=== PATIENT | female | born 1935 | race Caucasian/White ===

== ENCOUNTER 2017-02-02 06:32 | Inpatient (IN) | payer MEDICARE, OTHER ==
[~2017-02-02] VITALS: Ht 165.1 cm; Wt 88.2 kg
[2017-02-02] VITALS (8 sets, daily range): BP systolic 114–133; BP diastolic 68–102; PULSE 85–98; RESP 17–20; TEMP 98.2; Ht 165.1 cm; Wt 88.2 kg
[2017-02-02] MEDS ORDERED: PROPOFOL 100 ML IV STA (06:36)
[2017-02-02] MEDS ORDERED: LEVETIRACETAM 1000 MG (PMX) 100 ML IVPB STA (06:36)
[2017-02-02] MEDS ORDERED: SOD CHLORIDE 0.9% 1,000 ML IV STA (06:36)
[2017-02-02] MEDS ORDERED: CEFEPIME 2GM/50 ML (PMX) 50 ML IVPB STA (06:44)
[2017-02-02] MEDS ORDERED: HYDROmorphONE 1 MG/ML SYG IV STA (06:44)
[2017-02-02] MEDS ORDERED: SODIUM CHLORIDE 0.9% 1L BAG IV* STA (06:44)
--- NOTE | 2017-02-02 06:58 | RADRPT ---
PROCEDURE: XR Chest. CLINICAL INDICATION: Seizure. Respiratory failure. TECHNIQUE: Portable single view of the chest COMPARISON: None. FINDINGS: Endotracheal tube is seen and appears in good position. Mild cardiomegaly. Calcification of the ao rta and mitral annulus. There is pulmonary vascular congestion with increased interstitial markings which may be due to interstitial edema. There may be early perihilar alveolar edema. No large eff usion is seen. Degenerative change of the spine. Right upper quadrant clips. IMPRESSION: Endotracheal tube in good position. Aortic atherosclerosis. Probable moderate congestive heart failu re. RPTAT: HLBE Physician Theo Date Time Electronically viewed and signed by Danielle Young Physician on 02/02/2017 06:58 LE/
[2017-02-02] MEDS ORDERED: ETOMIDATE 20 MG INJ ONE (07:00)
[2017-02-02] MEDS ORDERED: ACETAMINOPHEN 650 MG SUPP PR ONE (07:00)
[2017-02-02] MEDS ORDERED: SUCCINYLCHOLINE CHLORIDE 100 MG/5 ML SYG IV ONE (07:00)
[2017-02-02] MEDS ORDERED: VANCOMYCIN 1 GM (PMX) 250 ML IVPB ONE (07:00)
[2017-02-02] MEDS ORDERED: TRAM-40 PO (07:04)
[2017-02-02] MEDS ORDERED: ASCO500C7 PO (07:05)
[2017-02-02] MEDS ORDERED: MULTI PO (07:05)
[2017-02-02] MEDS ORDERED: MAGN400O4 PO (07:06)
[2017-02-02] MEDS ORDERED: ESOM40CA PO (07:07)
[2017-02-02] MEDS ORDERED: CLON0.5T4 PO (07:07)
[2017-02-02] MEDS ORDERED: FER325 PO (07:07)
[2017-02-02] MEDS ORDERED: FURO40TA4 PO (07:09)
[2017-02-02] MEDS ORDERED: ISOS5TAB2 PO (07:10)
[2017-02-02] MEDS ORDERED: LINA145C PO (07:12)
[2017-02-02] MEDS ORDERED: MECL-77 PO (07:12)
[2017-02-02 07:13] LABS: ABNORMAL IP MESSAGE 1; BASOPHIL # 0.1 10^3/ul (0.0-0.1); BASOPHILS % 0.6 % (0.0-2.0); EOSINOPHILS # 0.1 10^3/ul (0.0-0.5); EOSINOPHILS % 0.6 % (0.0-7.0); HEMATOCRIT 36.1 % (37.0-47.0); HEMOGLOBIN 11.4 g/dl (12.0-16.0); LYMPHOCYTES # 5.5 10^3/ul (0.8-2.9); LYMPHOCYTES % 25.9 % (15.0-51.0); MEAN CORPUSCULAR HEMOGLOBIN 31.9 pg (29.0-33.0); MEAN CORPUSCULAR HGB CONC 31.6 g/dl (32.0-37.0); MEAN CORPUSCULAR VOLUME 101.1 fl (82.0-101.0); MEAN PLATELET VOLUME 10.7 fl (7.4-10.4); MONOCYTES % 4.6 % (0.0-11.0); NEUTROPHILS % 65.5 % (39.0-77.0); NUCLEATED RED BLOOD CELLS% 0.1 /100WBC (0.0-0.0); PLATELET COUNT 502 10^3/UL (140-415); RED BLOOD COUNT 3.57 10^6/ul (4.20-5.40); RED CELL DISTRIBUTION WIDTH 14.2 % (11.5-14.5); WHITE BLOOD COUNT 21.4 10^3/ul (4.8-10.8)
[2017-02-02] MEDS ORDERED: MISO100T PO (07:13)
[2017-02-02] MEDS ORDERED: RANO500T2 PO (07:14)
[2017-02-02 07:16] LABS: POSITIVE DIFF @See below
[2017-02-02] MEDS ORDERED: DILT120C77 PO (07:16)
[2017-02-02] MEDS ORDERED: HEPA500021 IJ (07:17)
[2017-02-02] MEDS ORDERED: POLY17PO6 PO (07:19)
[2017-02-02] MEDS ORDERED: METO-448 PO (07:19)
[2017-02-02] MEDS ORDERED: BENA20TA48 PO (07:20)
[2017-02-02] MEDS ORDERED: ACET-2047 PO (07:21)
[2017-02-02] MEDS ORDERED: ACET1TAB40 PO (07:21)
[2017-02-02] MEDS ORDERED: ASPI-664 PO (07:22)
[2017-02-02 07:31] LABS: INR 1.15; PROTIME 14.7 Sec (12.2-14.2); PT RATIO 1.1
[2017-02-02 07:32] LABS: PARTIAL THROMBOPLASTIN TIME 26.4 Sec (25.0-35.0)
[2017-02-02 07:36] LABS: CALCIUM 8.4 mg/dl (8.4-10.2); CREATININE 0.94 mg/dl (0.44-1.00); POTASSIUM 4.4 mmol/L (3.5-5.1)
[2017-02-02 07:55] LABS: TROPONIN-I 0.462 ng/ml (0.00-0.12)
[2017-02-02] MEDS ORDERED: LEVO25TA50 PO (08:00)
[2017-02-02] MEDS ORDERED: ASPIRIN 300 MG SUPP PR ONE (08:00)
[2017-02-02 08:16] LABS: ADD UMIC YES; UR ASCORBIC ACID NEGATIVE (NEGATIVE); UR BACTERIA FEW /HPF (NONE SEEN); UR BILIRUBIN (Dip) NEGATIVE (NEGATIVE); UR BLOOD (Dip) 1+ mg/dL (NEGATIVE); UR BUDDING YEAST MODERATE /HPF (NONE SEEN); UR CLARITY SLIGHTLY CLOUDY (CLEAR); UR COLOR YELLOW (YELLOW); UR GLUCOSE (Dip) 3+ mg/dL (NEGATIVE); UR HYPHAE YEAST FEW /HPF (NONE SEEN); UR KETONES (Dip) NEGATIVE (NEGATIVE); UR LEUKOCYTE ESTERASE (Dip) 2+ Leu/ul (NEGATIVE); UR MUCUS FEW /HPF (NONE SEEN); UR NITRITE (Dip) NEGATIVE (NEGATIVE); UR NONSQUAMOUS EPITHELIAL CELL 1 /HPF (NONE SEEN); UR RBC 49 /HPF (0-5); UR SPECIFIC GRAVITY (Dip) 1.014 (1.003-1.030); UR SQUAMOUS EPITHELIAL CELL FEW /HPF (FEW); UR TOTAL PROTEIN (Dip) 2+ mg/dl (NEGATIVE); UR UROBILINOGEN (Dip) NEGATIVE (NEGATIVE)
--- NOTE | 2017-02-02 08:32 | RADRPT ---
PROCEDURE: CT Brain without contrast. CLINICAL INDICATION: Seizure TECHNIQUE: CT scan of the brain was performed on a multidetector high-resolution CT scan. Axial im aging was obtained of the brain without contrast administration. Coronal and sagittal reformatted i mages were obtained from the axial source images. Standard CT scan of the head without contrast prot ocols were performed. The total exam CTDI equals 44.19 mGy and the total exam DLP equals 720.23 mGy-cm. One or more of the following dose reduction techniques were used: - Automated exposure control. - Adjustment of the mA and/or kV according to patient size. Use of iterative reconstruction technique. COMPARISON: None. FINDINGS: Ventricular system and peripheral CSF spaces are prominent consistent with moderate symm etrical bifrontal cerebral volume loss. Mild periventricular deep white matter changes that is nons pecific and consistent with chronic microvascular ischemic disease. Negative for intracranial jeremie s hemorrhages or midline shift. The dale-white matter junction is unremarkable. There is hard athe rosclerotic plaque involving the cavernous carotid arteries. There is chronic mild sphenoid sinus d isease. Remainder the paranasal sinuses are unremarkable. Chronic right mastoiditis. The bones an d calvarium are intact. IMPRESSION: 1. No evidence of intracranial masses hemorrhages midline shift. 2. Moderate symmetrical bifrontal cerebral volume loss. 3. No evidence of midline shift. 4. Mild nonspecific chronic microvascular ischemic disease. RPTAT:AAJJ Physician Abraham Date Time Electronically viewed and signed by Physician Abraham on 02/02/2017 08:31 /
[2017-02-02 08:35] LABS: AADO2 Arterial 395.4 mmHg (7.0-24.0); Arterial Base Excess -0.2 mmol/L (-3.0-3); Arterial COHb 0.2 % (0.0-3.0); Arterial Fraction of Oxyhgb 98.7 % (93.0-99.0); Arterial HCO3 24.5 mmol/L (22.0-26.0); Arterial MetHb 0.4 % (0.0-1.5); MODE VENT - AC
--- NOTE | 2017-02-02 08:42 | ERA ---
ER Documentation Chief Complaint Date/Time DATE: 02/02/17 TIME: 08:37 Chief Complaint ALOC, Seizure postical HPI Is an 81-year-old female who presents with seizure. Please note the history and physical exam is limited secondary to patient's mental status. The patient was brought in by ambulance. She had a seizure at a nursing facility for 15 minutes which did not stop on its own. The paramedics need to get 5 mg of Versed to stop the seizure. She is not responding to commands at this time. Upon review of old medical records this is the patient's first visit to the emergency department. ROS All systems reviewed and are negative except as per history of present illness. Medications Home Meds Reported Medications Levothyroxine Sodium* (Levoxyl*) 25 Mcg Tablet, 12.5 MCG PO BEFORE BREAKFAST, # 30 TAB 02/02/17 Aspirin (Low Dose Aspirin) 81 Mg Tablet.dr, 81 MG PO DAILY, #30 TAB 02/02/17 Acetaminophen with Codeine (Acetaminophen-Cod #3 Tablet) 1 Each Tablet, 1 TAB PO Q6H Y for PAIN LEVEL 6-10, #7 TAB 02/02/17 Acetaminophen* (Acetaminophen*) 650 Mg Tablet, 650 MG PO Q4 Y for PAIN LEVEL 1-5 , #30 TAB 02/02/17 Benazepril Hcl* (Benazepril Hcl*) 20 Mg Tablet, 20 MG PO DAILY, #30 TAB HOLD IF SBP BELOW 110 02/02/17 Polyethylene Glycol* (Miralax*) 17 Gm Powd.pack, 17 GM PO DAILY, #30 PACKET 02/02/17 Metoprolol Tartrate* (Lopressor*) 25 Mg Tab, 12.5 MG PO BID, #60 TAB HOLD IF SBP BELOW 110 HOLD IF AP BELOW 60 02/02/17 Heparin Sodium,Porcine/Pf (HEPARIN SOD 5,000 UNIT/ 0.5 ML) 5,000 Unit/0.5 Ml Vial, 5000 UNIT IJ Q12, VIAL FOR 10 DAYS STARTED 02-01-17 STOP 02-11-17 02/02/17 Diltiazem Hcl* (Cardizem CD*) 120 Mg Cap.sr.24h, 120 MG PO DAILY, #30 CAP HOLD IF SBP BELOW 110 HOLD IF AP BELOW 60 02/02/17 Ranolazine* (Ranexa*) 500 Mg Tab.sr.12h, 500 MG PO Q12, TAB 02/02/17 Misoprostol* (Cytotec*) 100 Mcg Tablet, 200 MCG PO BID, TAB 02/02/17 Meclizine Hcl* (Meclizine Hcl*) 25 Mg Tablet, 25 MG PO BID Y for DIZZINESS, TAB 02/02/17 Linaclotide (LINZESS) 145 Mcg Capsule, 145 MCG PO DAILY, #30 CAP 02/02/17 Isosorbide Dinitrate* (Isosorbide Dinitrate*) 5 Mg Tablet, 5 MG PO BID, TAB 02/02/17 Furosemide* (Furosemide*) 40 Mg Tablet, 40 MG PO DAILY, TAB hold for SBP below 110 02/02/17 Ferrous Sulfate* (Ferrous Sulfate*) 325 Mg Tabec, 325 MG PO BID, TAB 02/02/17 Esomeprazole Mag Trihydrate (Nexium) 40 Mg Capsule.dr, 40 MG PO BID, #60 CAP 02/02/17 Clonazepam* (Clonazepam*) 0.5 Mg Tablet, 0.5 MG PO TID Y for ANXIETY, TAB 02/02/17 Magnesium Hydroxide* (Milk Of Magnesia*) 400 Mg/5 Ml Oral.susp, 30 ML PO DAILY Y for CONSTIPATION, ML 02/02/17 Ascorbic Acid* (Vitamin C*) 500 Mg Capsule.sa, 500 MG PO DAILY, CAP 02/02/17 Multivitamins* (Theragran*) 1 Tab Tab, 1 TAB PO DAILY, TAB 02/02/17 Tramadol Hcl* (Ultram*) 50 Mg Tablet, 50 MG PO BID Y for PAIN, TAB 02/02/17 Allergies Allergies: Coded Allergies: No Known Allergy (Unverified , 02/02/17) PMhx/Soc History of Surgery: Yes (Abdominal SX) Anesthesia Reaction: No Hx Neurological Disorder: Yes (Seizures) Hx Respiratory Disorders: No Hx Cardiac Disorders: Yes (CAD, CHF) Hx Psychiatric Problems: Yes (Anxiety) Hx Miscellaneous Medical Probl: Yes (HTN, GERD, hypothyroidsm, Vertigo.) Hx Alcohol Use: No Hx Substance Use: No Hx Tobacco Use: No Smoking Status: Never smoker FmHx Unable to obtain Physical Exam Vitals Vital Signs Date Time Temp Pulse Resp B/P Pulse Ox O2 Delivery O2 Flow Rate FiO2 02/02/17 08:23 100.4 73 18 103/65 100 Mechanical Ventilator 8/9/17 06:45 86 16 100 100 02/02/17 06:40 113 14 144/69 99 Physical Exam Const: Moderate distress Head: Atraumatic Eyes: Normal Conjunctiva ENT: Normal External Ears, Nose and Mouth. Neck: Full range of motion..~ No meningismus. Resp: Shallow breaths without good ventilation Cardio: Tachycardic rate Abd: Soft, non tender, non distended. Normal bowel sounds Skin: Pale skin Back: No midline or flank tenderness Ext: No cyanosis, or edema Neur: Not awake or following commands at this time Result Diagram: 02/02/17 0650 02/02/17 0650 Results 24 hrs Laboratory Tests Test 02/02/17 06:50 02/02/17 07:07 02/02/17 07:30 White Blood Count 21.410^3/ul Red Blood Count 3.5710^6/ul Hemoglobin 11.4g/dl Hematocrit 36.1% Mean Corpuscular Volume 101.1fl Mean Corpuscular Hemoglobin 31.9pg Mean Corpuscular Hemoglobin Concent 31.6g/dl Red Cell Distribution Width 14.2% Platelet Count 85893^3/UL Mean Platelet Volume 10.7fl Neutrophils % 65.5% Lymphocytes % 25.9% Monocytes % 4.6% Eosinophils % 0.6% Basophils % 0.6% Nucleated Red Blood Cells % 0.1/100WBC Neutrophils # 14.010^3/ul Lymphocytes # 5.510^3/ul Monocytes # 1.010^3/ul Eosinophils # 0.110^3/ul Basophils # 0.110^3/ul Nucleated Red Blood Cells # 0.010^3/ul Prothrombin Time 14.7Sec Prothrombin Time Ratio 1.1 INR International Normalized Ratio 1.15 Activated Partial Thromboplast Time 26.4Sec Sodium Level 141mmol/L Potassium Level 4.4mmol/L Chloride Level 101mmol/L Carbon Dioxide Level 21mmol/L Anion Gap 23 Blood Urea Nitrogen 10mg/dl Creatinine 0.94mg/dl Glucose Level 353mg/dl Lactic Acid Level 8.8mmol/L Calcium Level 8.4mg/dl Troponin I 0.462ng/ml Blood Gas Specimen Source Blood arterial Arterial Blood Date Drawn 02/02/2017 8:26:48 AM Arterial Blood pH (Temp corrected) 7.402 Arterial Blood pCO2 (Temp correct) 40.3mmhg Arterial Blood pO2 (Temp corrected) 277.3mmHG Arterial Blood HCO3 24.5mmol/L Arterial Blood Base Excess -0.2mmol/L Arterial Blood Oxygen Saturation 99.3mmHG Jordan Test N/A Arterial Blood Gas Puncture Site Right Brachial Arterial Blood Carboxyhemoglobin 0.2% Arterial Blood Methemoglobin 0.4% Blood Gas A-a O2 Differential 395.4mmHg Oxyhemoglobin Percent 98.7% Total Hemoglobin 11.0g/dl Blood Gas Temperature 37.0C Blood Gas Respiration Rate 16.0 Blood Gas Actual Respiration Rate 16 Blood Gas Modality VENT - AC FiO2 100.0% Blood Gas Tidal Volume 500.0mL Blood Gas Low PEEP Setting 5.0cmH2O Blood Gas Notified Whom MDA Blood Gas Notified Time 02/02/2017 8:35:16 AM Urine Color YELLOW Urine Clarity SLIGHTLY CLOUDY Urine pH 5.0 Urine Specific [place] 1.014 Urine Ketones NEGATIVEmg/dL Urine Nitrite NEGATIVEmg/dL Urine Bilirubin NEGATIVEmg/dL Urine Urobilinogen NEGATIVEmg/dL Urine Leukocyte Esterase 2+Rubén/ul Urine Microscopic RBC 49/HPF Urine Microscopic WBC 116/HPF Urine Squamous Epithelial Cells FEW/HPF Urine Bacteria FEW/HPF Urine Granular Casts FEW/HPF Urine Mucus FEW/HPF Urine Yeast with Hyphae FEW/HPF Urine Yeast (Budding) MODERATE/HPF Urine Hemoglobin 1+mg/dL Urine Glucose 3+mg/dL Urine Total Protein 2+mg/dl Current Medications Medications (Trade) Dose Ordered Sig/Ирина Route PRN Reason Start Time Stop Time Status Last Admin Dose Admin Sodium Chloride 1,000 ml @ 1,000 mls/hr Q1H STAT IV 02/02/17 06:36 02/02/17 07:35 DC 02/02/17 07:44 Propofol 100 ml @ 0 mls/hr ONCE STAT IV 02/02/17 06:36 02/02/17 06:38 DC 02/02/17 07:44 Levetiracetam (Keppra 1,000mg/ 100ml (Pmx)) 100 ml @ 400 mls/hr ONCE STAT IVPB 02/02/17 06:36 02/02/17 06:50 DC 02/02/17 07:44 Sodium Chloride 2330 ml 2,330 ml BOLUS OVER 2 HOURS STAT IV* 02/02/17 06:44 8/9/17 06:47 DC 02/02/17 07:48 Cefepime HCl 50 ml @ 100 mls/hr ONCE STAT IVPB 02/02/17 06:44 02/02/17 07:13 DC 02/02/17 07:45 Vancomycin HCl (Vancocin) 250 ml @ 125 mls/hr ONCE ONCE IVPB 02/02/17 07:00 02/02/17 08:59 Acetaminophen (Tylenol Supp) 650 mg ONCE ONCE DC 02/02/17 07:00 02/02/17 07:01 DC Hydromorphone HCl (Dilaudid) 1 mg ONCE STAT IV 02/02/17 06:44 02/02/17 06:48 DC Aspirin (Aspirin) 300 mg ONCE ONCE DC 02/02/17 08:00 02/02/17 08:01 DC Procedures/MDM EKG read by me: Rate/Rhythm: Sinus tachycardia at a rate of 125 Intervals: Normal Impression: Sinus tachycardia without ischemia PROCEDURE: CT Brain without contrast. CLINICAL INDICATION: Seizure TECHNIQUE: CT scan of the brain was performed on a multidetector high- resolution CT scan. Axial imaging was obtained of the brain without contrast administration. Coronal and sagittal reformatted images were obtained from the axial source images. Standard CT scan of the head without contrast protocols were performed. The total exam CTDI equals 44.19 mGy and the total exam DLP equals 720.23 mGy- cm. One or more of the following dose reduction techniques were used: - Automated exposure control. - Adjustment of the mA and/or kV according to patient size. Use of iterative reconstruction technique. COMPARISON: None. FINDINGS: Ventricular system and peripheral CSF spaces are prominent consistent with moderate symmetrical bifrontal cerebral volume loss. Mild periventricular deep white matter changes that is nonspecific and consistent with chronic microvascular ischemic disease. Negative for intracranial masses hemorrhages or midline shift. The dale-white matter junction is unremarkable. There is hard atherosclerotic plaque involving the cavernous carotid arteries. There is chronic mild sphenoid sinus disease. Remainder the paranasal sinuses are unremarkable. Chronic right mastoiditis. The bones and calvarium are intact. IMPRESSION: 1. No evidence of intracranial masses hemorrhages midline shift. 2. Moderate symmetrical bifrontal cerebral volume loss. 3. No evidence of midline shift. 4. Mild nonspecific chronic microvascular ischemic disease. RPTAT:AAJJ Physician Abraham Date Time Electronically viewed and signed by Physician Abraham on 02/02/2017 08:31 Chest X-ray 1V Interpreted by me: Soft Tissue: No acute abnormalities Bones: No acute abnormalities Mediastinum/Cardiac Silhouette/Lungs: ET tube in good position without signs of pneumonia Admit MDM: Patient's infectious symptoms have not stabilized and the patient is at risk of rapid decompensation. The patient will be admitted for careful hydration, antibiotic therapy, and infectious source control. Severe Sepsis criteria: Infectious source: Unclear at this time End organ damage indicated by: Lactate greater than 2 Sepsis Management: Time of recognition of sepsis: Upon arrival Within 3 hours of recognition: Blood cultures x 2 before broad-spectrum antibiotics: Yes 30 ml/kg NS bolus Completed Initial lactate 8.8 Repeat lactate pending Time of recognition of septic shock: 0650 Septic Shock Assessment: Any lactic acid > 4.0 yes Persistent hypotension (SBP < 90 or 40 mmHg drop, MAP < 65) despite 30 mL/kg IV fluid bolus No Volume Re-assessment for Septic Shock (post 30 ml/kg bolus): Temp 100.4, BP 103/65, HR 73, RR 18, Pox 100% Heart Regular rate & rhythm Lungs No crackles Skin Warm & dry Cap Refill Less than 2 seconds Peripheral pulses Radially present Persistent Hypotension Treatment: Comfort care No Central line Not Required Vasopressor started Not required I considered further perfusion assessment with CVP measurement, SCVO2, bedside ultrasound volume assessment, passive leg raise, trial of further fluid bolus. And proceeded with 30 ml/kg fluid bolus of NSS, broad spectrum antibiotics, and admission. The patient was also found to have a positive troponin which was likely related to cardiac strain and not true occlusion. The patient was given aspirin per rectum once the CT scan was negative for bleed. The patient had status epilepticus and required Versed to stop the seizure after 15 minutes of seizure. The patient was given Keppra 1 g IV to prevent further seizure as well as propofol for sedation. Prognosis is poor. Accepting Care Team Current data and ongoing care discussed. Admitting Physician: Dr. [employer] Teacher(s): None Outstanding Data: Culture results and repeat lactic acid Critical Care: Critical care time 35 minutes excluding all billable procedures Emergent fluid management while maintaining close respiratory support. Provision of immediate and broad-spectrum antibiotic therapy. Simultaneous assessment for possible sources in order to direct targeted therapy. Consideration for invasive and chemical support to prevent cardiopulmonary collapse. Departure Diagnosis: Primary Impression: NSTEMI (non-ST elevated myocardial infarction) Additional Impressions: Septic shock Respiratory failure Qualified Code: J96.00 - Acute respiratory failure, unspecified whether with hypoxia or hypercapnia Status epilepticus Condition: Critical TREVIN LACY MD Feb 02, 2017 08:42
--- NOTE | 2017-02-02 11:09 | CONS ---
Date/Time of Note Date/Time of Note DATE: 02/02/17 TIME: 11:03 Assessment/Plan Assessment/Plan Chief Complaint/Hosp Course 81 yo female with recent open cholecystectomy admitted to SNF with witnessed generalized seizures, intubated sedated on propofol started on Keppra. Labs with elevated wbc and lactate. CTH unrevealing for acute process recommend continue Keppra 1 g BID on propofol, add versed if needed for additional sedation if further seizures Routine EEG MRI Brain w contrast when more stable would recommend LP to evaluate for meningitis, encephalitis will request Dr. Waite to follow from tomorrow Problems: Consultation Date/Type/Reason Admit Date/Time 02/02/17 Date of Consultation: Feb 02, 2017 Type of Consultation: Neurology Reason for Consultation seizure Referring Provider: MARICHUY DUBON MD Hx of Present Illness 81 yo female brought from [facility] recently with open cholecystectomy with fevers, admitted with witnessed tonic clonic seizures. She was giiven 5 mg Versed en route to the ED, was intubated 6:40 am this morning placed on propofol drip and given IV Keppra dose. CTH showed no acute process, chronic microvascular changes WBC: 21.4 Plt: 502 Neutrophils: 14 Lactic Acid 8.8 Troponin 0.462 Past Medical History s/p cholecystectomy no known hx of seizures Social History Smoking Status: Never smoker Exam/Review of Systems Vital Signs Vitals Vital Signs Date Time Temp Pulse Resp B/P Pulse Ox O2 Delivery O2 Flow Rate FiO2 02/02/17 09:59 100.4 75 20 130/92 100 Room Air Mechanical Ventilator 02/02/17 06:45 100 Exam intubated on propofol limited exam non-responsive to verbal stimuli CN: STEPH 2 mm dolls intact corneals intact weak gag Motor: decreased tone absent w/d to extremities Results Result Diagram: 02/02/17 0650 02/02/17 0650 Results 24 hrs Laboratory Tests Test 02/02/17 06:50 02/02/17 07:07 02/02/17 07:30 02/02/17 09:20 White Blood Count 21.4 H Red Blood Count 3.57 L Hemoglobin 11.4 L Hematocrit 36.1 L Mean Corpuscular Volume 101.1 H Mean Corpuscular Hemoglobin 31.9 Mean Corpuscular Hemoglobin Concent 31.6 L Red Cell Distribution Width 14.2 Platelet Count 502 H Mean Platelet Volume 10.7 H Neutrophils % 65.5 Lymphocytes % 25.9 Monocytes % 4.6 Eosinophils % 0.6 Basophils % 0.6 Nucleated Red Blood Cells % 0.1 H Neutrophils # 14.0 H Lymphocytes # 5.5 H Monocytes # 1.0 H Eosinophils # 0.1 Basophils # 0.1 Nucleated Red Blood Cells # 0.0 Prothrombin Time 14.7 H Prothrombin Time Ratio 1.1 INR International Normalized Ratio 1.15 Activated Partial Thromboplast Time 26.4 Sodium Level 141 Potassium Level 4.4 Chloride Level 101 Carbon Dioxide Level 21 Anion Gap 23 H Blood Urea Nitrogen 10 Creatinine 0.94 Glucose Level 353 H Lactic Acid Level 8.8 *H 2.0 Calcium Level 8.4 Troponin I 0.462 *H Blood Gas Specimen Source Blood arterial Arterial Blood Date Drawn 02/02/2017 8:26:48 AM Arterial Blood pH (Temp corrected) 7.402 Arterial Blood pCO2 (Temp correct) 40.3 Arterial Blood pO2 (Temp corrected) 277.3 H Arterial Blood HCO3 24.5 Arterial Blood Base Excess -0.2 Arterial Blood Oxygen Saturation 99.3 Jordan Test N/A Arterial Blood Gas Puncture Site Right Brachial Arterial Blood Carboxyhemoglobin 0.2 Arterial Blood Methemoglobin 0.4 Blood Gas A-a O2 Differential 395.4 H Oxyhemoglobin Percent 98.7 Total Hemoglobin 11.0 L Blood Gas Temperature 37.0 Blood Gas Respiration Rate 16.0 Blood Gas Actual Respiration Rate 16 Blood Gas Modality VENT - AC FiO2 100.0 Blood Gas Tidal Volume 500.0 Blood Gas Low PEEP Setting 5.0 Blood Gas Notified Whom MDA Blood Gas Notified Time 02/02/2017 8:35:16 AM Urine Color YELLOW Urine Clarity SLIGHTLY CLOUDY A Urine pH 5.0 Urine Specific [place] 1.014 Urine Ketones NEGATIVE Urine Nitrite NEGATIVE Urine Bilirubin NEGATIVE Urine Urobilinogen NEGATIVE Urine Leukocyte Esterase 2+ H Urine Microscopic RBC 49 H Urine Microscopic WBC 116 H Urine Squamous Epithelial Cells FEW Urine Bacteria FEW A Urine Granular Casts FEW A Urine Mucus FEW A Urine Yeast with Hyphae FEW A Urine Yeast (Budding) MODERATE A Urine Hemoglobin 1+ H Urine Glucose 3+ H Urine Total Protein 2+ H Test 02/02/17 09:50 Lactic Acid Level 3.0 *H CLINT PINON MD Feb 02, 2017 11:08
[2017-02-02 11:33] LABS: ALBUMIN 2.8 g/dl (3.3-4.9); TOTAL PROTEIN 5.5 g/dl (6.1-8.1)
[2017-02-02] MEDS ORDERED: PIPER-TAZO 2.25 GM (PMX) 50 ML IVPB SCH (14:00)
[2017-02-02 14:30] LABS: BASOPHILS % 0.2 % (0.0-2.0); HEMATOCRIT 32.1 % (37.0-47.0); HEMOGLOBIN 10.5 g/dl (12.0-16.0); LYMPHOCYTES # 1.3 10^3/ul (0.8-2.9); LYMPHOCYTES % 6.6 % (15.0-51.0); MEAN CORPUSCULAR HGB CONC 32.7 g/dl (32.0-37.0); MEAN CORPUSCULAR VOLUME 97.9 fl (82.0-101.0); MEAN PLATELET VOLUME 10.9 fl (7.4-10.4); MONOCYTE # 1.2 10^3/ul (0.3-0.9); NEUTROPHIL # 16.9 10^3/ul (1.6-7.5); NEUTROPHILS % 86.3 % (39.0-77.0); RED BLOOD COUNT 3.28 10^6/ul (4.20-5.40); RED CELL DISTRIBUTION WIDTH 14.5 % (11.5-14.5); WHITE BLOOD COUNT 19.6 10^3/ul (4.8-10.8)
[2017-02-02 14:31] LABS: PLATELET COUNT 278 10^3/UL (140-415); POSITIVE DIFF @See below
[2017-02-02 14:45] LABS: ALBUMIN 2.8 g/dl (3.3-4.9); ALBUMIN/GLOBULIN RATIO 1.12; BILIRUBIN,INDIRECT 0.1 mg/dl (0-1.1); BILIRUBIN,TOTAL 0.1 mg/dl (0.2-1.3); CREATININE 0.88 mg/dl (0.44-1.00); POTASSIUM 3.6 mmol/L (3.5-5.1); TOTAL PROTEIN 5.3 g/dl (6.1-8.1)
[2017-02-02] MEDS ORDERED: PROPOFOL 100 ML ONE (15:43)
--- NOTE | 2017-02-02 15:46 | RADRPT ---
Echocardiogram Report Patient Name: LATASHA TRINH Gender: Female Date: 1935 Study Date: 02-Feb-2017 [employer]argo Tank Mechanic: Sravani Miranda RDCS Location: [facility] Ref. Physician: MARICHUY DUBON Quality: Good Procedures: Transthoracic echocardiogram with complete 2D, M-Mode, and doppler examination. Indications: reported h/o Congestive Heart Failure. 2D/M Mode Doppler Measurement Value Normal Ranges Measurement Value Normal Ranges LVIDd 2D 4.7 3.5 - 5.6 cm AV Peak Zan 1.7 m/sec LVIDs 2D 3.5 2.1 - 4.1 cm AV Peak PG 11.3 mmHg LVPWd 2D 1.2 0.6 - 1.1 cm AI Peak PG 43.0 mmHg IVSd 2D 1.2 0.6 - 1.1 cm AI Peak Zan 3.3 m/sec AoR Diam 2D 2.8 2.0 - 3.7 cm AI PHT 507.0 msec EDV 2D 103.5 cm3 LVOT Peak Zan 0.8 m/sec ESV 2D 44.2 cm3 LVOT Peak PG 2.5 mmHg LA Dimen 2D 3.9 2.3 - 4.0 cm MV E Peak Zan 1.3 m/sec MV A Peak Zan 0.5 m/sec MV E/A 2.7 MV Decel Time 213 msec MV Decel [place] 6 MV E/A 2.7 TR Peak Zan 3.3 m/sec TR Peak PG 42.6 mmHg RVSP 58.0 mmHg Findings Left Ventricle: Normal left ventricular cavity size. Mild concentric left ventricular hypertrophy. Ejection fraction is visually estimated at 3035 %. Tissue Doppler/Mitral Doppler indices are consistent with restrictive physiology with markedly elevated left atrial pressure (Stage IIIIV diastolic dysfunction). These segments of the LV are hypokinetic apical septum, apical anterior segment, mid anterior segment, inferior apex segment and apical lateral segment. Right Ventricle: Normal right ventricular size. Normal right ventricular systolic function. Left Atrium: There is mild enlargement of left atrium. Right Atrium: The right atrium is normal in size. Mitral Valve: Mitral valve leaflets appear mildly thickened. Moderate mitral annular calcification. Trace mitral regurgitation. Aortic Valve: No hemodynamically significant aortic stenosis by doppler. Aortic cusps appear mildly calcified. Mild aortic valve regurgitation. Tricuspid Valve: Normal appearance of the tricuspid valve. Estimated peak PA systolic pressure 58 mmHg. There is mild tricuspid regurgitation. Pulmonic Valve: Normal pulmonic valve appearance. There is trace pulmonic regurgitation. Pericardium: Normal pericardium with no significant pericardial effusion. Pleural effusion seen. Aorta: Normal aortic root. IVC: Dilated IVC without respiratory collapse, however, patient on ventilator. Conclusions 1.Normal left ventricular cavity size. Mild concentric left ventricular hypertrophy. Ejection fraction is visually estimated at 30-35 %. Tissue Doppler/Mitral Doppler indices are consistent with restrictive physiology with markedly elevated left atrial pressure (Stage III-IV diastolic dysfunction). These segments of the LV are hypokinetic apical septum., apical anterior segment. , mid anterior segment, inferior apex segment and apical lateral segment. 2.There is mild enlargement of left atrium. 3.Mitral valve leaflets appear mildly thickened. Moderate mitral annular calcification. Trace mitral regurgitation. 4.No hemodynamically significant aortic stenosis by doppler. Aortic cusps appear mildly calcified. Mild aortic valve regurgitation. 5.Normal appearance of the tricuspid valve. Estimated peak PA systolic pressure 58 mmHg. There is mild tricuspid regurgitation. 6.Normal pulmonic valve appearance. There is trace pulmonic regurgitation. Electronically Signed By: Alexis Montemayor 02-Feb-2017 15:45:42 -0700 Patient Name: LATASHA TRINH Study Date: 02-Feb-2017 [id number]
[2017-02-02] MEDS ORDERED: VANCOMYCIN IV PER PHARMACY XX SCH (16:00)
--- NOTE | 2017-02-02 19:47 | HP ---
Date/Time of Note Date/Time of Note DATE: 02/02/17 TIME: 19:26 Assessment/Plan VTE Prophylaxis VTE Prophylaxis Intervention: LMWH Lines/Catheters Urinary Cath still in place: Yes Reason Cath still needed: urinary retention Assessment/Plan Chief Complaint/Hosp Course 81 yo female with h/o CHF, recent open abdomen surgery for necrotic GB presenting after prolonged seizure. S/p benzos leading to obtundation and therefor intubated Acute hypoxic respiratory failure: - Wean sedation as tolerated and extubate in AM Seizure w status epilepticus: - Continue keppra per neurology - MRI brain when stable - Will LP tomorrow Fever: - Unclear source - Vanco and zosyn for now - LP tomorrow Lactic acidosis: - IVF, good UOP To ICU Problems: HPI/ROS Admit Date/Time Admit Date/Time 02/02/17 Hx of Present Illness 81 yo female w history of CHF and recent surgery for necrotic GB who presents after seizure Details are not clear but per collateral report patient felt previous well, then had a seizure lasting 15 minutes. She was given ativan in the field by EMS. When she arrived at [facility] she was obtunded and therefore intubated. Subsequently developed fever I am unable to obtain further history given patients current state PMH/Family/Social Social History Smoking Status: Never smoker Exam/Review of Systems Vital Signs Vitals Vital Signs Date Time Temp Pulse Resp B/P Pulse Ox O2 Delivery O2 Flow Rate FiO2 02/02/17 19:14 95 16 100 35 02/02/17 18:39 98.9 117/70 Mechanical Ventilator Exam Exam Intubated, sedation no response to noxious stimuli RRR Lungs clear anteriorly Surgical scars to abdomen appear c/d/i Ext without edema Labs Result Diagram: 02/02/17 1415 02/02/17 1415 Medications Medications Current Medications Levetiracetam 1000 mg/Sodium Chloride 110 ml @ 450 mls/hr Q12 IVPB ; Start 02/02 at 21:00 Vancomycin HCl/ Sodium Chloride (Vancocin/NS) 250 ml @ 83.333 mls/ hr Q24H IVPB ; Start 02/03/17 at 09:00 MARICHUY DUBON MD Feb 02, 2017 19:47
[2017-02-02] MEDS ORDERED: LEVETIRACETAM IV 1,000 MG in SOD CHLORIDE 0.9% 100 ML IVPB SCH (21:00)
[2017-02-02] MEDS: PROPOFOL 100 ML IV SCH (22:43)
[2017-02-02] MEDS: SOD CHLORIDE 0.9% 1,000 ML IV SCH (22:43)
[2017-02-02] MEDS ORDERED: ONDANSETRON 4 MG INJ IV PRN (23:00)
[2017-02-02] MEDS: PIPER-TAZO 3.375 GM IV (PMX) 100 ML IVPB SCH (23:49)
[2017-02-03] VITALS (94 sets, daily range): BP systolic 73–147; BP diastolic 46–115; PULSE 59–158; RESP 16–26
--- NOTE | 2017-02-03 01:33 | CONS ---
DATE OF ADMISSION: 02/02/2017 DATE OF CONSULTATION: 02/02/2017 Pulmonary Consultation REASON FOR CONSULTATION: Ventilator management. Thank you, , for this consultation. HISTORY OF PRESENT ILLNESS: This is an 81-year-old lady transferred from care home facility following prolonged seizure approximately 15 minutes. Upon arrival of the paramedics Versed was required 5 mg to stop seizure activity. She was brought to the emergency room at [facility]. CT of the head was performed, demonstrated no acute intracranial process. Here she had concern for decompensation requiring emergent intubation, mechanical ventilation. In addition, she had high initial lactic acidosis, possibly secondary to seizure and hypoperfusion. PAST MEDICAL HISTORY: Cholecystectomy. Apparently no history of seizure disorder. MEDICATION: Medications per chart. ALLERGIES: ALLERGIES APPARENTLY NONE. SOCIAL HISTORY: Nonsmoker. No alcohol. No history of drug use. FAMILY HISTORY: Unknown. REVIEW OF SYSTEMS: Twelve point review of systems unable to perform. PHYSICAL EXAMINATION: Elderly appearing lady, intubated on mechanical ventilation. Appears comfortable at rest. VITAL SIGNS: Temperature 99.5, pulse is 74, blood pressure 89/68, O2 sat 96 percent on mechanical ventilation. NECK: Supple. No JVD. No lymphadenopathy. CARDIAC: S1, S2, no added sounds or murmurs. CHEST: Diminished air entry in both lung bases. ABDOMEN: Mildly distended but soft. Nontender. No guarding or rebound. EXTREMITIES: No cyanosis, clubbing, or edema. NEUROLOGICAL: Generalized weakness. LABORATORY: White count 19.6, hemoglobin 10.5, platelets of 278. BUN 11, creatinine 0.88. Lactic acid 2.5. Initial ABG: pH 7.4, pCO2 of 40, pO2 of 277. INR 1.15. Urinalysis 2+ leuk esterase. Negative nitrites with a few bacteria. IMPRESSION AND PLAN: 1. Incomplete data. 2. Seizures, questionable new onset. 3. Possible aspiration pneumonia during seizure activity. 4. Recent cholecystectomy. PLAN: 1. Continue broad-spectrum antibiotic coverage. 2. Continue mechanical ventilation. 3. Continue Keppra per Neurology recommendations. 4. Lumbar puncture per Neurology recommendations. 5. DVT and GI prophylaxis. 6. Obtain past medical history and data. Dictated By: Shaji Jack MD /jesenia/ /Document#: [id number]
[2017-02-03] MEDS ORDERED: DILTIAZEM 25 MG INJ IV ONE ×2 (03:30→06:30)
[2017-02-03] MEDS: PROPOFOL 100 ML IV SCH ×4 (04:13→20:46)
[2017-02-03 04:16] LABS: BASOPHILS % 0.2 % (0.0-2.0); EOSINOPHILS % 0.1 % (0.0-7.0); HEMATOCRIT 32.6 % (37.0-47.0); HEMOGLOBIN 10.1 g/dl (12.0-16.0); LYMPHOCYTES # 1.1 10^3/ul (0.8-2.9); LYMPHOCYTES % 9.3 % (15.0-51.0); MEAN CORPUSCULAR HEMOGLOBIN 30.9 pg (29.0-33.0); MEAN CORPUSCULAR VOLUME 99.7 fl (82.0-101.0); MEAN PLATELET VOLUME 11.1 fl (7.4-10.4); MONOCYTE # 1.1 10^3/ul (0.3-0.9); MONOCYTES % 9.1 % (0.0-11.0); NEUTROPHIL # 9.7 10^3/ul (1.6-7.5); NEUTROPHILS % 80.5 % (39.0-77.0); RED BLOOD COUNT 3.27 10^6/ul (4.20-5.40); RED CELL DISTRIBUTION WIDTH 14.8 % (11.5-14.5)
[2017-02-03 04:18] LABS: POSITIVE DIFF @See below
[2017-02-03 04:28] LABS: MAGNESIUM 1.8 mg/dl (1.7-2.5); PHOSPHORUS 3.3 mg/dl (2.5-4.9)
[2017-02-03 04:29] LABS: PLATELET COUNT 204 10^3/UL (140-415)
[2017-02-03] MEDS ORDERED: LORAZEPAM 2 MG INJ IV ONE (04:30)
[2017-02-03] MEDS ORDERED: SOD CHLORIDE 0.9% 500 ML IV ONE (04:30)
[2017-02-03 04:31] LABS: ALBUMIN 2.7 g/dl (3.3-4.9); ALBUMIN/GLOBULIN RATIO 1.08; BILIRUBIN,INDIRECT 0.2 mg/dl (0-1.1); BILIRUBIN,TOTAL 0.2 mg/dl (0.2-1.3); CALCIUM 8.2 mg/dl (8.4-10.2); CREATININE 0.83 mg/dl (0.44-1.00); POTASSIUM 3.4 mmol/L (3.5-5.1); TOTAL PROTEIN 5.2 g/dl (6.1-8.1)
[2017-02-03] MEDS: POTASSIUM CHLORIDE 250 ML IVPB SCH ×2 (05:10→09:14)
[2017-02-03] MEDS: PIPER-TAZO 3.375 GM IV (PMX) 100 ML IVPB SCH ×3 (05:43→22:39)
[2017-02-03] MEDS ORDERED: PANTOPRAZOLE 40 MG INJ IV SCH (06:00)
[2017-02-03] MEDS ORDERED: NORepinephrine 8MG/250 ML (PMX 250 ML ONE (06:14)
[2017-02-03] MEDS ORDERED: NORepinephrine 8MG/250 ML (PMX 250 ML IV SCH ×2 (06:15→19:30)
[2017-02-03] MEDS ORDERED: niCARdipine 25 MG in SOD CHLORIDE 0.9% 250 ML IV SCH (07:00)
[2017-02-03] MEDS ORDERED: DILTIAZEM-D5W 125MG/125ML DRIP 125 ML ONE (07:01)
[2017-02-03] MEDS: DILTIAZEM-D5W 125MG/125ML DRIP 125 ML IV SCH ×2 (07:03→13:47)
--- NOTE | 2017-02-03 07:27 | RADRPT ---
PROCEDURE: Chest radiograph CLINICAL INDICATION: resp failure . TECHNIQUE: Single portable frontal view. COMPARISON: None relevant listed. FINDINGS: The endotracheal tube terminates 2.2 cm above the miguel. The enteric tube courses below the diaphragm below the field of view. Mild pulmonary vascular congestion. And opacity of the right mid lung may represent pneumonia or. Aortic arch calcifications. No suspicious bone lesion. IMPRESSION: 1. Right mid lung opacity which may represent pneumonia. 2. Mild pulmonary vascular congestion. 3. All support lines and tubes in appropriate position. RPTAT: PP Physician Sahra Date Time Electronically viewed and signed by Physician Sahra on 02/03/2017 07:27 LG/
[2017-02-03] MEDS: SOD CHLORIDE 0.9% 1,000 ML IV SCH (08:00)
[2017-02-03 08:21] LABS: AADO2 Arterial 128.3 mmHg (7.0-24.0); Allen Test ACCEPTAB; Arterial Base Excess 0.5 mmol/L (-3.0-3); Arterial COHb 0.3 % (0.0-3.0); Arterial Fraction of Oxyhgb 95.7 % (93.0-99.0); Arterial HCO3 23.9 mmol/L (22.0-26.0); Arterial MetHb 0.1 % (0.0-1.5); Arterial Total Hemglobin 10.4 g/dl (12.0-18.0); MODE VENT - AC
[2017-02-03] MEDS ORDERED: FAMOTIDINE 20 MG INJ IV SCH (09:00)
[2017-02-03] MEDS: VANCOMYCIN 1.25 GM in SOD CHLORIDE 0.9% 250 ML IVPB SCH (09:14)
[2017-02-03] MEDS ORDERED: LIDOCAINE 1% (MPF) 5 ML VIAL SC ONE (10:30)
--- NOTE | 2017-02-03 10:33 | CONS ---
Date/Time of Note Date/Time of Note DATE: 02/03/17 TIME: 10:26 Consult Date/Type/Reason Admit Date/Time Feb 02, 2017 at 07:43 Initial Consult Date 02/02/17 Type of Consultation: Pulmonary Ordering Provider: MARICHUY DUBON MD Subjective Patient continues vasopressor support, mechanical ventilation and now Cardizem drip. Objective Vital Signs Date Time Temp Pulse Resp B/P Pulse Ox O2 Delivery O2 Flow Rate FiO2 02/03/17 10:15 132 18 123/76 98 02/03/17 09:00 02/03/17 07:00 Mechanical Ventilator 02/03/17 05:25 35 Intake and Output 02/02/17 02/02/17 02/03/17 15:00 23:00 07:00 Intake Total 3450 ml 1585 ml 1586.65 ml Output Total 375 ml 210 ml Balance 3450 ml 1210 ml 1376.65 ml Exam GENERAL: Elderly lady intubated on mechanical ventilation, opens eyes and appears somewhat agitated. Orally intubated. VITAL SIGNS: see below. HEENT: Pupils equal, round, and reactive to light. CARDIAC: S1, S2, 1/6 systolic ejection murmur CHEST: Diminished air entry bilaterally. ABDOMEN: Mildly distended. Bowel sounds present no guarding or rebound EXTREMITIES: No cyanosis, clubbing edema +1 NEUROLOGIC: Generalized weakness Results/Medications Result Diagram: 02/03/17 0349 02/03/17 0349 Results 24 hrs Laboratory Tests Test 02/02/17 14:00 02/02/17 14:15 02/02/17 22:28 02/03/17 03:49 Lactic Acid Level 2.5 *H White Blood Count 19.6 H 12.0 #H Red Blood Count 3.28 L 3.27 L Hemoglobin 10.5 L 10.1 L Hematocrit 32.1 L 32.6 L Mean Corpuscular Volume 97.9 99.7 Mean Corpuscular Hemoglobin 32.0 30.9 Mean Corpuscular Hemoglobin Concent 32.7 31.0 L Red Cell Distribution Width 14.5 14.8 H Platelet Count 278 # 204 # Mean Platelet Volume 10.9 H 11.1 H Neutrophils % 86.3 H 80.5 H Lymphocytes % 6.6 L 9.3 L Monocytes % 6.0 9.1 Eosinophils % 0.0 0.1 Basophils % 0.2 0.2 Nucleated Red Blood Cells % 0.0 0.0 Neutrophils # 16.9 H 9.7 H Lymphocytes # 1.3 1.1 Monocytes # 1.2 H 1.1 H Eosinophils # 0.0 0.0 Basophils # 0.0 0.0 Nucleated Red Blood Cells # 0.0 0.0 Sodium Level 142 144 Potassium Level 3.6 3.4 L Chloride Level 106 108 Carbon Dioxide Level 24 24 Anion Gap 16 # 15 Blood Urea Nitrogen 11 12 Creatinine 0.88 0.83 Glucose Level 111 # 107 Calcium Level 8.0 L 8.2 L Total Bilirubin 0.1 L 0.2 Direct Bilirubin 0.00 0.00 Indirect Bilirubin 0.1 0.2 Aspartate Amino Transf (AST/SGOT) 40 43 Alanine Aminotransferase (ALT/SGPT) 28 29 Alkaline Phosphatase 56 55 Total Protein 5.3 L 5.2 L Albumin 2.8 L 2.7 L Globulin 2.50 2.50 Albumin/Globulin Ratio 1.12 1.08 Bedside Glucose 99 Phosphorus Level 3.3 Magnesium Level 1.8 Thyroid Stimulating Hormone (TSH) 1.310 Test 02/03/17 07:00 Blood Gas Specimen Source Blood arterial Arterial Blood Date Drawn 02/03/2017 7:40:59 AM Arterial Blood pH (Temp corrected) 7.466 H Arterial Blood pCO2 (Temp correct) 33.9 L Arterial Blood pO2 (Temp corrected) 81.8 Arterial Blood HCO3 23.9 Arterial Blood Base Excess 0.5 Arterial Blood Oxygen Saturation 96.1 Jordan Test ACCEPTAB Arterial Blood Gas Puncture Site Right Radial Arterial Blood Carboxyhemoglobin 0.3 Arterial Blood Methemoglobin 0.1 Blood Gas A-a O2 Differential 128.3 H Oxyhemoglobin Percent 95.7 Total Hemoglobin 10.4 L Blood Gas Temperature 37.0 Blood Gas Respiration Rate 16.0 Blood Gas Actual Respiration Rate 24 Blood Gas Modality VENT - AC FiO2 35.0 Blood Gas Tidal Volume 500.0 Blood Gas Low PEEP Setting 5.0 Blood Gas Notified Whom JLD Blood Gas Notified Time 02/03/2017 8:20:56 AM Medications Current Medications Levetiracetam 1000 mg/Sodium Chloride 110 ml @ 450 mls/hr Q12 IVPB Last administered on 02/02/17t 20:31; Admin Dose 450 MLS/HR; Start 02/02/17 at 21:00 Vancomycin HCl 1.25 gm/Sodium Chloride 250 ml @ 83.333 mls/ hr Q24H IVPB Last administered on 02/03/17 09:14; Admin Dose 83.333 MLS/HR; Start 02/03/17 at 09: 00 Propofol (Diprivan) 100 ml @ 2.25 mls/hr Q12H IV Last administered on 04:13; Admin Dose 11.25 MLS/HR; Start 02/02/17 at 22:30 Ondansetron HCl (Zofran Inj) 4 mg Q6H PRN IV NAUSEA AND/OR VOMITING; Start 02/02 at 23:00 Acetaminophen 650 mg 650 mg Q4H PRN [place] PAIN LEVEL 1-3 OR FEVER; Start 02/02/17 at 23:00 Piperacillin Sod/ Tazobactam Sod 100 ml @ 200 mls/hr Q8 IVPB Last administered on 02/03/17 05:43; Admin Dose 200 MLS/HR; Start 02/02/17 at 23:00 Potassium Chloride 250 ml @ 62.5 mls/hr Q4H IVPB Last administered on 09:14; Admin Dose 62.5 MLS/HR; Start 02/03/17 at 05:00; Stop 02/03/17 at 12 :59 Magnesium Sulfate/ Dextrose 100 ml @ 100 mls/hr ONCE ONCE IVPB ; Start at 13:30; Stop 02/03/17 at 14:29 Norepinephrine 16 mg/Dextrose 500 ml @ 1.87 mls/hr TITRATE IV ; Start 02/03/17 at 07:00 Diltiazem HCl (Cardizem-D5W 125 Mg/125 ml Drip) 125 ml @ 5 mls/hr TITRATE IV Last administered on 02/03/17 07:03; Admin Dose 5 MLS/HR; Start 02/03/17 at 07: 00 Famotidine (Pepcid Iv) 20 mg DAILY IV ; Start 02/04/17 at 09:00 Lidocaine (Xylocaine 1% (Mpf)) 5 ml ONCE ONCE SC ; Start 02/03/17 at 10:30; Stop 02/03/17 at 10:31 Assessment/Plan Chief Complaint/Hosp Course IMPRESSION AND PLAN: 1. Atrial fibrillation with rapid ventricular rate 2. Seizures, questionable new onset. 3. Possible aspiration pneumonia during seizure activity. X-ray shows right middle lobe infiltrate. 4. Recent cholecystectomy. 5. Septic shock. PLAN: 1. Continue broad-spectrum antibiotic coverage. 2. Continue mechanical ventilation. Hold weaning until more stable. 3. Continue Keppra per Neurology recommendations. 4. Possible Lumbar puncture per Neurology recommendations. 5. DVT and GI prophylaxis. Care time 40 minutes. Discussed with primary team. Problems: MEEK ENGEL MD, [facility] Feb 03, 2017 10:33
--- NOTE | 2017-02-03 13:27 | CONS ---
Date/Time of Note Date/Time of Note DATE: 02/03/17 TIME: 13:11 Assessment/Plan Assessment/Plan Chief Complaint/Hosp Course Assessment: Paroxysmal atrial fibrillation - currently with rapid ventricular response NSTEMI - suspect type 2 Acute on likely chronic systolic heart failure Cardiomyopathy, LVEF 30-35% - suspect chronic ischemic cardiomyopathy with segmental wall motion abnormalities Septic shock Possible aspiration pneumonia Tonic-colonic seizure - per neurology, planned for lumbar puncture, MRI when more stable Recent cholecystectomy Incomplete data Recommendations: -amiodarone bolus and drip per protocol -wean diltiazem drip -no anticoagulation given upcoming lumbar puncture -continue Levophed to keep MAP>65, wean as tolerated -EKG, serial troponins -replace potassium -ventilator management per pulmonology Problems: Consultation Date/Type/Reason Admit Date/Time Feb 02, 2017 at 07:43 Type of Consultation: Cardiology Reason for Consultation atrial fibrillation with rapid ventricular response Referring Provider: MARICHUY DUBON MD Hx of Present Illness The patient is an 81 year-old female who presented from her [facility] facility following prolonged tonic-clonic seizure for approximately 15 minutes. She has been intubated and admitted to the ICU. Noncontrast head CT did not show any acute abnormalities. She is noted to be febrile to 101.1 F, tachycardic, hypotensive, and have an elevated WBC of 21.4, suggestive of infection and septic shock. She has been started on a Levophed drip. She was reported to be in sinus rhythm on presentation, but has subsequently gone into atrial fibrillation with a rapid ventricular response. Her initial troponin was mildly elevated at 0.462. Transthoracic echocardiogram reported a left ventricular ejection fraction of 30-35% with segmental wall motion abnormalities. She reportedly had an open cholecystectomy recently. Otherwise, her past medical history is unknown. Unable to obtain review of systems, patient is intubated. Past Medical History Unable to obtain Past Surgical History Unable to obtain Past Surgical Hx: cholecystectomy (recent) Family History Significant Family History: no pertinent family hx (noncontributory given advanced age) Social History Unable to obtain Smoking Status: Unknown if ever smoked Exam/Review of Systems Vital Signs Vitals Vital Signs Date Time Temp Pulse Resp B/P Pulse Ox O2 Delivery O2 Flow Rate FiO2 02/03/17 12:00 147 20 91/65 95 02/03/17 09:42 35 02/03/17 09:00 02/03/17 07:00 Mechanical Ventilator Intake and Output 02/02/17 02/02/17 02/03/17 15:00 23:00 07:00 Intake Total 3450 ml 1585 ml 1586.65 ml Output Total 375 ml 210 ml Balance 3450 ml 1210 ml 1376.65 ml Exam Constitutional: No alert, No distress Psych: No nl mood/affect, No no complaints Head: atraumatic, normocephalic Eyes: nl conjunctiva, nl lids ENMT: intubated Neck: No jvd (difficult to appreciate JVP) Respiratory: clear to auscultation, No wheezing Cardiovascular: irregular rhythm, No murmurs/extra sounds Gastrointestinal: soft, No distended Musculoskeletal: nl extremities to inspection Extremities: No clubbing, No cyanosis, No edema Neurological: No nl mental status, No nl speech Skin: nl turgor Results Result Diagram: 02/03/17 0349 02/03/17 0349 Results 24 hrs Laboratory Tests Test 02/02/17 14:00 02/02/17 14:15 02/02/17 22:28 02/03/17 03:49 Lactic Acid Level 2.5 *H White Blood Count 19.6 H 12.0 #H Red Blood Count 3.28 L 3.27 L Hemoglobin 10.5 L 10.1 L Hematocrit 32.1 L 32.6 L Mean Corpuscular Volume 97.9 99.7 Mean Corpuscular Hemoglobin 32.0 30.9 Mean Corpuscular Hemoglobin Concent 32.7 31.0 L Red Cell Distribution Width 14.5 14.8 H Platelet Count 278 # 204 # Mean Platelet Volume 10.9 H 11.1 H Neutrophils % 86.3 H 80.5 H Lymphocytes % 6.6 L 9.3 L Monocytes % 6.0 9.1 Eosinophils % 0.0 0.1 Basophils % 0.2 0.2 Nucleated Red Blood Cells % 0.0 0.0 Neutrophils # 16.9 H 9.7 H Lymphocytes # 1.3 1.1 Monocytes # 1.2 H 1.1 H Eosinophils # 0.0 0.0 Basophils # 0.0 0.0 Nucleated Red Blood Cells # 0.0 0.0 Sodium Level 142 144 Potassium Level 3.6 3.4 L Chloride Level 106 108 Carbon Dioxide Level 24 24 Anion Gap 16 # 15 Blood Urea Nitrogen 11 12 Creatinine 0.88 0.83 Glucose Level 111 # 107 Calcium Level 8.0 L 8.2 L Total Bilirubin 0.1 L 0.2 Direct Bilirubin 0.00 0.00 Indirect Bilirubin 0.1 0.2 Aspartate Amino Transf (AST/SGOT) 40 43 Alanine Aminotransferase (ALT/SGPT) 28 29 Alkaline Phosphatase 56 55 Total Protein 5.3 L 5.2 L Albumin 2.8 L 2.7 L Globulin 2.50 2.50 Albumin/Globulin Ratio 1.12 1.08 Bedside Glucose 99 Phosphorus Level 3.3 Magnesium Level 1.8 Thyroid Stimulating Hormone (TSH) 1.310 Test 02/03/17 07:00 Blood Gas Specimen Source Blood arterial Arterial Blood Date Drawn 02/03/2017 7:40:59 AM Arterial Blood pH (Temp corrected) 7.466 H Arterial Blood pCO2 (Temp correct) 33.9 L Arterial Blood pO2 (Temp corrected) 81.8 Arterial Blood HCO3 23.9 Arterial Blood Base Excess 0.5 Arterial Blood Oxygen Saturation 96.1 Jordan Test ACCEPTAB Arterial Blood Gas Puncture Site Right Radial Arterial Blood Carboxyhemoglobin 0.3 Arterial Blood Methemoglobin 0.1 Blood Gas A-a O2 Differential 128.3 H Oxyhemoglobin Percent 95.7 Total Hemoglobin 10.4 L Blood Gas Temperature 37.0 Blood Gas Respiration Rate 16.0 Blood Gas Actual Respiration Rate 24 Blood Gas Modality VENT - AC FiO2 35.0 Blood Gas Tidal Volume 500.0 Blood Gas Low PEEP Setting 5.0 Blood Gas Notified Whom JLD Blood Gas Notified Time 02/03/2017 8:20:56 AM Medications Medications Current Medications Vancomycin HCl 1.25 gm/Sodium Chloride 250 ml @ 83.333 mls/ hr Q24H IVPB Last administered on 02/03/17 09:14; Admin Dose 83.333 MLS/HR; Start 02/03/17 at 09: 00 Propofol (Diprivan) 100 ml @ 2.25 mls/hr Q12H IV Last administered on 10:35; Admin Dose 20.25 MLS/HR; Start 02/02/17 at 22:30 Ondansetron HCl (Zofran Inj) 4 mg Q6H PRN IV NAUSEA AND/OR VOMITING; Start 02/02 at 23:00 Acetaminophen 650 mg 650 mg Q4H PRN [place] PAIN LEVEL 1-3 OR FEVER; Start 02/02/17 at 23:00 Piperacillin Sod/ Tazobactam Sod 100 ml @ 200 mls/hr Q8 IVPB Last administered on 02/03/17 05:43; Admin Dose 200 MLS/HR; Start 02/02/17 at 23:00 Magnesium Sulfate/ Dextrose 100 ml @ 100 mls/hr ONCE ONCE IVPB ; Start at 13:30; Stop 02/03/17 at 14:29 Norepinephrine 16 mg/Dextrose 500 ml @ 1.87 mls/hr TITRATE IV ; Start 02/03/17 at 07:00 Diltiazem HCl (Cardizem-D5W 125 Mg/125 ml Drip) 125 ml @ 5 mls/hr TITRATE IV Last administered on 02/03/17 07:03; Admin Dose 5 MLS/HR; Start 02/03/17 at 07: 00 Famotidine 20 mg 20 mg DAILY IV ; Start 02/04/17 at 09:00 Levetiracetam (Keppra 1,000mg/ 100ml (Pmx)) 100 ml @ 400 mls/hr Q12 IVPB ; Start 02/03/17 at 21:00 Morphine Sulfate (morphine) 2 mg Q2H PRN IV PAIN; Start 02/03/17 at 13:00 Lorazepam (Ativan) 2 mg Q2 PRN IV AGITATION; Start 02/03/17 at 13:00 PEARL TAYLOR MD Feb 03, 2017 13:23
[2017-02-03] MEDS ORDERED: AMIODARONE 900 MG in DEXTROSE 5% 482 ML IV SCH (13:30)
[2017-02-03] MEDS ORDERED: AMIODARONE 150MG/D5W BOLUS 100 ML IV ONE (13:30)
[2017-02-03] MEDS ORDERED: MAGNESIUM SULFATE 1 GM/D5W 100 ML IVPB ONE (13:30)
--- NOTE | 2017-02-03 14:25 | RADRPT ---
PROCEDURE: US guidance for PICC line CLINICAL INDICATION: PICC line placement TECHNIQUE: Multiple real-time images were acquired of the patient's arm utilizing a high resolutio n transducer. This was performed by the PICC line nurse for venous access. COMPARISON: None FINDINGS: Ultrasound guidance for PICC line placement. IMPRESSION: Ultrasound guidance for PICC line placement. RPTAT: AA .Eder Carlson MD, MD Date Time Electronically viewed and signed by .Eder Carlson MD, on 02/03/2017 14:25 .S/
[2017-02-03] MEDS ORDERED: SOD CHLORIDE 0.9% 100 ML ONE (15:16)
--- NOTE | 2017-02-03 16:03 | RADRPT ---
PROCEDURE: XR Chest. CLINICAL INDICATION: Check PICC line position. TECHNIQUE: Single frontal view. COMPARISON: 02/03/2017. 0644 hours. FINDINGS: There is a left arm PICC line with the tip in the cavoatrial junction region.. The endotracheal tub e and nasogastric tube remain in satisfactory position. Mild pulmonary edema is unchanged. The dillon gs are otherwise clear. The heart size is normal. There is calcification in the aorta consistent with atherosclerosis. There is no pleural effusion. There is no pneumothorax. IMPRESSION: 1. Left arm PICC line tip in satisfactory position. 2. No other change from the prior study done earlier the same day. RPTAT: QQ .Tre Hurst MD, MD Date Time Electronically viewed and signed by .Tre Hurst MD, MD on 02/03/2017 16:03 .R/
--- NOTE | 2017-02-03 16:10 | PN ---
Date/Time of Note Date/Time of Note DATE: 02/03/17 TIME: 16:02 Assessment/Plan VTE Prophylaxis VTE Prophylaxis Intervention: LMWH Lines/Catheters IV Catheter Type (from Nrsg): PICC Line Central line still needed: Yes Urinary Cath still in place: Yes Reason Cath still needed: urinary retention Assessment/Plan Chief Complaint/Hosp Course 81 yo female with h/o CHF, recent open abdomen surgery for necrotic GB presenting after prolonged seizure. S/p benzos leading to obtundation and therefore intubated. Subsequently wtih A Fib w RVR PULM: Acute hypoxic respiratory failure: - Wean sedation as tolerated and extubate when able NEURO Seizure w status epilepticus: - Continue keppra per neurology - MRI brain when stable ID: Fever: - Unclear source - Vanco and zosyn for now - LP tomorrow - Stefanie in urine but suspect colonizer so will hold antifungals unless fevers/ recurs CV: Systolic chronic CHF: - Will reinstated BB when stable, likely will need diuresis Atrial fibrillation paroxysmal with RVR: - Diltiazem, amiodarone per cardiology GI: s/p open cholecystectomy Discharge plan pending Problems: Subjective 24 Hr Interval Summary Free Text/Dictation Patient remains intubated Went into A Fib w RVR overnight, started on diltiazem drip Unable to be extubated given hypotension, now on levophed Exam/Review of Systems Vital Signs Vitals Vital Signs Date Time Temp Pulse Resp B/P Pulse Ox O2 Delivery O2 Flow Rate FiO2 02/03/17 15:33 107 17 100 35 02/03/17 12:00 91/65 02/03/17 09:00 02/03/17 07:00 Mechanical Ventilator Intake and Output 02/02/17 02/02/17 02/03/17 15:00 23:00 07:00 Intake Total 3450 ml 1585 ml 1586.65 ml Output Total 375 ml 210 ml Balance 3450 ml 1210 ml 1376.65 ml Exam Sedated, intubated ET Tachy, irreg irreg Clear lungs No edema Results Result Diagram: 02/03/17 0349 02/03/17 0349 Results 24 hrs Laboratory Tests Test 02/02/17 22:28 02/03/17 03:49 02/03/17 07:00 Bedside Glucose 99 White Blood Count 12.0 #H Red Blood Count 3.27 L Hemoglobin 10.1 L Hematocrit 32.6 L Mean Corpuscular Volume 99.7 Mean Corpuscular Hemoglobin 30.9 Mean Corpuscular Hemoglobin Concent 31.0 L Red Cell Distribution Width 14.8 H Platelet Count 204 # Mean Platelet Volume 11.1 H Neutrophils % 80.5 H Lymphocytes % 9.3 L Monocytes % 9.1 Eosinophils % 0.1 Basophils % 0.2 Nucleated Red Blood Cells % 0.0 Neutrophils # 9.7 H Lymphocytes # 1.1 Monocytes # 1.1 H Eosinophils # 0.0 Basophils # 0.0 Nucleated Red Blood Cells # 0.0 Sodium Level 144 Potassium Level 3.4 L Chloride Level 108 Carbon Dioxide Level 24 Anion Gap 15 Blood Urea Nitrogen 12 Creatinine 0.83 Glucose Level 107 Calcium Level 8.2 L Phosphorus Level 3.3 Magnesium Level 1.8 Total Bilirubin 0.2 Direct Bilirubin 0.00 Indirect Bilirubin 0.2 Aspartate Amino Transf (AST/SGOT) 43 Alanine Aminotransferase (ALT/SGPT) 29 Alkaline Phosphatase 55 Total Protein 5.2 L Albumin 2.7 L Globulin 2.50 Albumin/Globulin Ratio 1.08 Thyroid Stimulating Hormone (TSH) 1.310 Blood Gas Specimen Source Blood arterial Arterial Blood Date Drawn 02/03/2017 7:40:59 AM Arterial Blood pH (Temp corrected) 7.466 H Arterial Blood pCO2 (Temp correct) 33.9 L Arterial Blood pO2 (Temp corrected) 81.8 Arterial Blood HCO3 23.9 Arterial Blood Base Excess 0.5 Arterial Blood Oxygen Saturation 96.1 Jordan Test ACCEPTAB Arterial Blood Gas Puncture Site Right Radial Arterial Blood Carboxyhemoglobin 0.3 Arterial Blood Methemoglobin 0.1 Blood Gas A-a O2 Differential 128.3 H Oxyhemoglobin Percent 95.7 Total Hemoglobin 10.4 L Blood Gas Temperature 37.0 Blood Gas Respiration Rate 16.0 Blood Gas Actual Respiration Rate 24 Blood Gas Modality VENT - AC FiO2 35.0 Blood Gas Tidal Volume 500.0 Blood Gas Low PEEP Setting 5.0 Blood Gas Notified Whom JLD Blood Gas Notified Time 02/03/2017 8:20:56 AM Medications Medications Current Medications Vancomycin HCl 1.25 gm/Sodium Chloride 250 ml @ 83.333 mls/ hr Q24H IVPB Last administered on 02/03/17t 09:14; Admin Dose 83.333 MLS/HR; Start 02/03/17 at 09: 00 Propofol (Diprivan) 100 ml @ 2.25 mls/hr Q12H IV Last administered on 13:47; Admin Dose 22.5 MLS/HR; Start 02/02/17 at 22:30 Ondansetron HCl (Zofran Inj) 4 mg Q6H PRN IV NAUSEA AND/OR VOMITING; Start 02/02 at 23:00 Acetaminophen 650 mg 650 mg Q4H PRN [place] PAIN LEVEL 1-3 OR FEVER; Start 02/02/17 at 23:00 Piperacillin Sod/ Tazobactam Sod 100 ml @ 200 mls/hr Q8 IVPB Last administered on 02/03/17 14:49; Admin Dose 200 MLS/HR; Start 02/02/17 at 23:00 Norepinephrine 16 mg/Dextrose 500 ml @ 1.87 mls/hr TITRATE IV ; Start 02/03/17 at 07:00 Diltiazem HCl (Cardizem-D5W 125 Mg/125 ml Drip) 125 ml @ 5 mls/hr TITRATE IV Last administered on 02/03/17 13:47; Admin Dose 15 MLS/HR; Start 02/03/17 at 07 :00 Famotidine 20 mg 20 mg DAILY IV ; Start 02/04/17 at 09:00 Levetiracetam (Keppra 1,000mg/ 100ml (Pmx)) 100 ml @ 400 mls/hr Q12 IVPB ; Start 02/03/17 at 21:00 Morphine Sulfate (morphine) 2 mg Q2H PRN IV PAIN; Start 02/03/17 at 13:00 Lorazepam (Ativan) 2 mg Q2 PRN IV AGITATION; Start 02/03/17 at 13:00 IV Flush 10 ml 10 ml PRN PRN IV IV PROTOCOL; Start 02/03/17 at 13:30 Amiodarone HCl/ Dextrose (Cordarone Iv/ D5W) 500 ml @ 0 mls/hr Q0M IV Last administered on 02/03/17 15:37; Admin Dose 1 MLS/HR; Start 02/03/17 at 13:30; Stop 02/04/17 at 13:29 MARICHUY DUBON MD Feb 03, 2017 16:10
[2017-02-03] MEDS: LEVETIRACETAM 1000 MG (PMX) 100 ML IVPB SCH (20:46)
[2017-02-04] VITALS (81 sets, daily range): BP systolic 76–120; BP diastolic 49–83; PULSE 54–84; RESP 15–26
[2017-02-04] MEDS: PROPOFOL 100 ML IV SCH (05:50)
[2017-02-04] MEDS: PIPER-TAZO 3.375 GM IV (PMX) 100 ML IVPB SCH ×3 (05:50→21:13)
[2017-02-04 06:08] LABS: ABNORMAL IP MESSAGE 1; BASOPHIL # 0.1 10^3/ul (0.0-0.1); BASOPHILS % 0.3 % (0.0-2.0); EOSINOPHILS # 0.1 10^3/ul (0.0-0.5); EOSINOPHILS % 0.7 % (0.0-7.0); HEMATOCRIT 27.9 % (37.0-47.0); HEMOGLOBIN 8.8 g/dl (12.0-16.0); LYMPHOCYTES # 2.2 10^3/ul (0.8-2.9); LYMPHOCYTES % 13.4 % (15.0-51.0); MEAN CORPUSCULAR HEMOGLOBIN 31.1 pg (29.0-33.0); MEAN CORPUSCULAR HGB CONC 31.5 g/dl (32.0-37.0); MEAN CORPUSCULAR VOLUME 98.6 fl (82.0-101.0); MEAN PLATELET VOLUME 10.8 fl (7.4-10.4); MONOCYTE # 1.6 10^3/ul (0.3-0.9); MONOCYTES % 9.7 % (0.0-11.0); NEUTROPHIL # 12.4 10^3/ul (1.6-7.5); NEUTROPHILS % 75.3 % (39.0-77.0); PLATELET COUNT 313 10^3/UL (140-415); RED BLOOD COUNT 2.83 10^6/ul (4.20-5.40); RED CELL DISTRIBUTION WIDTH 15.4 % (11.5-14.5); WHITE BLOOD COUNT 16.5 10^3/ul (4.8-10.8)
[2017-02-04 06:26] LABS: CALCIUM 8.2 mg/dl (8.4-10.2); CREATININE 0.74 mg/dl (0.44-1.00); POTASSIUM 3.4 mmol/L (3.5-5.1)
[2017-02-04 06:36] LABS: POSITIVE DIFF @See below
[2017-02-04] MEDS ORDERED: POTASSIUM CHLORIDE 250 ML IVPB ONE (09:00)
[2017-02-04] MEDS ORDERED: FAMOTIDINE 20 MG INJ IV SCH (09:00)
[2017-02-04] MEDS: VANCOMYCIN 1.25 GM in SOD CHLORIDE 0.9% 250 ML IVPB SCH (09:26)
[2017-02-04] MEDS: LEVETIRACETAM 1000 MG (PMX) 100 ML IVPB SCH ×2 (09:58→21:13)
--- NOTE | 2017-02-04 14:27 | CONS ---
Date/Time of Note Date/Time of Note DATE: 02/04/17 TIME: 14:26 Consult Date/Type/Reason Admit Date/Time Feb 02, 2017 at 07:43 Initial Consult Date 02/02/17 Type of Consultation: Pulmonary Ordering Provider: MARICHUY DUBON MD Subjective Rate controlled this morning. In the MRI. Remains orally intubated on mechanical ventilation. Patients. Continues low-dose Levophed. Objective Vital Signs Date Time Temp Pulse Resp B/P Pulse Ox O2 Delivery O2 Flow Rate FiO2 02/04/17 13:00 66 22 101/75 02/04/17 12:00 35 02/04/17 11:40 100 02/04/17 11:00 98.6 02/04/17 05:45 Mechanical Ventilator Intake and Output 02/03/17 02/03/17 02/04/17 14:59 22:59 06:59 Intake Total 1280.68 ml 721.97 ml 457.780 ml Output Total 240 ml 260 ml 940 ml Balance 1040.68 ml 461.97 ml -482.220 ml Exam GENERAL: Elderly lady intubated on mechanical ventilation, opens eyes and appears somewhat agitated. Orally intubated. VITAL SIGNS: see below. HEENT: Pupils equal, round, and reactive to light. CARDIAC: S1, S2, 1/6 systolic ejection murmur CHEST: Diminished air entry bilaterally. ABDOMEN: Mildly distended. Bowel sounds present no guarding or rebound EXTREMITIES: No cyanosis, clubbing edema +1 NEUROLOGIC: Generalized weakness Results/Medications Result Diagram: 02/04/17 0340 02/04/17 0340 Results 24 hrs Laboratory Tests Test 02/04/17 03:40 White Blood Count 16.5 #H Red Blood Count 2.83 L Hemoglobin 8.8 L Hematocrit 27.9 L Mean Corpuscular Volume 98.6 Mean Corpuscular Hemoglobin 31.1 Mean Corpuscular Hemoglobin Concent 31.5 L Red Cell Distribution Width 15.4 H Platelet Count 313 # Mean Platelet Volume 10.8 H Neutrophils % 75.3 Lymphocytes % 13.4 L Monocytes % 9.7 Eosinophils % 0.7 Basophils % 0.3 Nucleated Red Blood Cells % 0.0 Neutrophils # 12.4 H Lymphocytes # 2.2 Monocytes # 1.6 H Eosinophils # 0.1 Basophils # 0.1 Nucleated Red Blood Cells # 0.0 Sodium Level 142 Potassium Level 3.4 L Chloride Level 106 Carbon Dioxide Level 25 Anion Gap 14 Blood Urea Nitrogen 12 Creatinine 0.74 Glucose Level 92 Calcium Level 8.2 L Troponin I 1.260 *H Medications Current Medications Vancomycin HCl 1.25 gm/Sodium Chloride 250 ml @ 83.333 mls/ hr Q24H IVPB Last administered on 02/04/17 09:26; Admin Dose 83.333 MLS/HR; Start 02/03/17 at 09: 00 Propofol (Diprivan) 100 ml @ 2.25 mls/hr Q12H IV Last administered on 05:50; Admin Dose 9 MLS/HR; Start 02/02/17 at 22:30 Ondansetron HCl (Zofran Inj) 4 mg Q6H PRN IV NAUSEA AND/OR VOMITING; Start 02/02 at 23:00 Acetaminophen 650 mg 650 mg Q4H PRN [place] PAIN LEVEL 1-3 OR FEVER; Start 02/02/17 at 23:00 Piperacillin Sod/ Tazobactam Sod 100 ml @ 200 mls/hr Q8 IVPB Last administered on 02/04/17 13:57; Admin Dose 200 MLS/HR; Start 02/02/17 at 23:00 Norepinephrine 16 mg/Dextrose 500 ml @ 1.87 mls/hr TITRATE IV ; Start 02/03/17 at 07:00 Diltiazem HCl (Cardizem-D5W 125 Mg/125 ml Drip) 125 ml @ 5 mls/hr TITRATE IV Last administered on 02/03/17 13:47; Admin Dose 15 MLS/HR; Start 02/03/17 at 07 :00 Famotidine 20 mg 20 mg DAILY IV Last administered on 02/04/17 09:01; Admin Dose 20 MG; Start 02/04/17 at 09:00 Levetiracetam (Keppra 1,000mg/ 100ml (Pmx)) 100 ml @ 400 mls/hr Q12 IVPB Last administered on 02/04/17 09:58; Admin Dose 400 MLS/HR; Start 02/03/17 at 21:00 Morphine Sulfate (morphine) 2 mg Q2H PRN IV PAIN; Start 02/03/17 at 13:00 Lorazepam (Ativan) 2 mg Q2 PRN IV AGITATION; Start 02/03/17 at 13:00 IV Flush (NS 10 ml) 10 ml PRN PRN IV IV PROTOCOL; Start 02/03/17 at 13:30 Miscellaneous Information (*Rx Drug Level Order Reminder*) VANCOMYCIN TROUGH AT 0800 ONCE ONCE XX ; Start 02/05/17 at 08:00; Stop 02/05/17 at 08:01 Assessment/Plan Chief Complaint/Hosp Course IMPRESSION AND PLAN: 1. Atrial fibrillation with rapid ventricular rate currently rate controlled 2. Seizures, questionable new onset. 3. Possible aspiration pneumonia during seizure activity. X-ray shows right middle lobe infiltrate. 4. Recent cholecystectomy. 5. Septic shock. Decrease vasopressor requirement PLAN: 1. Continue broad-spectrum antibiotic coverage. 2. Continue mechanical ventilation. CPAP weaning trial today. 3. Continue Keppra per Neurology recommendations. Await MRI results. 4. Possible Lumbar puncture per Neurology recommendations. 5. DVT and GI prophylaxis. Care time 40 minutes. Discussed with primary team. Problems: MEEK ENGEL MD, [facility] Feb 04, 2017 14:27
--- NOTE | 2017-02-04 17:51 | PN ---
Date/Time of Note Date/Time of Note DATE: 02/04/17 TIME: 17:44 Assessment/Plan VTE Prophylaxis VTE Prophylaxis Intervention: LMWH Lines/Catheters IV Catheter Type (from Nrs): PICC Line Central line still needed: Yes Urinary Cath still in place: Yes Reason Cath still needed: urinary retention Assessment/Plan Chief Complaint/Hosp Course 81 yo female with h/o crhonic systolic CHF, recent open abdominal surgery for necrotic GB, who presented after prolonged seizure. Received benzos in the field leading to obtundation on arrival and was therefore intubated. Subsequently with A Fib w RVR PULM: Acute hypoxic respiratory failure: - Wean sedation as tolerated and extubate when able NEURO Seizure w status epilepticus: - Continue keppra per neurology - MRI brain when stable - Routine EEG ID: Fever: - Unclear source - XR with possible pneumonia - Vanco and zosyn for now - LP consideration - Stefanie in urine but suspect colonizer so will hold antifungals unless fevers/ sepsis CV: Systolic chronic CHF: - Will reinstate BB when stable, likely will need diuresis Atrial fibrillation paroxysmal with RVR now converted back to NSR - Stop diltiazem, consider AC GI: - s/p open cholecystectomy Discharge plan pending Problems: Subjective 24 Hr Interval Summary Free Text/Dictation Patient converted to NSR Off of pressors, normotensive SBT unsuccessful this afternoon, remains intubated Exam/Review of Systems Vital Signs Vitals Vital Signs Date Time Temp Pulse Resp B/P Pulse Ox O2 Delivery O2 Flow Rate FiO2 02/04/17 17:30 74 20 112/63 100 02/04/17 16:37 35 02/04/17 11:00 98.6 02/04/17 05:45 Mechanical Ventilator Intake and Output 02/03/17 02/03/17 02/04/17 15:00 23:00 07:00 Intake Total 888.43 ml 841.13 ml 324.620 ml Output Total 270 ml 260 ml 910 ml Balance 618.43 ml 581.13 ml -585.380 ml Exam Intubated PICC line Elderly female Somewhat response to noxious stimluli thrhough Heart sounds regular Lungs clear anteriorly Results Result Diagram: 02/04/17 0340 02/04/17 0340 Results 24 hrs Laboratory Tests Test 02/04/17 03:40 White Blood Count 16.5 #H Red Blood Count 2.83 L Hemoglobin 8.8 L Hematocrit 27.9 L Mean Corpuscular Volume 98.6 Mean Corpuscular Hemoglobin 31.1 Mean Corpuscular Hemoglobin Concent 31.5 L Red Cell Distribution Width 15.4 H Platelet Count 313 # Mean Platelet Volume 10.8 H Neutrophils % 75.3 Lymphocytes % 13.4 L Monocytes % 9.7 Eosinophils % 0.7 Basophils % 0.3 Nucleated Red Blood Cells % 0.0 Neutrophils # 12.4 H Lymphocytes # 2.2 Monocytes # 1.6 H Eosinophils # 0.1 Basophils # 0.1 Nucleated Red Blood Cells # 0.0 Sodium Level 142 Potassium Level 3.4 L Chloride Level 106 Carbon Dioxide Level 25 Anion Gap 14 Blood Urea Nitrogen 12 Creatinine 0.74 Glucose Level 92 Calcium Level 8.2 L Troponin I 1.260 *H Medications Medications Current Medications Vancomycin HCl 1.25 gm/Sodium Chloride 250 ml @ 83.333 mls/ hr Q24H IVPB Last administered on 02/04/17 09:26; Admin Dose 83.333 MLS/HR; Start 02/03/17 at 09: 00 Propofol (Diprivan) 100 ml @ 2.25 mls/hr Q12H IV Last administered on 05:50; Admin Dose 9 MLS/HR; Start 02/02/17 at 22:30 Ondansetron HCl (Zofran Inj) 4 mg Q6H PRN IV NAUSEA AND/OR VOMITING; Start 02/02 at 23:00 Acetaminophen 650 mg 650 mg Q4H PRN [place] PAIN LEVEL 1-3 OR FEVER; Start 02/02/17 at 23:00 Piperacillin Sod/ Tazobactam Sod 100 ml @ 200 mls/hr Q8 IVPB Last administered on 02/04/17 13:57; Admin Dose 200 MLS/HR; Start 02/02/17 at 23:00 Norepinephrine 16 mg/Dextrose 500 ml @ 1.87 mls/hr TITRATE IV ; Start 02/03/17 at 07:00 Diltiazem HCl 125 ml @ 5 mls/hr TITRATE IV Last administered on 02/03/17 13:47 ; Admin Dose 15 MLS/HR; Start 02/03/17 at 07:00 Levetiracetam (Keppra 1,000mg/ 100ml (Pmx)) 100 ml @ 400 mls/hr Q12 IVPB Last administered on 02/04/17t 09:58; Admin Dose 400 MLS/HR; Start 02/03/17 at 21:00 Morphine Sulfate (morphine) 2 mg Q2H PRN IV PAIN; Start 02/03/17 at 13:00 Lorazepam (Ativan) 2 mg Q2 PRN IV AGITATION; Start 02/03/17 at 13:00 IV Flush (NS 10 ml) 10 ml PRN PRN IV IV PROTOCOL; Start 02/03/17 at 13:30 Miscellaneous Information (*Rx Drug Level Order Reminder*) VANCOMYCIN TROUGH AT 0800 ONCE ONCE XX ; Start 02/05/17 at 08:00; Stop 02/05/17 at 08:01 Famotidine (Pepcid) 20 mg DAILY GTB ; Start 02/05/17 at 09:00 MARICHUY DUBON MD Feb 04, 2017 17:51
--- NOTE | 2017-02-04 22:15 | CONS ---
Date/Time of Note Date/Time of Note DATE: 02/04/17 TIME: 22:11 Assessment/Plan Assessment/Plan Chief Complaint/Hosp Course Assessment: Paroxysmal atrial fibrillation with rapid ventricular response - reverted to sinus rhythm on amiodarone drip NSTEMI - suspect type 2 Acute on likely chronic systolic heart failure Cardiomyopathy, LVEF 30-35% - suspect chronic ischemic cardiomyopathy with segmental wall motion abnormalities Septic shock Possible aspiration pneumonia Tonic-colonic seizure - per neurology, planned for lumbar puncture, MRI when more stable Recent cholecystectomy Incomplete data Recommendations: -status post amiodarone drip, start amiodarone 400mg PO BID -monitor blood pressures off pressors -ventilator management per pulmonology Problems: Consultation Date/Type/Reason Admit Date/Time Feb 02, 2017 at 07:43 Initial Consult Date 02/02/17 Type of Consultation: Cardiology 24 HR Interval Summary Free Text/Dictation Reverted to sinus rhythm on amiodarone drip. Off pressors. Remains on ventilator. Detailed Summary Additional Comments Unable to obtain review of systems, patient on ventilator. Exam/Review of Systems Vital Signs Vitals Vital Signs Date Time Temp Pulse Resp B/P Pulse Ox O2 Delivery O2 Flow Rate FiO2 02/04/17 21:36 67 23 100 35 02/04/17 21:00 105/69 02/04/17 20:00 98.9 Mechanical Ventilator Intake and Output 02/03/17 02/03/17 02/04/17 15:00 23:00 07:00 Intake Total 888.43 ml 841.13 ml 324.620 ml Output Total 270 ml 260 ml 910 ml Balance 618.43 ml 581.13 ml -585.380 ml Exam Constitutional: No alert, No distress Psych: No nl mood/affect, No no complaints Head: atraumatic, normocephalic Eyes: nl conjunctiva, nl lids ENMT: intubated Neck: No jvd (difficult to appreciate JVP) Respiratory: clear to auscultation, No wheezing Cardiovascular: regular rate and rhythm, No murmurs/extra sounds Gastrointestinal: soft, No distended Musculoskeletal: nl extremities to inspection Extremities: No clubbing, No cyanosis, No edema Neurological: No nl mental status, No nl speech Skin: nl turgor Results Result Diagram: 02/04/17 0340 02/04/17 0340 Results 24 hrs Laboratory Tests Test 02/04/17 03:40 White Blood Count 16.5 #H Red Blood Count 2.83 L Hemoglobin 8.8 L Hematocrit 27.9 L Mean Corpuscular Volume 98.6 Mean Corpuscular Hemoglobin 31.1 Mean Corpuscular Hemoglobin Concent 31.5 L Red Cell Distribution Width 15.4 H Platelet Count 313 # Mean Platelet Volume 10.8 H Neutrophils % 75.3 Lymphocytes % 13.4 L Monocytes % 9.7 Eosinophils % 0.7 Basophils % 0.3 Nucleated Red Blood Cells % 0.0 Neutrophils # 12.4 H Lymphocytes # 2.2 Monocytes # 1.6 H Eosinophils # 0.1 Basophils # 0.1 Nucleated Red Blood Cells # 0.0 Sodium Level 142 Potassium Level 3.4 L Chloride Level 106 Carbon Dioxide Level 25 Anion Gap 14 Blood Urea Nitrogen 12 Creatinine 0.74 Glucose Level 92 Calcium Level 8.2 L Troponin I 1.260 *H Medications Medications Current Medications Vancomycin HCl 1.25 gm/Sodium Chloride 250 ml @ 83.333 mls/ hr Q24H IVPB Last administered on 02/04/17 09:26; Admin Dose 83.333 MLS/HR; Start 02/03/17 at 09: 00 Propofol (Diprivan) 100 ml @ 2.25 mls/hr Q12H IV Last administered on 05:50; Admin Dose 9 MLS/HR; Start 02/02/17 at 22:30 Ondansetron HCl (Zofran Inj) 4 mg Q6H PRN IV NAUSEA AND/OR VOMITING; Start 02/02 at 23:00 Acetaminophen 650 mg 650 mg Q4H PRN [place] PAIN LEVEL 1-3 OR FEVER; Start 02/02/17 at 23:00 Piperacillin Sod/ Tazobactam Sod 100 ml @ 200 mls/hr Q8 IVPB Last administered on 02/04/17 21:13; Admin Dose 200 MLS/HR; Start 02/02/17 at 23:00 Norepinephrine 16 mg/Dextrose 500 ml @ 1.87 mls/hr TITRATE IV ; Start 02/03/17 at 07:00 Levetiracetam (Keppra 1,000mg/ 100ml (Pmx)) 100 ml @ 400 mls/hr Q12 IVPB Last administered on 8/11/17at 21:13; Admin Dose 400 MLS/HR; Start 02/03/17 at 21:00 Morphine Sulfate (morphine) 2 mg Q2H PRN IV PAIN; Start 02/03/17 at 13:00 Lorazepam (Ativan) 2 mg Q2 PRN IV AGITATION; Start 02/03/17 at 13:00 IV Flush (NS 10 ml) 10 ml PRN PRN IV IV PROTOCOL; Start 02/03/17 at 13:30 Miscellaneous Information (*Rx Drug Level Order Reminder*) VANCOMYCIN TROUGH AT 0800 ONCE ONCE XX ; Start 02/05/17 at 08:00; Stop 02/05/17 at 08:01 Famotidine (Pepcid) 20 mg DAILY GTB ; Start 02/05/17 at 09:00 PEARL TAYLOR MD Feb 04, 2017 22:15
[2017-02-04] MEDS: AMIODARONE 200 MG TAB GTB SCH (22:30)
[2017-02-05] VITALS (86 sets, daily range): BP systolic 71–140; BP diastolic 41–107; PULSE 52–94; RESP 15–30
[2017-02-05] MEDS: PROPOFOL 100 ML IV SCH ×3 (00:18→14:42)
[2017-02-05 05:02] LABS: BASOPHIL # 0.1 10^3/ul (0.0-0.1); BASOPHILS % 0.6 % (0.0-2.0); EOSINOPHILS # 0.2 10^3/ul (0.0-0.5); EOSINOPHILS % 2.2 % (0.0-7.0); HEMATOCRIT 24.6 % (37.0-47.0); LYMPHOCYTES # 1.3 10^3/ul (0.8-2.9); LYMPHOCYTES % 15.2 % (15.0-51.0); MEAN CORPUSCULAR HGB CONC 32.5 g/dl (32.0-37.0); MEAN CORPUSCULAR VOLUME 98.4 fl (82.0-101.0); MEAN PLATELET VOLUME 10.5 fl (7.4-10.4); MONOCYTE # 0.8 10^3/ul (0.3-0.9); MONOCYTES % 9.9 % (0.0-11.0); NEUTROPHIL # 5.9 10^3/ul (1.6-7.5); NEUTROPHILS % 71.6 % (39.0-77.0); PLATELET COUNT 199 10^3/UL (140-415); RED CELL DISTRIBUTION WIDTH 15.4 % (11.5-14.5); WHITE BLOOD COUNT 8.3 10^3/ul (4.8-10.8)
[2017-02-05 05:22] LABS: CALCIUM 8.2 mg/dl (8.4-10.2); CREATININE 0.78 mg/dl (0.44-1.00); MAGNESIUM 1.9 mg/dl (1.7-2.5); PHOSPHORUS 2.1 mg/dl (2.5-4.9); POTASSIUM 3.2 mmol/L (3.5-5.1)
[2017-02-05] MEDS: PIPER-TAZO 3.375 GM IV (PMX) 100 ML IVPB SCH ×3 (06:08→21:50)
[2017-02-05] MEDS ORDERED: POTASSIUM CHLORIDE 250 ML IVPB ONE (06:30)
[2017-02-05 08:16] LABS: AADO2 Arterial 107.3 mmHg (7.0-24.0); Allen Test ACCEPTAB; Arterial Base Excess 0.1 mmol/L (-3.0-3); Arterial COHb 0.3 % (0.0-3.0); Arterial Fraction of Oxyhgb 96.9 % (93.0-99.0); Arterial HCO3 22.8 mmol/L (22.0-26.0); Arterial MetHb 0.3 % (0.0-1.5); Arterial Total Hemglobin 8.3 g/dl (12.0-18.0); MODE VENT - AC
[2017-02-05] MEDS: AMIODARONE 200 MG TAB GTB SCH ×2 (08:45→21:00)
[2017-02-05] MEDS: FAMOTIDINE 20 MG TAB GTB SCH (08:46)
[2017-02-05] MEDS: LEVETIRACETAM 1000 MG (PMX) 100 ML IVPB SCH ×2 (08:46→20:33)
[2017-02-05] MEDS: VANCOMYCIN 1 GM in NS 250 ML IVPB SCH ×2 (10:44→22:39)
--- NOTE | 2017-02-05 11:18 | RADRPT ---
Vent Rate: 121 bpm RR Interval: 0 msec [place] Interval: 0 msec QRS Duration: 80 msec QT Interval: 350 msec QTC Interval: 497 msec P-R-T [place]: 0 - 57 - -43 degrees Atrial fibrillation with rapid ventricular response with premature ventricular or aberrantly conducted complexes Nonspecific T wave abnormality , probably digitalis effect Abnormal ECG Electronically Signed By: Tl Burgess [id number]
--- NOTE | 2017-02-05 12:19 | CONS ---
Date/Time of Note Date/Time of Note DATE: 02/05/17 TIME: :17 Consult Date/Type/Reason Admit Date/Time Feb 02, 2017 at 07:43 Initial Consult Date 02/02/17 Type of Consultation: Pulmonary Subjective More alert this morning eyes open follows occasional simple commands. Failed CPAP trial with increased work of breathing. Objective Vital Signs Date Time Temp Pulse Resp B/P Pulse Ox O2 Delivery O2 Flow Rate FiO2 02/05/17 11:15 68 20 101/81 100 02/05/17 08:00 35 02/05/17 04:00 98.9 02/04/17 20:00 Mechanical Ventilator Intake and Output 02/04/17 02/04/17 02/05/17 15:00 23:00 07:00 Intake Total 806.1 ml 245 ml 460 ml Output Total 120 ml 120 ml 195 ml Balance 686.1 ml 125 ml 265 ml Exam PHYSICAL EXAMINATION GENERAL: Elderly lady orally intubated on mechanical ventilation. VITAL SIGNS: see below. HEENT: Pupils equal, round, and reactive to light CARDIAC: S1, S2, 2/6 systolic ejection murmur CHEST: Diminished air entry bilaterally ABDOMEN: Mildly distended. Bowel sounds present no guarding or rebound EXTREMITIES: No cyanosis, clubbing edema +2 NEUROLOGIC: Generalized weakness Results/Medications Result Diagram: 02/05/17 0443 02/05/17 0443 Results 24 hrs Laboratory Tests Test 02/05/17 04:43 02/05/17 07:00 02/05/17 07:24 White Blood Count 8.3 # Red Blood Count 2.50 L Hemoglobin 8.0 L Hematocrit 24.6 L Mean Corpuscular Volume 98.4 Mean Corpuscular Hemoglobin 32.0 Mean Corpuscular Hemoglobin Concent 32.5 Red Cell Distribution Width 15.4 H Platelet Count 199 # Mean Platelet Volume 10.5 H Neutrophils % 71.6 Lymphocytes % 15.2 Monocytes % 9.9 Eosinophils % 2.2 Basophils % 0.6 Nucleated Red Blood Cells % 0.0 Neutrophils # 5.9 Lymphocytes # 1.3 Monocytes # 0.8 Eosinophils # 0.2 Basophils # 0.1 Nucleated Red Blood Cells # 0.0 Sodium Level 138 Potassium Level 3.2 L Chloride Level 109 Carbon Dioxide Level 26 Anion Gap 6 #L Blood Urea Nitrogen 14 Creatinine 0.78 Glucose Level 116 Calcium Level 8.2 L Phosphorus Level 2.1 L Magnesium Level 1.9 Troponin I 0.660 *H Blood Gas Specimen Source Blood arterial Arterial Blood Date Drawn 02/05/2017 7:40:09 AM Arterial Blood pH (Temp corrected) 7.509 H Arterial Blood pCO2 (Temp correct) 29.3 L Arterial Blood pO2 (Temp corrected) 108.2 H Arterial Blood HCO3 22.8 Arterial Blood Base Excess 0.1 Arterial Blood Oxygen Saturation 97.5 Jordan Test ACCEPTAB Arterial Blood Gas Puncture Site Right Radial Arterial Blood Carboxyhemoglobin 0.3 Arterial Blood Methemoglobin 0.3 Blood Gas A-a O2 Differential 107.3 H Oxyhemoglobin Percent 96.9 Total Hemoglobin 8.3 L Blood Gas Temperature 37.0 Blood Gas Respiration Rate 14.0 Blood Gas Actual Respiration Rate 22 Blood Gas Modality VENT - AC FiO2 35.0 Blood Gas Tidal Volume 500.0 Blood Gas Low PEEP Setting 5.0 Blood Gas Notified Whom DT Blood Gas Notified Time 02/05/2017 8:15:51 AM Vancomycin Level Trough 8.5 L Medications Current Medications Propofol (Diprivan) 100 ml @ 2.25 mls/hr Q12H IV Last administered on 00:18; Admin Dose 4.5 MLS/HR; Start 02/02/17 at 22:30 Ondansetron HCl (Zofran Inj) 4 mg Q6H PRN IV NAUSEA AND/OR VOMITING; Start 02/02 at 23:00 Acetaminophen 650 mg 650 mg Q4H PRN [place] PAIN LEVEL 1-3 OR FEVER; Start 02/02/17 at 23:00 Piperacillin Sod/ Tazobactam Sod 100 ml @ 200 mls/hr Q8 IVPB Last administered on 02/05/17 06:08; Admin Dose 200 MLS/HR; Start 02/02/17 at 23:00 Norepinephrine 16 mg/Dextrose 500 ml @ 1.87 mls/hr TITRATE IV ; Start 02/03/17 at 07:00 Levetiracetam (Keppra 1,000mg/ 100ml (Pmx)) 100 ml @ 400 mls/hr Q12 IVPB Last administered on 02/05/17 08:46; Admin Dose 400 MLS/HR; Start 02/03/17 at 21:00 Morphine Sulfate (morphine) 2 mg Q2H PRN IV PAIN; Start 02/03/17 at 13:00 Lorazepam (Ativan) 2 mg Q2 PRN IV AGITATION; Start 02/03/17 at 13:00 IV Flush (NS 10 ml) 10 ml PRN PRN IV IV PROTOCOL; Start 02/03/17 at 13:30 Famotidine (Pepcid) 20 mg DAILY GTB Last administered on 02/05/17 08:46; Admin Dose 20 MG; Start 02/05/17 at 09:00 Amiodarone HCl 400 mg 400 mg BID GTB Last administered on 02/05/17 08:45; Admin Dose 400 MG; Start 02/04/17 at 22:30 Vancomycin HCl (Vancocin) 250 ml @ 125 mls/hr Q12H IVPB Last administered on 10:44; Admin Dose 125 MLS/HR; Start 02/05/17 at 10:30 Assessment/Plan Chief Complaint/Hosp Course IMPRESSION AND PLAN: 1. Atrial fibrillation with rapid ventricular rate currently rate controlled 2. Seizures, questionable new onset. 3. Possible aspiration pneumonia during seizure activity. X-ray shows right middle lobe infiltrate. 4. Recent cholecystectomy. 5. Status post septic shock. 6. Hypokalemia 7. Encephalopathy likely toxic metabolic complicated by sedatives. PLAN: 1. Continue broad-spectrum antibiotic coverage. 2. Continue mechanical ventilation. CPAP weaning trial today. 3. Continue Keppra per Neurology recommendations. Await MRI results. 4. trial of fentanyl for pain control decrease propofol as tolerated 5. DVT and GI prophylaxis. Care time 40 minutes. Discussed with primary team. Problems: MEEK ENGEL MD, [facility] Feb 05, 2017 12:19
[2017-02-05] MEDS: FENTAnyl (DRIP) 1000 mcg/100mL 100 ML IV SCH (13:58)
--- NOTE | 2017-02-05 14:36 | RADRPT ---
PROCEDURE: Chest radiograph CLINICAL INDICATION: Respiratory failure TECHNIQUE: Single portable frontal view. COMPARISON: 02/03/2017 FINDINGS: The endotracheal tube terminates 4.5 cm above the miguel. The enteric tube courses below the diaphragm below the field of view. Right mid lung field air space opacities redemonstrated and may represent pneumonia. Superimposed mild pulmonary vascular congestive changes are present . Aortic atherosclerotic calcifications are present. The cardiac silhouette is enlarged. There are senescent changes of the osseous structures IMPRESSION: 1. No interval change in support tubes and line. 2. Right mid to lower lung field air space opacity stable, may represent pneumonia 3. Mild pulmonary vascular congestion 4. Cardiomegaly and aortic atherosclerosis RPTAT: [facility] .Libertad Nolan MD, Date Time Electronically viewed and signed by .Libertad Nolan MD, MD on 02/05/2017 14:36 .M/
--- NOTE | 2017-02-05 18:02 | PN ---
Date/Time of Note Date/Time of Note DATE: 02/05/17 TIME: 18:01 Assessment/Plan VTE Prophylaxis VTE Prophylaxis Intervention: LMWH Lines/Catheters IV Catheter Type (from Nrs): PICC Line Central line still needed: Yes Urinary Cath still in place: Yes Reason Cath still needed: urinary retention Assessment/Plan Chief Complaint/Hosp Course 81 yo female with h/o crhonic systolic CHF, recent open abdominal surgery for necrotic GB, who presented after prolonged seizure. Received benzos in the field leading to obtundation on arrival and was therefore intubated. Subsequently with A Fib w RVR PULM: Acute hypoxic respiratory failure: - Wean sedation as tolerated and extubate when able NEURO Seizure w status epilepticus: - Continue keppra per neurology - MRI brain when stable - Routine EEG ID: Fever: - Unclear source - XR with possible pneumonia - Vanco and zosyn for now - LP consideration - Stefanie in urine but suspect colonizer so will hold antifungals unless fevers/ sepsis CV: Systolic chronic CHF: - Will reinstate BB when stable, likely will need diuresis Atrial fibrillation paroxysmal with RVR now converted back to NSR - Stop diltiazem, consider AC GI: - s/p open cholecystectomy Discharge plan pending Problems: Subjective 24 Hr Interval Summary Free Text/Dictation Failed pressure support trial today Still intubated Exam/Review of Systems Vital Signs Vitals Vital Signs Date Time Temp Pulse Resp B/P Pulse Ox O2 Delivery O2 Flow Rate FiO2 02/05/17 16:00 68 19 85/56 02/05/17 16:00 30 02/05/17 15:45 100 02/05/17 15:00 98.2 02/04/17 20:00 Mechanical Ventilator Intake and Output 02/04/17 02/04/17 02/05/17 15:00 23:00 07:00 Intake Total 806.1 ml 245 ml 460 ml Output Total 120 ml 120 ml 195 ml Balance 686.1 ml 125 ml 265 ml Exam Alert and arousable RRR Clear lungs Soft belly Spotnaenous movements throughout No edema Results Result Diagram: 02/05/17 0443 02/05/17 0443 Results 24 hrs Laboratory Tests Test 02/05/17 04:43 02/05/17 07:00 02/05/17 07:24 White Blood Count 8.3 # Red Blood Count 2.50 L Hemoglobin 8.0 L Hematocrit 24.6 L Mean Corpuscular Volume 98.4 Mean Corpuscular Hemoglobin 32.0 Mean Corpuscular Hemoglobin Concent 32.5 Red Cell Distribution Width 15.4 H Platelet Count 199 # Mean Platelet Volume 10.5 H Neutrophils % 71.6 Lymphocytes % 15.2 Monocytes % 9.9 Eosinophils % 2.2 Basophils % 0.6 Nucleated Red Blood Cells % 0.0 Neutrophils # 5.9 Lymphocytes # 1.3 Monocytes # 0.8 Eosinophils # 0.2 Basophils # 0.1 Nucleated Red Blood Cells # 0.0 Sodium Level 138 Potassium Level 3.2 L Chloride Level 109 Carbon Dioxide Level 26 Anion Gap 6 #L Blood Urea Nitrogen 14 Creatinine 0.78 Glucose Level 116 Calcium Level 8.2 L Phosphorus Level 2.1 L Magnesium Level 1.9 Troponin I 0.660 *H Blood Gas Specimen Source Blood arterial Arterial Blood Date Drawn 02/05/2017 7:40:09 AM Arterial Blood pH (Temp corrected) 7.509 H Arterial Blood pCO2 (Temp correct) 29.3 L Arterial Blood pO2 (Temp corrected) 108.2 H Arterial Blood HCO3 22.8 Arterial Blood Base Excess 0.1 Arterial Blood Oxygen Saturation 97.5 Jordan Test ACCEPTAB Arterial Blood Gas Puncture Site Right Radial Arterial Blood Carboxyhemoglobin 0.3 Arterial Blood Methemoglobin 0.3 Blood Gas A-a O2 Differential 107.3 H Oxyhemoglobin Percent 96.9 Total Hemoglobin 8.3 L Blood Gas Temperature 37.0 Blood Gas Respiration Rate 14.0 Blood Gas Actual Respiration Rate 22 Blood Gas Modality VENT - AC FiO2 35.0 Blood Gas Tidal Volume 500.0 Blood Gas Low PEEP Setting 5.0 Blood Gas Notified Whom DT Blood Gas Notified Time 02/05/2017 8:15:51 AM Vancomycin Level Trough 8.5 L Medications Medications Current Medications Propofol (Diprivan) 100 ml @ 2.25 mls/hr Q12H IV Last administered on t 08:00; Admin Dose 4.5 MLS/HR; Start 02/02/17 at 22:30 Ondansetron HCl (Zofran Inj) 4 mg Q6H PRN IV NAUSEA AND/OR VOMITING; Start 02/02 at 23:00 Acetaminophen 650 mg 650 mg Q4H PRN [place] PAIN LEVEL 1-3 OR FEVER; Start 02/02/17 at 23:00 Piperacillin Sod/ Tazobactam Sod 100 ml @ 200 mls/hr Q8 IVPB Last administered on 02/05/17 13:57; Admin Dose 200 MLS/HR; Start 02/02/17 at 23:00 Norepinephrine 16 mg/Dextrose 500 ml @ 1.87 mls/hr TITRATE IV ; Start 02/03/17 at 07:00 Levetiracetam (Keppra 1,000mg/ 100ml (Pmx)) 100 ml @ 400 mls/hr Q12 IVPB Last administered on 02/05/17 08:46; Admin Dose 400 MLS/HR; Start 02/03/17 at 21:00 Morphine Sulfate (morphine) 2 mg Q2H PRN IV PAIN; Start 02/03/17 at 13:00 Lorazepam (Ativan) 2 mg Q2 PRN IV AGITATION; Start 02/03/17 at 13:00 IV Flush (NS 10 ml) 10 ml PRN PRN IV IV PROTOCOL; Start 02/03/17 at 13:30 Famotidine (Pepcid) 20 mg DAILY GTB Last administered on 02/05/17 08:46; Admin Dose 20 MG; Start 02/05/17 at 09:00 Amiodarone HCl 400 mg 400 mg BID GTB Last administered on 02/05/17 08:45; Admin Dose 400 MG; Start 02/04/17 at 22:30 Vancomycin HCl 250 ml @ 125 mls/hr Q12H IVPB Last administered on 02/05/17 10 :44; Admin Dose 125 MLS/HR; Start 02/05/17 at 10:30 Fentanyl (Sublimaze) 100 ml @ 2.5 mls/hr TITRATE IV Last administered on 13:58; Admin Dose 2.5 MLS/HR; Start 02/05/17 at 12:30 MARICHUY DUBON MD Feb 05, 2017 18:02
[2017-02-05] MEDS: LORAZEPAM 2 MG INJ IV PRN (22:42)
[2017-02-06] VITALS (98 sets, daily range): BP systolic 80–138; BP diastolic 44–104; PULSE 44–86; RESP 12–32
[2017-02-06] MEDS: PROPOFOL 100 ML IV SCH ×2 (02:05→19:06)
[2017-02-06 04:36] LABS: BASOPHIL # 0.1 10^3/ul (0.0-0.1); BASOPHILS % 0.9 % (0.0-2.0); EOSINOPHILS # 0.3 10^3/ul (0.0-0.5); HEMATOCRIT 26.3 % (37.0-47.0); HEMOGLOBIN 8.2 g/dl (12.0-16.0); LYMPHOCYTES # 1.6 10^3/ul (0.8-2.9); LYMPHOCYTES % 14.8 % (15.0-51.0); MEAN CORPUSCULAR HEMOGLOBIN 30.9 pg (29.0-33.0); MEAN CORPUSCULAR HGB CONC 31.2 g/dl (32.0-37.0); MEAN CORPUSCULAR VOLUME 99.2 fl (82.0-101.0); MEAN PLATELET VOLUME 10.9 fl (7.4-10.4); MONOCYTE # 1.2 10^3/ul (0.3-0.9); NEUTROPHIL # 7.3 10^3/ul (1.6-7.5); NEUTROPHILS % 69.9 % (39.0-77.0); PLATELET COUNT 239 10^3/UL (140-415); RED BLOOD COUNT 2.65 10^6/ul (4.20-5.40); RED CELL DISTRIBUTION WIDTH 15.8 % (11.5-14.5); WHITE BLOOD COUNT 10.5 10^3/ul (4.8-10.8)
[2017-02-06 05:06] LABS: CALCIUM 8.2 mg/dl (8.4-10.2); CREATININE 0.74 mg/dl (0.44-1.00); MAGNESIUM 1.9 mg/dl (1.7-2.5); PHOSPHORUS 2.9 mg/dl (2.5-4.9); POTASSIUM 3.5 mmol/L (3.5-5.1)
[2017-02-06] MEDS: PIPER-TAZO 3.375 GM IV (PMX) 100 ML IVPB SCH ×3 (06:03→22:27)
[2017-02-06 08:30] LABS: AADO2 Arterial 70.7 mmHg (7.0-24.0); Allen Test ACCEPTAB; Arterial Base Excess 1.2 mmol/L (-3.0-3); Arterial COHb 0 % (0.0-3.0); Arterial Fraction of Oxyhgb 97.6 % (93.0-99.0); Arterial HCO3 24.8 mmol/L (22.0-26.0); Arterial MetHb 0.1 % (0.0-1.5); Arterial Total Hemglobin 10.4 g/dl (12.0-18.0); MODE VENT - AC
[2017-02-06] MEDS: FAMOTIDINE 20 MG TAB GTB SCH (08:48)
[2017-02-06] MEDS: LEVETIRACETAM 1000 MG (PMX) 100 ML IVPB SCH ×2 (08:48→20:18)
[2017-02-06] MEDS: VANCOMYCIN 1 GM in NS 250 ML IVPB SCH (09:55)
--- NOTE | 2017-02-06 10:48 | RADRPT ---
PROCEDURE: XR Chest. CLINICAL INDICATION: Pneumonia and CHF. TECHNIQUE: Chest x-ray, single view. COMPARISON: 02/05/2017. FINDINGS: The cardiac silhouette is magnified and unchanged in size. The endotracheal tube terminates within the lower trachea. A left upper extremity PICC terminates at the SVC/right atrial junction. Aortic arch atherosclerotic calcification is present. Low lung volumes are observed. Mild basilar atelec tatic changes persist. Small pleural effusions may also be present. Patchy parenchymal opacificati on throughout the right lung is grossly unchanged. IMPRESSION: Low lung volumes with persistent basilar atelectatic changes and possible small pleural effusions. Patchy parenchymal opacification throughout the right lung, grossly unchanged.. RPTAT: PP .Cici Beltran MD, Date Time Electronically viewed and signed by .Cici Beltran MD, on 02/06/2017 10:48 .T/
--- NOTE | 2017-02-06 14:16 | CONS ---
Date/Time of Note Date/Time of Note DATE: 02/06/17 TIME: 14:14 Consult Date/Type/Reason Admit Date/Time Feb 02, 2017 at 07:43 Initial Consult Date 02/02/17 Type of Consultation: Pulmonary Subjective Opens eyes but not consistently following commands. Failed CPAP trial yesterday. Objective Vital Signs Date Time Temp Pulse Resp B/P Pulse Ox O2 Delivery O2 Flow Rate FiO2 02/06/17 12:15 58 16 98/54 100 02/06/17 11:15 30 02/06/17 06:00 Mechanical Ventilator 02/06/17 04:00 98.5 Intake and Output 02/05/17 02/05/17 02/06/17 15:00 23:00 07:00 Intake Total 883.5 ml 799.0 ml 796.85 ml Output Total 450 ml 180 ml 170 ml Balance 433.5 ml 619.0 ml 626.85 ml Exam PHYSICAL EXAMINATION GENERAL: Elderly lady orally intubated on mechanical ventilation. VITAL SIGNS: see below. HEENT: Pupils equal, round, and reactive to light CARDIAC: S1, S2, 2/6 systolic ejection murmur CHEST: Diminished air entry bilaterally ABDOMEN: Mildly distended. Bowel sounds present no guarding or rebound EXTREMITIES: No cyanosis, clubbing edema +2 NEUROLOGIC: Generalized weakness Results/Medications Result Diagram: 02/06/17 0400 02/06/17 0400 Results 24 hrs Laboratory Tests Test 02/06/17 04:00 02/06/17 07:00 White Blood Count 10.5 # Red Blood Count 2.65 L Hemoglobin 8.2 L Hematocrit 26.3 L Mean Corpuscular Volume 99.2 Mean Corpuscular Hemoglobin 30.9 Mean Corpuscular Hemoglobin Concent 31.2 L Red Cell Distribution Width 15.8 H Platelet Count 239 # Mean Platelet Volume 10.9 H Neutrophils % 69.9 Lymphocytes % 14.8 L Monocytes % 11.0 Eosinophils % 3.0 Basophils % 0.9 Nucleated Red Blood Cells % 0.0 Neutrophils # 7.3 Lymphocytes # 1.6 Monocytes # 1.2 H Eosinophils # 0.3 Basophils # 0.1 Nucleated Red Blood Cells # 0.0 Sodium Level 138 Potassium Level 3.5 Chloride Level 109 Carbon Dioxide Level 26 Anion Gap 7 L Blood Urea Nitrogen 12 Creatinine 0.74 Glucose Level 119 Calcium Level 8.2 L Phosphorus Level 2.9 Magnesium Level 1.9 Blood Gas Specimen Source Blood arterial Arterial Blood Date Drawn 02/06/2017 8:27:25 AM Arterial Blood pH (Temp corrected) 7.465 H Arterial Blood pCO2 (Temp correct) 35.2 Arterial Blood pO2 (Temp corrected) 101.8 H Arterial Blood HCO3 24.8 Arterial Blood Base Excess 1.2 Arterial Blood Oxygen Saturation 97.7 Jordan Test ACCEPTAB Arterial Blood Gas Puncture Site Right Radial Arterial Blood Carboxyhemoglobin 0 Arterial Blood Methemoglobin 0.1 Blood Gas A-a O2 Differential 70.7 H Oxyhemoglobin Percent 97.6 Total Hemoglobin 10.4 L Blood Gas Temperature 37.0 Blood Gas Respiration Rate 16.0 Blood Gas Actual Respiration Rate 16 Blood Gas Modality VENT - AC FiO2 30.0 Blood Gas Tidal Volume 500.0 Blood Gas Low PEEP Setting 5.0 Blood Gas Notified Whom DT Blood Gas Notified Time 02/06/2017 8:30:05 AM Medications Current Medications Propofol (Diprivan) 100 ml @ 2.25 mls/hr Q12H IV Last administered on 02:05; Admin Dose 6.75 MLS/HR; Start 02/02/17 at 22:30 Ondansetron HCl (Zofran Inj) 4 mg Q6H PRN IV NAUSEA AND/OR VOMITING; Start 02/02 at 23:00 Acetaminophen 650 mg 650 mg Q4H PRN [place] PAIN LEVEL 1-3 OR FEVER; Start 02/02/17 at 23:00 Piperacillin Sod/ Tazobactam Sod 100 ml @ 200 mls/hr Q8 IVPB Last administered on 02/06/17 13:17; Admin Dose 200 MLS/HR; Start 02/02/17 at 23:00 Norepinephrine 16 mg/Dextrose 500 ml @ 1.87 mls/hr TITRATE IV Last administered on 02/05/17 20:20; Admin Dose 3.75 MLS/HR; Start 02/03/17 at 07:00 Levetiracetam (Keppra 1,000mg/ 100ml (Pmx)) 100 ml @ 400 mls/hr Q12 IVPB Last administered on 02/06/17 08:48; Admin Dose 400 MLS/HR; Start 02/03/17 at 21:00 Morphine Sulfate (morphine) 2 mg Q2H PRN IV PAIN; Start 02/03/17 at 13:00 Lorazepam (Ativan) 2 mg Q2 PRN IV AGITATION Last administered on 02/05/17 22: 42; Admin Dose 2 MG; Start 02/03/17 at 13:00 IV Flush (NS 10 ml) 10 ml PRN PRN IV IV PROTOCOL; Start 02/03/17 at 13:30 Famotidine 20 mg 20 mg DAILY GTB Last administered on 02/06/17 08:48; Admin Dose 20 MG; Start 02/05/17 at 09:00 Vancomycin HCl 250 ml @ 125 mls/hr Q12H IVPB Last administered on 02/06/17 09 :55; Admin Dose 125 MLS/HR; Start 02/05/17 at 10:30 Fentanyl (Sublimaze) 100 ml @ 2.5 mls/hr TITRATE IV Last administered on 13:58; Admin Dose 2.5 MLS/HR; Start 02/05/17 at 12:30 Miscellaneous Information (*Rx Drug Level Order Reminder*) VANCOMYCIN TROUGH AT 2130 ONCE ONCE XX ; Start 02/06/17 at 21:30; Stop 02/06/17 at 21:31 Assessment/Plan Chief Complaint/Hosp Course IMPRESSION AND PLAN: 1. Atrial fibrillation with rapid ventricular rate currently rate controlled 2. Seizures, questionable new onset. 3. Possible aspiration pneumonia during seizure activity. X-ray shows right middle lobe infiltrate. No radiographic changes today. 4. Recent cholecystectomy. 5. Septic shock continues Levophed 6. Dysphagia on nasogastric tube feeding 7. Encephalopathy likely toxic metabolic complicated by sedatives. PLAN: 1. Continue broad-spectrum antibiotic coverage. 2. Continue mechanical ventilation. CPAP weaning trial once hemodynamically stable 3. Continue Keppra per Neurology recommendations. 4. trial of fentanyl for pain control decrease propofol as tolerated 5. DVT and GI prophylaxis. 6. Need family conference to discuss goals of care. Care time 40 minutes. Discussed with primary team. Problems: MEEK ENGEL MD, [facility] Feb 06, 2017 14:16
--- NOTE | 2017-02-06 17:40 | PN ---
Date/Time of Note Date/Time of Note DATE: 02/06/17 TIME: 17:37 Assessment/Plan VTE Prophylaxis VTE Prophylaxis Intervention: LMWH Lines/Catheters IV Catheter Type (from Nrs): PICC Line Central line still needed: Yes Urinary Cath still in place: Yes Reason Cath still needed: urinary retention Assessment/Plan Chief Complaint/Hosp Course 81 yo female with h/o crhonic systolic CHF, recent open abdominal surgery for necrotic GB, who presented after prolonged seizure. Received benzos in the field leading to obtundation on arrival and was therefore intubated. Subsequently with A Fib w RVR PULM: Acute hypoxic respiratory failure: - Wean sedation as tolerated and extubate when able - Will give a dose of lasix as pulmonary edema may be attributing to respriatoyr failure NEURO Seizure w status epilepticus: - Continue keppra per neurology - MRI brain when stable - Routine EEG ID: Fever: - Likely pneumonia: Vanco and zosyn - LP consideration given seizure at presentation - Stefanie in urine but suspect colonizer so will hold antifungals unless fevers/ sepsis CV: Systolic chronic CHF: - Holding [place]/BB for now given hypotension Atrial fibrillation paroxysmal with RVR now converted back to NSR - Continue amiodarone GI: - s/p open cholecystectomy Discharge plan pending Problems: Subjective 24 Hr Interval Summary Free Text/Dictation Patient unable to be weaned from vent Became agitated and tachypneic with PST Exam/Review of Systems Vital Signs Vitals Vital Signs Date Time Temp Pulse Resp B/P Pulse Ox O2 Delivery O2 Flow Rate FiO2 02/06/17 16:00 84 02/06/17 15:50 22 98 30 02/06/17 12:15 98/54 02/06/17 06:00 Mechanical Ventilator 02/06/17 04:00 98.5 Intake and Output 02/05/17 02/05/17 02/06/17 15:00 23:00 07:00 Intake Total 883.5 ml 799.0 ml 796.85 ml Output Total 450 ml 180 ml 170 ml Balance 433.5 ml 619.0 ml 626.85 ml Results Result Diagram: 02/06/17 0400 02/06/17 0400 Results 24 hrs Laboratory Tests Test 02/06/17 04:00 02/06/17 07:00 White Blood Count 10.5 # Red Blood Count 2.65 L Hemoglobin 8.2 L Hematocrit 26.3 L Mean Corpuscular Volume 99.2 Mean Corpuscular Hemoglobin 30.9 Mean Corpuscular Hemoglobin Concent 31.2 L Red Cell Distribution Width 15.8 H Platelet Count 239 # Mean Platelet Volume 10.9 H Neutrophils % 69.9 Lymphocytes % 14.8 L Monocytes % 11.0 Eosinophils % 3.0 Basophils % 0.9 Nucleated Red Blood Cells % 0.0 Neutrophils # 7.3 Lymphocytes # 1.6 Monocytes # 1.2 H Eosinophils # 0.3 Basophils # 0.1 Nucleated Red Blood Cells # 0.0 Sodium Level 138 Potassium Level 3.5 Chloride Level 109 Carbon Dioxide Level 26 Anion Gap 7 L Blood Urea Nitrogen 12 Creatinine 0.74 Glucose Level 119 Calcium Level 8.2 L Phosphorus Level 2.9 Magnesium Level 1.9 Blood Gas Specimen Source Blood arterial Arterial Blood Date Drawn 02/06/2017 8:27:25 AM Arterial Blood pH (Temp corrected) 7.465 H Arterial Blood pCO2 (Temp correct) 35.2 Arterial Blood pO2 (Temp corrected) 101.8 H Arterial Blood HCO3 24.8 Arterial Blood Base Excess 1.2 Arterial Blood Oxygen Saturation 97.7 Jordan Test ACCEPTAB Arterial Blood Gas Puncture Site Right Radial Arterial Blood Carboxyhemoglobin 0 Arterial Blood Methemoglobin 0.1 Blood Gas A-a O2 Differential 70.7 H Oxyhemoglobin Percent 97.6 Total Hemoglobin 10.4 L Blood Gas Temperature 37.0 Blood Gas Respiration Rate 16.0 Blood Gas Actual Respiration Rate 16 Blood Gas Modality VENT - AC FiO2 30.0 Blood Gas Tidal Volume 500.0 Blood Gas Low PEEP Setting 5.0 Blood Gas Notified Whom DT Blood Gas Notified Time 02/06/2017 8:30:05 AM Medications Medications Current Medications Propofol (Diprivan) 100 ml @ 2.25 mls/hr Q12H IV Last administered on t 02:05; Admin Dose 6.75 MLS/HR; Start 02/02/17 at 22:30 Ondansetron HCl (Zofran Inj) 4 mg Q6H PRN IV NAUSEA AND/OR VOMITING; Start 02/02 at 23:00 Acetaminophen 650 mg 650 mg Q4H PRN [place] PAIN LEVEL 1-3 OR FEVER; Start 02/02/17 at 23:00 Piperacillin Sod/ Tazobactam Sod 100 ml @ 200 mls/hr Q8 IVPB Last administered on 02/06/17 13:17; Admin Dose 200 MLS/HR; Start 02/02/17 at 23:00 Norepinephrine 16 mg/Dextrose 500 ml @ 1.87 mls/hr TITRATE IV Last administered on 02/05/17 20:20; Admin Dose 3.75 MLS/HR; Start 02/03/17 at 07:00 Levetiracetam (Keppra 1,000mg/ 100ml (Pmx)) 100 ml @ 400 mls/hr Q12 IVPB Last administered on 02/06/17 08:48; Admin Dose 400 MLS/HR; Start 02/03/17 at 21:00 Morphine Sulfate (morphine) 2 mg Q2H PRN IV PAIN; Start 02/03/17 at 13:00 Lorazepam (Ativan) 2 mg Q2 PRN IV AGITATION Last administered on 02/05/17 22: 42; Admin Dose 2 MG; Start 02/03/17 at 13:00 IV Flush (NS 10 ml) 10 ml PRN PRN IV IV PROTOCOL; Start 02/03/17 at 13:30 Famotidine 20 mg 20 mg DAILY GTB Last administered on 02/06/17 08:48; Admin Dose 20 MG; Start 02/05/17 at 09:00 Vancomycin HCl 250 ml @ 125 mls/hr Q12H IVPB Last administered on 02/06/17 09 :55; Admin Dose 125 MLS/HR; Start 02/05/17 at 10:30 Fentanyl (Sublimaze) 100 ml @ 2.5 mls/hr TITRATE IV Last administered on 13:58; Admin Dose 2.5 MLS/HR; Start 02/05/17 at 12:30 Miscellaneous Information (*Rx Drug Level Order Reminder*) VANCOMYCIN TROUGH AT 2130 ONCE ONCE XX ; Start 02/06/17 at 21:30; Stop 02/06/17 at 21:31 MARICHUY DUBON MD Feb 06, 2017 17:40
[2017-02-06] MEDS ORDERED: FUROSEMIDE 40 MG INJ IV ONE (18:00)
[2017-02-06] MEDS: FENTAnyl (DRIP) 1000 mcg/100mL 100 ML IV SCH (20:07)
[2017-02-07] VITALS (96 sets, daily range): BP systolic 62–133; BP diastolic 35–118; PULSE 47–77; RESP 12–27
[2017-02-07] MEDS: VANCOMYCIN 1 GM in NS 250 ML IVPB SCH ×2 (00:41→12:38)
[2017-02-07] MEDS: PROPOFOL 100 ML IV SCH ×2 (03:31→20:11)
[2017-02-07 05:17] LABS: CALCIUM 8.3 mg/dl (8.4-10.2); CREATININE 0.72 mg/dl (0.44-1.00); MAGNESIUM 1.7 mg/dl (1.7-2.5); PHOSPHORUS 3.6 mg/dl (2.5-4.9); POTASSIUM 3.3 mmol/L (3.5-5.1)
[2017-02-07 05:19] LABS: BASOPHIL # 0.1 10^3/ul (0.0-0.1); BASOPHILS % 1.1 % (0.0-2.0); EOSINOPHILS # 0.3 10^3/ul (0.0-0.5); EOSINOPHILS % 3.6 % (0.0-7.0); HEMATOCRIT 26.6 % (37.0-47.0); HEMOGLOBIN 8.3 g/dl (12.0-16.0); LYMPHOCYTES # 1.6 10^3/ul (0.8-2.9); LYMPHOCYTES % 17.4 % (15.0-51.0); MEAN CORPUSCULAR HGB CONC 31.2 g/dl (32.0-37.0); MEAN CORPUSCULAR VOLUME 99.3 fl (82.0-101.0); MEAN PLATELET VOLUME 11.2 fl (7.4-10.4); MONOCYTE # 1.1 10^3/ul (0.3-0.9); MONOCYTES % 11.8 % (0.0-11.0); NEUTROPHIL # 5.9 10^3/ul (1.6-7.5); NEUTROPHILS % 65.5 % (39.0-77.0); PLATELET COUNT 257 10^3/UL (140-415); RED BLOOD COUNT 2.68 10^6/ul (4.20-5.40); RED CELL DISTRIBUTION WIDTH 15.4 % (11.5-14.5); WHITE BLOOD COUNT 9.1 10^3/ul (4.8-10.8)
[2017-02-07] MEDS: PIPER-TAZO 3.375 GM IV (PMX) 100 ML IVPB SCH ×3 (06:28→21:15)
--- NOTE | 2017-02-07 08:11 | RADRPT ---
PROCEDURE: XR Chest. CLINICAL INDICATION: CHF TECHNIQUE: An AP view of the chest was obtained. COMPARISON: Chest x-ray dated 02/06/2017 FINDINGS: The endotracheal tube tip is at the miguel. The tip of the enteric tube extends below the left diap hragm. There is a right upper extremity PICC line with tip near the cavoatrial junction. There are right lung interstitial opacities with small bilateral pleural effusions. There is obscura tion of the left diaphragm. No pneumothorax is seen. There is a 5 mm granuloma within the right mid lung. The cardiomediastinal silhouette is mildly enlarged . Calcifications are seen within the aor tic arch. Mitral annular calcifications are noted. The osseous structures demonstrate senescent humphrey ges. IMPRESSION: 1. Right lung interstitial opacities may reflect asymmetric interstitial edema or pneumonia. No sign ificant interval change. 2. Small bilateral pleural effusions, not significantly changed from prior examination. 3. Left basilar atelectasis versus pneumonia, also unchanged. 4. Mild cardiomegaly and aortic atherosclerosis. 5. Tubes and lines, as described above. The endotracheal tube tip is low in position at the miguel. Retraction by 3 cm is recommended. Findings were discussed with the patient's nurse Felix on 02/07/2017 8:08:24 AM. RPTAT: HH .Nery Daley MD, Date Time Electronically viewed and signed by .Nery Daley MD, on 02/07/2017 08:11 .Rickey/
[2017-02-07] MEDS ORDERED: POTASSIUM CHLORIDE 250 ML IVPB ONE (09:30)
[2017-02-07] MEDS: FAMOTIDINE 20 MG TAB GTB SCH (09:31)
--- NOTE | 2017-02-07 10:22 | CONS ---
Date/Time of Note Date/Time of Note DATE: 02/07/17 TIME: 10:21 Consult Date/Type/Reason Admit Date/Time Feb 02, 2017 at 07:43 Initial Consult Date 02/02/17 Type of Consultation: Pulmonary Subjective More alert today. Remains hemodynamically stable. Objective Vital Signs Date Time Temp Pulse Resp B/P Pulse Ox O2 Delivery O2 Flow Rate FiO2 02/07/17 10:00 77 25 133/118 02/07/17 09:45 100 02/07/17 09:00 Mechanical Ventilator 02/07/17 08:53 30 02/07/17 08:00 98.6 Intake and Output 02/06/17 02/06/17 02/07/17 15:00 23:00 07:00 Intake Total 553.30 ml 860.00 ml 463.25 ml Output Total 365 ml 2840 ml 800 ml Balance 188.30 ml -1980.00 ml -336.75 ml Exam PHYSICAL EXAMINATION GENERAL: Elderly lady orally intubated on mechanical ventilation. VITAL SIGNS: see below. HEENT: Pupils equal, round, and reactive to light CARDIAC: S1, S2, 2/6 systolic ejection murmur CHEST: Diminished air entry bilaterally ABDOMEN: Mildly distended. Bowel sounds present no guarding or rebound EXTREMITIES: No cyanosis, clubbing edema +2 NEUROLOGIC: Generalized weakness Results/Medications Result Diagram: 02/07/17 0043 02/07/17 0430 Results 24 hrs Chest x-ray Right sided effusion. Laboratory Tests Test 02/06/17 21:58 02/07/17 00:43 02/07/17 04:30 Vancomycin Level Trough 15.5 White Blood Count 9.1 Red Blood Count 2.68 L Hemoglobin 8.3 L Hematocrit 26.6 L Mean Corpuscular Volume 99.3 Mean Corpuscular Hemoglobin 31.0 Mean Corpuscular Hemoglobin Concent 31.2 L Red Cell Distribution Width 15.4 H Platelet Count 257 Mean Platelet Volume 11.2 H Neutrophils % 65.5 Lymphocytes % 17.4 Monocytes % 11.8 H Eosinophils % 3.6 Basophils % 1.1 Nucleated Red Blood Cells % 0.0 Neutrophils # 5.9 Lymphocytes # 1.6 Monocytes # 1.1 H Eosinophils # 0.3 Basophils # 0.1 Nucleated Red Blood Cells # 0.0 Sodium Level 142 Potassium Level 3.3 L Chloride Level 102 Carbon Dioxide Level 29 Anion Gap 14 # Blood Urea Nitrogen 11 Creatinine 0.72 Glucose Level 105 Calcium Level 8.3 L Phosphorus Level 3.6 Magnesium Level 1.7 Medications Current Medications Propofol (Diprivan) 100 ml @ 2.25 mls/hr Q12H IV Last administered on 03:31; Admin Dose 9 MLS/HR; Start 02/02/17 at 22:30 Ondansetron HCl (Zofran Inj) 4 mg Q6H PRN IV NAUSEA AND/OR VOMITING; Start 02/02 at 23:00 Acetaminophen 650 mg 650 mg Q4H PRN NM PAIN LEVEL 1-3 OR FEVER; Start 02/02/17 at 23:00 Piperacillin Sod/ Tazobactam Sod 100 ml @ 200 mls/hr Q8 IVPB Last administered on 02/07/17 06:28; Admin Dose 200 MLS/HR; Start 02/02/17 at 23:00 Norepinephrine 16 mg/Dextrose 500 ml @ 1.87 mls/hr TITRATE IV Last administered on 02/05/17 20:20; Admin Dose 3.75 MLS/HR; Start 02/03/17 at 07:00 Levetiracetam (Keppra 1,000mg/ 100ml (Pmx)) 100 ml @ 400 mls/hr Q12 IVPB Last administered on 02/06/17 20:18; Admin Dose 400 MLS/HR; Start 02/03/17 at 21:00 Morphine Sulfate (morphine) 2 mg Q2H PRN IV PAIN; Start 02/03/17 at 13:00 Lorazepam (Ativan) 2 mg Q2 PRN IV AGITATION Last administered on 02/05/17 22: 42; Admin Dose 2 MG; Start 02/03/17 at 13:00 IV Flush (NS 10 ml) 10 ml PRN PRN IV IV PROTOCOL; Start 02/03/17 at 13:30 Famotidine 20 mg 20 mg DAILY GTB Last administered on 02/07/17 09:31; Admin Dose 20 MG; Start 02/05/17 at 09:00 Vancomycin HCl 250 ml @ 125 mls/hr Q12H IVPB Last administered on 02/07/17 00 :41; Admin Dose 125 MLS/HR; Start 02/05/17 at 10:30 Fentanyl 100 ml @ 2.5 mls/hr TITRATE IV Last administered on 02/06/17 20:07; Admin Dose 3 MLS/HR; Start 02/05/17 at 12:30 Potassium Chloride (KCl 40 MEQ/250 ML NS) 250 ml @ 62.5 mls/hr ONCE ONCE IVPB Last administered on 02/07/17 09:23; Admin Dose 62.5 MLS/HR; Start 02/07/17 at 09:30; Stop 02/07/17 at 13:29 Assessment/Plan Chief Complaint/Hosp Course IMPRESSION AND PLAN: 1. Atrial fibrillation with rapid ventricular rate currently rate controlled 2. Seizures, questionable new onset. 3. Possible aspiration pneumonia during seizure activity. Increasing right effusion. 4. Recent cholecystectomy. 5. Septic shock continues Levophed 6. Dysphagia on nasogastric tube feeding 7. Encephalopathy likely toxic metabolic complicated by sedatives. Slowly improving. PLAN: 1. Continue broad-spectrum antibiotic coverage. 2. Continue mechanical ventilation. CPAP trial today. 3. Continue Keppra per Neurology recommendations. 4. trial of fentanyl for pain control decrease propofol as tolerated 5. DVT and GI prophylaxis. 6. Thoracentesis right effusion Care time 40 minutes. Discussed with primary team. Problems: MEEK ENGEL MD, [facility] Feb 07, 2017 10:22
--- NOTE | 2017-02-07 14:38 | PN ---
Date/Time of Note Date/Time of Note DATE: 02/07/17 TIME: 14:30 Assessment/Plan VTE Prophylaxis VTE Prophylaxis Intervention: SCD's Assessment/Plan Chief Complaint/Hosp Course 81 yo female with h/o chronic systolic CHF, recent open abdominal surgery for necrotic GB, who presented after prolonged seizure. Received benzos in the field leading to obtundation on arrival and was therefore intubated. Subsequently with A Fib w RVR PULM: Acute hypoxic respiratory failure: - Wean sedation as tolerated and extubate when able -Status post dose of lasix as pulmonary edema may be attributing to respiratory failure NEURO Seizure w status epilepticus: - Continue keppra per neurology - MRI brain when stable - Routine EEG ID: Fever: - Likely pneumonia: Vanco and zosyn - LP consideration given seizure at presentation - Stefanie in urine but suspect colonizer so will hold antifungals unless fevers/ sepsis CV: Systolic chronic CHF: - Holding [place]/BB for now given hypotension Atrial fibrillation paroxysmal with RVR now converted back to NSR - Continue amiodarone GI: - s/p open cholecystectomy Prophylaxis: SCDs Discharge plan pending Problems: Subjective 24 Hr Interval Summary Subjective hx not possible: pt non-verbal Exam/Review of Systems Vital Signs Vitals Vital Signs Date Time Temp Pulse Resp B/P Pulse Ox O2 Delivery O2 Flow Rate FiO2 02/07/17 13:35 62 17 100 30 02/07/17 12:30 92/52 02/07/17 12:00 98.8 02/07/17 09:00 Mechanical Ventilator Intake and Output 02/06/17 02/06/17 02/07/17 15:00 23:00 07:00 Intake Total 553.30 ml 860.00 ml 529.00 ml Output Total 365 ml 2840 ml 920 ml Balance 188.30 ml -1980.00 ml -391.00 ml Exam Constitutional: non-verbal ENMT: intubated Respiratory: clear to auscultation Cardiovascular: regular rate and rhythm Gastrointestinal: soft, No distended Musculoskeletal: nl extremities to inspection Results Result Diagram: 02/07/17 0043 02/07/17 0430 Results 24 hrs Laboratory Tests Test 02/06/17 21:58 02/07/17 00:43 02/07/17 04:30 Vancomycin Level Trough 15.5 White Blood Count 9.1 Red Blood Count 2.68 L Hemoglobin 8.3 L Hematocrit 26.6 L Mean Corpuscular Volume 99.3 Mean Corpuscular Hemoglobin 31.0 Mean Corpuscular Hemoglobin Concent 31.2 L Red Cell Distribution Width 15.4 H Platelet Count 257 Mean Platelet Volume 11.2 H Neutrophils % 65.5 Lymphocytes % 17.4 Monocytes % 11.8 H Eosinophils % 3.6 Basophils % 1.1 Nucleated Red Blood Cells % 0.0 Neutrophils # 5.9 Lymphocytes # 1.6 Monocytes # 1.1 H Eosinophils # 0.3 Basophils # 0.1 Nucleated Red Blood Cells # 0.0 Sodium Level 142 Potassium Level 3.3 L Chloride Level 102 Carbon Dioxide Level 29 Anion Gap 14 # Blood Urea Nitrogen 11 Creatinine 0.72 Glucose Level 105 Calcium Level 8.3 L Phosphorus Level 3.6 Magnesium Level 1.7 Medications Medications Current Medications Propofol (Diprivan) 100 ml @ 2.25 mls/hr Q12H IV Last administered on 03:31; Admin Dose 9 MLS/HR; Start 02/02/17 at 22:30 Ondansetron HCl (Zofran Inj) 4 mg Q6H PRN IV NAUSEA AND/OR VOMITING; Start 02/02 at 23:00 Acetaminophen 650 mg 650 mg Q4H PRN [place] PAIN LEVEL 1-3 OR FEVER; Start 02/02/17 at 23:00 Piperacillin Sod/ Tazobactam Sod 100 ml @ 200 mls/hr Q8 IVPB Last administered on 02/07/17 06:28; Admin Dose 200 MLS/HR; Start 02/02/17 at 23:00 Norepinephrine 16 mg/Dextrose 500 ml @ 1.87 mls/hr TITRATE IV Last administered on 02/05/17 20:20; Admin Dose 3.75 MLS/HR; Start 02/03/17 at 07:00 Levetiracetam (Keppra 1,000mg/ 100ml (Pmx)) 100 ml @ 400 mls/hr Q12 IVPB Last administered on 02/06/17 20:18; Admin Dose 400 MLS/HR; Start 02/03/17 at 21:00 Morphine Sulfate (morphine) 2 mg Q2H PRN IV PAIN; Start 02/03/17 at 13:00 Lorazepam (Ativan) 2 mg Q2 PRN IV AGITATION Last administered on 02/05/17 22: 42; Admin Dose 2 MG; Start 02/03/17 at 13:00 IV Flush (NS 10 ml) 10 ml PRN PRN IV IV PROTOCOL; Start 02/03/17 at 13:30 Famotidine 20 mg 20 mg DAILY GTB Last administered on 02/07/17 09:31; Admin Dose 20 MG; Start 02/05/17 at 09:00 Fentanyl 100 ml @ 2.5 mls/hr TITRATE IV Last administered on 02/06/17 20:07; Admin Dose 3 MLS/HR; Start 02/05/17 at 12:30 Vancomycin HCl/ Sodium Chloride (Vancocin/NS) 150 ml @ 75 mls/hr Q12H IVPB ; Start 02/07/17 at 22:30 LETY DOMINGUEZ Feb 07, 2017 14:38
[2017-02-07] MEDS: LEVETIRACETAM 1000 MG (PMX) 100 ML IVPB SCH ×2 (15:26→20:19)
[2017-02-07 16:43] LABS: FLD MN% 38.3 %; FLD PMN% 61.7 %; FLD RBC 2 /uL; FLD WBC 342 /cmm
[2017-02-07 16:52] LABS: FLUID LD 310 U/L; FLUID TOTAL PROTEIN < 2.0 g/dl; FLUID TYPE PLEURAL FLUID
[2017-02-07 16:53] LABS: FLUID GLUCOSE 115 mg/dl; FLUID TYPE PLEURAL FLUID
[2017-02-07 16:55] LABS: FLD CLARITY CLOUDY; FLD COLOR ORANGE; FLD TYPE PLEURAL
[2017-02-07 16:56] LABS: PATH REVIEW? YES
[2017-02-07 16:58] LABS: FLD MN % (M) 23 %; FLD OTHER CELLS 18 %; FLD PMN % (M) 59 %
--- NOTE | 2017-02-07 17:02 | RADRPT ---
PROCEDURE: XR Chest 1 View. CLINICAL INDICATION: Status post right thoracentesis. TECHNIQUE: AP view of the chest was obtained. COMPARISON: February 07, 2017 at 06:16 a.m. FINDINGS: The heart size is within normal limits. Calcified atherosclerosis is noted in the aorta. Calcified heart valve is noted. Endotracheal tube has its tip approximately 7 mm above the miguel. Nasogastri c tube has its distal end in the expected location of the stomach. Left-sided PICC line appears anupama ssly unchanged. There has been interval decrease in right pleural effusion with improved aeration o f the right lower lung. Scattered atelectasis remains. Calcified granuloma is noted in the right m id lung. Atelectasis is noted at the left lung base. Small left pleural effusion is stable. No pneu mothorax is seen. Osseous structures are intact. IMPRESSION: Calcified atherosclerosis in the aorta. Interval decrease in right pleural effusion with improved aeration of the right lower lung. Scatter ed atelectasis remains. No visualized pneumothorax. Endotracheal tube with its tip approximately 7 mm above the miguel. Retraction by approximately 2.0 cm can be considered. Calcified granuloma in the right mid lung. Atelectasis at the left lung base, combined with small pleural effusion. RPTAT: AA .Jesus Rodney MD, Date Time Electronically viewed and signed by .Jesus Rodney MD, MD on 02/07/2017 17:02 .P/
--- NOTE | 2017-02-07 17:15 | RADRPT ---
PROCEDURE: Ultrasound guided thoracentesis CLINICAL INDICATION: Pleural fluid TECHNIQUE: Multiple sonographic images were obtained through the patient's chest. A site in the p francis's RIGHT lower chest was selected and marked. The area was prepped and draped in the usual oneyda rile fashion. 1% lidocaine was utilized. A 19-gauge eÇifteh needle was advanced into the pleural space and the introducer was connected to a vacuum drainage system. A total of 500 cc of clear yellow fl uid were drained at the end of the procedure. The patient tolerated the procedure well. The specimen was sent for laboratory evaluation. RPTAT: AA COMPARISON: None FINDINGS: Pleural effusion. RPTAT: AA IMPRESSION: Uncomplicated ultrasound-guided right thoracentesis. Physician Celio Date Time Electronically viewed and signed by Physician Celio on 02/07/2017 17:15 /
[2017-02-07] MEDS ORDERED: LIDOCAINE 1% (MPF) 5 ML VIAL ONE (17:55)
[2017-02-07] MEDS: FENTAnyl (DRIP) 1000 mcg/100mL 100 ML IV SCH (19:10)
[2017-02-07] MEDS: VANCOMYCIN 750 MG in SOD CHLORIDE 0.9% 150 ML IVPB SCH (22:13)
[2017-02-08] VITALS (86 sets, daily range): BP systolic 79–158; BP diastolic 37–94; PULSE 50–83; RESP 12–28
[2017-02-08] MEDS: PROPOFOL 100 ML IV SCH ×2 (03:29→17:50)
[2017-02-08] MEDS: PIPER-TAZO 3.375 GM IV (PMX) 100 ML IVPB SCH ×3 (05:14→22:04)
[2017-02-08 06:19] LABS: BASOPHIL # 0.1 10^3/ul (0.0-0.1); BASOPHILS % 0.7 % (0.0-2.0); EOSINOPHILS # 0.3 10^3/ul (0.0-0.5); EOSINOPHILS % 3.8 % (0.0-7.0); HEMATOCRIT 25.3 % (37.0-47.0); LYMPHOCYTES # 1.3 10^3/ul (0.8-2.9); LYMPHOCYTES % 17.5 % (15.0-51.0); MEAN CORPUSCULAR HEMOGLOBIN 31.7 pg (29.0-33.0); MEAN CORPUSCULAR HGB CONC 31.6 g/dl (32.0-37.0); MEAN CORPUSCULAR VOLUME 100.4 fl (82.0-101.0); MEAN PLATELET VOLUME 11.7 fl (7.4-10.4); MONOCYTE # 0.9 10^3/ul (0.3-0.9); MONOCYTES % 12.6 % (0.0-11.0); NEUTROPHILS % 65.1 % (39.0-77.0); PLATELET COUNT 218 10^3/UL (140-415); RED BLOOD COUNT 2.52 10^6/ul (4.20-5.40); RED CELL DISTRIBUTION WIDTH 15.2 % (11.5-14.5); WHITE BLOOD COUNT 7.3 10^3/ul (4.8-10.8)
[2017-02-08 06:51] LABS: CALCIUM 8.4 mg/dl (8.4-10.2); CREATININE 0.64 mg/dl (0.44-1.00); MAGNESIUM 1.7 mg/dl (1.7-2.5); PHOSPHORUS 3.5 mg/dl (2.5-4.9); POTASSIUM 3.6 mmol/L (3.5-5.1)
--- NOTE | 2017-02-08 07:58 | RADRPT ---
PROCEDURE: XR Chest. CLINICAL INDICATION: pna chf TECHNIQUE: Single frontal view of the chest was obtained. COMPARISON: Chest x-ray from 02/07/2017 FINDINGS: The endotracheal tube, enteric tube, and left-sided PICC line are unchanged in position. There is stable mild cardiomegaly. There is a stable small left pleural effusion and retrocardiac opacity due to atelectasis, infiltrat e, and / or effusion. Calcifications of the mitral annulus are again noted. The aortic arch is calcified. There is moderate pulmonary vascular congestion which has increased. There are lower lung volumes with increased prominence of the a hazy opacity at the right lung base due to subsegmental atelectasis and / or infiltrate. IMPRESSION: Lower lung volumes with moderate pulmonary vascular congestion which has increased. Increased prominence of a hazy opacity at the right lung base due to subsegmental atelectasis and / or infiltrate. Stable small left pleural effusion and retrocardiac opacity due to atelectasis, infiltrate, and / or effusion. Lines and support tubes are unchanged. RPTAT: EE Physician Celio Date Time Electronically viewed and signed by Physician Celio on 02/08/2017 07:58 /
[2017-02-08] MEDS: FAMOTIDINE 20 MG TAB GTB SCH (09:57)
[2017-02-08] MEDS: LEVETIRACETAM 1000 MG (PMX) 100 ML IVPB SCH ×2 (09:58→20:54)
--- NOTE | 2017-02-08 10:11 | CONS ---
Date/Time of Note Date/Time of Note DATE: 02/08/17 TIME: 10:10 Consult Date/Type/Reason Admit Date/Time Feb 02, 2017 at 07:43 Initial Consult Date 02/02/17 Type of Consultation: Pulmonary Subjective Patient underwent thoracentesis yesterday with volume removal. Opens eyes and follows simple commands. Objective Vital Signs Date Time Temp Pulse Resp B/P Pulse Ox O2 Delivery O2 Flow Rate FiO2 02/08/17 08:00 51 02/08/17 07:20 16 99 30 02/08/17 06:45 94/78 Mechanical Ventilator 02/08/17 04:00 98.5 Intake and Output 02/07/17 02/07/17 02/08/17 15:00 23:00 07:00 Intake Total 668.40 ml 735.11 ml 642.47 ml Output Total 360 ml 400 ml 405 ml Balance 308.40 ml 335.11 ml 237.47 ml Exam PHYSICAL EXAMINATION GENERAL: Elderly lady orally intubated on mechanical ventilation. VITAL SIGNS: see below. HEENT: Pupils equal, round, and reactive to light CARDIAC: S1, S2, 2/6 systolic ejection murmur CHEST: Diminished air entry bilaterally ABDOMEN: Mildly distended. Bowel sounds present no guarding or rebound EXTREMITIES: No cyanosis, clubbing edema +2 NEUROLOGIC: Generalized weakness Results/Medications Result Diagram: 02/08/17 0450 02/08/17 0450 Results 24 hrs Laboratory Tests Test 02/07/17 14:00 02/08/17 04:50 Pathologist Review (Hematology) YES Body Fluid Type PLEURAL FLUID Body Fluid Volume 500.0 Body Fluid Color ORANGE Body Fluid Appearance CLOUDY Body Fluid WBC 342 Body Fluid RBC (Auto) 2 Body Fluid Polynuclear WBCs 59 Body Fluid Polynuclear WBCs (%) 61.7 Body Fluid Mononuclear WBCs 23 Body Fluid Mononuclear Cells % Auto 38.3 Body Fluid Other Cells 18 Body Fluid Glucose 115 Body Fluid Total Protein < 2.0 Body Fluid Lactate Dehydrogenase 310 White Blood Count 7.3 Red Blood Count 2.52 L Hemoglobin 8.0 L Hematocrit 25.3 L Mean Corpuscular Volume 100.4 Mean Corpuscular Hemoglobin 31.7 Mean Corpuscular Hemoglobin Concent 31.6 L Red Cell Distribution Width 15.2 H Platelet Count 218 Mean Platelet Volume 11.7 H Neutrophils % 65.1 Lymphocytes % 17.5 Monocytes % 12.6 H Eosinophils % 3.8 Basophils % 0.7 Nucleated Red Blood Cells % 0.0 Neutrophils # (Manual) 4.8 Lymphocytes # 1.3 Monocytes # 0.9 Eosinophils # 0.3 Basophils # 0.1 Nucleated Red Blood Cells # 0.0 Sodium Level 141 Potassium Level 3.6 Chloride Level 103 Carbon Dioxide Level 28 Anion Gap 14 Blood Urea Nitrogen 11 Creatinine 0.64 Glucose Level 116 Calcium Level 8.4 Phosphorus Level 3.5 Magnesium Level 1.7 Medications Current Medications Propofol (Diprivan) 100 ml @ 2.25 mls/hr Q12H IV Last administered on 03:29; Admin Dose 15.75 MLS/HR; Start 02/02/17 at 22:30 Ondansetron HCl (Zofran Inj) 4 mg Q6H PRN IV NAUSEA AND/OR VOMITING; Start 02/02 at 23:00 Acetaminophen 650 mg 650 mg Q4H PRN [place] PAIN LEVEL 1-3 OR FEVER; Start 02/02/17 at 23:00 Piperacillin Sod/ Tazobactam Sod 100 ml @ 200 mls/hr Q8 IVPB Last administered on 02/08/17 05:14; Admin Dose 200 MLS/HR; Start 02/02/17 at 23:00 Norepinephrine 16 mg/Dextrose 500 ml @ 1.87 mls/hr TITRATE IV Last administered on 02/05/17 20:20; Admin Dose 3.75 MLS/HR; Start 02/03/17 at 07:00 Levetiracetam (Keppra 1,000mg/ 100ml (Pmx)) 100 ml @ 400 mls/hr Q12 IVPB Last administered on 02/08/17 09:58; Admin Dose 400 MLS/HR; Start 02/03/17 at 21:00 Morphine Sulfate (morphine) 2 mg Q2H PRN IV PAIN; Start 02/03/17 at 13:00 Lorazepam (Ativan) 2 mg Q2 PRN IV AGITATION Last administered on 02/05/17 22: 42; Admin Dose 2 MG; Start 02/03/17 at 13:00 IV Flush (NS 10 ml) 10 ml PRN PRN IV IV PROTOCOL; Start 02/03/17 at 13:30 Famotidine 20 mg 20 mg DAILY GTB Last administered on 02/08/17 09:57; Admin Dose 20 MG; Start 02/05/17 at 09:00 Fentanyl 100 ml @ 2.5 mls/hr TITRATE IV Last administered on 02/07/17 19:10; Admin Dose 3 MLS/HR; Start 02/05/17 at 12:30 Vancomycin HCl/ Sodium Chloride (Vancocin/NS) 150 ml @ 75 mls/hr Q12H IVPB Last administered on 02/07/17 22:13; Admin Dose 75 MLS/HR; Start 02/07/17 at 22 :30 Assessment/Plan Chief Complaint/Hosp Course IMPRESSION AND PLAN: 1. Atrial fibrillation with rapid ventricular rate currently rate controlled 2. Seizures, questionable new onset. 3. Possible aspiration pneumonia during seizure activity. Status post thoracentesis. 4. Recent cholecystectomy. 5. Status post septic shock 6. Dysphagia on nasogastric tube feeding 7. Encephalopathy likely toxic metabolic complicated by sedatives. Slowly improving. PLAN: 1. Continue broad-spectrum antibiotic coverage. 2. Continue mechanical ventilation. CPAP trial today. 3. Continue Keppra per Neurology recommendations. 4. trial of fentanyl for pain control decrease propofol as tolerated 5. DVT and GI prophylaxis. 6. Pleural fluid studies. Care time 40 minutes. Discussed with primary team. Problems: MEEK ENGEL MD, [facility] Feb 08, 2017 10:11
[2017-02-08] MEDS ORDERED: MAGNESIUM SULFATE 2 GM/50 ML 50 ML IVPB ONE (12:00)
[2017-02-08] MEDS: VANCOMYCIN 750 MG in SOD CHLORIDE 0.9% 150 ML IVPB SCH ×2 (12:25→22:04)
[2017-02-08] MEDS: POTASSIUM CHLORIDE 50 ML IVPB PRN ×3 (12:26→15:05)
[2017-02-08] MEDS: QUETIAPINE 25 MG TAB NGT SCH (12:27)
--- NOTE | 2017-02-08 13:44 | CONS ---
Date/Time of Note Date/Time of Note DATE: 02/08/17 TIME: 13:39 Assessment/Plan Assessment/Plan Chief Complaint/Hosp Course Assessment: Paroxysmal atrial fibrillation with rapid ventricular response - reverted to sinus rhythm with amiodarone drip NSTEMI - suspect type 2 Acute on likely chronic systolic heart failure Cardiomyopathy, LVEF 30-35% - suspect chronic ischemic cardiomyopathy with segmental wall motion abnormalities Status post septic shock Possible aspiration pneumonia Tonic-colonic seizure - per neurology Recent cholecystectomy Incomplete data Recommendations: -off amiodarone due to bradycardia -will start carvedilol and [place] inhibitor for systolic heart failure when blood pressure can tolerate -ventilator management per pulmonology Problems: Consultation Date/Type/Reason Admit Date/Time Feb 02, 2017 at 07:43 Initial Consult Date 02/02/17 Type of Consultation: Cardiology 24 HR Interval Summary Free Text/Dictation Off amiodarone. Sinus rhythm and mild sinus bradycardia on telemetry. Off pressors. Borderline blood pressures. On CPAP trial. Status post right thoracentesis yesterday with removal of 500cc. Detailed Summary Additional Comments Unable to obtain review of systems, patient is intubated. Exam/Review of Systems Vital Signs Vitals Vital Signs Date Time Temp Pulse Resp B/P Pulse Ox O2 Delivery O2 Flow Rate FiO2 02/08/17 12:30 65 17 100 02/08/17 12:15 100/58 02/08/17 12:00 97.9 02/08/17 11:05 30 02/08/17 10:00 Mechanical Ventilator Intake and Output 02/07/17 02/07/17 02/08/17 15:00 23:00 07:00 Intake Total 668.40 ml 735.11 ml 711.22 ml Output Total 360 ml 400 ml 435 ml Balance 308.40 ml 335.11 ml 276.22 ml Exam Constitutional: No alert, No distress Psych: No nl mood/affect, No no complaints Head: atraumatic, normocephalic Eyes: nl conjunctiva, nl lids ENMT: intubated Neck: No jvd (difficult to appreciate JVP) Respiratory: clear to auscultation, No wheezing Cardiovascular: regular rate and rhythm, No murmurs/extra sounds Gastrointestinal: soft, No distended Musculoskeletal: nl extremities to inspection Extremities: No clubbing, No cyanosis, No edema Neurological: No nl mental status, No nl speech Skin: nl turgor Results Result Diagram: 02/08/17 0450 02/08/17 0450 Results 24 hrs Laboratory Tests Test 02/07/17 14:00 02/08/17 04:50 Pathologist Review (Hematology) YES Body Fluid Type PLEURAL FLUID Body Fluid Volume 500.0 Body Fluid Color ORANGE Body Fluid Appearance CLOUDY Body Fluid WBC 342 Body Fluid RBC (Auto) 2 Body Fluid Polynuclear WBCs 59 Body Fluid Polynuclear WBCs (%) 61.7 Body Fluid Mononuclear WBCs 23 Body Fluid Mononuclear Cells % Auto 38.3 Body Fluid Other Cells 18 Body Fluid Glucose 115 Body Fluid Total Protein < 2.0 Body Fluid Lactate Dehydrogenase 310 White Blood Count 7.3 Red Blood Count 2.52 L Hemoglobin 8.0 L Hematocrit 25.3 L Mean Corpuscular Volume 100.4 Mean Corpuscular Hemoglobin 31.7 Mean Corpuscular Hemoglobin Concent 31.6 L Red Cell Distribution Width 15.2 H Platelet Count 218 Mean Platelet Volume 11.7 H Neutrophils % 65.1 Lymphocytes % 17.5 Monocytes % 12.6 H Eosinophils % 3.8 Basophils % 0.7 Nucleated Red Blood Cells % 0.0 Neutrophils # (Manual) 4.8 Lymphocytes # 1.3 Monocytes # 0.9 Eosinophils # 0.3 Basophils # 0.1 Nucleated Red Blood Cells # 0.0 Sodium Level 141 Potassium Level 3.6 Chloride Level 103 Carbon Dioxide Level 28 Anion Gap 14 Blood Urea Nitrogen 11 Creatinine 0.64 Glucose Level 116 Calcium Level 8.4 Phosphorus Level 3.5 Magnesium Level 1.7 Medications Medications Current Medications Propofol (Diprivan) 100 ml @ 2.25 mls/hr Q12H IV Last administered on 03:29; Admin Dose 15.75 MLS/HR; Start 02/02/17 at 22:30 Ondansetron HCl (Zofran Inj) 4 mg Q6H PRN IV NAUSEA AND/OR VOMITING; Start 02/02 at 23:00 Acetaminophen 650 mg 650 mg Q4H PRN [place] PAIN LEVEL 1-3 OR FEVER; Start 02/02/17 at 23:00 Piperacillin Sod/ Tazobactam Sod 100 ml @ 200 mls/hr Q8 IVPB Last administered on 02/08/17 05:14; Admin Dose 200 MLS/HR; Start 02/02/17 at 23:00 Norepinephrine 16 mg/Dextrose 500 ml @ 1.87 mls/hr TITRATE IV Last administered on 02/05/17 20:20; Admin Dose 3.75 MLS/HR; Start 02/03/17 at 07:00 Levetiracetam (Keppra 1,000mg/ 100ml (Pmx)) 100 ml @ 400 mls/hr Q12 IVPB Last administered on 02/08/17 09:58; Admin Dose 400 MLS/HR; Start 02/03/17 at 21:00 Morphine Sulfate (morphine) 2 mg Q2H PRN IV PAIN; Start 02/03/17 at 13:00 Lorazepam (Ativan) 2 mg Q2 PRN IV AGITATION Last administered on 02/05/17 22: 42; Admin Dose 2 MG; Start 02/03/17 at 13:00 IV Flush (NS 10 ml) 10 ml PRN PRN IV IV PROTOCOL; Start 02/03/17 at 13:30 Famotidine 20 mg 20 mg DAILY GTB Last administered on 02/08/17 09:57; Admin Dose 20 MG; Start 02/05/17 at 09:00 Fentanyl 100 ml @ 2.5 mls/hr TITRATE IV Last administered on 02/07/17 19:10; Admin Dose 3 MLS/HR; Start 02/05/17 at 12:30 Vancomycin HCl/ Sodium Chloride (Vancocin/NS) 150 ml @ 75 mls/hr Q12H IVPB Last administered on 02/08/17 12:25; Admin Dose 75 MLS/HR; Start 02/07/17 at 22 :30 Quetiapine Fumarate 50 mg 50 mg DAILY NGT Last administered on 02/08/17 12:27 ; Admin Dose 50 MG; Start 02/08/17 at 11:30 Magnesium Sulfate (Magnesium Sulfate 2 Gm/50 ml) 50 ml @ 25 mls/hr ONCE ONCE IVPB ; Start 02/08/17 at 12:00; Stop 02/08/17 at 13:59 PEARL TAYLOR MD Feb 08, 2017 13:43
--- NOTE | 2017-02-08 15:27 | PN ---
Date/Time of Note Date/Time of Note DATE: 02/08/17 TIME: 15:25 Assessment/Plan VTE Prophylaxis VTE Prophylaxis Intervention: SCD's Assessment/Plan Chief Complaint/Hosp Course 81 yo female with h/o chronic systolic CHF, recent open abdominal surgery for necrotic GB, who presented after prolonged seizure. Received benzos in the field leading to obtundation on arrival and was therefore intubated. Subsequently with A Fib w RVR PULM: Acute hypoxic respiratory failure: - Wean sedation as tolerated and extubate when able, start Seroquel to assist with agitation -Status post dose of lasix as pulmonary edema may be attributing to respiratory failure NEURO Seizure w status epilepticus: - Continue keppra per neurology - MRI brain when stable - Routine EEG ID: Fever: - Likely pneumonia: Vanco and zosyn - LP consideration given seizure at presentation - Stefanie in urine but suspect colonizer so will hold antifungals unless fevers/ sepsis CV: Systolic chronic CHF: - Holding [place]/BB for now given hypotension Atrial fibrillation paroxysmal with RVR now converted back to NSR - Continue amiodarone GI: - s/p open cholecystectomy Prophylaxis: SCDs Discharge plan pending Problems: Subjective 24 Hr Interval Summary Subjective hx not possible: pt non-verbal Exam/Review of Systems Vital Signs Vitals Vital Signs Date Time Temp Pulse Resp B/P Pulse Ox O2 Delivery O2 Flow Rate FiO2 02/08/17 14:45 69 16 130/62 02/08/17 14:30 99 02/08/17 12:00 97.9 02/08/17 11:05 30 02/08/17 10:00 Mechanical Ventilator Intake and Output 02/07/17 02/07/17 02/08/17 15:00 23:00 07:00 Intake Total 668.40 ml 735.11 ml 711.22 ml Output Total 360 ml 400 ml 435 ml Balance 308.40 ml 335.11 ml 276.22 ml Exam Constitutional: non-verbal ENMT: intubated Respiratory: clear to auscultation Cardiovascular: regular rate and rhythm Gastrointestinal: soft, No distended Musculoskeletal: nl extremities to inspection Results Result Diagram: 02/08/17 0450 02/08/17 0450 Results 24 hrs Laboratory Tests Test 02/08/17 04:50 White Blood Count 7.3 Red Blood Count 2.52 L Hemoglobin 8.0 L Hematocrit 25.3 L Mean Corpuscular Volume 100.4 Mean Corpuscular Hemoglobin 31.7 Mean Corpuscular Hemoglobin Concent 31.6 L Red Cell Distribution Width 15.2 H Platelet Count 218 Mean Platelet Volume 11.7 H Neutrophils % 65.1 Lymphocytes % 17.5 Monocytes % 12.6 H Eosinophils % 3.8 Basophils % 0.7 Nucleated Red Blood Cells % 0.0 Neutrophils # (Manual) 4.8 Lymphocytes # 1.3 Monocytes # 0.9 Eosinophils # 0.3 Basophils # 0.1 Nucleated Red Blood Cells # 0.0 Sodium Level 141 Potassium Level 3.6 Chloride Level 103 Carbon Dioxide Level 28 Anion Gap 14 Blood Urea Nitrogen 11 Creatinine 0.64 Glucose Level 116 Calcium Level 8.4 Phosphorus Level 3.5 Magnesium Level 1.7 Medications Medications Current Medications Propofol (Diprivan) 100 ml @ 2.25 mls/hr Q12H IV Last administered on 03:29; Admin Dose 15.75 MLS/HR; Start 02/02/17 at 22:30 Ondansetron HCl (Zofran Inj) 4 mg Q6H PRN IV NAUSEA AND/OR VOMITING; Start 02/02 at 23:00 Acetaminophen 650 mg 650 mg Q4H PRN [place] PAIN LEVEL 1-3 OR FEVER; Start 02/02/17 at 23:00 Piperacillin Sod/ Tazobactam Sod 100 ml @ 200 mls/hr Q8 IVPB Last administered on 02/08/17 14:37; Admin Dose 200 MLS/HR; Start 02/02/17 at 23:00 Norepinephrine 16 mg/Dextrose 500 ml @ 1.87 mls/hr TITRATE IV Last administered on 02/05/17 20:20; Admin Dose 3.75 MLS/HR; Start 02/03/17 at 07:00 Levetiracetam (Keppra 1,000mg/ 100ml (Pmx)) 100 ml @ 400 mls/hr Q12 IVPB Last administered on 02/08/17 09:58; Admin Dose 400 MLS/HR; Start 02/03/17 at 21:00 Morphine Sulfate (morphine) 2 mg Q2H PRN IV PAIN; Start 02/03/17 at 13:00 Lorazepam (Ativan) 2 mg Q2 PRN IV AGITATION Last administered on 02/05/17 22: 42; Admin Dose 2 MG; Start 02/03/17 at 13:00 IV Flush (NS 10 ml) 10 ml PRN PRN IV IV PROTOCOL; Start 02/03/17 at 13:30 Famotidine 20 mg 20 mg DAILY GTB Last administered on 02/08/17 09:57; Admin Dose 20 MG; Start 02/05/17 at 09:00 Fentanyl 100 ml @ 2.5 mls/hr TITRATE IV Last administered on 02/07/17 19:10; Admin Dose 3 MLS/HR; Start 02/05/17 at 12:30 Vancomycin HCl/ Sodium Chloride (Vancocin/NS) 150 ml @ 75 mls/hr Q12H IVPB Last administered on 02/08/17 12:25; Admin Dose 75 MLS/HR; Start 02/07/17 at 22 :30 Quetiapine Fumarate (Seroquel) 50 mg DAILY NGT Last administered on 02/08/17 12:27; Admin Dose 50 MG; Start 02/08/17 at 11:30 LETY DOMINGUEZ Feb 08, 2017 15:27
[2017-02-09] VITALS (33 sets, daily range): BP systolic 89–182; BP diastolic 33–148; PULSE 58–122; RESP 14–29
[2017-02-09] MEDS: FENTAnyl (DRIP) 1000 mcg/100mL 100 ML IV SCH (01:07)
[2017-02-09] MEDS: PROPOFOL 100 ML IV SCH (01:08)
[2017-02-09] MEDS: PIPER-TAZO 3.375 GM IV (PMX) 100 ML IVPB SCH ×3 (05:12→21:22)
[2017-02-09 05:44] LABS: BASOPHIL # 0.1 10^3/ul (0.0-0.1); BASOPHILS % 1.1 % (0.0-2.0); EOSINOPHILS # 0.3 10^3/ul (0.0-0.5); EOSINOPHILS % 4.3 % (0.0-7.0); HEMATOCRIT 26.2 % (37.0-47.0); HEMOGLOBIN 8.3 g/dl (12.0-16.0); LYMPHOCYTES # 1.4 10^3/ul (0.8-2.9); LYMPHOCYTES % 22.5 % (15.0-51.0); MEAN CORPUSCULAR HEMOGLOBIN 31.4 pg (29.0-33.0); MEAN CORPUSCULAR HGB CONC 31.7 g/dl (32.0-37.0); MEAN CORPUSCULAR VOLUME 99.2 fl (82.0-101.0); MEAN PLATELET VOLUME 11.6 fl (7.4-10.4); MONOCYTE # 0.8 10^3/ul (0.3-0.9); MONOCYTES % 13.5 % (0.0-11.0); PLATELET COUNT 213 10^3/UL (140-415); RED BLOOD COUNT 2.64 10^6/ul (4.20-5.40); WHITE BLOOD COUNT 6.2 10^3/ul (4.8-10.8)
[2017-02-09 06:13] LABS: CALCIUM 8.6 mg/dl (8.4-10.2); CREATININE 0.71 mg/dl (0.44-1.00); MAGNESIUM 2.2 mg/dl (1.7-2.5); PHOSPHORUS 3.7 mg/dl (2.5-4.9); POTASSIUM 3.6 mmol/L (3.5-5.1)
--- NOTE | 2017-02-09 08:24 | RADRPT ---
PROCEDURE: XR Chest 1 View. CLINICAL INDICATION: Shortness of breath. TECHNIQUE: AP view of the chest was obtained. COMPARISON: Yesterday. FINDINGS: The heart size is within normal limits. Calcified atherosclerosis is noted in the aorta. Calcified heart valve is seen. Endotracheal and nasogastric tubes are stable and appear in grossly appropriat e location. Left-sided PICC line is unchanged. Central pulmonary vascular congestion and interstiti al prominence in both lungs appears stable. Patchy right perihilar infiltrates and small right pleu ral effusion are stable. Calcified granuloma is seen in the right mid lung. Retrocardiac opacity i s unchanged. Osseous structures are unchanged. IMPRESSION: Calcified atherosclerosis in the aorta. Stable central pulmonary vascular congestion and mild interstitial prominence in both lungs. Stable perihilar infiltrates in the right lung, combined with small pleural effusion. Stable retrocardiac opacity that may reflect left lower lobe atelectasis or infiltrate combined with small pleural effusion. RPTAT: AA .Jesus Rodney MD, MD Date Time Electronically viewed and signed by .Jesus Rodney MD, on 02/09/2017 08:24 .P/
[2017-02-09] MEDS: QUETIAPINE 25 MG TAB NGT SCH (09:20)
--- NOTE | 2017-02-09 10:57 | CONS ---
Date/Time of Note Date/Time of Note DATE: 02/09/17 TIME: 10:56 Consult Date/Type/Reason Admit Date/Time Feb 02, 2017 at 07:43 Initial Consult Date 02/02/17 Type of Consultation: Pulmonary Subjective Patient appears less agitated today. Tolerating CPAP for approximately 1 hour yesterday and then had increased work of breathing. Objective Vital Signs Date Time Temp Pulse Resp B/P Pulse Ox O2 Delivery O2 Flow Rate FiO2 02/09/17 10:00 69 26 96/55 96 02/09/17 09:35 30 02/09/17 07:00 Mechanical Ventilator 02/09/17 04:00 97.5 Intake and Output 02/08/17 02/08/17 02/09/17 15:00 23:00 07:00 Intake Total 696.25 ml 671.25 ml 714.00 ml Output Total 560 ml 400 ml 460 ml Balance 136.25 ml 271.25 ml 254.00 ml Exam PHYSICAL EXAMINATION GENERAL: Elderly lady orally intubated on mechanical ventilation. VITAL SIGNS: see below. HEENT: Pupils equal, round, and reactive to light CARDIAC: S1, S2, 2/6 systolic ejection murmur CHEST: Diminished air entry bilaterally ABDOMEN: Mildly distended. Bowel sounds present no guarding or rebound EXTREMITIES: No cyanosis, clubbing edema +2 NEUROLOGIC: Generalized weakness Results/Medications Result Diagram: 02/09/17 0400 02/09/17 0400 Results 24 hrs Laboratory Tests Test 02/09/17 04:00 White Blood Count 6.2 Red Blood Count 2.64 L Hemoglobin 8.3 L Hematocrit 26.2 L Mean Corpuscular Volume 99.2 Mean Corpuscular Hemoglobin 31.4 Mean Corpuscular Hemoglobin Concent 31.7 L Red Cell Distribution Width 15.0 H Platelet Count 213 Mean Platelet Volume 11.6 H Neutrophils % 58.0 Lymphocytes % 22.5 Monocytes % 13.5 H Eosinophils % 4.3 Basophils % 1.1 Nucleated Red Blood Cells % 0.0 Neutrophils # (Manual) 3.6 Lymphocytes # 1.4 Monocytes # 0.8 Eosinophils # 0.3 Basophils # 0.1 Nucleated Red Blood Cells # 0.0 Sodium Level 138 Potassium Level 3.6 Chloride Level 106 Carbon Dioxide Level 27 Anion Gap 9 # Blood Urea Nitrogen 10 Creatinine 0.71 Glucose Level 96 Calcium Level 8.6 Phosphorus Level 3.7 Magnesium Level 2.2 Medications Current Medications Propofol (Diprivan) 100 ml @ 2.25 mls/hr Q12H IV Last administered on 01:08; Admin Dose 11.25 MLS/HR; Start 02/02/17 at 22:30 Ondansetron HCl (Zofran Inj) 4 mg Q6H PRN IV NAUSEA AND/OR VOMITING; Start 02/02 at 23:00 Acetaminophen 650 mg 650 mg Q4H PRN [place] PAIN LEVEL 1-3 OR FEVER; Start 02/02/17 at 23:00 Piperacillin Sod/ Tazobactam Sod 100 ml @ 200 mls/hr Q8 IVPB Last administered on 02/09/17 05:12; Admin Dose 200 MLS/HR; Start 02/02/17 at 23:00 Norepinephrine 16 mg/Dextrose 500 ml @ 1.87 mls/hr TITRATE IV Last administered on 02/05/17 20:20; Admin Dose 3.75 MLS/HR; Start 02/03/17 at 07:00 Levetiracetam (Keppra 1,000mg/ 100ml (Pmx)) 100 ml @ 400 mls/hr Q12 IVPB Last administered on 02/08/17 20:54; Admin Dose 400 MLS/HR; Start 02/03/17 at 21:00 Morphine Sulfate (morphine) 2 mg Q2H PRN IV PAIN; Start 02/03/17 at 13:00 Lorazepam (Ativan) 2 mg Q2 PRN IV AGITATION Last administered on 02/05/17 22: 42; Admin Dose 2 MG; Start 02/03/17 at 13:00 IV Flush (NS 10 ml) 10 ml PRN PRN IV IV PROTOCOL; Start 02/03/17 at 13:30 Famotidine 20 mg 20 mg DAILY GTB Last administered on 02/08/17 09:57; Admin Dose 20 MG; Start 02/05/17 at 09:00 Fentanyl 100 ml @ 2.5 mls/hr TITRATE IV Last administered on 02/09/17 01:07; Admin Dose 3 MLS/HR; Start 02/05/17 at 12:30 Vancomycin HCl/ Sodium Chloride (Vancocin/NS) 150 ml @ 75 mls/hr Q12H IVPB Last administered on 02/08/17 22:04; Admin Dose 75 MLS/HR; Start 02/07/17 at 22 :30 Quetiapine Fumarate (Seroquel) 50 mg DAILY NGT Last administered on 02/09/17 09:20; Admin Dose 50 MG; Start 02/08/17 at 11:30 Assessment/Plan Chief Complaint/Hosp Course IMPRESSION AND PLAN: 1. Atrial fibrillation with rapid ventricular rate currently rate controlled 2. Seizures, questionable new onset. 3. Possible aspiration pneumonia during seizure activity. Status post thoracentesis. Chest x-ray demonstrates ongoing pulmonary edema. 4. Recent cholecystectomy. 5. Status post septic shock 6. Dysphagia on nasogastric tube feeding 7. Encephalopathy likely toxic metabolic complicated by sedatives. Slowly improving. PLAN: 1. Continue broad-spectrum antibiotic coverage. 2. Continue mechanical ventilation. CPAP trial today. 3. Continue Keppra per Neurology recommendations. Agree with Seroquel. 4. trial of fentanyl for pain control decrease propofol as tolerated 5. DVT and GI prophylaxis. 6. Pleural fluid studies. Care time 40 minutes. Discussed with primary team. Problems: MEEK ENGEL MD, [facility] Feb 09, 2017 10:57
[2017-02-09] MEDS: LEVETIRACETAM 1000 MG (PMX) 100 ML IVPB SCH ×2 (11:15→21:22)
[2017-02-09] MEDS: FAMOTIDINE 20 MG TAB GTB SCH (11:19)
[2017-02-09 11:21] LABS: AADO2 Arterial 77.8 mmHg (7.0-24.0); Allen Test ACCEPTAB; Arterial Base Excess 2.9 mmol/L (-3.0-3); Arterial COHb 0.3 % (0.0-3.0); Arterial Fraction of Oxyhgb 96.2 % (93.0-99.0); Arterial HCO3 26.8 mmol/L (22.0-26.0); Arterial MetHb 0.1 % (0.0-1.5); Arterial Total Hemglobin 9.3 g/dl (12.0-18.0); Blood Gas PS 10; MODE VENT - CPAP
[2017-02-09] MEDS: VANCOMYCIN 750 MG in SOD CHLORIDE 0.9% 150 ML IVPB SCH (12:09)
[2017-02-09] MEDS: POTASSIUM CHLORIDE 50 ML IVPB PRN ×2 (13:43→14:26)
[2017-02-09] MEDS: morphine 2 MG INJ IV PRN (15:12)
[2017-02-09] MEDS ORDERED: FUROSEMIDE 40 MG INJ IV ONE (17:00)
[2017-02-09] MEDS ORDERED: LEVALBUTEROL (NEB) 0.63 MG/3 ML AMP HHN PRN (17:00)
[2017-02-09 17:11] LABS: AADO2 Arterial 119.1 mmHg (7.0-24.0); Arterial Base Excess 0.7 mmol/L (-3.0-3); Arterial COHb 0.3 % (0.0-3.0); Arterial Fraction of Oxyhgb 93.6 % (93.0-99.0); Arterial HCO3 27.2 mmol/L (22.0-26.0); Arterial MetHb 0.2 % (0.0-1.5); Arterial Total Hemglobin 11.3 g/dl (12.0-18.0); MODE NASAL CANNULA
[2017-02-09] MEDS: LEVALBUTEROL (NEB) 0.63 MG/3 ML AMP HHN PRN (17:18)
--- NOTE | 2017-02-09 18:38 | PN ---
Date/Time of Note Date/Time of Note DATE: 02/09/17 TIME: 18:36 Assessment/Plan VTE Prophylaxis VTE Prophylaxis Intervention: SCD's Assessment/Plan Chief Complaint/Hosp Course 81 yo female with h/o chronic systolic CHF, recent open abdominal surgery for necrotic GB, who presented after prolonged seizure. Received benzos in the field leading to obtundation on arrival and was therefore intubated. Subsequently with A Fib w RVR PULM: Acute hypoxic respiratory failure: -Extubated but continues to be short of breath start on BiPAP, Seroquel to assist with agitation -Lasix as pulmonary edema may be attributing to respiratory failure, started on Xopenex as needed NEURO Seizure w status epilepticus: - Continue keppra per neurology - MRI brain when stable - Routine EEG ID: Fever: - Likely pneumonia: Vanco and zosyn - LP consideration given seizure at presentation - Stefanie in urine but suspect colonizer so will hold antifungals unless fevers/ sepsis CV: Systolic chronic CHF: - Holding [place]/BB for now given hypotension Atrial fibrillation paroxysmal with RVR now converted back to NSR - Continue amiodarone GI: - s/p open cholecystectomy Prophylaxis: SCDs Discharge plan pending Problems: Subjective 24 Hr Interval Summary Constitutional: disoriented Exam/Review of Systems Vital Signs Vitals Vital Signs Date Time Temp Pulse Resp B/P Pulse Ox O2 Delivery O2 Flow Rate FiO2 02/09/17 17:50 122 100 100 02/09/17 17:26 15.0 02/09/17 17:19 30 Nasal Cannula 02/09/17 12:00 96.4 98/80 Intake and Output 02/08/17 02/08/17 02/09/17 15:00 23:00 07:00 Intake Total 696.25 ml 671.25 ml 764.00 ml Output Total 560 ml 400 ml 560 ml Balance 136.25 ml 271.25 ml 204.00 ml Exam Psych: confusion Respiratory: clear to auscultation Cardiovascular: regular rate and rhythm Gastrointestinal: soft, No distended Musculoskeletal: nl extremities to inspection Results Result Diagram: 02/09/17 0400 02/09/17 0400 Results 24 hrs Laboratory Tests Test 02/09/17 04:00 02/09/17 11:00 02/09/17 16:33 White Blood Count 6.2 Red Blood Count 2.64 L Hemoglobin 8.3 L Hematocrit 26.2 L Mean Corpuscular Volume 99.2 Mean Corpuscular Hemoglobin 31.4 Mean Corpuscular Hemoglobin Concent 31.7 L Red Cell Distribution Width 15.0 H Platelet Count 213 Mean Platelet Volume 11.6 H Neutrophils % 58.0 Lymphocytes % 22.5 Monocytes % 13.5 H Eosinophils % 4.3 Basophils % 1.1 Nucleated Red Blood Cells % 0.0 Neutrophils # (Manual) 3.6 Lymphocytes # 1.4 Monocytes # 0.8 Eosinophils # 0.3 Basophils # 0.1 Nucleated Red Blood Cells # 0.0 Sodium Level 138 Potassium Level 3.6 Chloride Level 106 Carbon Dioxide Level 27 Anion Gap 9 # Blood Urea Nitrogen 10 Creatinine 0.71 Glucose Level 96 Calcium Level 8.6 Phosphorus Level 3.7 Magnesium Level 2.2 Blood Gas Specimen Source Blood arterial Blood arterial Arterial Blood Date Drawn 02/09/2017 11:09:20 AM 02/09/2017 5:00:48 PM Arterial Blood pH (Temp corrected) 7.461 H 7.337 L Arterial Blood pCO2 (Temp correct) 38.5 51.9 H Arterial Blood pO2 (Temp corrected) 90.9 H 77.4 L Arterial Blood HCO3 26.8 H 27.2 H Arterial Blood Base Excess 2.9 0.7 Arterial Blood Oxygen Saturation 96.6 94.1 L Jordan Test ACCEPTAB N/A Arterial Blood Gas Puncture Site Right Radial Right Brachial Arterial Blood Carboxyhemoglobin 0.3 0.3 Arterial Blood Methemoglobin 0.1 0.2 Blood Gas A-a O2 Differential 77.8 H 119.1 H Oxyhemoglobin Percent 96.2 93.6 Total Hemoglobin 9.3 L 11.3 L Blood Gas Temperature 37.0 37.0 Blood Gas Actual Respiration Rate 25 Blood Gas Modality VENT - CPAP NASAL CANNULA FiO2 30.0 36.0 Blood Gas Low PEEP Setting 5.0 Blood Gas Pressure Support 10 Blood Gas Notified Whom CHRISTIE PRESLEY Blood Gas Notified Time 02/09/2017 11:20:54 AM 02/09/2017 5:10:41 PM Medications Medications Current Medications Propofol (Diprivan) 100 ml @ 2.25 mls/hr Q12H IV Last administered on t 01:08; Admin Dose 11.25 MLS/HR; Start 02/02/17 at 22:30 Ondansetron HCl (Zofran Inj) 4 mg Q6H PRN IV NAUSEA AND/OR VOMITING; Start 02/02 at 23:00 Acetaminophen 650 mg 650 mg Q4H PRN [place] PAIN LEVEL 1-3 OR FEVER; Start 02/02/17 at 23:00 Piperacillin Sod/ Tazobactam Sod 100 ml @ 200 mls/hr Q8 IVPB Last administered on 02/09/17 11:16; Admin Dose 200 MLS/HR; Start 02/02/17 at 23:00 Norepinephrine 16 mg/Dextrose 500 ml @ 1.87 mls/hr TITRATE IV Last administered on 02/05/17 20:20; Admin Dose 3.75 MLS/HR; Start 02/03/17 at 07:00 Levetiracetam (Keppra 1,000mg/ 100ml (Pmx)) 100 ml @ 400 mls/hr Q12 IVPB Last administered on 02/09/17 11:15; Admin Dose 400 MLS/HR; Start 02/03/17 at 21:00 Morphine Sulfate (morphine) 2 mg Q2H PRN IV PAIN Last administered on 15:12; Admin Dose 2 MG; Start 02/03/17 at 13:00 Lorazepam (Ativan) 2 mg Q2 PRN IV AGITATION Last administered on 02/05/17 22: 42; Admin Dose 2 MG; Start 02/03/17 at 13:00 IV Flush (NS 10 ml) 10 ml PRN PRN IV IV PROTOCOL; Start 02/03/17 at 13:30 Famotidine 20 mg 20 mg DAILY GTB Last administered on 02/09/17 11:19; Admin Dose 20 MG; Start 02/05/17 at 09:00 Fentanyl (Sublimaze) 100 ml @ 2.5 mls/hr TITRATE IV Last administered on 01:07; Admin Dose 3 MLS/HR; Start 02/05/17 at 12:30 Quetiapine Fumarate 50 mg 50 mg DAILY NGT Last administered on 02/09/17 09:20 ; Admin Dose 50 MG; Start 02/08/17 at 11:30 Vancomycin HCl/ Sodium Chloride (Vancocin/NS) 150 ml @ 75 mls/hr Q12H IVPB ; Start 02/10/17 at 00:00 Miscellaneous Information (*Rx Drug Level Order Reminder*) VANCOMYCIN TROUGH AT 2300 ONCE ONCE XX ; Start 02/09/17 at 23:00; Stop 02/09/17 at 23:01 LETY DOMINGUEZ Feb 09, 2017 18:38
[2017-02-09] MEDS: LORAZEPAM 2 MG INJ IV PRN ×2 (18:45→23:01)
[2017-02-09 20:13] LABS: AADO2 Arterial 191.6 mmHg (7.0-24.0); Allen Test ACCEPTAB; Arterial Base Excess 5.2 mmol/L (-3.0-3); Arterial COHb 0.3 % (0.0-3.0); Arterial Fraction of Oxyhgb 97.7 % (93.0-99.0); Arterial HCO3 29.8 mmol/L (22.0-26.0); Arterial MetHb 0.2 % (0.0-1.5); Arterial Total Hemglobin 10.3 g/dl (12.0-18.0); Blood Gas IEPAP 15/5; Blood Gas PS 10; MODE MASK - BIPAP
[2017-02-10] VITALS (35 sets, daily range): BP systolic 91–179; BP diastolic 47–139; PULSE 68–132; RESP 18–36
[2017-02-10] MEDS ORDERED: VANCOMYCIN 750 MG in SOD CHLORIDE 0.9% 150 ML IVPB SCH ×2
[2017-02-10] MEDS: LORAZEPAM 2 MG INJ IV PRN ×2 (02:24→20:41)
[2017-02-10 05:13] LABS: BASOPHIL # 0.1 10^3/ul (0.0-0.1); EOSINOPHILS # 0.2 10^3/ul (0.0-0.5); EOSINOPHILS % 3.6 % (0.0-7.0); HEMATOCRIT 27.1 % (37.0-47.0); HEMOGLOBIN 8.3 g/dl (12.0-16.0); LYMPHOCYTES # 1.2 10^3/ul (0.8-2.9); LYMPHOCYTES % 19.6 % (15.0-51.0); MEAN CORPUSCULAR HEMOGLOBIN 30.9 pg (29.0-33.0); MEAN CORPUSCULAR HGB CONC 30.6 g/dl (32.0-37.0); MEAN CORPUSCULAR VOLUME 100.7 fl (82.0-101.0); MEAN PLATELET VOLUME 11.1 fl (7.4-10.4); MONOCYTES % 16.4 % (0.0-11.0); NEUTROPHILS % 58.7 % (39.0-77.0); PLATELET COUNT 239 10^3/UL (140-415); RED BLOOD COUNT 2.69 10^6/ul (4.20-5.40); RED CELL DISTRIBUTION WIDTH 14.7 % (11.5-14.5); WHITE BLOOD COUNT 5.9 10^3/ul (4.8-10.8)
[2017-02-10] MEDS: PIPER-TAZO 3.375 GM IV (PMX) 100 ML IVPB SCH ×3 (05:39→22:11)
[2017-02-10 05:47] LABS: CALCIUM 8.6 mg/dl (8.4-10.2); CREATININE 0.71 mg/dl (0.44-1.00); MAGNESIUM 1.9 mg/dl (1.7-2.5); PHOSPHORUS 4.4 mg/dl (2.5-4.9); POTASSIUM 3.6 mmol/L (3.5-5.1)
[2017-02-10] MEDS: FAMOTIDINE 20 MG TAB GTB SCH (07:56)
[2017-02-10] MEDS: QUETIAPINE 25 MG TAB NGT SCH (07:56)
[2017-02-10] MEDS: LEVETIRACETAM 1000 MG (PMX) 100 ML IVPB SCH ×2 (07:56→20:41)
--- NOTE | 2017-02-10 09:52 | RADRPT ---
PROCEDURE: XR Chest. CLINICAL INDICATION: RESP. DISTRESS TECHNIQUE: Single frontal chest x-ray. COMPARISON: 06:12 a.m. FINDINGS: Endotracheal tube has been removed. Nasogastric tube and left arm PICC line in place unchanged. . Low lung volumes with cardiomegaly and calcific atherosclerosis of the aorta is seen.. Increase hil ar congestion with perihilar edema is noted. Small right pleural effusion is unchanged. There is d ense calcific atherosclerosis of the mitral valve.. The osseous structures are intact. IMPRESSION: Endotracheal tube removed. Nasogastric tube and left arm PICC line in place. Low lung volumes with increased hilar congestion, perihilar edema since prior exam.. RPTAT: GG .Gabriel Rodriguez MD, MD Date Time Electronically viewed and signed by .Gabriel Rodriguez MD, MD on 02/09/2017 17:15 .L/
[2017-02-10] MEDS: FENTAnyl (DRIP) 1000 mcg/100mL 100 ML IV SCH (10:18)
--- NOTE | 2017-02-10 10:56 | RADRPT ---
PROCEDURE: XR Chest. CLINICAL INDICATION: pna chf TECHNIQUE: Single frontal view of the chest was obtained. COMPARISON: Chest x-ray from 02/09/2017 FINDINGS: An enteric tube is unchanged in position. A left-sided PICC line is unchanged in position. There is stable cardiomegaly and moderate pulmonary vascular congestion. There is a stable retrocardiac opacity due to atelectasis, infiltrate, and / or effusion. There is increased obscuration of the right hemidiaphragm due to atelectasis, infiltrate, and / or e ffusion. The aortic arch is calcified. IMPRESSION: Increased obscuration of the right hemidiaphragm due to atelectasis, infiltrate, and / or effusion. Stable retrocardiac opacity. Stable cardiomegaly and moderate pulmonary vascular congestion. RPTAT: EE Physician Celio Date Time Electronically viewed and signed by Physician Celio on 02/10/2017 08:06 /
--- NOTE | 2017-02-10 11:25 | CONS ---
Date/Time of Note Date/Time of Note DATE: 02/10/17 TIME: 11:23 Consult Date/Type/Reason Admit Date/Time Feb 02, 2017 at 07:43 Initial Consult Date 02/02/17 Type of Consultation: Pulmonary Subjective Patient extubated yesterday placed on BiPAP Objective Vital Signs Date Time Temp Pulse Resp B/P Pulse Ox O2 Delivery O2 Flow Rate FiO2 02/10/17 08:00 74 02/10/17 07:30 26 104/58 99 02/10/17 07:15 BIPAP 02/10/17 05:10 30 02/10/17 04:00 97.9 02/09/17 17:26 15.0 Intake and Output 02/09/17 02/09/17 02/10/17 15:00 23:00 07:00 Intake Total 451.75 ml 224 ml 124 ml Output Total 1000 ml 2175 ml 380 ml Balance -548.25 ml -1951 ml -256 ml Exam PHYSICAL EXAMINATION GENERAL: Elderly lady BiPAP awake alert arousable VITAL SIGNS: see below. HEENT: Pupils equal, round, and reactive to light CARDIAC: S1, S2, 2/6 systolic ejection murmur CHEST: Diminished air entry bilaterally ABDOMEN: Mildly distended. Bowel sounds present no guarding or rebound EXTREMITIES: No cyanosis, clubbing edema +2 NEUROLOGIC: Generalized weakness Results/Medications Result Diagram: 02/10/17 0400 02/10/17 0400 Results 24 hrs Laboratory Tests Test 02/09/17 16:33 02/09/17 20:00 02/10/17 04:00 Blood Gas Specimen Source Blood arterial Blood arterial Arterial Blood Date Drawn 02/09/2017 5:00:48 PM 02/09/2017 8:00:09 PM Arterial Blood pH (Temp corrected) 7.337 L 7.448 Arterial Blood pCO2 (Temp correct) 51.9 H 44.1 Arterial Blood pO2 (Temp corrected) 77.4 L 115.3 H Arterial Blood HCO3 27.2 H 29.8 H Arterial Blood Base Excess 0.7 5.2 H Arterial Blood Oxygen Saturation 94.1 L 98.2 Jordan Test N/A ACCEPTAB Arterial Blood Gas Puncture Site Right Brachial Right Brachial Arterial Blood Carboxyhemoglobin 0.3 0.3 Arterial Blood Methemoglobin 0.2 0.2 Blood Gas A-a O2 Differential 119.1 H 191.6 H Oxyhemoglobin Percent 93.6 97.7 Total Hemoglobin 11.3 L 10.3 L Blood Gas Temperature 37.0 37.0 Blood Gas Modality NASAL CANNULA MASK - BIPAP FiO2 36.0 50.0 Blood Gas Notified Whom FERNANDEZ CORONEL Blood Gas Notified Time 02/09/2017 5:10:41 PM 02/09/2017 8:13:03 PM Blood Gas Respiration Rate 18.0 Blood Gas Actual Respiration Rate 23 Blood Gas Pressure Support 10 Blood Gas IPAP/EPAP Ratio 15/5 White Blood Count 5.9 Red Blood Count 2.69 L Hemoglobin 8.3 L Hematocrit 27.1 L Mean Corpuscular Volume 100.7 Mean Corpuscular Hemoglobin 30.9 Mean Corpuscular Hemoglobin Concent 30.6 L Red Cell Distribution Width 14.7 H Platelet Count 239 Mean Platelet Volume 11.1 H Neutrophils % 58.7 Lymphocytes % 19.6 Monocytes % 16.4 H Eosinophils % 3.6 Basophils % 1.0 Nucleated Red Blood Cells % 0.0 Neutrophils # (Manual) 3.5 Lymphocytes # 1.2 Monocytes # 1.0 H Eosinophils # 0.2 Basophils # 0.1 Nucleated Red Blood Cells # 0.0 Sodium Level 140 Potassium Level 3.6 Chloride Level 103 Carbon Dioxide Level 32 H Anion Gap 9 Blood Urea Nitrogen 8 Creatinine 0.71 Glucose Level 93 Calcium Level 8.6 Phosphorus Level 4.4 Magnesium Level 1.9 Medications Current Medications Propofol (Diprivan) 100 ml @ 2.25 mls/hr Q12H IV Last administered on 01:08; Admin Dose 11.25 MLS/HR; Start 02/02/17 at 22:30 Ondansetron HCl (Zofran Inj) 4 mg Q6H PRN IV NAUSEA AND/OR VOMITING; Start 02/02 at 23:00 Acetaminophen 650 mg 650 mg Q4H PRN [place] PAIN LEVEL 1-3 OR FEVER; Start 02/02/17 at 23:00 Piperacillin Sod/ Tazobactam Sod 100 ml @ 200 mls/hr Q8 IVPB Last administered on 02/10/17 05:39; Admin Dose 200 MLS/HR; Start 02/02/17 at 23:00 Norepinephrine 16 mg/Dextrose 500 ml @ 1.87 mls/hr TITRATE IV Last administered on 02/05/17 20:20; Admin Dose 3.75 MLS/HR; Start 02/03/17 at 07:00 Levetiracetam (Keppra 1,000mg/ 100ml (Pmx)) 100 ml @ 400 mls/hr Q12 IVPB Last administered on 02/10/17 07:56; Admin Dose 400 MLS/HR; Start 02/03/17 at 21:00 Morphine Sulfate (morphine) 2 mg Q2H PRN IV PAIN Last administered on 15:12; Admin Dose 2 MG; Start 02/03/17 at 13:00 Lorazepam (Ativan) 2 mg Q2 PRN IV AGITATION Last administered on 02/10/17 02: 24; Admin Dose 2 MG; Start 02/03/17 at 13:00 IV Flush (NS 10 ml) 10 ml PRN PRN IV IV PROTOCOL; Start 02/03/17 at 13:30 Famotidine 20 mg 20 mg DAILY GTB Last administered on 02/10/17 07:56; Admin Dose 20 MG; Start 02/05/17 at 09:00 Fentanyl (Sublimaze) 100 ml @ 2.5 mls/hr TITRATE IV Last administered on 10:18; Admin Dose 3 MLS/HR; Start 02/05/17 at 12:30 Quetiapine Fumarate (Seroquel) 50 mg DAILY NGT Last administered on 02/10/17 07:56; Admin Dose 50 MG; Start 02/08/17 at 11:30 Assessment/Plan Chief Complaint/Hosp Course IMPRESSION AND PLAN: 1. Atrial fibrillation with rapid ventricular rate currently rate controlled 2. Seizures, questionable new onset. 3. Possible aspiration pneumonia during seizure activity. Recurrent right pleural effusion status post thoracentesis 1 now will need repeat thoracentesis 4. Recent cholecystectomy. 5. Status post septic shock 6. Dysphagia on nasogastric tube feeding 7. Encephalopathy likely toxic metabolic complicated by sedatives. Slowly improving. PLAN: 1. Continue broad-spectrum antibiotic coverage. 2. Aspiration precautions 3. Speech therapy evaluation 4. trial of fentanyl for pain control decrease propofol as tolerated 5. DVT and GI prophylaxis. 6. Repeat thoracentesis, trial of BiPAP. Care time 40 minutes. Discussed with primary team. Keep in ICU today. Problems: MEEK ENGEL MD, [facility] Feb 10, 2017 11:24
[2017-02-10 12:51] LABS: INR 1.11; PARTIAL THROMBOPLASTIN TIME 35.8 Sec (25.0-35.0); PROTIME 14.3 Sec (12.2-14.2); PT RATIO 1.1
--- NOTE | 2017-02-10 13:04 | PN ---
Date/Time of Note Date/Time of Note DATE: 02/10/17 TIME: 13:03 Assessment/Plan VTE Prophylaxis VTE Prophylaxis Intervention: SCD's Assessment/Plan Chief Complaint/Hosp Course 81 yo female with h/o chronic systolic CHF, recent open abdominal surgery for necrotic GB, who presented after prolonged seizure. Received benzos in the field leading to obtundation on arrival and was therefore intubated. Subsequently with A Fib w RVR PULM: Acute hypoxic respiratory failure: -Extubated but continued to be short of breath last night and was started on BiPAP, is now on nasal cannula,Seroquel to assist with agitation -Lasix as pulmonary edema may be attributing to respiratory failure, started on Xopenex as needed NEURO Seizure w status epilepticus: - Continue keppra per neurology - MRI brain when stable - Routine EEG ID: Fever: - Likely pneumonia: Vanco and zosyn - LP consideration given seizure at presentation - Stefanie in urine but suspect colonizer so will hold antifungals unless fevers/ sepsis CV: Systolic chronic CHF: - Holding [place]/BB for now given hypotension Atrial fibrillation paroxysmal with RVR now converted back to NSR - Continue amiodarone GI: - s/p open cholecystectomy Prophylaxis: SCDs Discharge plan pending Problems: Subjective 24 Hr Interval Summary Constitutional: disoriented Exam/Review of Systems Vital Signs Vitals Vital Signs Date Time Temp Pulse Resp B/P Pulse Ox O2 Delivery O2 Flow Rate FiO2 02/10/17 12:00 80 02/10/17 11:00 23 103/67 100 Nasal Cannula 02/10/17 08:00 98.0 02/10/17 05:10 30 02/09/17 17:26 15.0 Intake and Output 02/09/17 02/09/17 02/10/17 15:00 23:00 07:00 Intake Total 451.75 ml 224 ml 124 ml Output Total 1000 ml 2175 ml 380 ml Balance -548.25 ml -1951 ml -256 ml Exam Psych: confusion Head: normocephalic Respiratory: crackles/rales Cardiovascular: regular rate and rhythm Gastrointestinal: soft, No distended Musculoskeletal: nl extremities to inspection Results Result Diagram: 02/10/17 0400 02/10/17 0400 Results 24 hrs Laboratory Tests Test 02/09/17 16:33 02/09/17 20:00 02/10/17 04:00 02/10/17 12:13 Blood Gas Specimen Source Blood arterial Blood arterial Arterial Blood Date Drawn 02/09/2017 5:00:48 PM 02/09/2017 8:00:09 PM Arterial Blood pH (Temp corrected) 7.337 L 7.448 Arterial Blood pCO2 (Temp correct) 51.9 H 44.1 Arterial Blood pO2 (Temp corrected) 77.4 L 115.3 H Arterial Blood HCO3 27.2 H 29.8 H Arterial Blood Base Excess 0.7 5.2 H Arterial Blood Oxygen Saturation 94.1 L 98.2 Jordan Test N/A ACCEPTAB Arterial Blood Gas Puncture Site Right Brachial Right Brachial Arterial Blood Carboxyhemoglobin 0.3 0.3 Arterial Blood Methemoglobin 0.2 0.2 Blood Gas A-a O2 Differential 119.1 H 191.6 H Oxyhemoglobin Percent 93.6 97.7 Total Hemoglobin 11.3 L 10.3 L Blood Gas Temperature 37.0 37.0 Blood Gas Modality NASAL CANNULA MASK - BIPAP FiO2 36.0 50.0 Blood Gas Notified Whom BERNA Blood Gas Notified Time 02/09/2017 5:10:41 PM 02/09/2017 8:13:03 PM Blood Gas Respiration Rate 18.0 Blood Gas Actual Respiration Rate 23 Blood Gas Pressure Support 10 Blood Gas IPAP/EPAP Ratio 15/5 White Blood Count 5.9 Red Blood Count 2.69 L Hemoglobin 8.3 L Hematocrit 27.1 L Mean Corpuscular Volume 100.7 Mean Corpuscular Hemoglobin 30.9 Mean Corpuscular Hemoglobin Concent 30.6 L Red Cell Distribution Width 14.7 H Platelet Count 239 Mean Platelet Volume 11.1 H Neutrophils % 58.7 Lymphocytes % 19.6 Monocytes % 16.4 H Eosinophils % 3.6 Basophils % 1.0 Nucleated Red Blood Cells % 0.0 Neutrophils # (Manual) 3.5 Lymphocytes # 1.2 Monocytes # 1.0 H Eosinophils # 0.2 Basophils # 0.1 Nucleated Red Blood Cells # 0.0 Sodium Level 140 Potassium Level 3.6 Chloride Level 103 Carbon Dioxide Level 32 H Anion Gap 9 Blood Urea Nitrogen 8 Creatinine 0.71 Glucose Level 93 Calcium Level 8.6 Phosphorus Level 4.4 Magnesium Level 1.9 Prothrombin Time 14.3 H Prothrombin Time Ratio 1.1 INR International Normalized Ratio 1.11 Activated Partial Thromboplast Time 35.8 H Medications Medications Current Medications Propofol (Diprivan) 100 ml @ 2.25 mls/hr Q12H IV Last administered on 01:08; Admin Dose 11.25 MLS/HR; Start 02/02/17 at 22:30 Ondansetron HCl (Zofran Inj) 4 mg Q6H PRN IV NAUSEA AND/OR VOMITING; Start 02/02 at 23:00 Acetaminophen 650 mg 650 mg Q4H PRN [place] PAIN LEVEL 1-3 OR FEVER; Start 02/02/17 at 23:00 Piperacillin Sod/ Tazobactam Sod 100 ml @ 200 mls/hr Q8 IVPB Last administered on 02/10/17 05:39; Admin Dose 200 MLS/HR; Start 02/02/17 at 23:00 Norepinephrine 16 mg/Dextrose 500 ml @ 1.87 mls/hr TITRATE IV Last administered on 02/05/17 20:20; Admin Dose 3.75 MLS/HR; Start 02/03/17 at 07:00 Levetiracetam (Keppra 1,000mg/ 100ml (Pmx)) 100 ml @ 400 mls/hr Q12 IVPB Last administered on 02/10/17 07:56; Admin Dose 400 MLS/HR; Start 02/03/17 at 21:00 Morphine Sulfate (morphine) 2 mg Q2H PRN IV PAIN Last administered on 15:12; Admin Dose 2 MG; Start 02/03/17 at 13:00 Lorazepam (Ativan) 2 mg Q2 PRN IV AGITATION Last administered on 02/10/17 02: 24; Admin Dose 2 MG; Start 02/03/17 at 13:00 IV Flush (NS 10 ml) 10 ml PRN PRN IV IV PROTOCOL; Start 02/03/17 at 13:30 Famotidine 20 mg 20 mg DAILY GTB Last administered on 02/10/17 07:56; Admin Dose 20 MG; Start 02/05/17 at 09:00 Fentanyl (Sublimaze) 100 ml @ 2.5 mls/hr TITRATE IV Last administered on 10:18; Admin Dose 3 MLS/HR; Start 02/05/17 at 12:30 Quetiapine Fumarate (Seroquel) 50 mg DAILY NGT Last administered on 02/10/17t 07:56; Admin Dose 50 MG; Start 02/08/17 at 11:30 LETY DOMINGUEZ Feb 10, 2017 13:04
--- NOTE | 2017-02-10 14:32 | RADRPT ---
PROCEDURE: US right chest. CLINICAL INDICATION: Pleural effusion TECHNIQUE: Multiple real-time images were acquired of the patient's chest utilizing a high resolut ion transducer. COMPARISON: Recent x-ray FINDINGS: There is trace right pleural fluid, not enough for safe thoracentesis. IMPRESSION: Trace right pleural fluid. RPTAT: AA Physician Celio Date Time Electronically viewed and signed by Jesse Rivers Physician on 02/10/2017 14:32 RA/
[2017-02-10] MEDS: LEVALBUTEROL (NEB) 0.63 MG/3 ML AMP HHN PRN (20:45)
[2017-02-10] MEDS ORDERED: DILTIAZEM 25 MG INJ ONE (22:34)
[2017-02-10] MEDS ORDERED: DILTIAZEM 25 MG INJ IV ONE (23:00)
[2017-02-11] VITALS (51 sets, daily range): BP systolic 80–143; BP diastolic 38–103; PULSE 68–142; RESP 14–36
[2017-02-11] MEDS: DILTIAZEM-D5W 125MG/125ML DRIP 125 ML IV SCH (03:52)
[2017-02-11] MEDS: LORAZEPAM 2 MG INJ IV PRN ×3 (03:53→21:13)
[2017-02-11 04:56] LABS: BASOPHIL # 0.1 10^3/ul (0.0-0.1); BASOPHILS % 0.8 % (0.0-2.0); EOSINOPHILS # 0.2 10^3/ul (0.0-0.5); HEMATOCRIT 30.2 % (37.0-47.0); HEMOGLOBIN 9.3 g/dl (12.0-16.0); LYMPHOCYTES # 1.4 10^3/ul (0.8-2.9); LYMPHOCYTES % 20.5 % (15.0-51.0); MEAN CORPUSCULAR HEMOGLOBIN 30.9 pg (29.0-33.0); MEAN CORPUSCULAR HGB CONC 30.8 g/dl (32.0-37.0); MEAN CORPUSCULAR VOLUME 100.3 fl (82.0-101.0); MEAN PLATELET VOLUME 10.8 fl (7.4-10.4); MONOCYTE # 1.1 10^3/ul (0.3-0.9); NEUTROPHILS % 58.4 % (39.0-77.0); PLATELET COUNT 246 10^3/UL (140-415); RED BLOOD COUNT 3.01 10^6/ul (4.20-5.40); RED CELL DISTRIBUTION WIDTH 14.4 % (11.5-14.5); WHITE BLOOD COUNT 6.7 10^3/ul (4.8-10.8)
[2017-02-11 05:19] LABS: CALCIUM 8.8 mg/dl (8.4-10.2); CREATININE 0.66 mg/dl (0.44-1.00); MAGNESIUM 1.9 mg/dl (1.7-2.5); PHOSPHORUS 3.4 mg/dl (2.5-4.9); POTASSIUM 3.8 mmol/L (3.5-5.1)
[2017-02-11] MEDS: PIPER-TAZO 3.375 GM IV (PMX) 100 ML IVPB SCH ×3 (06:03→21:53)
[2017-02-11] MEDS: POTASSIUM CHLORIDE 50 ML IVPB PRN (07:57)
[2017-02-11 08:09] LABS: Allen Test ACCEPTAB; Arterial Base Excess 5.8 mmol/L (-3.0-3); Arterial COHb 0.3 % (0.0-3.0); Arterial Fraction of Oxyhgb 97.9 % (93.0-99.0); Arterial HCO3 31.1 mmol/L (22.0-26.0); Arterial MetHb 0.2 % (0.0-1.5); Arterial Total Hemglobin 9.6 g/dl (12.0-18.0); Blood Gas IEPAP 15/5; MODE MASK - BIPAP
--- NOTE | 2017-02-11 08:14 | RADRPT ---
PROCEDURE: XR Chest. CLINICAL INDICATION: Pneumonia. Congestive heart failure. TECHNIQUE: Single frontal chest x-ray. COMPARISON: 02/10/2017 FINDINGS: Nasogastric tube and left arm PICC line are in place unchanged. . Cardiomegaly with calcific athero sclerosis of the aorta and mitral valve is present.. Hilar vascular congestion with right lower dillon g atelectasis and small effusion is unchanged.. The osseous structures are intact. IMPRESSION: Tubes and lines unchanged. Cardiomegaly with hilar vascular congestion, right basilar atelectasis and small effusion is unchang ed.. RPTAT: GG .Gabriel Rodriguez MD, MD Date Time Electronically viewed and signed by .Gabriel Rodriguez MD, MD on 02/11/2017 08:14 .L/
[2017-02-11] MEDS: LEVETIRACETAM 1000 MG (PMX) 100 ML IVPB SCH ×2 (08:26→20:51)
[2017-02-11] MEDS: QUETIAPINE 25 MG TAB NGT SCH (08:26)
[2017-02-11] MEDS: FAMOTIDINE 20 MG TAB GTB SCH (08:26)
[2017-02-11] MEDS: LEVALBUTEROL (NEB) 0.63 MG/3 ML AMP HHN PRN ×2 (08:32→15:37)
--- NOTE | 2017-02-11 10:51 | CONS ---
Date/Time of Note Date/Time of Note DATE: 02/11/17 TIME: 10:49 Consult Date/Type/Reason Admit Date/Time Feb 02, 2017 at 07:43 Initial Consult Date 02/02/17 Type of Consultation: Pulmonary Subjective Still confused with intermittent agitation. Objective Vital Signs Date Time Temp Pulse Resp B/P Pulse Ox O2 Delivery O2 Flow Rate FiO2 02/11/17 09:00 85 27 111/60 98 Nasal Cannula 4.0 02/11/17 08:00 97.9 02/11/17 07:35 60 Intake and Output 02/10/17 02/10/17 02/11/17 14:59 22:59 06:59 Intake Total 224 ml 476 ml 761 ml Output Total 340 ml 400 ml 465 ml Balance -116 ml 76 ml 296 ml Exam PHYSICAL EXAMINATION GENERAL: Elderly lady nasal cannula oxygen moderate secretions requiring frequent pulmonary toilet VITAL SIGNS: see below. HEENT: Pupils equal, round, and reactive to light CARDIAC: S1, S2, 2/6 systolic ejection murmur CHEST: Diminished air entry bilaterally ABDOMEN: Mildly distended. Bowel sounds present no guarding or rebound EXTREMITIES: No cyanosis, clubbing edema +2 NEUROLOGIC: Generalized weakness Results/Medications Result Diagram: 02/11/17 0400 02/11/17 0400 Results 24 hrs Laboratory Tests Test 02/10/17 12:13 02/11/17 04:00 02/11/17 07:00 Prothrombin Time 14.3 H Prothrombin Time Ratio 1.1 INR International Normalized Ratio 1.11 Activated Partial Thromboplast Time 35.8 H White Blood Count 6.7 Red Blood Count 3.01 L Hemoglobin 9.3 L Hematocrit 30.2 L Mean Corpuscular Volume 100.3 Mean Corpuscular Hemoglobin 30.9 Mean Corpuscular Hemoglobin Concent 30.8 L Red Cell Distribution Width 14.4 Platelet Count 246 Mean Platelet Volume 10.8 H Neutrophils % 58.4 Lymphocytes % 20.5 Monocytes % 17.0 H Eosinophils % 3.0 Basophils % 0.8 Nucleated Red Blood Cells % 0.0 Neutrophils # (Manual) 4 Lymphocytes # 1.4 Monocytes # 1.1 H Eosinophils # 0.2 Basophils # 0.1 Nucleated Red Blood Cells # 0.0 Sodium Level 142 Potassium Level 3.8 Chloride Level 98 Carbon Dioxide Level 33 H Anion Gap 15 Blood Urea Nitrogen 10 Creatinine 0.66 Glucose Level 123 Calcium Level 8.8 Phosphorus Level 3.4 Magnesium Level 1.9 Blood Gas Specimen Source Blood arterial Arterial Blood Date Drawn 02/11/2017 7:30:03 AM Arterial Blood pH (Temp corrected) 7.422 Arterial Blood pCO2 (Temp correct) 48.8 H Arterial Blood pO2 (Temp corrected) 135.1 H Arterial Blood HCO3 31.1 H Arterial Blood Base Excess 5.8 H Arterial Blood Oxygen Saturation 98.4 Jordan Test ACCEPTAB Arterial Blood Gas Puncture Site Right Radial Arterial Blood Carboxyhemoglobin 0.3 Arterial Blood Methemoglobin 0.2 Blood Gas A-a O2 Differential 239.0 H Oxyhemoglobin Percent 97.9 Total Hemoglobin 9.6 L Blood Gas Temperature 37.0 Blood Gas Respiration Rate 18.0 Blood Gas Actual Respiration Rate 21 Blood Gas Modality MASK - BIPAP FiO2 60.0 Blood Gas IPAP/EPAP Ratio 15/5 Blood Gas Notified Whom JLD Blood Gas Notified Time 02/11/2017 8:09:43 AM Medications Current Medications Ondansetron HCl (Zofran Inj) 4 mg Q6H PRN IV NAUSEA AND/OR VOMITING; Start 02/02 at 23:00 Acetaminophen 650 mg 650 mg Q4H PRN [place] PAIN LEVEL 1-3 OR FEVER; Start 02/02/17 at 23:00 Piperacillin Sod/ Tazobactam Sod 100 ml @ 200 mls/hr Q8 IVPB Last administered on 02/11/17 06:03; Admin Dose 200 MLS/HR; Start 02/02/17 at 23:00 Norepinephrine 16 mg/Dextrose 500 ml @ 1.87 mls/hr TITRATE IV Last administered on 02/05/17 20:20; Admin Dose 3.75 MLS/HR; Start 02/03/17 at 07:00 Levetiracetam (Keppra 1,000mg/ 100ml (Pmx)) 100 ml @ 400 mls/hr Q12 IVPB Last administered on 02/11/17 08:26; Admin Dose 400 MLS/HR; Start 02/03/17 at 21:00 Morphine Sulfate (morphine) 2 mg Q2H PRN IV PAIN Last administered on 15:12; Admin Dose 2 MG; Start 02/03/17 at 13:00 Lorazepam (Ativan) 2 mg Q2 PRN IV AGITATION Last administered on 02/11/17 06: 04; Admin Dose 2 MG; Start 02/03/17 at 13:00 IV Flush (NS 10 ml) 10 ml PRN PRN IV IV PROTOCOL; Start 02/03/17 at 13:30 Famotidine 20 mg 20 mg DAILY GTB Last administered on 02/11/17 08:26; Admin Dose 20 MG; Start 02/05/17 at 09:00 Fentanyl (Sublimaze) 100 ml @ 2.5 mls/hr TITRATE IV Last administered on 10:18; Admin Dose 3 MLS/HR; Start 02/05/17 at 12:30 Quetiapine Fumarate 50 mg 50 mg DAILY NGT Last administered on 02/11/17 08:26 ; Admin Dose 50 MG; Start 02/08/17 at 11:30 Diltiazem HCl (Cardizem-D5W 125 Mg/125 ml Drip) 125 ml @ 5 mls/hr TITRATE IV Last administered on 02/11/17 03:52; Admin Dose 5 MLS/HR; Start 02/10/17 at 23: 00 Assessment/Plan Chief Complaint/Hosp Course Chest x-ray Right lower lobe infiltrate IMPRESSION AND PLAN: 1. Atrial fibrillation with rapid ventricular rate currently rate controlled 2. Seizures, questionable new onset. 3. Possible aspiration pneumonia during seizure activity. Recurrent right pleural effusion status post thoracentesis 1 4. Recent cholecystectomy. 5. Status post septic shock 6. Dysphagia on nasogastric tube feeding 7. Encephalopathy likely toxic metabolic PLAN: 1. Continue broad-spectrum antibiotic coverage. 2. Aspiration precautions 3. Speech therapy evaluation when more stable. 4. Decreased pain control 5. DVT and GI prophylaxis. 6. May require intubation if respiratory status deteriorates Care time 40 minutes. Discussed with primary team. Palliative care consult Keep in ICU today. Problems: MEEK ENGEL MD, [facility] Feb 11, 2017 10:50
--- NOTE | 2017-02-11 14:22 | CONS ---
Date/Time of Note Date/Time of Note DATE: 02/11/17 TIME: 14:14 Assessment/Plan Assessment/Plan Chief Complaint/Hosp Course Assessment: Paroxysmal atrial fibrillation with rapid ventricular response - now sinus rhythm NSTEMI - suspect type 2 Acute on likely chronic systolic heart failure - improved Cardiomyopathy, LVEF 30-35% - suspect chronic ischemic cardiomyopathy with segmental wall motion abnormalities Status post septic shock Possible aspiration pneumonia Tonic-colonic seizure - per neurology Recent cholecystectomy Incomplete data Recommendations: -restart on amiodarone 200mg BID (was previously discontinued due to bradycardia ) -will start carvedilol and [place] inhibitor for systolic heart failure when blood pressure can tolerate -not currently a candidate for cardiac catheterization due to altered mental status, can re-evaluate if mental status improves and after obtaining more information regarding prior cardiac history Problems: Consultation Date/Type/Reason Admit Date/Time Feb 02, 2017 at 07:43 Initial Consult Date 02/02/17 Type of Consultation: Cardiology 24 HR Interval Summary Free Text/Dictation Patient has now been extubated. Went back into atrial fibrillation with rapid ventricular response last night. Was started on diltiazem drip. Reverted back to normal sinus rhythm and now off drip. Patient lethargic and confused. Detailed Summary Additional Comments Unable to obtain review of systems, patient with altered mental status. Exam/Review of Systems Vital Signs Vitals Vital Signs Date Time Temp Pulse Resp B/P Pulse Ox O2 Delivery O2 Flow Rate FiO2 02/11/17 12:00 73 02/11/17 12:00 98.1 26 103/48 99 Nasal Cannula 4.0 02/11/17 07:35 60 Intake and Output 02/10/17 02/10/17 02/11/17 15:00 23:00 07:00 Intake Total 224 ml 628 ml 664 ml Output Total 300 ml 450 ml 455 ml Balance -76 ml 178 ml 209 ml Exam Constitutional: lethargic, confused Psych: no nl mood/affect Head: atraumatic, normocephalic Eyes: nl conjunctiva, nl lids Neck: difficult to appreciate JVP Respiratory: clear to auscultation, No wheezing Cardiovascular: regular rate and rhythm, No murmurs/extra sounds Gastrointestinal: soft, No distended Musculoskeletal: nl extremities to inspection Extremities: No clubbing, No cyanosis, No edema Neurological: No nl mental status, No nl speech Skin: nl turgor Results Result Diagram: 02/11/17 0400 02/11/17 0400 Results 24 hrs Laboratory Tests Test 02/11/17 04:00 02/11/17 07:00 White Blood Count 6.7 Red Blood Count 3.01 L Hemoglobin 9.3 L Hematocrit 30.2 L Mean Corpuscular Volume 100.3 Mean Corpuscular Hemoglobin 30.9 Mean Corpuscular Hemoglobin Concent 30.8 L Red Cell Distribution Width 14.4 Platelet Count 246 Mean Platelet Volume 10.8 H Neutrophils % 58.4 Lymphocytes % 20.5 Monocytes % 17.0 H Eosinophils % 3.0 Basophils % 0.8 Nucleated Red Blood Cells % 0.0 Neutrophils # (Manual) 4 Lymphocytes # 1.4 Monocytes # 1.1 H Eosinophils # 0.2 Basophils # 0.1 Nucleated Red Blood Cells # 0.0 Sodium Level 142 Potassium Level 3.8 Chloride Level 98 Carbon Dioxide Level 33 H Anion Gap 15 Blood Urea Nitrogen 10 Creatinine 0.66 Glucose Level 123 Calcium Level 8.8 Phosphorus Level 3.4 Magnesium Level 1.9 Blood Gas Specimen Source Blood arterial Arterial Blood Date Drawn 02/11/2017 7:30:03 AM Arterial Blood pH (Temp corrected) 7.422 Arterial Blood pCO2 (Temp correct) 48.8 H Arterial Blood pO2 (Temp corrected) 135.1 H Arterial Blood HCO3 31.1 H Arterial Blood Base Excess 5.8 H Arterial Blood Oxygen Saturation 98.4 Jordan Test ACCEPTAB Arterial Blood Gas Puncture Site Right Radial Arterial Blood Carboxyhemoglobin 0.3 Arterial Blood Methemoglobin 0.2 Blood Gas A-a O2 Differential 239.0 H Oxyhemoglobin Percent 97.9 Total Hemoglobin 9.6 L Blood Gas Temperature 37.0 Blood Gas Respiration Rate 18.0 Blood Gas Actual Respiration Rate 21 Blood Gas Modality MASK - BIPAP FiO2 60.0 Blood Gas IPAP/EPAP Ratio 15/5 Blood Gas Notified Whom JLD Blood Gas Notified Time 02/11/2017 8:09:43 AM Medications Medications Current Medications Ondansetron HCl (Zofran Inj) 4 mg Q6H PRN IV NAUSEA AND/OR VOMITING; Start 02/02 at 23:00 Acetaminophen 650 mg 650 mg Q4H PRN [place] PAIN LEVEL 1-3 OR FEVER; Start 02/02/17 at 23:00 Piperacillin Sod/ Tazobactam Sod 100 ml @ 200 mls/hr Q8 IVPB Last administered on 02/11/17 06:03; Admin Dose 200 MLS/HR; Start 02/02/17 at 23:00 Norepinephrine 16 mg/Dextrose 500 ml @ 1.87 mls/hr TITRATE IV Last administered on 02/05/17 20:20; Admin Dose 3.75 MLS/HR; Start 02/03/17 at 07:00 Levetiracetam (Keppra 1,000mg/ 100ml (Pmx)) 100 ml @ 400 mls/hr Q12 IVPB Last administered on 02/11/17 08:26; Admin Dose 400 MLS/HR; Start 02/03/17 at 21:00 Morphine Sulfate (morphine) 2 mg Q2H PRN IV PAIN Last administered on 15:12; Admin Dose 2 MG; Start 02/03/17 at 13:00 Lorazepam (Ativan) 2 mg Q2 PRN IV AGITATION Last administered on 02/11/17 06: 04; Admin Dose 2 MG; Start 02/03/17 at 13:00 IV Flush (NS 10 ml) 10 ml PRN PRN IV IV PROTOCOL; Start 02/03/17 at 13:30 Famotidine 20 mg 20 mg DAILY GTB Last administered on 02/11/17 08:26; Admin Dose 20 MG; Start 02/05/17 at 09:00 Fentanyl (Sublimaze) 100 ml @ 2.5 mls/hr TITRATE IV Last administered on 10:18; Admin Dose 3 MLS/HR; Start 02/05/17 at 12:30 Quetiapine Fumarate 50 mg 50 mg DAILY NGT Last administered on 02/11/17 08:26 ; Admin Dose 50 MG; Start 02/08/17 at 11:30 Diltiazem HCl (Cardizem-D5W 125 Mg/125 ml Drip) 125 ml @ 5 mls/hr TITRATE IV Last administered on 02/11/17 03:52; Admin Dose 5 MLS/HR; Start 02/10/17 at 23: 00 PEARL TAYLOR MD Feb 11, 2017 14:21
[2017-02-11] MEDS: AMIODARONE 200 MG TAB NGT SCH ×2 (14:37→20:51)
--- NOTE | 2017-02-11 15:41 | PN ---
Date/Time of Note Date/Time of Note DATE: 02/11/17 TIME: 15:36 Assessment/Plan VTE Prophylaxis VTE Prophylaxis Intervention: SCD's Assessment/Plan Chief Complaint/Hosp Course 81 yo female with h/o chronic systolic CHF, recent open abdominal surgery for necrotic GB, who presented after prolonged seizure. Received benzos in the field leading to obtundation on arrival and was therefore intubated. Subsequently with A Fib w RVR PULM: Acute hypoxic respiratory failure: -Extubated, cont nasal cannula,Seroquel to assist with agitation -s/p Lasix as pulmonary edema may be attributing to respiratory failure, started on Xopenex as needed NEURO Seizure w status epilepticus: - Continue keppra per neurology - MRI brain when stable - Routine EEG ID: Fever: - Likely pneumonia: Vanco and zosyn - Stefanie in urine but suspect colonizer so will hold antifungals unless fevers/ sepsis CV: Systolic chronic CHF: - Holding [place]/BB for now given hypotension Atrial fibrillation paroxysmal with RVR now converted back to NSR - Continue amiodarone GI: - s/p open cholecystectomy Prophylaxis: SCDs Discharge plan pending Problems: Subjective 24 Hr Interval Summary Constitutional: disoriented Exam/Review of Systems Vital Signs Vitals Vital Signs Date Time Temp Pulse Resp B/P Pulse Ox O2 Delivery O2 Flow Rate FiO2 02/11/17 14:36 79 29 107/61 97 Nasal Cannula 4.0 02/11/17 12:00 98.1 02/11/17 07:35 60 Intake and Output 02/10/17 02/10/17 02/11/17 15:00 23:00 07:00 Intake Total 224 ml 628 ml 664 ml Output Total 300 ml 450 ml 455 ml Balance -76 ml 178 ml 209 ml Exam Psych: confusion Respiratory: clear to auscultation Cardiovascular: regular rate and rhythm Gastrointestinal: soft, No distended Musculoskeletal: nl extremities to inspection Results Result Diagram: 02/11/17 0400 02/11/17 0400 Results 24 hrs Laboratory Tests Test 02/11/17 04:00 02/11/17 07:00 White Blood Count 6.7 Red Blood Count 3.01 L Hemoglobin 9.3 L Hematocrit 30.2 L Mean Corpuscular Volume 100.3 Mean Corpuscular Hemoglobin 30.9 Mean Corpuscular Hemoglobin Concent 30.8 L Red Cell Distribution Width 14.4 Platelet Count 246 Mean Platelet Volume 10.8 H Neutrophils % 58.4 Lymphocytes % 20.5 Monocytes % 17.0 H Eosinophils % 3.0 Basophils % 0.8 Nucleated Red Blood Cells % 0.0 Neutrophils # (Manual) 4 Lymphocytes # 1.4 Monocytes # 1.1 H Eosinophils # 0.2 Basophils # 0.1 Nucleated Red Blood Cells # 0.0 Sodium Level 142 Potassium Level 3.8 Chloride Level 98 Carbon Dioxide Level 33 H Anion Gap 15 Blood Urea Nitrogen 10 Creatinine 0.66 Glucose Level 123 Calcium Level 8.8 Phosphorus Level 3.4 Magnesium Level 1.9 Blood Gas Specimen Source Blood arterial Arterial Blood Date Drawn 02/11/2017 7:30:03 AM Arterial Blood pH (Temp corrected) 7.422 Arterial Blood pCO2 (Temp correct) 48.8 H Arterial Blood pO2 (Temp corrected) 135.1 H Arterial Blood HCO3 31.1 H Arterial Blood Base Excess 5.8 H Arterial Blood Oxygen Saturation 98.4 Jordan Test ACCEPTAB Arterial Blood Gas Puncture Site Right Radial Arterial Blood Carboxyhemoglobin 0.3 Arterial Blood Methemoglobin 0.2 Blood Gas A-a O2 Differential 239.0 H Oxyhemoglobin Percent 97.9 Total Hemoglobin 9.6 L Blood Gas Temperature 37.0 Blood Gas Respiration Rate 18.0 Blood Gas Actual Respiration Rate 21 Blood Gas Modality MASK - BIPAP FiO2 60.0 Blood Gas IPAP/EPAP Ratio 15/5 Blood Gas Notified Whom JLD Blood Gas Notified Time 02/11/2017 8:09:43 AM Medications Medications Current Medications Ondansetron HCl (Zofran Inj) 4 mg Q6H PRN IV NAUSEA AND/OR VOMITING; Start 02/02 at 23:00 Acetaminophen 650 mg 650 mg Q4H PRN [place] PAIN LEVEL 1-3 OR FEVER; Start 02/02/17 at 23:00 Piperacillin Sod/ Tazobactam Sod 100 ml @ 200 mls/hr Q8 IVPB Last administered on 02/11/17 14:33; Admin Dose 200 MLS/HR; Start 02/02/17 at 23:00 Norepinephrine 16 mg/Dextrose 500 ml @ 1.87 mls/hr TITRATE IV Last administered on 02/05/17 20:20; Admin Dose 3.75 MLS/HR; Start 02/03/17 at 07:00 Levetiracetam (Keppra 1,000mg/ 100ml (Pmx)) 100 ml @ 400 mls/hr Q12 IVPB Last administered on 02/11/17 08:26; Admin Dose 400 MLS/HR; Start 02/03/17 at 21:00 Morphine Sulfate (morphine) 2 mg Q2H PRN IV PAIN Last administered on 15:12; Admin Dose 2 MG; Start 02/03/17 at 13:00 Lorazepam (Ativan) 2 mg Q2 PRN IV AGITATION Last administered on 02/11/17 06: 04; Admin Dose 2 MG; Start 02/03/17 at 13:00 IV Flush (NS 10 ml) 10 ml PRN PRN IV IV PROTOCOL; Start 02/03/17 at 13:30 Famotidine 20 mg 20 mg DAILY GTB Last administered on 02/11/17 08:26; Admin Dose 20 MG; Start 02/05/17 at 09:00 Fentanyl (Sublimaze) 100 ml @ 2.5 mls/hr TITRATE IV Last administered on 10:18; Admin Dose 3 MLS/HR; Start 02/05/17 at 12:30 Quetiapine Fumarate 50 mg 50 mg DAILY NGT Last administered on 02/11/17 08:26 ; Admin Dose 50 MG; Start 02/08/17 at 11:30 Diltiazem HCl (Cardizem-D5W 125 Mg/125 ml Drip) 125 ml @ 5 mls/hr TITRATE IV Last administered on 02/11/17 03:52; Admin Dose 5 MLS/HR; Start 02/10/17 at 23: 00 Amiodarone HCl (Cordarone) 200 mg BID NGT Last administered on 02/11/17 14:37 ; Admin Dose 200 MG; Start 02/11/17 at 14:30 LETY DOMINGUEZ Feb 11, 2017 15:41
[2017-02-12] VITALS (44 sets, daily range): BP systolic 91–154; BP diastolic 33–93; PULSE 66–136; RESP 7–38
[2017-02-12] MEDS: LORAZEPAM 2 MG INJ IV PRN ×2 (00:55→09:28)
[2017-02-12 05:13] LABS: BASOPHIL # 0.1 10^3/ul (0.0-0.1); BASOPHILS % 0.9 % (0.0-2.0); EOSINOPHILS # 0.3 10^3/ul (0.0-0.5); HEMATOCRIT 28.1 % (37.0-47.0); HEMOGLOBIN 8.6 g/dl (12.0-16.0); LYMPHOCYTES # 1.3 10^3/ul (0.8-2.9); LYMPHOCYTES % 20.2 % (15.0-51.0); MEAN CORPUSCULAR HEMOGLOBIN 30.1 pg (29.0-33.0); MEAN CORPUSCULAR HGB CONC 30.6 g/dl (32.0-37.0); MEAN CORPUSCULAR VOLUME 98.3 fl (82.0-101.0); MEAN PLATELET VOLUME 10.8 fl (7.4-10.4); MONOCYTES % 14.8 % (0.0-11.0); NEUTROPHILS % 59.5 % (39.0-77.0); PLATELET COUNT 257 10^3/UL (140-415); RED BLOOD COUNT 2.86 10^6/ul (4.20-5.40); RED CELL DISTRIBUTION WIDTH 14.2 % (11.5-14.5); WHITE BLOOD COUNT 6.6 10^3/ul (4.8-10.8)
[2017-02-12 05:46] LABS: CALCIUM 9.1 mg/dl (8.4-10.2); CREATININE 0.7 mg/dl (0.44-1.00); POTASSIUM 3.7 mmol/L (3.5-5.1)
[2017-02-12] MEDS: PIPER-TAZO 3.375 GM IV (PMX) 100 ML IVPB SCH ×3 (06:07→21:57)
--- NOTE | 2017-02-12 08:08 | RADRPT ---
PROCEDURE: XR Chest 1 view. CLINICAL INDICATION: Shortness of breath TECHNIQUE: AP views of the chest was obtained. COMPARISON: Yesterday FINDINGS: The heart is large. Calcified atherosclerosis is noted in the aorta. Calcified heart valve is seen. Nasogastric tubes are stable. Left-sided PICC line is unchanged. Central pulmonary vascular polly estion and interstitial prominence in both lungs is stable. Patchy infiltrates throughout the right lung, combined with small to moderate pleural effusion are stable. Retrocardiac opacity is unchang ed. Elevated right hemidiaphragm is noted. The osseous structures are unchanged. IMPRESSION: Cardiomegaly with calcified atherosclerosis in the aorta. Stable central pulmonary vascular congestion and mild interstitial prominence in both lungs. Stable infiltrates throughout the right lung, combined with small to moderate pleural effusion. Stable retrocardiac opacity that may reflect left lower lobe atelectasis or infiltrate combined with small pleural effusion. Elevated right hemidiaphragm. RPTAT: AA .Jesus Rodney MD, MD Date Time Electronically viewed and signed by .Jesus Rodney MD, on 02/12/2017 08:07 .P/
[2017-02-12 08:49] LABS: AADO2 Arterial 124.2 mmHg (7.0-24.0); Arterial Base Excess 7.1 mmol/L (-3.0-3); Arterial COHb 0.1 % (0.0-3.0); Arterial HCO3 32.3 mmol/L (22.0-26.0); Arterial MetHb 0.1 % (0.0-1.5); Arterial Total Hemglobin 11.1 g/dl (12.0-18.0); MODE NASAL CANNULA
[2017-02-12] MEDS: QUETIAPINE 25 MG TAB NGT SCH (09:12)
[2017-02-12] MEDS: FAMOTIDINE 20 MG TAB GTB SCH (09:12)
[2017-02-12] MEDS: AMIODARONE 200 MG TAB NGT SCH (09:13)
[2017-02-12] MEDS: LEVETIRACETAM 1000 MG (PMX) 100 ML IVPB SCH ×2 (09:13→20:44)
[2017-02-12] MEDS: LEVALBUTEROL (NEB) 0.63 MG/3 ML AMP HHN PRN ×3 (09:50→21:39)
[2017-02-12] MEDS: POTASSIUM CHLORIDE 50 ML IVPB PRN (10:29)
--- NOTE | 2017-02-12 10:43 | CONS ---
Date/Time of Note Date/Time of Note DATE: 02/12/17 TIME: 10:40 Assessment/Plan Assessment/Plan Additional Assessment/Plan Chest x-ray was reviewed from today which is again showing cardiomegaly and changes of congestive heart failure with right sided infiltrative changes. Patient currently on BiPAP 15/5 with 45% FiO2. Assessment and recommendations; 1. Patient admitted for sepsis and respiratory failure status post extubation 3 days ago now requiring BiPAP with significant improvement in symptoms. 2. Paroxysmal atrial fibrillation, currently in sinus rhythm. 3. Status post recent cholecystectomy. 4. Recent seizure activity onset 70 causing aspiration pneumonia. 5. Anemia. Next Continue current treatment. Consultation Date/Type/Reason Admit Date/Time Feb 02, 2017 at 07:43 Initial Consult Date 02/02/17 Type of Consultation: Pulmonary/critical care 24 HR Interval Summary Free Text/Dictation Patient condition is tenuous at best. However the patient is currently on BiPAP with significant improvement in tachypnea. Patient is quite awake and alert. And does not appear to be in any distress. Exam/Review of Systems Vital Signs Vitals Vital Signs Date Time Temp Pulse Resp B/P Pulse Ox O2 Delivery O2 Flow Rate FiO2 02/12/17 10:00 94 33 113/61 97 02/12/17 10:00 BIPAP Nasal Cannula 02/12/17 08:00 99.1 02/12/17 07:00 5.0 02/12/17 05:13 40 Intake and Output 02/11/17 02/11/17 02/12/17 15:00 23:00 07:00 Intake Total 1189 ml 700 ml 700 ml Output Total 590 ml 1295 ml 665 ml Balance 599 ml -595 ml 35 ml Exam HEENT exam; supple neck, positive JVD. No lymphadenopathy. Midline trachea. No thyromegaly. Patient has fair dentition. Pupils are equal and reactive to light. Chest exam; diminished breath sounds bilaterally. S1-S2 audible, no murmurs. Regular rhythm. Abdomen exam; soft, nontender. Bowel sounds audible. No organomegaly. Extremity exam; no peripheral edema. CAR DROPPER exam; patient is awake and alert. No motor deficit. Results Result Diagram: 02/12/17 0420 02/12/17 0420 Results 24 hrs Laboratory Tests Test 02/12/17 04:20 02/12/17 07:00 White Blood Count 6.6 Red Blood Count 2.86 L Hemoglobin 8.6 L Hematocrit 28.1 L Mean Corpuscular Volume 98.3 Mean Corpuscular Hemoglobin 30.1 Mean Corpuscular Hemoglobin Concent 30.6 L Red Cell Distribution Width 14.2 Platelet Count 257 Mean Platelet Volume 10.8 H Neutrophils % 59.5 Lymphocytes % 20.2 Monocytes % 14.8 H Eosinophils % 4.0 Basophils % 0.9 Nucleated Red Blood Cells % 0.0 Neutrophils # (Manual) 4 Lymphocytes # 1.3 Monocytes # 1.0 H Eosinophils # 0.3 Basophils # 0.1 Nucleated Red Blood Cells # 0.0 Sodium Level 143 Potassium Level 3.7 Chloride Level 100 Carbon Dioxide Level 33 H Anion Gap 14 Blood Urea Nitrogen 9 Creatinine 0.70 Glucose Level 115 Calcium Level 9.1 Blood Gas Specimen Source Blood arterial Arterial Blood Date Drawn 02/12/2017 7:35:50 AM Arterial Blood pH (Temp corrected) 7.440 Arterial Blood pCO2 (Temp correct) 48.6 H Arterial Blood pO2 (Temp corrected) 76.1 L Arterial Blood HCO3 32.3 H Arterial Blood Base Excess 7.1 H Arterial Blood Oxygen Saturation 95.2 Jordan Test N/A Arterial Blood Gas Puncture Site Right Brachial Arterial Blood Carboxyhemoglobin 0.1 Arterial Blood Methemoglobin 0.1 Blood Gas A-a O2 Differential 124.2 H Oxyhemoglobin Percent 95.0 Total Hemoglobin 11.1 L Blood Gas Temperature 37.0 Blood Gas Modality NASAL CANNULA FiO2 36.0 Blood Gas Notified Whom CW Blood Gas Notified Time 02/12/2017 8:03:47 AM Medications Medications Current Medications Ondansetron HCl (Zofran Inj) 4 mg Q6H PRN IV NAUSEA AND/OR VOMITING; Start 02/02 at 23:00 Acetaminophen 650 mg 650 mg Q4H PRN [place] PAIN LEVEL 1-3 OR FEVER; Start 02/02/17 at 23:00 Piperacillin Sod/ Tazobactam Sod 100 ml @ 200 mls/hr Q8 IVPB Last administered on 02/12/17 06:07; Admin Dose 200 MLS/HR; Start 02/02/17 at 23:00 Norepinephrine 16 mg/Dextrose 500 ml @ 1.87 mls/hr TITRATE IV Last administered on 02/05/17 20:20; Admin Dose 3.75 MLS/HR; Start 02/03/17 at 07:00 Levetiracetam (Keppra 1,000mg/ 100ml (Pmx)) 100 ml @ 400 mls/hr Q12 IVPB Last administered on 02/12/17 09:13; Admin Dose 400 MLS/HR; Start 02/03/17 at 21:00 Morphine Sulfate (morphine) 2 mg Q2H PRN IV PAIN Last administered on 15:12; Admin Dose 2 MG; Start 02/03/17 at 13:00 Lorazepam (Ativan) 2 mg Q2 PRN IV AGITATION Last administered on 02/12/17 09: 28; Admin Dose 2 MG; Start 02/03/17 at 13:00 IV Flush (NS 10 ml) 10 ml PRN PRN IV IV PROTOCOL; Start 02/03/17 at 13:30 Famotidine 20 mg 20 mg DAILY GTB Last administered on 02/12/17 09:12; Admin Dose 20 MG; Start 02/05/17 at 09:00 Fentanyl (Sublimaze) 100 ml @ 2.5 mls/hr TITRATE IV Last administered on 10:18; Admin Dose 3 MLS/HR; Start 02/05/17 at 12:30 Quetiapine Fumarate 50 mg 50 mg DAILY NGT Last administered on 02/12/17 09:12 ; Admin Dose 50 MG; Start 02/08/17 at 11:30 Diltiazem HCl (Cardizem-D5W 125 Mg/125 ml Drip) 125 ml @ 5 mls/hr TITRATE IV Last administered on 02/11/17 03:52; Admin Dose 5 MLS/HR; Start 02/10/17 at 23: 00 Amiodarone HCl (Cordarone) 200 mg BID NGT Last administered on 02/12/17 09:13 ; Admin Dose 200 MG; Start 02/11/17 at 14:30 CHAVA SCHAEFFER Feb 12, 2017 10:43
[2017-02-12] MEDS: DILTIAZEM-D5W 125MG/125ML DRIP 125 ML IV SCH (10:56)
--- NOTE | 2017-02-12 10:59 | PN ---
Date/Time of Note Date/Time of Note DATE: 02/12/17 TIME: 10:58 Assessment/Plan VTE Prophylaxis VTE Prophylaxis Intervention: SCD's Assessment/Plan Chief Complaint/Hosp Course 81 yo female with h/o chronic systolic CHF, recent open abdominal surgery for necrotic GB, who presented after prolonged seizure. Received benzos in the field leading to obtundation on arrival and was therefore intubated. Subsequently with A Fib w RVR PULM: Acute hypoxic respiratory failure: -Extubated, back on BiPAP -Seroquel to assist with agitation -s/p Lasix as pulmonary edema may be attributing to respiratory failure, started on Xopenex as needed NEURO Seizure w status epilepticus: - Continue keppra per neurology - MRI brain when stable - Routine EEG ID: Fever: - Likely pneumonia: Vanco and zosyn - Stefanie in urine but suspect colonizer so will hold antifungals unless fevers/ sepsis CV: Systolic chronic CHF: - Holding [place]/BB for now given hypotension Atrial fibrillation paroxysmal with RVR now converted back to NSR - Continue amiodarone GI: - s/p open cholecystectomy Prophylaxis: SCDs Discharge plan pending Problems: Subjective 24 Hr Interval Summary Constitutional: disoriented Exam/Review of Systems Vital Signs Vitals Vital Signs Date Time Temp Pulse Resp B/P Pulse Ox O2 Delivery O2 Flow Rate FiO2 02/12/17 10:00 94 33 113/61 97 02/12/17 10:00 BIPAP Nasal Cannula 02/12/17 08:00 99.1 02/12/17 07:00 5.0 02/12/17 05:13 40 Intake and Output 02/11/17 02/11/17 02/12/17 15:00 23:00 07:00 Intake Total 1189 ml 700 ml 700 ml Output Total 590 ml 1295 ml 665 ml Balance 599 ml -595 ml 35 ml Exam Psych: confusion Respiratory: crackles/rales Cardiovascular: regular rate and rhythm Gastrointestinal: soft, No distended Musculoskeletal: nl extremities to inspection Results Result Diagram: 02/12/170 02/12/17 042 Results 24 hrs Laboratory Tests Test 02/12/17 04:20 02/12/17 07:00 White Blood Count 6.6 Red Blood Count 2.86 L Hemoglobin 8.6 L Hematocrit 28.1 L Mean Corpuscular Volume 98.3 Mean Corpuscular Hemoglobin 30.1 Mean Corpuscular Hemoglobin Concent 30.6 L Red Cell Distribution Width 14.2 Platelet Count 257 Mean Platelet Volume 10.8 H Neutrophils % 59.5 Lymphocytes % 20.2 Monocytes % 14.8 H Eosinophils % 4.0 Basophils % 0.9 Nucleated Red Blood Cells % 0.0 Neutrophils # (Manual) 4 Lymphocytes # 1.3 Monocytes # 1.0 H Eosinophils # 0.3 Basophils # 0.1 Nucleated Red Blood Cells # 0.0 Sodium Level 143 Potassium Level 3.7 Chloride Level 100 Carbon Dioxide Level 33 H Anion Gap 14 Blood Urea Nitrogen 9 Creatinine 0.70 Glucose Level 115 Calcium Level 9.1 Blood Gas Specimen Source Blood arterial Arterial Blood Date Drawn 02/12/2017 7:35:50 AM Arterial Blood pH (Temp corrected) 7.440 Arterial Blood pCO2 (Temp correct) 48.6 H Arterial Blood pO2 (Temp corrected) 76.1 L Arterial Blood HCO3 32.3 H Arterial Blood Base Excess 7.1 H Arterial Blood Oxygen Saturation 95.2 Jordan Test N/A Arterial Blood Gas Puncture Site Right Brachial Arterial Blood Carboxyhemoglobin 0.1 Arterial Blood Methemoglobin 0.1 Blood Gas A-a O2 Differential 124.2 H Oxyhemoglobin Percent 95.0 Total Hemoglobin 11.1 L Blood Gas Temperature 37.0 Blood Gas Modality NASAL CANNULA FiO2 36.0 Blood Gas Notified Whom CW Blood Gas Notified Time 02/12/2017 8:03:47 AM Medications Medications Current Medications Ondansetron HCl (Zofran Inj) 4 mg Q6H PRN IV NAUSEA AND/OR VOMITING; Start 02/02 at 23:00 Acetaminophen 650 mg 650 mg Q4H PRN [place] PAIN LEVEL 1-3 OR FEVER; Start 02/02/17 at 23:00 Piperacillin Sod/ Tazobactam Sod 100 ml @ 200 mls/hr Q8 IVPB Last administered on 02/12/17 06:07; Admin Dose 200 MLS/HR; Start 02/02/17 at 23:00 Norepinephrine 16 mg/Dextrose 500 ml @ 1.87 mls/hr TITRATE IV Last administered on 02/05/17 20:20; Admin Dose 3.75 MLS/HR; Start 02/03/17 at 07:00 Levetiracetam (Keppra 1,000mg/ 100ml (Pmx)) 100 ml @ 400 mls/hr Q12 IVPB Last administered on 02/12/17 09:13; Admin Dose 400 MLS/HR; Start 02/03/17 at 21:00 Morphine Sulfate (morphine) 2 mg Q2H PRN IV PAIN Last administered on 15:12; Admin Dose 2 MG; Start 02/03/17 at 13:00 Lorazepam (Ativan) 2 mg Q2 PRN IV AGITATION Last administered on 02/12/17 09: 28; Admin Dose 2 MG; Start 02/03/17 at 13:00 IV Flush (NS 10 ml) 10 ml PRN PRN IV IV PROTOCOL; Start 02/03/17 at 13:30 Famotidine 20 mg 20 mg DAILY GTB Last administered on 02/12/17 09:12; Admin Dose 20 MG; Start 02/05/17 at 09:00 Fentanyl (Sublimaze) 100 ml @ 2.5 mls/hr TITRATE IV Last administered on 10:18; Admin Dose 3 MLS/HR; Start 02/05/17 at 12:30 Quetiapine Fumarate 50 mg 50 mg DAILY NGT Last administered on 02/12/17 09:12 ; Admin Dose 50 MG; Start 02/08/17 at 11:30 Diltiazem HCl (Cardizem-D5W 125 Mg/125 ml Drip) 125 ml @ 5 mls/hr TITRATE IV Last administered on 02/12/17 10:56; Admin Dose 5 MLS/HR; Start 02/10/17 at 23: 00 Amiodarone HCl (Cordarone) 200 mg BID NGT Last administered on 02/12/17 09:13 ; Admin Dose 200 MG; Start 02/11/17 at 14:30 LETY DOMINGUEZ Feb 12, 2017 10:59
[2017-02-12] MEDS ORDERED: AMIODARONE 150MG/D5W BOLUS 100 ML IV ONE (11:30)
[2017-02-12] MEDS ORDERED: AMIODARONE 900 MG in DEXTROSE 5% 482 ML IV SCH (11:30)
--- NOTE | 2017-02-12 13:50 | RADRPT ---
Vent Rate: 148 bpm RR Interval: 0 msec [place] Interval: 0 msec QRS Duration: 78 msec QT Interval: 252 msec QTC Interval: 395 msec P-R-T Moffit: 0 - 69 - -36 degrees Atrial fibrillation with rapid ventricular response Nonspecific ST and T wave abnormality Abnormal ECG Electronically Signed By: Michele Dailey [id number]
[2017-02-12] MEDS ORDERED: DIGOXIN 500 MCG INJ IV ONE (15:00)
[2017-02-12] MEDS ORDERED: FUROSEMIDE 20 MG INJ IV ONE (15:00)
--- NOTE | 2017-02-12 15:10 | CONS ---
Date/Time of Note Date/Time of Note DATE: 02/12/17 TIME: 15:02 Assessment/Plan Assessment/Plan Chief Complaint/Hosp Course Paroxysmal atrial fibrillation with rapid ventricular response - Back and forth between sinus and afib. Now back in afib with uncontrolled rates NSTEMI - suspect type 2 Acute on likely chronic systolic heart failure - decompensated Cardiomyopathy, LVEF 30-35% - suspect chronic ischemic cardiomyopathy with segmental wall motion abnormalities. Will consider cath if all other issues stabilize Status post septic shock Possible aspiration pneumonia Tonic-colonic seizure - per neurology Recent cholecystectomy Incomplete data -continue amiodarone drip with goal to convert to sinus, then will switch to PO -as BP is low, will give a digoxin load over 12 hours (500, 250, 250) -if converts to sinus, will keep on amio and d/c digoxin -will start carvedilol and [place] inhibitor for systolic heart failure when blood pressure can tolerate Problems: Consultation Date/Type/Reason Admit Date/Time Feb 02, 2017 at 07:43 Initial Consult Date 02/02/17 Type of Consultation: Cardiology 24 HR Interval Summary Free Text/Dictation Converted back to afib this am. Started on diltiazem drip but pressure did not tolerate it. Started on amiodarone drip but remains in afib with HR 120-130s. On BiPA. Responsive Exam/Review of Systems Vital Signs Vitals Vital Signs Date Time Temp Pulse Resp B/P Pulse Ox O2 Delivery O2 Flow Rate FiO2 02/12/17 14:00 126 32 91/59 100 BIPAP 02/12/17 12:00 97.6 02/12/17 07:00 5.0 02/12/17 05:13 40 Intake and Output 02/11/17 02/11/17 02/12/17 15:00 23:00 07:00 Intake Total 1189 ml 700 ml 700 ml Output Total 590 ml 1295 ml 665 ml Balance 599 ml -595 ml 35 ml Exam Constitutional: alert Head: atraumatic, normocephalic Neck: jvd (8cm) Respiratory: crackles/rales, diminished breath sounds, No clear to auscultation Cardiovascular: systolic murmur (2/6 KAMRYN), No edema, No regular rate and rhythm (IRIR, tachy) Gastrointestinal: non-tender, soft, No distended Musculoskeletal: nl extremities to inspection Neurological: nl mental status Skin: No rash or lesions Results Result Diagram: 02/12/17 0420 02/12/17 0420 Results 24 hrs Laboratory Tests Test 02/12/17 04:20 02/12/17 07:00 White Blood Count 6.6 Red Blood Count 2.86 L Hemoglobin 8.6 L Hematocrit 28.1 L Mean Corpuscular Volume 98.3 Mean Corpuscular Hemoglobin 30.1 Mean Corpuscular Hemoglobin Concent 30.6 L Red Cell Distribution Width 14.2 Platelet Count 257 Mean Platelet Volume 10.8 H Neutrophils % 59.5 Lymphocytes % 20.2 Monocytes % 14.8 H Eosinophils % 4.0 Basophils % 0.9 Nucleated Red Blood Cells % 0.0 Neutrophils # (Manual) 4 Lymphocytes # 1.3 Monocytes # 1.0 H Eosinophils # 0.3 Basophils # 0.1 Nucleated Red Blood Cells # 0.0 Sodium Level 143 Potassium Level 3.7 Chloride Level 100 Carbon Dioxide Level 33 H Anion Gap 14 Blood Urea Nitrogen 9 Creatinine 0.70 Glucose Level 115 Calcium Level 9.1 Blood Gas Specimen Source Blood arterial Arterial Blood Date Drawn 02/12/2017 7:35:50 AM Arterial Blood pH (Temp corrected) 7.440 Arterial Blood pCO2 (Temp correct) 48.6 H Arterial Blood pO2 (Temp corrected) 76.1 L Arterial Blood HCO3 32.3 H Arterial Blood Base Excess 7.1 H Arterial Blood Oxygen Saturation 95.2 Jordan Test N/A Arterial Blood Gas Puncture Site Right Brachial Arterial Blood Carboxyhemoglobin 0.1 Arterial Blood Methemoglobin 0.1 Blood Gas A-a O2 Differential 124.2 H Oxyhemoglobin Percent 95.0 Total Hemoglobin 11.1 L Blood Gas Temperature 37.0 Blood Gas Modality NASAL CANNULA FiO2 36.0 Blood Gas Notified Whom CW Blood Gas Notified Time 02/12/2017 8:03:47 AM Medications Medications Current Medications Ondansetron HCl (Zofran Inj) 4 mg Q6H PRN IV NAUSEA AND/OR VOMITING; Start 02/02 at 23:00 Acetaminophen 650 mg 650 mg Q4H PRN [place] PAIN LEVEL 1-3 OR FEVER; Start 02/02/17 at 23:00 Piperacillin Sod/ Tazobactam Sod 100 ml @ 200 mls/hr Q8 IVPB Last administered on 02/12/17t 14:16; Admin Dose 200 MLS/HR; Start 02/02/17 at 23:00 Norepinephrine 16 mg/Dextrose 500 ml @ 1.87 mls/hr TITRATE IV Last administered on 02/05/17 20:20; Admin Dose 3.75 MLS/HR; Start 02/03/17 at 07:00 Levetiracetam (Keppra 1,000mg/ 100ml (Pmx)) 100 ml @ 400 mls/hr Q12 IVPB Last administered on 02/12/17 09:13; Admin Dose 400 MLS/HR; Start 02/03/17 at 21:00 Morphine Sulfate (morphine) 2 mg Q2H PRN IV PAIN Last administered on 15:12; Admin Dose 2 MG; Start 02/03/17 at 13:00 Lorazepam (Ativan) 2 mg Q2 PRN IV AGITATION Last administered on 02/12/17 09: 28; Admin Dose 2 MG; Start 02/03/17 at 13:00 IV Flush (NS 10 ml) 10 ml PRN PRN IV IV PROTOCOL; Start 02/03/17 at 13:30 Famotidine 20 mg 20 mg DAILY GTB Last administered on 02/12/17 09:12; Admin Dose 20 MG; Start 02/05/17 at 09:00 Fentanyl (Sublimaze) 100 ml @ 2.5 mls/hr TITRATE IV Last administered on 10:18; Admin Dose 3 MLS/HR; Start 02/05/17 at 12:30 Quetiapine Fumarate 50 mg 50 mg DAILY NGT Last administered on 02/12/17 09:12 ; Admin Dose 50 MG; Start 02/08/17 at 11:30 Diltiazem HCl (Cardizem-D5W 125 Mg/125 ml Drip) 125 ml @ 5 mls/hr TITRATE IV Last administered on 02/12/17 10:56; Admin Dose 5 MLS/HR; Start 02/10/17 at 23: 00 Amiodarone HCl 200 mg 200 mg BID NGT Last administered on 02/12/17 09:13; Admin Dose 200 MG; Start 02/11/17 at 14:30; Status Future hold Amiodarone HCl/ Dextrose (Cordarone Iv/ D5W) 500 ml @ 0 mls/hr Q0M IV Last administered on 02/12/17t 12:05; Admin Dose 33.4 MLS/HR; Start 02/12/17 at 11:30 ; Stop 02/13/17 at 11:29 GUSTAVO CORONEL Feb 12, 2017 15:09
[2017-02-12] MEDS ORDERED: POTASSIUM CHLORIDE 50 ML IVPB ONE (17:30)
[2017-02-12] MEDS ORDERED: MAGNESIUM SULFATE 2 GM/50 ML 50 ML IVPB ONE (20:00)
[2017-02-12] MEDS ORDERED: DIGOXIN 500 MCG INJ IV SCH (21:00)
[2017-02-13] VITALS (53 sets, daily range): BP systolic 93–144; BP diastolic 47–96; PULSE 70–90; RESP 15–31
[2017-02-13] MEDS: LORAZEPAM 2 MG INJ IV PRN ×3 (01:46→18:26)
[2017-02-13 05:34] LABS: BASOPHIL # 0.1 10^3/ul (0.0-0.1); BASOPHILS % 0.9 % (0.0-2.0); EOSINOPHILS # 0.3 10^3/ul (0.0-0.5); EOSINOPHILS % 4.3 % (0.0-7.0); HEMATOCRIT 33.7 % (37.0-47.0); HEMOGLOBIN 10.5 g/dl (12.0-16.0); LYMPHOCYTES # 1.1 10^3/ul (0.8-2.9); LYMPHOCYTES % 15.1 % (15.0-51.0); MEAN CORPUSCULAR HEMOGLOBIN 30.7 pg (29.0-33.0); MEAN CORPUSCULAR HGB CONC 31.2 g/dl (32.0-37.0); MEAN CORPUSCULAR VOLUME 98.5 fl (82.0-101.0); MEAN PLATELET VOLUME 10.6 fl (7.4-10.4); MONOCYTE # 0.9 10^3/ul (0.3-0.9); MONOCYTES % 11.9 % (0.0-11.0); NEUTROPHILS % 67.4 % (39.0-77.0); PLATELET COUNT 284 10^3/UL (140-415); RED BLOOD COUNT 3.42 10^6/ul (4.20-5.40); RED CELL DISTRIBUTION WIDTH 14.1 % (11.5-14.5); WHITE BLOOD COUNT 7.4 10^3/ul (4.8-10.8)
[2017-02-13] MEDS: PIPER-TAZO 3.375 GM IV (PMX) 100 ML IVPB SCH ×3 (05:34→22:56)
[2017-02-13 06:01] LABS: CALCIUM 9.7 mg/dl (8.4-10.2); CREATININE 0.73 mg/dl (0.44-1.00); POTASSIUM 3.8 mmol/L (3.5-5.1)
[2017-02-13 09:31] LABS: AADO2 Arterial 127.3 mmHg (7.0-24.0); Allen Test ACCEPTAB; Arterial Base Excess 6.9 mmol/L (-3.0-3); Arterial COHb 0.2 % (0.0-3.0); Arterial Fraction of Oxyhgb 97.2 % (93.0-99.0); Arterial MetHb 0.2 % (0.0-1.5); Arterial Total Hemglobin 13.1 g/dl (12.0-18.0); Blood Gas IEPAP 15/5; MODE MASK - BIPAP
--- NOTE | 2017-02-13 09:49 | CONS ---
Date/Time of Note Date/Time of Note DATE: 02/13/17 TIME: 09:46 Assessment/Plan Assessment/Plan Additional Assessment/Plan BiPAP settings; 15/5, 40% FiO2. Assessment and recommendations; 1. Patient admitted with respiratory failure now extubated 4 days ago requiring intermittent BiPAP. 2. Episodes of atrial fibrillation with RVR likely causing poor cardiac output causing respiratory compromise requiring BiPAP. Patient however currently doing well. 3. Mild anemia. 4. New onset seizure disorder. 5. Possibly left lower lobe aspiration pneumonia. Continue current treatment. Obtain follow-up chest x-ray. Consultation Date/Type/Reason Admit Date/Time Feb 02, 2017 at 07:43 Initial Consult Date 02/02/17 Type of Consultation: Pulmonary/critical care 24 HR Interval Summary Free Text/Dictation Patient condition is tenuous at best. Now requiring BiPAP again for O2 saturation maintenance. Patient also developed again atrial fibrillation with rapid ventricular response, requiring amiodarone administration. Patient however appears quite comfortable BiPAP and denies any shortness of breath, chest pain. General exam; elderly woman, on BiPAP, currently in no distress. Awake and alert. Exam/Review of Systems Vital Signs Vitals Vital Signs Date Time Temp Pulse Resp B/P Pulse Ox O2 Delivery O2 Flow Rate FiO2 02/13/17 09:00 71 30 134/64 100 BIPAP 02/13/17 07:00 97.2 02/13/17 05:21 40 02/12/17 07:00 5.0 Intake and Output 02/12/17 02/12/17 02/13/17 15:00 23:00 07:00 Intake Total 850.2 ml 633.50 ml 683.30 ml Output Total 945 ml 1750 ml 1025 ml Balance -94.8 ml -1116.50 ml -341.70 ml Exam HEENT exam; supple neck, no JVD. No lymphadenopathy. Midline trachea. No thyromegaly. Patient is on full face BiPAP. Chest exam; diminished but clear breath sounds. S1-S2 audible, no murmurs. Regular rhythm. Abdomen exam; soft, no organomegaly. Bowel sounds audible. Nontender. Nondistended. Extremity exam; no peripheral edema. L[employer]OGR[employer] DES[employer]ER exam; patient is awake and alert. Not exhibiting any focal deficit. Results Result Diagram: 02/13/17 0444 02/13/17 0444 Results 24 hrs Laboratory Tests Test 02/12/17 17:59 02/13/17 04:44 02/13/17 08:37 Magnesium Level 1.8 White Blood Count 7.4 Red Blood Count 3.42 L Hemoglobin 10.5 #L Hematocrit 33.7 L Mean Corpuscular Volume 98.5 Mean Corpuscular Hemoglobin 30.7 Mean Corpuscular Hemoglobin Concent 31.2 L Red Cell Distribution Width 14.1 Platelet Count 284 Mean Platelet Volume 10.6 H Neutrophils % 67.4 Lymphocytes % 15.1 Monocytes % 11.9 H Eosinophils % 4.3 Basophils % 0.9 Nucleated Red Blood Cells % 0.0 Neutrophils # (Manual) 5 Lymphocytes # 1.1 Monocytes # 0.9 Eosinophils # 0.3 Basophils # 0.1 Nucleated Red Blood Cells # 0.0 Sodium Level 143 Potassium Level 3.8 Chloride Level 95 L Carbon Dioxide Level 33 H Anion Gap 19 H Blood Urea Nitrogen 10 Creatinine 0.73 Glucose Level 124 Calcium Level 9.7 Blood Gas Specimen Source Blood arterial Arterial Blood Date Drawn 02/13/2017 9:10:59 AM Arterial Blood pH (Temp corrected) 7.448 Arterial Blood pCO2 (Temp correct) 47.3 H Arterial Blood pO2 (Temp corrected) 103.5 H Arterial Blood HCO3 32.0 H Arterial Blood Base Excess 6.9 H Arterial Blood Oxygen Saturation 97.6 Jordan Test ACCEPTAB Arterial Blood Gas Puncture Site Right Brachial Arterial Blood Carboxyhemoglobin 0.2 Arterial Blood Methemoglobin 0.2 Blood Gas A-a O2 Differential 127.3 H Oxyhemoglobin Percent 97.2 Total Hemoglobin 13.1 Blood Gas Temperature 37.0 Blood Gas Respiration Rate 18.0 Blood Gas Actual Respiration Rate 36 Blood Gas Modality MASK - BIPAP FiO2 40.0 Blood Gas Tidal Volume 384.0 Blood Gas IPAP/EPAP Ratio 15/5 Blood Gas Notified Whom CW Blood Gas Notified Time 02/13/2017 9:31:04 AM Medications Medications Current Medications Ondansetron HCl (Zofran Inj) 4 mg Q6H PRN IV NAUSEA AND/OR VOMITING; Start 02/02 at 23:00 Acetaminophen 650 mg 650 mg Q4H PRN [place] PAIN LEVEL 1-3 OR FEVER; Start 02/02/17 at 23:00 Piperacillin Sod/ Tazobactam Sod 100 ml @ 200 mls/hr Q8 IVPB Last administered on 02/13/17 05:34; Admin Dose 200 MLS/HR; Start 02/02/17 at 23:00 Norepinephrine 16 mg/Dextrose 500 ml @ 1.87 mls/hr TITRATE IV Last administered on 02/05/17 20:20; Admin Dose 3.75 MLS/HR; Start 02/03/17 at 07:00 Levetiracetam (Keppra 1,000mg/ 100ml (Pmx)) 100 ml @ 400 mls/hr Q12 IVPB Last administered on 02/12/17 20:44; Admin Dose 400 MLS/HR; Start 02/03/17 at 21:00 Morphine Sulfate (morphine) 2 mg Q2H PRN IV PAIN Last administered on 15:12; Admin Dose 2 MG; Start 02/03/17 at 13:00 Lorazepam (Ativan) 2 mg Q2 PRN IV AGITATION Last administered on 02/13/17 01: 46; Admin Dose 2 MG; Start 02/03/17 at 13:00 IV Flush (NS 10 ml) 10 ml PRN PRN IV IV PROTOCOL; Start 02/03/17 at 13:30 Famotidine 20 mg 20 mg DAILY GTB Last administered on 02/12/17 09:12; Admin Dose 20 MG; Start 02/05/17 at 09:00 Fentanyl (Sublimaze) 100 ml @ 2.5 mls/hr TITRATE IV Last administered on 10:18; Admin Dose 3 MLS/HR; Start 02/05/17 at 12:30 Quetiapine Fumarate (Seroquel) 50 mg DAILY NGT Last administered on 02/12/17 09:12; Admin Dose 50 MG; Start 02/08/17 at 11:30 Amiodarone HCl 200 mg 200 mg BID NGT Last administered on 02/12/17 09:13; Admin Dose 200 MG; Start 02/11/17 at 14:30; Status Future hold Amiodarone HCl/ Dextrose (Cordarone Iv/ D5W) 500 ml @ 0 mls/hr Q0M IV Last administered on 02/12/17 12:05; Admin Dose 33.4 MLS/HR; Start 02/12/17 at 11:30 ; Stop 02/13/17 at 11:29 CHAVA SCHAEFFER Feb 13, 2017 09:49
[2017-02-13] MEDS: QUETIAPINE 25 MG TAB NGT SCH (09:53)
[2017-02-13] MEDS: LEVETIRACETAM 1000 MG (PMX) 100 ML IVPB SCH ×2 (09:53→20:53)
[2017-02-13] MEDS: FAMOTIDINE 20 MG TAB GTB SCH (09:53)
--- NOTE | 2017-02-13 12:56 | CONS ---
Date/Time of Note Date/Time of Note DATE: 02/13/17 TIME: 12:53 Assessment/Plan Assessment/Plan Chief Complaint/Hosp Course Paroxysmal atrial fibrillation with rapid ventricular response - Back and forth between sinus and afib. Most recent afib 02/12. Now back in sinus NSTEMI - suspect type 2 Acute on likely chronic systolic heart failure - decompensated but close to euvolemic. Cardiomyopathy, LVEF 30-35% - suspect chronic ischemic cardiomyopathy with segmental wall motion abnormalities. Will consider cath if all other issues stabilize. Status post septic shock Possible aspiration pneumonia Tonic-colonic seizure - per neurology Recent cholecystectomy Incomplete data -will repeat echo as may have had a transient cardiomyopathy (?takotsubo) in setting of seizures -d/c amio drip, start amio 400mg BID -hold diuretics for now -will start carvedilol and [place] inhibitor for systolic heart failure when blood pressure can tolerate Problems: Consultation Date/Type/Reason Admit Date/Time Feb 02, 2017 at 07:43 Initial Consult Date 02/02/17 Type of Consultation: Cardiology 24 HR Interval Summary Free Text/Dictation Converted to sinus, then bigeminy. Now stable rhythm. Good diuresis. BP is fluctuating. Exam/Review of Systems Vital Signs Vitals Vital Signs Date Time Temp Pulse Resp B/P Pulse Ox O2 Delivery O2 Flow Rate FiO2 02/13/17 12:00 70 28 93/52 100 BIPAP 02/13/17 07:00 97.2 02/13/17 05:21 40 02/12/17 07:00 5.0 Intake and Output 02/12/17 02/12/17 02/13/17 15:00 23:00 07:00 Intake Total 850.2 ml 633.50 ml 699.96 ml Output Total 945 ml 1750 ml 1025 ml Balance -94.8 ml -1116.50 ml -325.04 ml Exam Constitutional: alert Psych: no complaints Head: atraumatic, normocephalic Neck: jvd (7cm) Respiratory: crackles/rales, No clear to auscultation Cardiovascular: edema (trace), regular rate and rhythm, No systolic murmur Gastrointestinal: non-tender, soft Neurological: nl mental status Results Result Diagram: 02/13/17 0444 02/13/17 0444 Results 24 hrs Laboratory Tests Test 02/12/17 17:59 02/13/17 04:44 02/13/17 08:37 Magnesium Level 1.8 White Blood Count 7.4 Red Blood Count 3.42 L Hemoglobin 10.5 #L Hematocrit 33.7 L Mean Corpuscular Volume 98.5 Mean Corpuscular Hemoglobin 30.7 Mean Corpuscular Hemoglobin Concent 31.2 L Red Cell Distribution Width 14.1 Platelet Count 284 Mean Platelet Volume 10.6 H Neutrophils % 67.4 Lymphocytes % 15.1 Monocytes % 11.9 H Eosinophils % 4.3 Basophils % 0.9 Nucleated Red Blood Cells % 0.0 Neutrophils # (Manual) 5 Lymphocytes # 1.1 Monocytes # 0.9 Eosinophils # 0.3 Basophils # 0.1 Nucleated Red Blood Cells # 0.0 Sodium Level 143 Potassium Level 3.8 Chloride Level 95 L Carbon Dioxide Level 33 H Anion Gap 19 H Blood Urea Nitrogen 10 Creatinine 0.73 Glucose Level 124 Calcium Level 9.7 Blood Gas Specimen Source Blood arterial Arterial Blood Date Drawn 02/13/2017 9:10:59 AM Arterial Blood pH (Temp corrected) 7.448 Arterial Blood pCO2 (Temp correct) 47.3 H Arterial Blood pO2 (Temp corrected) 103.5 H Arterial Blood HCO3 32.0 H Arterial Blood Base Excess 6.9 H Arterial Blood Oxygen Saturation 97.6 Jordan Test ACCEPTAB Arterial Blood Gas Puncture Site Right Brachial Arterial Blood Carboxyhemoglobin 0.2 Arterial Blood Methemoglobin 0.2 Blood Gas A-a O2 Differential 127.3 H Oxyhemoglobin Percent 97.2 Total Hemoglobin 13.1 Blood Gas Temperature 37.0 Blood Gas Respiration Rate 18.0 Blood Gas Actual Respiration Rate 36 Blood Gas Modality MASK - BIPAP FiO2 40.0 Blood Gas Tidal Volume 384.0 Blood Gas IPAP/EPAP Ratio 15/ Blood Gas Notified Whom CW Blood Gas Notified Time 02/13/2017 9:31:04 AM Medications Medications Current Medications Ondansetron HCl (Zofran Inj) 4 mg Q6H PRN IV NAUSEA AND/OR VOMITING; Start 02/02 at 23:00 Acetaminophen 650 mg 650 mg Q4H PRN [place] PAIN LEVEL 1-3 OR FEVER; Start 02/02/17 at 23:00 Piperacillin Sod/ Tazobactam Sod 100 ml @ 200 mls/hr Q8 IVPB Last administered on 02/13/17t 05:34; Admin Dose 200 MLS/HR; Start 02/02/17 at 23:00 Norepinephrine 16 mg/Dextrose 500 ml @ 1.87 mls/hr TITRATE IV Last administered on 02/05/17 20:20; Admin Dose 3.75 MLS/HR; Start 02/03/17 at 07:00 Levetiracetam (Keppra 1,000mg/ 100ml (Pmx)) 100 ml @ 400 mls/hr Q12 IVPB Last administered on 02/13/17 09:53; Admin Dose 400 MLS/HR; Start 02/03/17 at 21:00 Morphine Sulfate (morphine) 2 mg Q2H PRN IV PAIN Last administered on 15:12; Admin Dose 2 MG; Start 02/03/17 at 13:00 Lorazepam (Ativan) 2 mg Q2 PRN IV AGITATION Last administered on 02/13/17 10: 19; Admin Dose 2 MG; Start 02/03/17 at 13:00 IV Flush (NS 10 ml) 10 ml PRN PRN IV IV PROTOCOL; Start 02/03/17 at 13:30 Famotidine 20 mg 20 mg DAILY GTB Last administered on 02/13/17 09:53; Admin Dose 20 MG; Start 02/05/17 at 09:00 Fentanyl (Sublimaze) 100 ml @ 2.5 mls/hr TITRATE IV Last administered on 10:18; Admin Dose 3 MLS/HR; Start 02/05/17 at 12:30 Quetiapine Fumarate (Seroquel) 50 mg DAILY NGT Last administered on 02/13/17 09:53; Admin Dose 50 MG; Start 02/08/17 at 11:30 Amiodarone HCl (Cordarone) 400 mg BID NGT ; Start 02/13/17 at 21:00; Status UNV Potassium Chloride (Potassium Chloride Pwd/Soln) 20 meq ONCE ONCE NGT ; Start 02/13/17 at 13:00; Stop 02/13/17 at 13:01; Status UNV GUSTAVO CORONEL Feb 13, 2017 12:55
[2017-02-13] MEDS ORDERED: POTASSIUM CHLORIDE 20 MEQ POWDER FOR ORAL SOLN NGT ONE (13:00)
--- NOTE | 2017-02-13 17:11 | RADRPT ---
PROCEDURE: Chest radiograph CLINICAL INDICATION: Pleural effusion. COMPARISON: Radiograph 02/12/2017. TECHNIQUE: Single portable frontal view. FINDINGS: The left PICC terminates within the inferior right atrium. The enteric tube courses below the diaphragm below the field of view. Mild cardiomegaly with central pulmonary vascular congestion. Moderate right and small left pleural effusions. Aortic atherosclerosis. Calcifications of the mitral valve annulus. Mild endplate spurring throughout the thoracic spine. Cholecystectomy. No suspicious bone lesion. IMPRESSION: Overall, no change in aeration of the lungs when accounting for differences in radiographic techniqu e. 1. Moderate right and small left pleural effusions. 2. The left PICC terminates in the right atrium. RPTAT: PP Physician Sahra Date Time Electronically viewed and signed by Physician Sahra on 02/13/2017 17:10 LG/
--- NOTE | 2017-02-13 18:21 | PN ---
Date/Time of Note Date/Time of Note DATE: 02/13/17 TIME: 18:21 Assessment/Plan VTE Prophylaxis VTE Prophylaxis Intervention: SCD's Assessment/Plan Chief Complaint/Hosp Course 81 yo female with h/o chronic systolic CHF, recent open abdominal surgery for necrotic GB, who presented after prolonged seizure. Received benzos in the field leading to obtundation on arrival and was therefore intubated. Subsequently with A Fib w RVR PULM: Acute hypoxic respiratory failure: -Extubated, back on BiPAP -Seroquel to assist with agitation -s/p Lasix as pulmonary edema may be attributing to respiratory failure, started on Xopenex as needed NEURO Seizure w status epilepticus: - Continue keppra per neurology - MRI brain when stable - Routine EEG ID: Fever: - Likely pneumonia: Vanco and zosyn - Stefanie in urine but suspect colonizer so will hold antifungals unless fevers/ sepsis CV: Systolic chronic CHF: - Holding [place]/BB for now given hypotension Atrial fibrillation paroxysmal with RVR now converted back to NSR - Continue amiodarone GI: - s/p open cholecystectomy Prophylaxis: SCDs Discharge plan pending Problems: Subjective 24 Hr Interval Summary Subjective hx not possible: pt non-verbal Exam/Review of Systems Vital Signs Vitals Vital Signs Date Time Temp Pulse Resp B/P Pulse Ox O2 Delivery O2 Flow Rate FiO2 02/13/17 17:00 76 25 137/74 100 BIPAP 02/13/17 14:00 97.4 02/13/17 05:21 40 02/12/17 07:00 5.0 Intake and Output 02/12/17 02/12/17 02/13/17 15:00 23:00 07:00 Intake Total 850.2 ml 633.50 ml 699.96 ml Output Total 945 ml 1750 ml 1025 ml Balance -94.8 ml -1116.50 ml -325.04 ml Exam Constitutional: non-verbal Respiratory: clear to auscultation Cardiovascular: regular rate and rhythm Gastrointestinal: soft, No distended Musculoskeletal: nl extremities to inspection Results Result Diagram: 02/13/17 0444 02/13/17 0444 Results 24 hrs Laboratory Tests Test 02/13/17 04:44 02/13/17 08:37 White Blood Count 7.4 Red Blood Count 3.42 L Hemoglobin 10.5 #L Hematocrit 33.7 L Mean Corpuscular Volume 98.5 Mean Corpuscular Hemoglobin 30.7 Mean Corpuscular Hemoglobin Concent 31.2 L Red Cell Distribution Width 14.1 Platelet Count 284 Mean Platelet Volume 10.6 H Neutrophils % 67.4 Lymphocytes % 15.1 Monocytes % 11.9 H Eosinophils % 4.3 Basophils % 0.9 Nucleated Red Blood Cells % 0.0 Neutrophils # (Manual) 5 Lymphocytes # 1.1 Monocytes # 0.9 Eosinophils # 0.3 Basophils # 0.1 Nucleated Red Blood Cells # 0.0 Sodium Level 143 Potassium Level 3.8 Chloride Level 95 L Carbon Dioxide Level 33 H Anion Gap 19 H Blood Urea Nitrogen 10 Creatinine 0.73 Glucose Level 124 Calcium Level 9.7 Blood Gas Specimen Source Blood arterial Arterial Blood Date Drawn 02/13/2017 9:10:59 AM Arterial Blood pH (Temp corrected) 7.448 Arterial Blood pCO2 (Temp correct) 47.3 H Arterial Blood pO2 (Temp corrected) 103.5 H Arterial Blood HCO3 32.0 H Arterial Blood Base Excess 6.9 H Arterial Blood Oxygen Saturation 97.6 Jordan Test ACCEPTAB Arterial Blood Gas Puncture Site Right Brachial Arterial Blood Carboxyhemoglobin 0.2 Arterial Blood Methemoglobin 0.2 Blood Gas A-a O2 Differential 127.3 H Oxyhemoglobin Percent 97.2 Total Hemoglobin 13.1 Blood Gas Temperature 37.0 Blood Gas Respiration Rate 18.0 Blood Gas Actual Respiration Rate 36 Blood Gas Modality MASK - BIPAP FiO2 40.0 Blood Gas Tidal Volume 384.0 Blood Gas IPAP/EPAP Ratio 15/5 Blood Gas Notified Whom CW Blood Gas Notified Time 02/13/2017 9:31:04 AM Medications Medications Current Medications Ondansetron HCl (Zofran Inj) 4 mg Q6H PRN IV NAUSEA AND/OR VOMITING; Start 02/02 at 23:00 Acetaminophen 650 mg 650 mg Q4H PRN [place] PAIN LEVEL 1-3 OR FEVER; Start 02/02/17 at 23:00 Piperacillin Sod/ Tazobactam Sod 100 ml @ 200 mls/hr Q8 IVPB Last administered on 02/13/17 13:50; Admin Dose 200 MLS/HR; Start 02/02/17 at 23:00 Norepinephrine 16 mg/Dextrose 500 ml @ 1.87 mls/hr TITRATE IV Last administered on 02/05/17 20:20; Admin Dose 3.75 MLS/HR; Start 02/03/17 at 07:00 Levetiracetam (Keppra 1,000mg/ 100ml (Pmx)) 100 ml @ 400 mls/hr Q12 IVPB Last administered on 02/13/17 09:53; Admin Dose 400 MLS/HR; Start 02/03/17 at 21:00 Morphine Sulfate (morphine) 2 mg Q2H PRN IV PAIN Last administered on 15:12; Admin Dose 2 MG; Start 02/03/17 at 13:00 Lorazepam (Ativan) 2 mg Q2 PRN IV AGITATION Last administered on 02/13/17 10: 19; Admin Dose 2 MG; Start 02/03/17 at 13:00 IV Flush (NS 10 ml) 10 ml PRN PRN IV IV PROTOCOL; Start 02/03/17 at 13:30 Famotidine 20 mg 20 mg DAILY GTB Last administered on 02/13/17 09:53; Admin Dose 20 MG; Start 02/05/17 at 09:00 Fentanyl (Sublimaze) 100 ml @ 2.5 mls/hr TITRATE IV Last administered on 10:18; Admin Dose 3 MLS/HR; Start 02/05/17 at 12:30 Quetiapine Fumarate (Seroquel) 50 mg DAILY NGT Last administered on 02/13/17 09:53; Admin Dose 50 MG; Start 02/08/17 at 11:30 Amiodarone HCl (Cordarone) 400 mg BID NGT ; Start 02/13/17 at 21:00 LETY DOMINGUEZ Feb 13, 2017 18:21
[2017-02-13] MEDS: AMIODARONE 200 MG TAB NGT SCH (20:52)
[2017-02-14] VITALS (40 sets, daily range): BP systolic 97–159; BP diastolic 47–115; PULSE 73–137; RESP 11–38
[2017-02-14 04:50] LABS: BASOPHIL # 0.1 10^3/ul (0.0-0.1); BASOPHILS % 1.1 % (0.0-2.0); EOSINOPHILS # 0.5 10^3/ul (0.0-0.5); EOSINOPHILS % 5.5 % (0.0-7.0); HEMATOCRIT 31.9 % (37.0-47.0); HEMOGLOBIN 9.7 g/dl (12.0-16.0); LYMPHOCYTES # 1.7 10^3/ul (0.8-2.9); MEAN CORPUSCULAR HGB CONC 30.4 g/dl (32.0-37.0); MEAN CORPUSCULAR VOLUME 98.8 fl (82.0-101.0); MEAN PLATELET VOLUME 10.3 fl (7.4-10.4); MONOCYTE # 0.9 10^3/ul (0.3-0.9); MONOCYTES % 11.3 % (0.0-11.0); NEUTROPHILS % 60.5 % (39.0-77.0); PLATELET COUNT 278 10^3/UL (140-415); RED BLOOD COUNT 3.23 10^6/ul (4.20-5.40); RED CELL DISTRIBUTION WIDTH 14.3 % (11.5-14.5); WHITE BLOOD COUNT 8.3 10^3/ul (4.8-10.8)
[2017-02-14 05:30] LABS: CALCIUM 9.6 mg/dl (8.4-10.2); CREATININE 0.75 mg/dl (0.44-1.00); POTASSIUM 3.8 mmol/L (3.5-5.1)
[2017-02-14] MEDS: PIPER-TAZO 3.375 GM IV (PMX) 100 ML IVPB SCH ×3 (05:32→21:12)
[2017-02-14] MEDS ORDERED: POTASSIUM CHLORIDE 20 MEQ POWDER FOR ORAL SOLN NGT ONE (08:00)
[2017-02-14] MEDS ORDERED: FUROSEMIDE 20 MG INJ IV ONE (08:00)
[2017-02-14] MEDS ORDERED: MAGNESIUM SULFATE 2 GM/50 ML 50 ML IVPB ONE (08:00)
--- NOTE | 2017-02-14 08:01 | CONS ---
Date/Time of Note Date/Time of Note DATE: 02/14/17 TIME: 08:00 Assessment/Plan Assessment/Plan Chief Complaint/Hosp Course Paroxysmal atrial fibrillation with rapid ventricular response - Back and forth between sinus and afib. Most recent afib 02/12. Now back in sinus NSTEMI - suspect type 2 Acute on likely chronic systolic heart failure - decompensated but mild Cardiomyopathy, LVEF 30-35% - suspect chronic ischemic cardiomyopathy with segmental wall motion abnormalities. Will consider cath if all other issues stabilize. Status post septic shock Possible aspiration pneumonia Tonic-colonic seizure - per neurology Recent cholecystectomy Incomplete data -will repeat echo as may have had a transient cardiomyopathy (?takotsubo) in setting of seizures -continue amio 400mg BID as continued PO load (eventual dose 200mg) -lasix 20mg IV x 1 today -will start carvedilol and [place] inhibitor for systolic heart failure when blood pressure can tolerate Problems: Consultation Date/Type/Reason Admit Date/Time Feb 02, 2017 at 07:43 Initial Consult Date 02/02/17 Type of Consultation: Cardiology 24 HR Interval Summary Free Text/Dictation No o/n events. No afib. Exam/Review of Systems Vital Signs Vitals Vital Signs Date Time Temp Pulse Resp B/P Pulse Ox O2 Delivery O2 Flow Rate FiO2 02/14/17 06:00 73 19 105/55 100 BIPAP 02/14/17 05:30 40 02/14/17 04:00 98.1 02/12/17 07:00 5.0 Intake and Output 02/13/17 02/13/17 02/14/17 15:00 23:00 07:00 Intake Total 666.64 ml 600 ml 750 ml Output Total 1125 ml 1125 ml 590 ml Balance -458.36 ml -525 ml 160 ml Exam Constitutional: alert Head: atraumatic, normocephalic ENMT: other (on BiPAP) Neck: jvd (8cm) Respiratory: crackles/rales, diminished breath sounds, No clear to auscultation Cardiovascular: edema (trace), regular rate and rhythm, No systolic murmur Gastrointestinal: non-tender, soft Neurological: nl mental status Skin: No rash or lesions Results Result Diagram: 02/14/17 0400 02/14/17 0400 Results 24 hrs Laboratory Tests Test 02/13/17 08:37 02/14/17 04:00 Blood Gas Specimen Source Blood arterial Arterial Blood Date Drawn 02/13/2017 9:10:59 AM Arterial Blood pH (Temp corrected) 7.448 Arterial Blood pCO2 (Temp correct) 47.3 H Arterial Blood pO2 (Temp corrected) 103.5 H Arterial Blood HCO3 32.0 H Arterial Blood Base Excess 6.9 H Arterial Blood Oxygen Saturation 97.6 Jordan Test ACCEPTAB Arterial Blood Gas Puncture Site Right Brachial Arterial Blood Carboxyhemoglobin 0.2 Arterial Blood Methemoglobin 0.2 Blood Gas A-a O2 Differential 127.3 H Oxyhemoglobin Percent 97.2 Total Hemoglobin 13.1 Blood Gas Temperature 37.0 Blood Gas Respiration Rate 18.0 Blood Gas Actual Respiration Rate 36 Blood Gas Modality MASK - BIPAP FiO2 40.0 Blood Gas Tidal Volume 384.0 Blood Gas IPAP/EPAP Ratio 15/5 Blood Gas Notified Whom CW Blood Gas Notified Time 02/13/2017 9:31:04 AM White Blood Count 8.3 Red Blood Count 3.23 L Hemoglobin 9.7 L Hematocrit 31.9 L Mean Corpuscular Volume 98.8 Mean Corpuscular Hemoglobin 30.0 Mean Corpuscular Hemoglobin Concent 30.4 L Red Cell Distribution Width 14.3 Platelet Count 278 Mean Platelet Volume 10.3 Neutrophils % 60.5 Lymphocytes % 21.0 Monocytes % 11.3 H Eosinophils % 5.5 Basophils % 1.1 Nucleated Red Blood Cells % 0.0 Neutrophils # (Manual) 5 Lymphocytes # 1.7 Monocytes # 0.9 Eosinophils # 0.5 Basophils # 0.1 Nucleated Red Blood Cells # 0.0 Sodium Level 139 Potassium Level 3.8 Chloride Level 100 Carbon Dioxide Level 33 H Anion Gap 10 # Blood Urea Nitrogen 10 Creatinine 0.75 Glucose Level 113 Calcium Level 9.6 Medications Medications Current Medications Ondansetron HCl (Zofran Inj) 4 mg Q6H PRN IV NAUSEA AND/OR VOMITING; Start 02/02 at 23:00 Acetaminophen 650 mg 650 mg Q4H PRN [place] PAIN LEVEL 1-3 OR FEVER; Start 02/02/17 at 23:00 Piperacillin Sod/ Tazobactam Sod 100 ml @ 200 mls/hr Q8 IVPB Last administered on 02/14/17t 05:32; Admin Dose 200 MLS/HR; Start 02/02/17 at 23:00 Norepinephrine 16 mg/Dextrose 500 ml @ 1.87 mls/hr TITRATE IV Last administered on 02/05/17 20:20; Admin Dose 3.75 MLS/HR; Start 02/03/17 at 07:00 Levetiracetam (Keppra 1,000mg/ 100ml (Pmx)) 100 ml @ 400 mls/hr Q12 IVPB Last administered on 02/13/17 20:53; Admin Dose 400 MLS/HR; Start 02/03/17 at 21:00 Morphine Sulfate (morphine) 2 mg Q2H PRN IV PAIN Last administered on 15:12; Admin Dose 2 MG; Start 02/03/17 at 13:00 Lorazepam (Ativan) 2 mg Q2 PRN IV AGITATION Last administered on 02/13/17 18: 26; Admin Dose 2 MG; Start 02/03/17 at 13:00 IV Flush (NS 10 ml) 10 ml PRN PRN IV IV PROTOCOL; Start 02/03/17 at 13:30 Famotidine 20 mg 20 mg DAILY GTB Last administered on 02/13/17 09:53; Admin Dose 20 MG; Start 02/05/17 at 09:00 Fentanyl (Sublimaze) 100 ml @ 2.5 mls/hr TITRATE IV Last administered on 10:18; Admin Dose 3 MLS/HR; Start 02/05/17 at 12:30 Quetiapine Fumarate (Seroquel) 50 mg DAILY NGT Last administered on 02/13/17 09:53; Admin Dose 50 MG; Start 02/08/17 at 11:30 Amiodarone HCl (Cordarone) 400 mg BID NGT Last administered on 02/13/17 20:52 ; Admin Dose 400 MG; Start 02/13/17 at 21:00 GUSTAVO CORONEL Feb 14, 2017 08:01
[2017-02-14] MEDS: FAMOTIDINE 20 MG TAB GTB SCH (08:11)
[2017-02-14] MEDS: QUETIAPINE 25 MG TAB NGT SCH (08:11)
[2017-02-14] MEDS: AMIODARONE 200 MG TAB NGT SCH (08:11)
[2017-02-14] MEDS: LEVETIRACETAM 1000 MG (PMX) 100 ML IVPB SCH ×2 (08:26→20:32)
--- NOTE | 2017-02-14 08:28 | RADRPT ---
PROCEDURE: XR Chest 1 View. CLINICAL INDICATION: Shortness of breath. TECHNIQUE: AP view of the chest was obtained. COMPARISON: Yesterday. FINDINGS: The heart size is within normal limits. Calcified atherosclerosis is noted in the aorta. Nasogastri c tube is stable and appears in grossly appropriate location. Left-sided PICC line is unchanged. E levated right hemidiaphragm is observed. Retrocardiac opacity is unchanged. Right lower lung infil trates, possibly combined small pleural effusion are stable. The left costophrenic angle is not inc luded on the obtained image. Osseous structures are unchanged. IMPRESSION: Calcified atherosclerosis in the aorta. Limited exam with the left costophrenic angle not included on the obtained image. Stable retrocardiac opacity that may reflect left lower lobe atelectasis or infiltrate combined with small pleural effusion. Stable right lower lung infiltrates, combined small pleural effusion. RPTAT: AA .Jesus Rodney MD, Date Time Electronically viewed and signed by .Jesus Rodney MD, on 02/14/2017 08:28 .P/
--- NOTE | 2017-02-14 11:05 | CONS ---
Date/Time of Note Date/Time of Note DATE: 02/14/17 TIME: 11:02 Assessment/Plan Assessment/Plan Additional Assessment/Plan Chest x-ray was reviewed from today which is showing persistent right lower lobe infiltrative changes. Assessment and recommendations; 1. Patient admitted with new onset seizure activity leading to respiratory failure patient now extubated 5 days ago. Pulmonary status has improved and the patient is now off BiPAP maintained on 2 L nasal cannula with adequate O2 saturation . 2. Right lower lobe pneumonia. Anemia. Continue current treatment. Consultation Date/Type/Reason Admit Date/Time Feb 02, 2017 at 07:43 Initial Consult Date 02/02/17 Type of Consultation: Pulmonary/critical care 24 HR Interval Summary Free Text/Dictation Patient condition has improved. Patient is now off BiPAP and maintained on nasal cannula. General exam; elderly woman, awake. Currently in no distress. Exam/Review of Systems Vital Signs Vitals Vital Signs Date Time Temp Pulse Resp B/P Pulse Ox O2 Delivery O2 Flow Rate FiO2 02/14/17 08:45 89 25 133/110 97 Nasal Cannula 3.0 02/14/17 08:00 98.9 02/14/17 05:30 40 Intake and Output 02/13/17 02/13/17 02/14/17 15:00 23:00 07:00 Intake Total 666.64 ml 600 ml 800 ml Output Total 1125 ml 1125 ml 690 ml Balance -458.36 ml -525 ml 110 ml Exam HEENT exam; supple neck, no JVD. No lymphadenopathy. Midline trachea. No thyromegaly. Chest exam; diminished but clear breath sound. S1-S2 audible, no murmurs. Regular rhythm. Abdomen exam; soft, no organomegaly. Bowel sounds audible. Nontender. Extremity exam; no peripheral edema. Pulses 1+ bilaterally. BODY DIE MAKER exam; no focal deficit. Results Result Diagram: 02/14/17 0400 02/14/17 0400 Results 24 hrs Laboratory Tests Test 02/14/17 04:00 White Blood Count 8.3 Red Blood Count 3.23 L Hemoglobin 9.7 L Hematocrit 31.9 L Mean Corpuscular Volume 98.8 Mean Corpuscular Hemoglobin 30.0 Mean Corpuscular Hemoglobin Concent 30.4 L Red Cell Distribution Width 14.3 Platelet Count 278 Mean Platelet Volume 10.3 Neutrophils % 60.5 Lymphocytes % 21.0 Monocytes % 11.3 H Eosinophils % 5.5 Basophils % 1.1 Nucleated Red Blood Cells % 0.0 Neutrophils # (Manual) 5 Lymphocytes # 1.7 Monocytes # 0.9 Eosinophils # 0.5 Basophils # 0.1 Nucleated Red Blood Cells # 0.0 Sodium Level 139 Potassium Level 3.8 Chloride Level 100 Carbon Dioxide Level 33 H Anion Gap 10 # Blood Urea Nitrogen 10 Creatinine 0.75 Glucose Level 113 Calcium Level 9.6 Medications Medications Current Medications Ondansetron HCl (Zofran Inj) 4 mg Q6H PRN IV NAUSEA AND/OR VOMITING; Start 02/02 at 23:00 Acetaminophen 650 mg 650 mg Q4H PRN [place] PAIN LEVEL 1-3 OR FEVER; Start 02/02/17 at 23:00 Piperacillin Sod/ Tazobactam Sod 100 ml @ 200 mls/hr Q8 IVPB Last administered on 02/14/17 05:32; Admin Dose 200 MLS/HR; Start 02/02/17 at 23:00 Norepinephrine 16 mg/Dextrose 500 ml @ 1.87 mls/hr TITRATE IV Last administered on 02/05/17 20:20; Admin Dose 3.75 MLS/HR; Start 02/03/17 at 07:00 Levetiracetam (Keppra 1,000mg/ 100ml (Pmx)) 100 ml @ 400 mls/hr Q12 IVPB Last administered on 02/14/17 08:26; Admin Dose 400 MLS/HR; Start 02/03/17 at 21:00 Morphine Sulfate (morphine) 2 mg Q2H PRN IV PAIN Last administered on 15:12; Admin Dose 2 MG; Start 02/03/17 at 13:00 Lorazepam (Ativan) 2 mg Q2 PRN IV AGITATION Last administered on 02/13/17 18: 26; Admin Dose 2 MG; Start 02/03/17 at 13:00 IV Flush (NS 10 ml) 10 ml PRN PRN IV IV PROTOCOL; Start 02/03/17 at 13:30 Famotidine 20 mg 20 mg DAILY GTB Last administered on 02/14/17 08:11; Admin Dose 20 MG; Start 02/05/17 at 09:00 Fentanyl (Sublimaze) 100 ml @ 2.5 mls/hr TITRATE IV Last administered on 10:18; Admin Dose 3 MLS/HR; Start 02/05/17 at 12:30 Quetiapine Fumarate (Seroquel) 50 mg DAILY NGT Last administered on 02/14/17 08:11; Admin Dose 50 MG; Start 02/08/17 at 11:30 Amiodarone HCl (Cordarone) 400 mg BID NGT Last administered on 02/14/17 08:11 ; Admin Dose 400 MG; Start 02/13/17 at 21:00 CHAVA SCHAEFFER Feb 14, 2017 11:05
--- NOTE | 2017-02-14 18:21 | PN ---
Date/Time of Note Date/Time of Note DATE: 02/14/17 TIME: 18:18 Assessment/Plan VTE Prophylaxis VTE Prophylaxis Intervention: LMWH Lines/Catheters IV Catheter Type (from Nrs): Peripheral IV Urinary Cath still in place: Yes Reason Cath still needed: urinary retention Assessment/Plan Chief Complaint/Hosp Course 81 yo female with h/o crhonic systolic CHF, recent open abdominal surgery for necrotic GB, who presented after prolonged seizure. Received benzos in the field leading to obtundation on arrival and was therefore intubated. Subsequently with A Fib w RVR PULM: - s/p intubation, then BIPAP - Currently stable on NC NEURO Seizure w status epilepticus: - Continue keppra per neurology - MRI brain when stable - Routine EEG ID: - Will dc abx at this point CV: Systolic chronic CHF: - Holding [place]/BB for now given hypotension, restart in coming days Atrial fibrillation paroxysmal with RVR now converted back to NSR - Continue amiodarone GI: - s/p open cholecystectomy Discharge plan pending Problems: Subjective 24 Hr Interval Summary Free Text/Dictation Stable off of BIPAP this afternoon following diuresis Patient alert and interactive though difficult to comprehend Seems comfortable Exam/Review of Systems Vital Signs Vitals Vital Signs Date Time Temp Pulse Resp B/P Pulse Ox O2 Delivery O2 Flow Rate FiO2 02/14/17 17:22 146/79 96 Nasal Cannula 02/14/17 16:00 98.4 89 23 02/14/17 08:45 3.0 02/14/17 05:30 40 Intake and Output 02/13/17 02/13/17 02/14/17 14:59 22:59 06:59 Intake Total 583.30 ml 700 ml 800 ml Output Total 1100 ml 1170 ml 770 ml Balance -516.70 ml -470 ml 30 ml Exam Alert, interactive, responsive to commands Spontaneous movemetns throughout NG tube in place JVP normal RRR Lungs slightly rhoncourous anteriorly, but good air movment bl Ext withotu edema Ambriz Rectal tube Results Result Diagram: 02/14/17 0400 02/14/17 0400 Results 24 hrs Laboratory Tests Test 02/14/17 04:00 White Blood Count 8.3 Red Blood Count 3.23 L Hemoglobin 9.7 L Hematocrit 31.9 L Mean Corpuscular Volume 98.8 Mean Corpuscular Hemoglobin 30.0 Mean Corpuscular Hemoglobin Concent 30.4 L Red Cell Distribution Width 14.3 Platelet Count 278 Mean Platelet Volume 10.3 Neutrophils % 60.5 Lymphocytes % 21.0 Monocytes % 11.3 H Eosinophils % 5.5 Basophils % 1.1 Nucleated Red Blood Cells % 0.0 Neutrophils # (Manual) 5 Lymphocytes # 1.7 Monocytes # 0.9 Eosinophils # 0.5 Basophils # 0.1 Nucleated Red Blood Cells # 0.0 Sodium Level 139 Potassium Level 3.8 Chloride Level 100 Carbon Dioxide Level 33 H Anion Gap 10 # Blood Urea Nitrogen 10 Creatinine 0.75 Glucose Level 113 Calcium Level 9.6 Medications Medications Current Medications Ondansetron HCl (Zofran Inj) 4 mg Q6H PRN IV NAUSEA AND/OR VOMITING; Start 02/02 at 23:00 Acetaminophen 650 mg 650 mg Q4H PRN [place] PAIN LEVEL 1-3 OR FEVER; Start 02/02/17 at 23:00 Piperacillin Sod/ Tazobactam Sod 100 ml @ 200 mls/hr Q8 IVPB Last administered on 02/14/17 13:56; Admin Dose 200 MLS/HR; Start 02/02/17 at 23:00 Norepinephrine 16 mg/Dextrose 500 ml @ 1.87 mls/hr TITRATE IV Last administered on 02/05/17 20:20; Admin Dose 3.75 MLS/HR; Start 02/03/17 at 07:00 Levetiracetam (Keppra 1,000mg/ 100ml (Pmx)) 100 ml @ 400 mls/hr Q12 IVPB Last administered on 02/14/17 08:26; Admin Dose 400 MLS/HR; Start 02/03/17 at 21:00 Morphine Sulfate (morphine) 2 mg Q2H PRN IV PAIN Last administered on 15:12; Admin Dose 2 MG; Start 02/03/17 at 13:00 Lorazepam (Ativan) 2 mg Q2 PRN IV AGITATION Last administered on 02/13/17 18: 26; Admin Dose 2 MG; Start 02/03/17 at 13:00 IV Flush (NS 10 ml) 10 ml PRN PRN IV IV PROTOCOL; Start 02/03/17 at 13:30 Famotidine 20 mg 20 mg DAILY GTB Last administered on 02/14/17 08:11; Admin Dose 20 MG; Start 02/05/17 at 09:00 Fentanyl (Sublimaze) 100 ml @ 2.5 mls/hr TITRATE IV Last administered on 10:18; Admin Dose 3 MLS/HR; Start 02/05/17 at 12:30 Quetiapine Fumarate (Seroquel) 50 mg DAILY NGT Last administered on 02/14/17 08:11; Admin Dose 50 MG; Start 02/08/17 at 11:30 Amiodarone HCl (Cordarone) 400 mg BID NGT Last administered on 02/14/17 08:11 ; Admin Dose 400 MG; Start 02/13/17 at 21:00 MARICHUY DUBON MD Feb 14, 2017 18:21
[2017-02-14] MEDS ORDERED: AMIODARONE 150MG/D5W BOLUS 100 ML IV ONE (20:30)
[2017-02-14] MEDS ORDERED: AMIODARONE 900 MG in DEXTROSE 5% 482 ML IV SCH (20:30)
[2017-02-14] MEDS: LORAZEPAM 2 MG INJ IV PRN ×2 (21:33→23:39)
[2017-02-14] MEDS: ALTEPLASE (CATHFLO) 2 MG INJ CATHETER PRN (21:51)
[2017-02-15] VITALS (45 sets, daily range): BP systolic 90–162; BP diastolic 47–121; PULSE 69–101; RESP 12–37
[2017-02-15] MEDS: ALTEPLASE (CATHFLO) 2 MG INJ CATHETER PRN (01:38)
--- NOTE | 2017-02-15 01:54 | RADRPT ---
PROCEDURE: XR Chest. CLINICAL INDICATION: Shortness of breath. TECHNIQUE: AP Portable chest. COMPARISON: No pertinent prior examinations were submitted for comparison. FINDINGS: There is mild cardiomegaly. Some linear airspace opacity is noted in the right mid chest, likely at electasis. The osseous structures are unremarkable. A nasogastric tube tip is in the distal stomach or duodenum. A left arm PICC line tip is in the rig ht atrium. IMPRESSION: Nasogastric tube tip in the distal stomach or duodenum. Likely atelectasis in the right mid chest. RPTAT: HIKT .Jonathan Chambers MD, MD Date Time Electronically viewed and signed by .Jonathan Chambers MD, on 02/15/2017 01:53 .T/
[2017-02-15] MEDS: PIPER-TAZO 3.375 GM IV (PMX) 100 ML IVPB SCH ×3 (05:29→21:30)
[2017-02-15] MEDS: LORAZEPAM 2 MG INJ IV PRN ×2 (06:31→13:30)
--- NOTE | 2017-02-15 07:56 | CONS ---
Date/Time of Note Date/Time of Note DATE: 02/15/17 TIME: 07:53 Assessment/Plan Assessment/Plan Chief Complaint/Hosp Course Paroxysmal atrial fibrillation with rapid ventricular response - Back and forth between sinus and afib. Most recent afib 02/14. Now back in sinus NSTEMI - suspect type 2 Acute on likely chronic systolic heart failure - appears euvolemic now Cardiomyopathy, LVEF 30-35% initially, now normalized likely neurocardiogenic from seizures Status post septic shock Possible aspiration pneumonia Tonic-colonic seizure - per neurology Recent cholecystectomy Incomplete data -EF now normal by echo -no further lasix at this time -d/c amio drip -continue amio 400mg BID as continued PO load (eventual dose 200mg) -start coreg 3.125mg BID tomorrow if BP remains stable Problems: Consultation Date/Type/Reason Admit Date/Time Feb 02, 2017 at 07:43 Initial Consult Date 02/02/17 Type of Consultation: Cardiology 24 HR Interval Summary Free Text/Dictation Back in afib with RVR briefly. Converted with amio drip. Off BiPAP. Exam/Review of Systems Vital Signs Vitals Vital Signs Date Time Temp Pulse Resp B/P Pulse Ox O2 Delivery O2 Flow Rate FiO2 02/15/17 07:00 80 18 131/57 100 Nasal Cannula 3.0 02/15/17 04:00 98.5 02/14/17 05:30 40 Intake and Output 02/14/17 02/14/17 02/15/17 15:00 23:00 07:00 Intake Total 1100 ml 1393.4 ml 680.3 ml Output Total 3200 ml 735 ml 480 ml Balance -2100 ml 658.4 ml 200.3 ml Exam Constitutional: alert Psych: no complaints Head: atraumatic, normocephalic Neck: No jvd Respiratory: crackles/rales (right base), No clear to auscultation Cardiovascular: regular rate and rhythm, No edema, No systolic murmur Gastrointestinal: non-tender, soft Extremities: normal pulses Neurological: nl mental status Results Result Diagram: 02/14/17 0400 02/14/17 0400 Medications Medications Current Medications Ondansetron HCl (Zofran Inj) 4 mg Q6H PRN IV NAUSEA AND/OR VOMITING; Start 02/02 at 23:00 Acetaminophen 650 mg 650 mg Q4H PRN [place] PAIN LEVEL 1-3 OR FEVER; Start 02/02/17 at 23:00 Piperacillin Sod/ Tazobactam Sod 100 ml @ 200 mls/hr Q8 IVPB Last administered on 02/15/17 05:29; Admin Dose 200 MLS/HR; Start 02/02/17 at 23:00 Norepinephrine 16 mg/Dextrose 500 ml @ 1.87 mls/hr TITRATE IV Last administered on 02/05/17 20:20; Admin Dose 3.75 MLS/HR; Start 02/03/17 at 07:00 Levetiracetam (Keppra 1,000mg/ 100ml (Pmx)) 100 ml @ 400 mls/hr Q12 IVPB Last administered on 02/14/17 20:32; Admin Dose 400 MLS/HR; Start 02/03/17 at 21:00 Morphine Sulfate (morphine) 2 mg Q2H PRN IV PAIN Last administered on 15:12; Admin Dose 2 MG; Start 02/03/17 at 13:00 Lorazepam (Ativan) 2 mg Q2 PRN IV AGITATION Last administered on 02/15/17 06: 31; Admin Dose 2 MG; Start 02/03/17 at 13:00 IV Flush (NS 10 ml) 10 ml PRN PRN IV IV PROTOCOL; Start 02/03/17 at 13:30 Famotidine 20 mg 20 mg DAILY GTB Last administered on 02/14/17 08:11; Admin Dose 20 MG; Start 02/05/17 at 09:00 Fentanyl (Sublimaze) 100 ml @ 2.5 mls/hr TITRATE IV Last administered on 10:18; Admin Dose 3 MLS/HR; Start 02/05/17 at 12:30 Quetiapine Fumarate 50 mg 50 mg DAILY NGT Last administered on 02/14/17 08:11 ; Admin Dose 50 MG; Start 02/08/17 at 11:30 Amiodarone HCl/ Dextrose (Cordarone Iv/ D5W) 500 ml @ 0 mls/hr Q0M IV Last administered on 02/14/17 21:41; Admin Dose 33.4 MLS/HR; Start 02/14/17 at 20:30 ; Stop 02/15/17 at 20:29 GUSTAVO CORONEL Feb 15, 2017 07:56
[2017-02-15] MEDS: FAMOTIDINE 20 MG TAB GTB SCH (08:44)
[2017-02-15] MEDS: QUETIAPINE 25 MG TAB NGT SCH (08:44)
[2017-02-15] MEDS: LEVETIRACETAM 1000 MG (PMX) 100 ML IVPB SCH ×2 (08:44→20:30)
[2017-02-15] MEDS: AMIODARONE 200 MG TAB NGT SCH ×2 (08:44→20:50)
--- NOTE | 2017-02-15 10:38 | CONS ---
Date/Time of Note Date/Time of Note DATE: 02/15/17 TIME: 10:36 Consult Date/Type/Reason Admit Date/Time Feb 02, 2017 at 07:43 Initial Consult Date 02/02/17 Type of Consultation: Pulmonary Subjective Patient appears comfortable no new events. Still confused and agitated. Objective Vital Signs Date Time Temp Pulse Resp B/P Pulse Ox O2 Delivery O2 Flow Rate FiO2 02/15/17 09:00 77 22 90/67 100 Nasal Cannula 3.0 02/15/17 08:00 98.2 02/14/17 05:30 40 Intake and Output 02/14/17 02/14/17 02/15/17 15:00 23:00 07:00 Intake Total 1100 ml 1393.4 ml 697.0 ml Output Total 3200 ml 735 ml 480 ml Balance -2100 ml 658.4 ml 217.0 ml Exam GENERAL: Patient comfortable agitated. VITAL SIGNS: per chart NECK: Supple. No JVD or lymphadenopathy. CARDIAC EXAM: S1, S2. No added sounds or murmurs. CHEST: clear bilaterally, No added sounds, rales or wheezes ABDOMEN: Soft, nontender. No guarding or rebound. EXTREMITIES: No cyanosis, clubbing or edema. NEUROLOGIC: Generalized weakness. No focal deficits. Results/Medications Result Diagram: 02/14/17 04002/14/17 0400 Medications Current Medications Ondansetron HCl (Zofran Inj) 4 mg Q6H PRN IV NAUSEA AND/OR VOMITING; Start 02/02 at 23:00 Acetaminophen 650 mg 650 mg Q4H PRN [place] PAIN LEVEL 1-3 OR FEVER; Start 02/02/17 at 23:00 Piperacillin Sod/ Tazobactam Sod 100 ml @ 200 mls/hr Q8 IVPB Last administered on 02/15/17 05:29; Admin Dose 200 MLS/HR; Start 02/02/17 at 23:00 Norepinephrine 16 mg/Dextrose 500 ml @ 1.87 mls/hr TITRATE IV Last administered on 02/05/17 20:20; Admin Dose 3.75 MLS/HR; Start 02/03/17 at 07:00 Levetiracetam (Keppra 1,000mg/ 100ml (Pmx)) 100 ml @ 400 mls/hr Q12 IVPB Last administered on 02/15/17 08:44; Admin Dose 400 MLS/HR; Start 02/03/17 at 21:00 Morphine Sulfate (morphine) 2 mg Q2H PRN IV PAIN Last administered on 15:12; Admin Dose 2 MG; Start 02/03/17 at 13:00 Lorazepam (Ativan) 2 mg Q2 PRN IV AGITATION Last administered on 02/15/17 06: 31; Admin Dose 2 MG; Start 02/03/17 at 13:00 IV Flush (NS 10 ml) 10 ml PRN PRN IV IV PROTOCOL; Start 02/03/17 at 13:30 Famotidine 20 mg 20 mg DAILY GTB Last administered on 02/15/17 08:44; Admin Dose 20 MG; Start 02/05/17 at 09:00 Fentanyl (Sublimaze) 100 ml @ 2.5 mls/hr TITRATE IV Last administered on 10:18; Admin Dose 3 MLS/HR; Start 02/05/17 at 12:30 Quetiapine Fumarate 50 mg 50 mg DAILY NGT Last administered on 02/15/17 08:44 ; Admin Dose 50 MG; Start 02/08/17 at 11:30 Amiodarone HCl/ Dextrose (Cordarone Iv/ D5W) 500 ml @ 0 mls/hr Q0M IV Last administered on 02/14/17 21:41; Admin Dose 33.4 MLS/HR; Start 02/14/17 at 20:30 ; Stop 02/15/17 at 20:29 Amiodarone HCl (Cordarone) 400 mg BID NGT ; Start 02/15/17 at 09:00 Assessment/Plan Chief Complaint/Hosp Course IMPRESSION AND PLAN: 1. Atrial fibrillation with rapid ventricular rate currently rate controlled 2. Seizures, no stable. 3. Possible aspiration pneumonia during seizure activity. Recurrent right pleural effusion status post thoracentesis 1 4. Recent cholecystectomy. 5. Status post septic shock 6. Dysphagia on nasogastric tube feeding 7. Encephalopathy likely toxic metabolic PLAN: 1. Continue aspiration precautions 2. Monitor H&H 3. Transfer to telemetry when neurological status improves Problems: MEEK ENGEL MD, [facility] Feb 15, 2017 10:38
--- NOTE | 2017-02-15 14:27 | PN ---
Date/Time of Note Date/Time of Note DATE: 02/15/17 TIME: 14:25 Assessment/Plan VTE Prophylaxis VTE Prophylaxis Intervention: LMWH Lines/Catheters IV Catheter Type (from Nrsg): PICC Line Central line still needed: Yes Urinary Cath still in place: Yes Reason Cath still needed: urinary retention Assessment/Plan Chief Complaint/Hosp Course 81 yo female with h/o crhonic systolic CHF, recent open abdominal surgery for necrotic GB, who presented after prolonged seizure. Received benzos in the field leading to obtundation on arrival and was therefore intubated. Subsequently with A Fib w RVR PULM: - s/p intubation, then BIPAP - Currently stable on NC NEURO Seizure w status epilepticus: - Continue keppra per neurology - MRI brain - Routine EEG ID: - s/p abx for septic shock, currently stable CV: Systolic chronic CHF: - Had been holding [place]/BB for now given hypotension, will restart Atrial fibrillation paroxysmal with RVR now converted back to NSR - Continue amiodarone, holding AC for now GI: - s/p open cholecystectomy Discharge plan pending Problems: Subjective 24 Hr Interval Summary Free Text/Dictation Respiratory status very stable off of NIPPV Comfortable on NC Gets agitated but is calm Unable to clearly voice complaints Exam/Review of Systems Vital Signs Vitals Vital Signs Date Time Temp Pulse Resp B/P Pulse Ox O2 Delivery O2 Flow Rate FiO2 02/15/17 14:00 73 35 132/69 100 Nasal Cannula 3.0 02/15/17 12:00 98.0 02/14/17 05:30 40 Intake and Output 02/14/17 02/14/17 02/15/17 15:00 23:00 07:00 Intake Total 1100 ml 1393.4 ml 697.0 ml Output Total 3200 ml 735 ml 480 ml Balance -2100 ml 658.4 ml 217.0 ml Results Result Diagram: 02/14/17 0400 02/14/17 0400 Medications Medications Current Medications Ondansetron HCl (Zofran Inj) 4 mg Q6H PRN IV NAUSEA AND/OR VOMITING; Start 02/02 at 23:00 Acetaminophen 650 mg 650 mg Q4H PRN [place] PAIN LEVEL 1-3 OR FEVER; Start 02/02/17 at 23:00 Piperacillin Sod/ Tazobactam Sod 100 ml @ 200 mls/hr Q8 IVPB Last administered on 02/15/17 13:30; Admin Dose 200 MLS/HR; Start 02/02/17 at 23:00 Norepinephrine 16 mg/Dextrose 500 ml @ 1.87 mls/hr TITRATE IV Last administered on 02/05/17 20:20; Admin Dose 3.75 MLS/HR; Start 02/03/17 at 07:00 Levetiracetam (Keppra 1,000mg/ 100ml (Pmx)) 100 ml @ 400 mls/hr Q12 IVPB Last administered on 02/15/17 08:44; Admin Dose 400 MLS/HR; Start 02/03/17 at 21:00 Morphine Sulfate (morphine) 2 mg Q2H PRN IV PAIN Last administered on 15:12; Admin Dose 2 MG; Start 02/03/17 at 13:00 Lorazepam (Ativan) 2 mg Q2 PRN IV AGITATION Last administered on 02/15/17 13: 30; Admin Dose 2 MG; Start 02/03/17 at 13:00 IV Flush (NS 10 ml) 10 ml PRN PRN IV IV PROTOCOL; Start 02/03/17 at 13:30 Famotidine 20 mg 20 mg DAILY GTB Last administered on 02/15/17 08:44; Admin Dose 20 MG; Start 02/05/17 at 09:00 Fentanyl (Sublimaze) 100 ml @ 2.5 mls/hr TITRATE IV Last administered on 10:18; Admin Dose 3 MLS/HR; Start 02/05/17 at 12:30 Quetiapine Fumarate 50 mg 50 mg DAILY NGT Last administered on 02/15/17 08:44 ; Admin Dose 50 MG; Start 02/08/17 at 11:30 Amiodarone HCl/ Dextrose (Cordarone Iv/ D5W) 500 ml @ 0 mls/hr Q0M IV Last administered on 02/14/17 21:41; Admin Dose 33.4 MLS/HR; Start 02/14/17 at 20:30 ; Stop 02/15/17 at 20:29 Amiodarone HCl (Cordarone) 400 mg BID NGT ; Start 02/15/17 at 09:00 MARICHUY DUBON MD Feb 15, 2017 14:27
--- NOTE | 2017-02-15 14:37 | RADRPT ---
Echocardiogram Report Patient Name: LATASHA TRIHN Gender: Female Date: 1935 Study Date: 14-Feb-2017 Door Clamp Operator: Sravani Miranda ZEKE Location: 109 Ref. Physician: GUSTAVO DAILEY Quality: Adequate Procedures: Transthoracic echocardiogram examination. Indications: reeval EF. Findings Left Ventricle: Normal left ventricular cavity size, wall thickness and systolic function. The left ventricular ejection fraction is visually estimated at 60 %. Mitral Valve: Moderate mitral annular calcification. Conclusions 1.Limited study to evaluate LV function. 2.Normal left ventricular cavity size, wall thickness and systolic function. The left ventricular ejection fraction is visually estimated at 60 %. The EF has normalized since the last study. Electronically Signed By: Gustavo Dailey 15-Feb-2017 14:37:05 -0700 Patient Name: LATASHA TRINH Study Date: 14-Feb-2017 [id number]
[2017-02-15 18:52] LABS: CALCIUM 9.6 mg/dl (8.4-10.2); CREATININE 0.81 mg/dl (0.44-1.00); POTASSIUM 3.8 mmol/L (3.5-5.1)
[2017-02-15] MEDS: morphine 2 MG INJ IV PRN ×2 (20:22→22:29)
[2017-02-16] VITALS (22 sets, daily range): BP systolic 96–172; BP diastolic 48–103; PULSE 68–86; RESP 15–33
[2017-02-16] MEDS: LORAZEPAM 2 MG INJ IV PRN (00:50)
[2017-02-16] MEDS: morphine 2 MG INJ IV PRN (04:22)
[2017-02-16 05:22] LABS: BASOPHIL # 0.1 10^3/ul (0.0-0.1); EOSINOPHILS # 0.6 10^3/ul (0.0-0.5); EOSINOPHILS % 6.1 % (0.0-7.0); HEMATOCRIT 32.4 % (37.0-47.0); LYMPHOCYTES # 2.1 10^3/ul (0.8-2.9); LYMPHOCYTES % 21.6 % (15.0-51.0); MEAN CORPUSCULAR HEMOGLOBIN 30.3 pg (29.0-33.0); MEAN CORPUSCULAR HGB CONC 30.9 g/dl (32.0-37.0); MEAN CORPUSCULAR VOLUME 98.2 fl (82.0-101.0); MEAN PLATELET VOLUME 10.6 fl (7.4-10.4); MONOCYTES % 10.6 % (0.0-11.0); NEUTROPHILS % 60.2 % (39.0-77.0); PLATELET COUNT 287 10^3/UL (140-415); RED CELL DISTRIBUTION WIDTH 14.1 % (11.5-14.5); WHITE BLOOD COUNT 9.6 10^3/ul (4.8-10.8)
[2017-02-16 05:29] LABS: ALBUMIN/GLOBULIN RATIO 0.93; BILIRUBIN,INDIRECT 0.1 mg/dl (0-1.1); BILIRUBIN,TOTAL 0.1 mg/dl (0.2-1.3); CALCIUM 9.5 mg/dl (8.4-10.2); CREATININE 0.78 mg/dl (0.44-1.00); POTASSIUM 3.8 mmol/L (3.5-5.1); TOTAL PROTEIN 6.2 g/dl (6.1-8.1)
[2017-02-16] MEDS: PIPER-TAZO 3.375 GM IV (PMX) 100 ML IVPB SCH (06:04)
[2017-02-16] MEDS ORDERED: DEXTROSE 5% 1,000 ML IV SCH (09:00)
[2017-02-16] MEDS: QUETIAPINE 25 MG TAB NGT SCH (09:02)
[2017-02-16] MEDS: AMIODARONE 200 MG TAB NGT SCH ×2 (09:02→20:43)
[2017-02-16] MEDS: FAMOTIDINE 20 MG TAB GTB SCH (09:03)
[2017-02-16] MEDS: LISINOPRIL 5 MG TAB NGT SCH (09:03)
[2017-02-16] MEDS: LEVETIRACETAM 1000 MG (PMX) 100 ML IVPB SCH ×2 (09:05→20:42)
[2017-02-16] MEDS ORDERED: DEXTROSE 5% 1,000 ML IV ONE (09:20)
--- NOTE | 2017-02-16 09:59 | CONS ---
Date/Time of Note Date/Time of Note DATE: 02/16/17 TIME: 09:58 Assessment/Plan Assessment/Plan Chief Complaint/Hosp Course Paroxysmal atrial fibrillation with rapid ventricular response - Back and forth between sinus and afib. Most recent afib 02/14. Now back in sinus NSTEMI - suspect type 2 Acute on likely chronic systolic heart failure - appears euvolemic now Cardiomyopathy, LVEF 30-35% initially, now normalized likely neurocardiogenic from seizures Status post septic shock Possible aspiration pneumonia Tonic-colonic seizure - per neurology Recent cholecystectomy Incomplete data -EF now normal by echo -no further lasix at this time -continue amio 400mg BID as continued PO load (eventual dose 200mg) -start coreg 3.125mg BID Problems: Consultation Date/Type/Reason Admit Date/Time Feb 02, 2017 at 07:43 Initial Consult Date 02/02/17 Type of Consultation: Cardiology 24 HR Interval Summary Free Text/Dictation Respiratory status now stable. Remains in sinus Exam/Review of Systems Vital Signs Vitals Vital Signs Date Time Temp Pulse Resp B/P Pulse Ox O2 Delivery O2 Flow Rate FiO2 02/16/17 08:00 85 02/16/17 06:00 27 135/69 99 Nasal Cannula 3.0 02/16/17 04:00 98.7 02/14/17 05:30 40 Intake and Output 02/15/17 02/15/17 02/16/17 15:00 23:00 07:00 Intake Total 913.6 ml 976.1 ml 450 ml Output Total 530 ml 640 ml 450 ml Balance 383.6 ml 336.1 ml 0 ml Exam Constitutional: alert, No oriented Psych: nl mood/affect Head: atraumatic, normocephalic Neck: No jvd Respiratory: diminished breath sounds (right base), No clear to auscultation Cardiovascular: regular rate and rhythm, No edema Gastrointestinal: non-tender Neurological: nl mental status Results Result Diagram: 02/16/17 0355 02/16/17 0355 Results 24 hrs Laboratory Tests Test 02/15/17 14:20 02/16/17 03:55 Sodium Level 138 145 H Potassium Level 3.8 3.8 Chloride Level 100 100 Carbon Dioxide Level 28 32 H Anion Gap 14 17 H Blood Urea Nitrogen 14 15 Creatinine 0.81 0.78 Glucose Level 128 103 Calcium Level 9.6 9.5 White Blood Count 9.6 Red Blood Count 3.30 L Hemoglobin 10.0 L Hematocrit 32.4 L Mean Corpuscular Volume 98.2 Mean Corpuscular Hemoglobin 30.3 Mean Corpuscular Hemoglobin Concent 30.9 L Red Cell Distribution Width 14.1 Platelet Count 287 Mean Platelet Volume 10.6 H Neutrophils % 60.2 Lymphocytes % 21.6 Monocytes % 10.6 Eosinophils % 6.1 Basophils % 1.0 Nucleated Red Blood Cells % 0.0 Neutrophils # (Manual) 6 Lymphocytes # 2.1 Monocytes # 1.0 H Eosinophils # 0.6 H Basophils # 0.1 Nucleated Red Blood Cells # 0.0 Total Bilirubin 0.1 L Direct Bilirubin 0.00 Indirect Bilirubin 0.1 Aspartate Amino Transf (AST/SGOT) 25 Alanine Aminotransferase (ALT/SGPT) 21 Alkaline Phosphatase 72 Total Protein 6.2 Albumin 3.0 L Globulin 3.20 Albumin/Globulin Ratio 0.93 Medications Medications Current Medications Ondansetron HCl (Zofran Inj) 4 mg Q6H PRN IV NAUSEA AND/OR VOMITING; Start 02/02 at 23:00 Acetaminophen 650 mg 650 mg Q4H PRN [place] PAIN LEVEL 1-3 OR FEVER; Start 02/02/17 at 23:00 Levetiracetam (Keppra 1,000mg/ 100ml (Pmx)) 100 ml @ 400 mls/hr Q12 IVPB Last administered on 02/16/17 09:05; Admin Dose 400 MLS/HR; Start 02/03/17 at 21:00 Morphine Sulfate (morphine) 2 mg Q2H PRN IV PAIN Last administered on 04:22; Admin Dose 2 MG; Start 02/03/17 at 13:00 Lorazepam (Ativan) 2 mg Q2 PRN IV AGITATION Last administered on 02/16/17 00: 50; Admin Dose 2 MG; Start 02/03/17 at 13:00 IV Flush (NS 10 ml) 10 ml PRN PRN IV IV PROTOCOL; Start 02/03/17 at 13:30 Famotidine (Pepcid) 20 mg DAILY GTB Last administered on 02/16/17 09:03; Admin Dose 20 MG; Start 02/05/17 at 09:00 Quetiapine Fumarate (Seroquel) 50 mg DAILY NGT Last administered on 02/16/17 09:02; Admin Dose 50 MG; Start 02/08/17 at 11:30 Amiodarone HCl (Cordarone) 400 mg BID NGT Last administered on 02/16/17 09:02 ; Admin Dose 400 MG; Start 02/15/17 at 09:00 Lisinopril 5 mg 5 mg DAILY NGT Last administered on 02/16/17 09:03; Admin Dose 5 MG; Start 02/16/17 at 09:00 Dextrose (D5W) 1,000 ml @ 500 mls/hr Q2H ONCE IV Last administered on 09:30; Admin Dose 500 MLS/HR; Start 02/16/17 at 09:20; Stop 02/16/17 at 11: 19 Carvedilol (Coreg) 3.125 mg BID PO Last administered on 02/16/17 09:58; Admin Dose 3.125 MG; Start 02/16/17 at 10:00 GUSTAVO CORONEL Feb 16, 2017 09:59
--- NOTE | 2017-02-16 10:03 | CONS ---
Date/Time of Note Date/Time of Note DATE: 02/16/17 TIME: 10:02 Consult Date/Type/Reason Admit Date/Time Feb 02, 2017 at 07:43 Initial Consult Date 02/02/17 Type of Consultation: Pulmonary Subjective Patient appears more comfortable this morning follow simple commands. Still intermittent agitation. Objective Vital Signs Date Time Temp Pulse Resp B/P Pulse Ox O2 Delivery O2 Flow Rate FiO2 02/16/17 08:00 85 02/16/17 06:00 27 135/69 99 Nasal Cannula 3.0 02/16/17 04:00 98.7 02/14/17 05:30 40 Intake and Output 02/15/17 02/15/17 02/16/17 15:00 23:00 07:00 Intake Total 913.6 ml 976.1 ml 450 ml Output Total 530 ml 640 ml 450 ml Balance 383.6 ml 336.1 ml 0 ml Exam GENERAL: Patient comfortable agitated. VITAL SIGNS: per chart NECK: Supple. No JVD or lymphadenopathy. CARDIAC EXAM: S1, S2. No added sounds or murmurs. CHEST: clear bilaterally, No added sounds, rales or wheezes ABDOMEN: Soft, nontender. No guarding or rebound. EXTREMITIES: No cyanosis, clubbing or edema. NEUROLOGIC: Generalized weakness. No focal deficits. Results/Medications Result Diagram: 02/16/17 0355 02/16/17 0355 Results 24 hrs Laboratory Tests Test 02/15/17 14:20 02/16/17 03:55 Sodium Level 138 145 H Potassium Level 3.8 3.8 Chloride Level 100 100 Carbon Dioxide Level 28 32 H Anion Gap 14 17 H Blood Urea Nitrogen 14 15 Creatinine 0.81 0.78 Glucose Level 128 103 Calcium Level 9.6 9.5 White Blood Count 9.6 Red Blood Count 3.30 L Hemoglobin 10.0 L Hematocrit 32.4 L Mean Corpuscular Volume 98.2 Mean Corpuscular Hemoglobin 30.3 Mean Corpuscular Hemoglobin Concent 30.9 L Red Cell Distribution Width 14.1 Platelet Count 287 Mean Platelet Volume 10.6 H Neutrophils % 60.2 Lymphocytes % 21.6 Monocytes % 10.6 Eosinophils % 6.1 Basophils % 1.0 Nucleated Red Blood Cells % 0.0 Neutrophils # (Manual) 6 Lymphocytes # 2.1 Monocytes # 1.0 H Eosinophils # 0.6 H Basophils # 0.1 Nucleated Red Blood Cells # 0.0 Total Bilirubin 0.1 L Direct Bilirubin 0.00 Indirect Bilirubin 0.1 Aspartate Amino Transf (AST/SGOT) 25 Alanine Aminotransferase (ALT/SGPT) 21 Alkaline Phosphatase 72 Total Protein 6.2 Albumin 3.0 L Globulin 3.20 Albumin/Globulin Ratio 0.93 Medications Current Medications Ondansetron HCl (Zofran Inj) 4 mg Q6H PRN IV NAUSEA AND/OR VOMITING; Start 02/02 at 23:00 Acetaminophen 650 mg 650 mg Q4H PRN [place] PAIN LEVEL 1-3 OR FEVER; Start 02/02/17 at 23:00 Levetiracetam (Keppra 1,000mg/ 100ml (Pmx)) 100 ml @ 400 mls/hr Q12 IVPB Last administered on 02/16/17 09:05; Admin Dose 400 MLS/HR; Start 02/03/17 at 21:00 Morphine Sulfate (morphine) 2 mg Q2H PRN IV PAIN Last administered on 04:22; Admin Dose 2 MG; Start 02/03/17 at 13:00 Lorazepam (Ativan) 2 mg Q2 PRN IV AGITATION Last administered on 02/16/17 00: 50; Admin Dose 2 MG; Start 02/03/17 at 13:00 IV Flush (NS 10 ml) 10 ml PRN PRN IV IV PROTOCOL; Start 02/03/17 at 13:30 Famotidine (Pepcid) 20 mg DAILY GTB Last administered on 02/16/17 09:03; Admin Dose 20 MG; Start 02/05/17 at 09:00 Quetiapine Fumarate (Seroquel) 50 mg DAILY NGT Last administered on 02/16/17 09:02; Admin Dose 50 MG; Start 02/08/17 at 11:30 Amiodarone HCl (Cordarone) 400 mg BID NGT Last administered on 02/16/17 09:02 ; Admin Dose 400 MG; Start 02/15/17 at 09:00 Lisinopril 5 mg 5 mg DAILY NGT Last administered on 02/16/17 09:03; Admin Dose 5 MG; Start 02/16/17 at 09:00 Dextrose (D5W) 1,000 ml @ 500 mls/hr Q2H ONCE IV Last administered on 09:30; Admin Dose 500 MLS/HR; Start 02/16/17 at 09:20; Stop 02/16/17 at 11: 19 Carvedilol (Coreg) 3.125 mg BID PO Last administered on 02/16/17 09:58; Admin Dose 3.125 MG; Start 02/16/17 at 10:00 Assessment/Plan Chief Complaint/Hosp Course IMPRESSION AND PLAN: 1. Atrial fibrillation with rapid ventricular rate currently rate controlled, repeat echocardiogram shows preserved ejection fraction. 2. Seizures, no stable. 3. Possible aspiration pneumonia during seizure activity. Recurrent right pleural effusion status post thoracentesis 1 4. Recent cholecystectomy. 5. Status post septic shock 6. Dysphagia on nasogastric tube feeding 7. Encephalopathy likely toxic metabolic PLAN: 1. Continue aspiration precautions 2. Monitor H&H 3. Transfer to telemetry okay from pulmonary standpoint 4. Physical therapy evaluation 5. Encourage out of bed Problems: MEKE ENGEL MD, [facility] [place] Feb 16, 2017 10:03
--- NOTE | 2017-02-16 16:25 | PN ---
Date/Time of Note Date/Time of Note DATE: 02/16/17 TIME: 16:23 Assessment/Plan VTE Prophylaxis VTE Prophylaxis Intervention: LMWH Lines/Catheters IV Catheter Type (from Nrs): PICC Line Central line still needed: No Urinary Cath still in place: Yes Reason Cath still needed: urinary retention Assessment/Plan Chief Complaint/Hosp Course 81 yo female with h/o crhonic systolic CHF, recent open abdominal surgery for necrotic GB, who presented after prolonged seizure. Received benzos in the field leading to obtundation on arrival and was therefore intubated. Subsequently with A Fib w RVR PULM: Respiratory failure: - s/p intubation, then BIPAP - Currently stable on NC NEURO Seizure w status epilepticus on arrival - Continue keppra per neurology - MRI brain - Routine EEG ID: - s/p abx for septic shock, currently stable CV: Systolic chronic CHF: - Had been holding [place]/BB for now given hypotension, will restart gradually Atrial fibrillation paroxysmal with RVR now converted back to NSR - Continue amiodarone, holding AC for now GI: - s/p open cholecystectomy Delirium: - Hold benzos and opiates if at all possible - Seroquel 50 - Restraints if needed - Behavioral redirection Discharge plan pending Problems: Subjective 24 Hr Interval Summary Free Text/Dictation Still delirious, a bit combativie Pulling at NG tube Has gotten benzo for sedation, restraints Exam/Review of Systems Vital Signs Vitals Vital Signs Date Time Temp Pulse Resp B/P Pulse Ox O2 Delivery O2 Flow Rate FiO2 02/16/17 16:11 69 02/16/17 15:00 26 123/79 100 Nasal Cannula 2.0 02/16/17 12:00 97.7 02/14/17 05:30 40 Intake and Output 02/15/17 02/15/17 02/16/17 15:00 23:00 07:00 Intake Total 913.6 ml 976.1 ml 500 ml Output Total 530 ml 640 ml 500 ml Balance 383.6 ml 336.1 ml 0 ml Exam Alert, intermitently respsnive but clearly delirious Lungs relatively clear Breathing comfortably on RA Results Result Diagram: 02/16/17 0355 02/16/17 0355 Results 24 hrs Laboratory Tests Test 02/16/17 03:55 White Blood Count 9.6 Red Blood Count 3.30 L Hemoglobin 10.0 L Hematocrit 32.4 L Mean Corpuscular Volume 98.2 Mean Corpuscular Hemoglobin 30.3 Mean Corpuscular Hemoglobin Concent 30.9 L Red Cell Distribution Width 14.1 Platelet Count 287 Mean Platelet Volume 10.6 H Neutrophils % 60.2 Lymphocytes % 21.6 Monocytes % 10.6 Eosinophils % 6.1 Basophils % 1.0 Nucleated Red Blood Cells % 0.0 Neutrophils # (Manual) 6 Lymphocytes # 2.1 Monocytes # 1.0 H Eosinophils # 0.6 H Basophils # 0.1 Nucleated Red Blood Cells # 0.0 Sodium Level 145 H Potassium Level 3.8 Chloride Level 100 Carbon Dioxide Level 32 H Anion Gap 17 H Blood Urea Nitrogen 15 Creatinine 0.78 Glucose Level 103 Calcium Level 9.5 Total Bilirubin 0.1 L Direct Bilirubin 0.00 Indirect Bilirubin 0.1 Aspartate Amino Transf (AST/SGOT) 25 Alanine Aminotransferase (ALT/SGPT) 21 Alkaline Phosphatase 72 Total Protein 6.2 Albumin 3.0 L Globulin 3.20 Albumin/Globulin Ratio 0.93 Medications Medications Current Medications Ondansetron HCl (Zofran Inj) 4 mg Q6H PRN IV NAUSEA AND/OR VOMITING; Start 02/02 at 23:00 Acetaminophen 650 mg 650 mg Q4H PRN [place] PAIN LEVEL 1-3 OR FEVER; Start 02/02/17 at 23:00 Levetiracetam (Keppra 1,000mg/ 100ml (Pmx)) 100 ml @ 400 mls/hr Q12 IVPB Last administered on 02/16/17 09:05; Admin Dose 400 MLS/HR; Start 02/03/17 at 21:00 Morphine Sulfate (morphine) 2 mg Q2H PRN IV PAIN Last administered on 04:22; Admin Dose 2 MG; Start 02/03/17 at 13:00 Lorazepam (Ativan) 2 mg Q2 PRN IV AGITATION Last administered on 02/16/17 00: 50; Admin Dose 2 MG; Start 02/03/17 at 13:00 IV Flush (NS 10 ml) 10 ml PRN PRN IV IV PROTOCOL; Start 02/03/17 at 13:30 Famotidine (Pepcid) 20 mg DAILY GTB Last administered on 02/16/17 09:03; Admin Dose 20 MG; Start 02/05/17 at 09:00 Quetiapine Fumarate (Seroquel) 50 mg DAILY NGT Last administered on 02/16/17 09:02; Admin Dose 50 MG; Start 02/08/17 at 11:30 Amiodarone HCl (Cordarone) 400 mg BID NGT Last administered on 02/16/17 09:02 ; Admin Dose 400 MG; Start 02/15/17 at 09:00 Lisinopril (Zestril) 5 mg DAILY NGT Last administered on 02/16/17 09:03; Admin Dose 5 MG; Start 02/16/17 at 09:00 Carvedilol (Coreg) 3.125 mg BID PO Last administered on 02/16/17 09:58; Admin Dose 3.125 MG; Start 02/16/17 at 10:00 MARICHUY DUBON MD Feb 16, 2017 16:25
[2017-02-16] MEDS: ACETAMINOPHEN 650 MG SUPP PR PRN (20:31)
[2017-02-17] VITALS (17 sets, daily range): BP systolic 118–162; BP diastolic 61–84; PULSE 70–79; RESP 17–20
[2017-02-17] MEDS: ACETAMINOPHEN 650 MG SUPP PR PRN (03:16)
[2017-02-17 07:31] LABS: BASOPHIL # 0.1 10^3/ul (0.0-0.1); EOSINOPHILS # 0.5 10^3/ul (0.0-0.5); EOSINOPHILS % 3.9 % (0.0-7.0); LYMPHOCYTES # 2.3 10^3/ul (0.8-2.9); LYMPHOCYTES % 20.2 % (15.0-51.0); MEAN CORPUSCULAR HEMOGLOBIN 30.7 pg (29.0-33.0); MEAN CORPUSCULAR HGB CONC 31.4 g/dl (32.0-37.0); MEAN CORPUSCULAR VOLUME 97.8 fl (82.0-101.0); MEAN PLATELET VOLUME 10.4 fl (7.4-10.4); MONOCYTE # 1.1 10^3/ul (0.3-0.9); MONOCYTES % 9.1 % (0.0-11.0); NEUTROPHILS % 65.4 % (39.0-77.0); PLATELET COUNT 307 10^3/UL (140-415); RED BLOOD COUNT 3.58 10^6/ul (4.20-5.40); RED CELL DISTRIBUTION WIDTH 13.6 % (11.5-14.5); WHITE BLOOD COUNT 11.6 10^3/ul (4.8-10.8)
[2017-02-17 07:52] LABS: ALBUMIN 3.4 g/dl (3.3-4.9); BILIRUBIN,INDIRECT 0.2 mg/dl (0-1.1); BILIRUBIN,TOTAL 0.2 mg/dl (0.2-1.3); CALCIUM 10.1 mg/dl (8.4-10.2); CREATININE 0.74 mg/dl (0.44-1.00); POTASSIUM 3.7 mmol/L (3.5-5.1); TOTAL PROTEIN 6.8 g/dl (6.1-8.1)
[2017-02-17] MEDS: LEVETIRACETAM 1000 MG (PMX) 100 ML IVPB SCH ×2 (08:51→21:02)
[2017-02-17] MEDS: QUETIAPINE 25 MG TAB NGT SCH (08:52)
[2017-02-17] MEDS: LISINOPRIL 5 MG TAB NGT SCH (08:53)
[2017-02-17] MEDS: AMIODARONE 200 MG TAB NGT SCH ×2 (08:53→20:53)
[2017-02-17] MEDS: FAMOTIDINE 20 MG TAB GTB SCH (08:53)
--- NOTE | 2017-02-17 11:24 | CONS ---
Date/Time of Note Date/Time of Note DATE: 02/17/17 TIME: 11:23 Consult Date/Type/Reason Admit Date/Time Feb 02, 2017 at 07:43 Initial Consult Date 02/02/17 Type of Consultation: Pulmonary Subjective Comfortable but confused. Objective Vital Signs Date Time Temp Pulse Resp B/P Pulse Ox O2 Delivery O2 Flow Rate FiO2 02/17/17 11:16 97.8 80 18 140/82 90 02/17/17 08:20 Nasal Cannula 2.0 02/14/17 05:30 40 Intake and Output 02/16/17 02/16/17 02/17/17 14:59 22:59 06:59 Intake Total 600 ml 1400 ml 750 ml Output Total 715 ml 380 ml 1700 ml Balance -115 ml 1020 ml -950 ml Exam GENERAL: Patient comfortable agitated. VITAL SIGNS: per chart NECK: Supple. No JVD or lymphadenopathy. CARDIAC EXAM: S1, S2. No added sounds or murmurs. CHEST: clear bilaterally, No added sounds, rales or wheezes ABDOMEN: Soft, nontender. No guarding or rebound. EXTREMITIES: No cyanosis, clubbing or edema. NEUROLOGIC: Generalized weakness. No focal deficits. Results/Medications Result Diagram: 02/17/17 0611 02/17/17 0611 Results 24 hrs Laboratory Tests Test 02/17/17 06:11 White Blood Count 11.6 #H Red Blood Count 3.58 L Hemoglobin 11.0 L Hematocrit 35.0 L Mean Corpuscular Volume 97.8 Mean Corpuscular Hemoglobin 30.7 Mean Corpuscular Hemoglobin Concent 31.4 L Red Cell Distribution Width 13.6 Platelet Count 307 Mean Platelet Volume 10.4 Neutrophils % 65.4 Lymphocytes % 20.2 Monocytes % 9.1 Eosinophils % 3.9 Basophils % 1.0 Nucleated Red Blood Cells % 0.0 Neutrophils # (Manual) 8 H Lymphocytes # 2.3 Monocytes # 1.1 H Eosinophils # 0.5 Basophils # 0.1 Nucleated Red Blood Cells # 0.0 Sodium Level 140 Potassium Level 3.7 Chloride Level 101 Carbon Dioxide Level 30 Anion Gap 13 Blood Urea Nitrogen 14 Creatinine 0.74 Glucose Level 126 Calcium Level 10.1 Total Bilirubin 0.2 Direct Bilirubin 0.00 Indirect Bilirubin 0.2 Aspartate Amino Transf (AST/SGOT) 28 Alanine Aminotransferase (ALT/SGPT) 26 Alkaline Phosphatase 78 Total Protein 6.8 Albumin 3.4 Globulin 3.40 H Albumin/Globulin Ratio 1.00 Medications Current Medications Ondansetron HCl (Zofran Inj) 4 mg Q6H PRN IV NAUSEA AND/OR VOMITING; Start 02/02 at 23:00 Acetaminophen 650 mg 650 mg Q4H PRN [place] PAIN LEVEL 1-3 OR FEVER Last administered on 02/17/17 03:16; Admin Dose 650 MG; Start 02/02/17 at 23:00 Levetiracetam (Keppra 1,000mg/ 100ml (Pmx)) 100 ml @ 400 mls/hr Q12 IVPB Last administered on 02/17/17 08:51; Admin Dose 400 MLS/HR; Start 02/03/17 at 21:00 IV Flush (NS 10 ml) 10 ml PRN PRN IV IV PROTOCOL; Start 02/03/17 at 13:30 Famotidine (Pepcid) 20 mg DAILY GTB Last administered on 02/17/17 08:53; Admin Dose 20 MG; Start 02/05/17 at 09:00 Quetiapine Fumarate (Seroquel) 50 mg DAILY NGT Last administered on 02/17/17 08:52; Admin Dose 50 MG; Start 02/08/17 at 11:30 Amiodarone HCl (Cordarone) 400 mg BID NGT Last administered on 02/17/17 08:53 ; Admin Dose 400 MG; Start 02/15/17 at 09:00 Assessment/Plan Chief Complaint/Hosp Course IMPRESSION AND PLAN: 1. Atrial fibrillation with rapid ventricular rate currently rate controlled, repeat echocardiogram shows preserved ejection fraction. 2. Seizures, no stable. 3. Possible aspiration pneumonia during seizure activity. Recurrent right pleural effusion status post thoracentesis 1 4. Recent cholecystectomy. 5. Status post septic shock 6. Dysphagia on nasogastric tube feeding 7. Encephalopathy likely toxic metabolic PLAN: 1. Continue aspiration precautions, may require PEG tube placement if remains continuously confused. 2. Monitor H&H 3. Transfer to telemetry okay from pulmonary standpoint 4. Physical therapy evaluation 5. Encourage out of bed Problems: MEEK ENGEL MD, [facility] Feb 17, 2017 11:24
--- NOTE | 2017-02-17 11:42 | CONS ---
Date/Time of Note Date/Time of Note DATE: 02/17/17 TIME: 11:41 Assessment/Plan Assessment/Plan Chief Complaint/Hosp Course Paroxysmal atrial fibrillation with rapid ventricular response - Back and forth between sinus and afib. Most recent afib 02/14. Now back in sinus NSTEMI - suspect type 2 Acute on likely chronic systolic heart failure - appears euvolemic now Cardiomyopathy, LVEF 30-35% initially, now normalized likely neurocardiogenic from seizures Status post septic shock Possible aspiration pneumonia Tonic-colonic seizure - per neurology Recent cholecystectomy Incomplete data -EF now normal by echo -no further lasix at this time -continue amio 400mg BID as continued PO load (eventual dose 200mg) -BP meds currently being held. If tolerates, can restart coreg 6.25 mg BID Problems: Consultation Date/Type/Reason Admit Date/Time Feb 02, 2017 at 07:43 Initial Consult Date 02/02/17 Type of Consultation: Cardiology 24 HR Interval Summary Free Text/Dictation Transferred to tele. No afib overnight. More agitated Exam/Review of Systems Vital Signs Vitals Vital Signs Date Time Temp Pulse Resp B/P Pulse Ox O2 Delivery O2 Flow Rate FiO2 02/17/17 11:16 97.8 80 18 140/82 90 02/17/17 08:20 Nasal Cannula 2.0 02/14/17 05:30 40 Intake and Output 02/16/17 02/16/17 02/17/17 15:00 23:00 07:00 Intake Total 600 ml 1350 ml 750 ml Output Total 895 ml 150 ml 1700 ml Balance -295 ml 1200 ml -950 ml Exam Constitutional: alert, No oriented Psych: anxiety Head: atraumatic, normocephalic Neck: No jvd Respiratory: clear to auscultation, diminished breath sounds, No crackles/rales Cardiovascular: regular rate and rhythm, No edema, No systolic murmur Gastrointestinal: non-tender, soft Neurological: nl mental status Results Result Diagram: 02/17/17 0611 02/17/17 0611 Results 24 hrs Laboratory Tests Test 02/17/17 06:11 White Blood Count 11.6 #H Red Blood Count 3.58 L Hemoglobin 11.0 L Hematocrit 35.0 L Mean Corpuscular Volume 97.8 Mean Corpuscular Hemoglobin 30.7 Mean Corpuscular Hemoglobin Concent 31.4 L Red Cell Distribution Width 13.6 Platelet Count 307 Mean Platelet Volume 10.4 Neutrophils % 65.4 Lymphocytes % 20.2 Monocytes % 9.1 Eosinophils % 3.9 Basophils % 1.0 Nucleated Red Blood Cells % 0.0 Neutrophils # (Manual) 8 H Lymphocytes # 2.3 Monocytes # 1.1 H Eosinophils # 0.5 Basophils # 0.1 Nucleated Red Blood Cells # 0.0 Sodium Level 140 Potassium Level 3.7 Chloride Level 101 Carbon Dioxide Level 30 Anion Gap 13 Blood Urea Nitrogen 14 Creatinine 0.74 Glucose Level 126 Calcium Level 10.1 Total Bilirubin 0.2 Direct Bilirubin 0.00 Indirect Bilirubin 0.2 Aspartate Amino Transf (AST/SGOT) 28 Alanine Aminotransferase (ALT/SGPT) 26 Alkaline Phosphatase 78 Total Protein 6.8 Albumin 3.4 Globulin 3.40 H Albumin/Globulin Ratio 1.00 Medications Medications Current Medications Ondansetron HCl (Zofran Inj) 4 mg Q6H PRN IV NAUSEA AND/OR VOMITING; Start 02/02 at 23:00 Acetaminophen 650 mg 650 mg Q4H PRN [place] PAIN LEVEL 1-3 OR FEVER Last administered on 02/17/17 03:16; Admin Dose 650 MG; Start 02/02/17 at 23:00 Levetiracetam (Keppra 1,000mg/ 100ml (Pmx)) 100 ml @ 400 mls/hr Q12 IVPB Last administered on 02/17/17 08:51; Admin Dose 400 MLS/HR; Start 02/03/17 at 21:00 IV Flush (NS 10 ml) 10 ml PRN PRN IV IV PROTOCOL; Start 02/03/17 at 13:30 Famotidine (Pepcid) 20 mg DAILY GTB Last administered on 02/17/17 08:53; Admin Dose 20 MG; Start 02/05/17 at 09:00 Quetiapine Fumarate (Seroquel) 50 mg DAILY NGT Last administered on 02/17/17 08:52; Admin Dose 50 MG; Start 02/08/17 at 11:30 Amiodarone HCl (Cordarone) 400 mg BID NGT Last administered on 02/17/17 08:53 ; Admin Dose 400 MG; Start 02/15/17 at 09:00 GUSTAVO CORONEL Feb 17, 2017 11:42
--- NOTE | 2017-02-17 18:11 | PN ---
Date/Time of Note Date/Time of Note DATE: 02/17/17 TIME: 18:09 Assessment/Plan VTE Prophylaxis VTE Prophylaxis Intervention: LMWH Lines/Catheters IV Catheter Type (from Nrs): PICC Line Central line still needed: No Urinary Cath still in place: No Assessment/Plan Chief Complaint/Hosp Course 81 yo female with h/o crhonic systolic CHF, recent open abdominal surgery for necrotic GB, who presented after prolonged seizure. Received benzos in the field leading to obtundation on arrival and was therefore intubated. Subsequently with A Fib w RVR PULM: - s/p intubation, then BIPAP - Currently stable on [place] NEURO Seizure w status epilepticus on arrival - Continue keppra per neurology - MRI brain - Routine EEG CV: EF has recovered to 60% normal on recent TTE - No strong indication for neurohormonal blockade, will try to limit meds given her delirium/agitation and difficulty with pills Atrial fibrillation paroxysmal with RVR now converted back to NSR - Continue amiodarone, holding AC for now GI: - s/p open cholecystectomy Delirium: - Hold benzos and opiates if at all possible - Seroquel 50 - Restraints if needed - Behavioral redirection Discharge plan pending Problems: Subjective 24 Hr Interval Summary Free Text/Dictation Patient stable Has NG tube which she is pulling at, ok to remove Able to swallow applesauce this AM Follows commands Exam/Review of Systems Vital Signs Vitals Vital Signs Date Time Temp Pulse Resp B/P Pulse Ox O2 Delivery O2 Flow Rate FiO2 02/17/17 16:33 2.0 02/17/17 16:29 98.2 76 18 132/61 96 02/17/17 08:20 Nasal Cannula 02/14/17 05:30 40 Intake and Output 02/16/17 02/16/17 02/17/17 15:00 23:00 07:00 Intake Total 600 ml 1350 ml 750 ml Output Total 895 ml 150 ml 1700 ml Balance -295 ml 1200 ml -950 ml Exam Constitutional: No alert, No distress, No frail, No non-verbal, No obese, No oriented, No other, No well developed Psych: No anxiety, No confusion, No depression, No nl mood/affect, No no complaints, No other, No suicidal Head: No atraumatic, No hematomas, No lacerations, No normocephalic, No other Respiratory: No clear to auscultation, No congested cough, No crackles/rales, No diminished breath sounds, No intercostal retraction, No labored breathing, No normal air movement, No other, No respirations, No tactile fremitus, No wheezing Cardiovascular: No S3, No S4, No bruits, No diastolic murmur, No edema, No gallop, No irregular rhythm, No jugular venous distention (JVD), No murmurs/ extra sounds, No nl pulses, No other, No regular rate and rhythm, No rub, No systolic murmur Results Result Diagram: 02/17/1761002/17/17 0611 Results 24 hrs Laboratory Tests Test 02/17/17 06:11 White Blood Count 11.6 #H Red Blood Count 3.58 L Hemoglobin 11.0 L Hematocrit 35.0 L Mean Corpuscular Volume 97.8 Mean Corpuscular Hemoglobin 30.7 Mean Corpuscular Hemoglobin Concent 31.4 L Red Cell Distribution Width 13.6 Platelet Count 307 Mean Platelet Volume 10.4 Neutrophils % 65.4 Lymphocytes % 20.2 Monocytes % 9.1 Eosinophils % 3.9 Basophils % 1.0 Nucleated Red Blood Cells % 0.0 Neutrophils # (Manual) 8 H Lymphocytes # 2.3 Monocytes # 1.1 H Eosinophils # 0.5 Basophils # 0.1 Nucleated Red Blood Cells # 0.0 Sodium Level 140 Potassium Level 3.7 Chloride Level 101 Carbon Dioxide Level 30 Anion Gap 13 Blood Urea Nitrogen 14 Creatinine 0.74 Glucose Level 126 Calcium Level 10.1 Total Bilirubin 0.2 Direct Bilirubin 0.00 Indirect Bilirubin 0.2 Aspartate Amino Transf (AST/SGOT) 28 Alanine Aminotransferase (ALT/SGPT) 26 Alkaline Phosphatase 78 Total Protein 6.8 Albumin 3.4 Globulin 3.40 H Albumin/Globulin Ratio 1.00 Medications Medications Current Medications Ondansetron HCl (Zofran Inj) 4 mg Q6H PRN IV NAUSEA AND/OR VOMITING; Start 02/02 at 23:00 Acetaminophen 650 mg 650 mg Q4H PRN [place] PAIN LEVEL 1-3 OR FEVER Last administered on 02/17/17t 03:16; Admin Dose 650 MG; Start 02/02/17 at 23:00 Levetiracetam (Keppra 1,000mg/ 100ml (Pmx)) 100 ml @ 400 mls/hr Q12 IVPB Last administered on 02/17/17 08:51; Admin Dose 400 MLS/HR; Start 02/03/17 at 21:00 IV Flush (NS 10 ml) 10 ml PRN PRN IV IV PROTOCOL; Start 02/03/17 at 13:30 Famotidine (Pepcid) 20 mg DAILY GTB Last administered on 02/17/17 08:53; Admin Dose 20 MG; Start 02/05/17 at 09:00 Quetiapine Fumarate (Seroquel) 50 mg DAILY NGT Last administered on 02/17/17 08:52; Admin Dose 50 MG; Start 02/08/17 at 11:30 Amiodarone HCl (Cordarone) 400 mg BID NGT Last administered on 02/17/17 08:53 ; Admin Dose 400 MG; Start 02/15/17 at 09:00 MRAICHUY DUBON MD Feb 17, 2017 18:11
[2017-02-18] VITALS (18 sets, daily range): BP systolic 131–167; BP diastolic 60–81; PULSE 68–92; RESP 18–20
[2017-02-18] MEDS: QUETIAPINE 25 MG TAB NGT SCH (08:30)
[2017-02-18] MEDS: AMIODARONE 200 MG TAB NGT SCH ×2 (08:30→20:27)
[2017-02-18] MEDS: LEVETIRACETAM 1000 MG (PMX) 100 ML IVPB SCH ×2 (08:30→20:26)
[2017-02-18] MEDS: ENOXAPARIN 30 MG/0.3 ML SYG SC SCH (08:31)
--- NOTE | 2017-02-18 11:42 | CONS ---
Date/Time of Note Date/Time of Note DATE: 02/18/17 TIME: 11:40 Consult Date/Type/Reason Admit Date/Time Feb 02, 2017 at 07:43 Initial Consult Date 02/02/17 Type of Consultation: Pulmonary Subjective Remains confused but comfortable this morning. On room air. Objective Vital Signs Date Time Temp Pulse Resp B/P Pulse Ox O2 Delivery O2 Flow Rate FiO2 02/18/17 10:00 98.6 84 20 131/72 94 02/18/17 05:53 Nasal Cannula 2.0 Intake and Output 02/17/17 02/17/17 02/18/17 15:00 23:00 07:00 Intake Total 950 ml Output Total 750 ml 3275 ml Balance 200 ml -3275 ml Exam GENERAL: Patient comfortable agitated. VITAL SIGNS: per chart NECK: Supple. No JVD or lymphadenopathy. CARDIAC EXAM: S1, S2. No added sounds or murmurs. CHEST: clear bilaterally, No added sounds, rales or wheezes ABDOMEN: Soft, nontender. No guarding or rebound. EXTREMITIES: No cyanosis, clubbing or edema. NEUROLOGIC: Generalized weakness. No focal deficits. Results/Medications Result Diagram: 02/17/17 0602/17/17 0611 Medications Current Medications Ondansetron HCl (Zofran Inj) 4 mg Q6H PRN IV NAUSEA AND/OR VOMITING; Start 02/02 at 23:00 Acetaminophen 650 mg 650 mg Q4H PRN [place] PAIN LEVEL 1-3 OR FEVER Last administered on 02/17/17 03:16; Admin Dose 650 MG; Start 02/02/17 at 23:00 Levetiracetam (Keppra 1,000mg/ 100ml (Pmx)) 100 ml @ 400 mls/hr Q12 IVPB Last administered on 02/18/17 08:30; Admin Dose 400 MLS/HR; Start 02/03/17 at 21:00 IV Flush (NS 10 ml) 10 ml PRN PRN IV IV PROTOCOL; Start 02/03/17 at 13:30 Quetiapine Fumarate (Seroquel) 50 mg DAILY NGT Last administered on 02/17/17 08:52; Admin Dose 50 MG; Start 02/08/17 at 11:30 Amiodarone HCl (Cordarone) 400 mg BID NGT Last administered on 02/17/17 08:53 ; Admin Dose 400 MG; Start 02/15/17 at 09:00 Enoxaparin Sodium (Lovenox) 30 mg DAILY SC Last administered on 02/18/17 08:31 ; Admin Dose 30 MG; Start 02/18/17 at 09:00 Assessment/Plan Chief Complaint/Hosp Course IMPRESSION AND PLAN: 1. Atrial fibrillation with rapid ventricular rate currently rate controlled, repeat echocardiogram shows preserved ejection fraction. 2. Seizures, no stable. 3. Possible aspiration pneumonia during seizure activity. Recurrent right pleural effusion status post thoracentesis 1 4. Recent cholecystectomy. 5. Status post septic shock 6. Dysphagia on nasogastric tube feeding 7. Encephalopathy likely toxic metabolic PLAN: 1. Continue aspiration precautions, agree with holding off on PEG tube placement for now. 2. Monitor H&H 3. Consider transfer to [facility]. 4. Physical therapy evaluation 5. Fall precautions. Will need chcf facility placement. Problems: MEEK ENGEL MD, [facility] Feb 18, 2017 11:42
--- NOTE | 2017-02-18 12:23 | CONS ---
Date/Time of Note Date/Time of Note DATE: 02/18/17 TIME: 12:21 Assessment/Plan Assessment/Plan Chief Complaint/Hosp Course Paroxysmal atrial fibrillation with rapid ventricular response - Back and forth between sinus and afib. Most recent afib 02/14. Now back in sinus NSTEMI - suspect type 2 Acute on likely chronic systolic heart failure - appears euvolemic now Cardiomyopathy, LVEF 30-35% initially, now normalized (>60%) likely neurocardiogenic from seizures Status post septic shock Possible aspiration pneumonia Tonic-colonic seizure - per neurology Recent cholecystectomy Incomplete data -EF now normal by echo -no further lasix at this time -continue amio 400mg BID as continued PO load (switch to 200mg over the weekend) -BP meds currently being held. If tolerates, can restart coreg 6.25 mg BID Problems: Consultation Date/Type/Reason Admit Date/Time Feb 02, 2017 at 07:43 Initial Consult Date 02/02/17 Type of Consultation: Cardiology 24 HR Interval Summary Free Text/Dictation Remains confused (had a [place] language line earlier per notes). No further afib Exam/Review of Systems Vital Signs Vitals Vital Signs Date Time Temp Pulse Resp B/P Pulse Ox O2 Delivery O2 Flow Rate FiO2 02/18/17 10:00 98.6 84 20 131/72 94 02/18/17 05:53 Nasal Cannula 2.0 Intake and Output 02/17/17 02/17/17 02/18/17 15:00 23:00 07:00 Intake Total 950 ml Output Total 750 ml 3275 ml Balance 200 ml -3275 ml Exam Constitutional: alert Psych: confusion Head: atraumatic, normocephalic Neck: No jvd Respiratory: clear to auscultation, diminished breath sounds, No crackles/rales Cardiovascular: regular rate and rhythm, No edema, No systolic murmur Gastrointestinal: non-tender, soft Neurological: nl mental status Results Result Diagram: 02/17/17 0611 02/17/17 0611 Medications Medications Current Medications Ondansetron HCl (Zofran Inj) 4 mg Q6H PRN IV NAUSEA AND/OR VOMITING; Start 02/02 at 23:00 Acetaminophen 650 mg 650 mg Q4H PRN [place] PAIN LEVEL 1-3 OR FEVER Last administered on 02/17/17t 03:16; Admin Dose 650 MG; Start 02/02/17 at 23:00 Levetiracetam (Keppra 1,000mg/ 100ml (Pmx)) 100 ml @ 400 mls/hr Q12 IVPB Last administered on 02/18/17 08:30; Admin Dose 400 MLS/HR; Start 02/03/17 at 21:00 IV Flush (NS 10 ml) 10 ml PRN PRN IV IV PROTOCOL; Start 02/03/17 at 13:30 Quetiapine Fumarate (Seroquel) 50 mg DAILY NGT Last administered on 02/17/17 08:52; Admin Dose 50 MG; Start 02/08/17 at 11:30 Amiodarone HCl (Cordarone) 400 mg BID NGT Last administered on 02/17/17 08:53 ; Admin Dose 400 MG; Start 02/15/17 at 09:00 Enoxaparin Sodium (Lovenox) 30 mg DAILY SC Last administered on 02/18/17 08:31 ; Admin Dose 30 MG; Start 02/18/17 at 09:00 GUSTAVO CORONEL Feb 18, 2017 12:23
[2017-02-18] MEDS: DEXTROSE 5%-0.45% NACL 1,000 ML IV SCH (13:59)
--- NOTE | 2017-02-18 17:22 | PN ---
Date/Time of Note Date/Time of Note DATE: 02/18/17 TIME: 17:20 Assessment/Plan VTE Prophylaxis VTE Prophylaxis Intervention: LMWH Lines/Catheters IV Catheter Type (from Nrs): PICC Line Central line still needed: No Urinary Cath still in place: No Assessment/Plan Chief Complaint/Hosp Course 81 yo female with h/o crhonic systolic CHF, recent open abdominal surgery for necrotic GB, who presented after prolonged seizure. Received benzos in the field leading to obtundation on arrival and was therefore intubated. Subsequently with A Fib w RVR PULM: - s/p intubation, then BIPAP now extubated and stable on RA NEURO Seizure w status epilepticus on arrival - Continue keppra per neurology - MRI brain - Routine EEG CV: EF has recovered to 60% normal on recent TTE - No strong indication for neurohormonal blockade, will try to limit meds given her delirium/agitation and difficulty with pills Atrial fibrillation paroxysmal with RVR now converted back to NSR - Continue amiodarone, holding AC for now GI: - s/p open cholecystectomy Delirium: - Hold benzos and opiates if at all possible - Seroquel 50 - Restraints if needed - Behavioral redirection - Need to get assessment of cognitive baseline as she recovers from ICU stay Discharge plan pending. Will need acute rehab Problems: Subjective 24 Hr Interval Summary Free Text/Dictation Completely stable from respiratory persepctive However, she is becomes quite agitated and delirious Spoke on the burner shaft phone in [place]an with her. She reports being very scared and sad. Says she has "nowhere to go". It is not clear to me her cognitive status via burner shaft phone. Exam/Review of Systems Vital Signs Vitals Vital Signs Date Time Temp Pulse Resp B/P Pulse Ox O2 Delivery O2 Flow Rate FiO2 02/18/17 16:48 2.0 02/18/17 16:12 92 02/18/17 16:05 98.2 20 151/74 94 02/18/17 12:20 Room Air Intake and Output 02/17/17 02/17/17 02/18/17 15:00 23:00 07:00 Intake Total 950 ml Output Total 750 ml 3275 ml Balance 200 ml -3275 ml Exam Elderly, frail apperance Dysphoric Lungs clear Strength 5/5 x 4 Results Result Diagram: 02/17/17 0611 02/17/17 0611 Medications Medications Current Medications Ondansetron HCl (Zofran Inj) 4 mg Q6H PRN IV NAUSEA AND/OR VOMITING; Start 02/02 at 23:00 Acetaminophen 650 mg 650 mg Q4H PRN [place] PAIN LEVEL 1-3 OR FEVER Last administered on 02/17/17 03:16; Admin Dose 650 MG; Start 02/02/17 at 23:00 Levetiracetam (Keppra 1,000mg/ 100ml (Pmx)) 100 ml @ 400 mls/hr Q12 IVPB Last administered on 02/18/17 08:30; Admin Dose 400 MLS/HR; Start 02/03/17 at 21:00 IV Flush (NS 10 ml) 10 ml PRN PRN IV IV PROTOCOL; Start 02/03/17 at 13:30 Quetiapine Fumarate (Seroquel) 50 mg DAILY NGT Last administered on 02/17/17 08:52; Admin Dose 50 MG; Start 02/08/17 at 11:30 Amiodarone HCl (Cordarone) 400 mg BID NGT Last administered on 02/17/17 08:53 ; Admin Dose 400 MG; Start 02/15/17 at 09:00 Enoxaparin Sodium 30 mg 30 mg DAILY SC Last administered on 02/18/17 08:31; Admin Dose 30 MG; Start 02/18/17 at 09:00 Dextrose/Sodium Chloride (D5-1/2ns) 1,000 ml @ 75 mls/hr [id number] IV Last administered on 02/18/17 13:59; Admin Dose 75 MLS/HR; Start 02/18/17 at 14:00 MARICHUY DUBON MD Feb 18, 2017 17:22
[2017-02-18] MEDS: ACETAMINOPHEN 650 MG SUPP PR PRN (20:26)
[2017-02-19] VITALS (16 sets, daily range): BP systolic 114–187; BP diastolic 60–87; PULSE 70–88; RESP 16–20
[2017-02-19] MEDS ORDERED: hydrALAzine 20 MG INJ ONE (06:36)
[2017-02-19] MEDS: DEXTROSE 5%-0.45% NACL 1,000 ML IV SCH ×3 (06:40→21:20)
[2017-02-19] MEDS: hydrALAzine 20 MG INJ IV PRN ×2 (06:40→21:15)
[2017-02-19] MEDS: LEVETIRACETAM 1000 MG (PMX) 100 ML IVPB SCH ×2 (08:35→21:11)
[2017-02-19] MEDS: QUETIAPINE 25 MG TAB NGT SCH (08:37)
[2017-02-19] MEDS: AMIODARONE 200 MG TAB NGT SCH ×2 (08:38→21:00)
[2017-02-19] MEDS: ENOXAPARIN 30 MG/0.3 ML SYG SC SCH (08:45)
--- NOTE | 2017-02-19 11:20 | CONS ---
Date/Time of Note Date/Time of Note DATE: 02/19/17 TIME: 11:18 Assessment/Plan Assessment/Plan Chief Complaint/Hosp Course Paroxysmal atrial fibrillation with rapid ventricular response - Back and forth between sinus and afib. Most recent afib 02/14. Now back in sinus NSTEMI - suspect type 2 Acute on likely chronic systolic heart failure - appears euvolemic now Cardiomyopathy, LVEF 30-35% initially, now normalized (>60%) likely neurocardiogenic from seizures Status post septic shock Possible aspiration pneumonia Tonic-colonic seizure - per neurology Recent cholecystectomy Incomplete data -EF now normal by echo -decrease to amio 200mg BID -BP meds currently being held. If tolerates, can restart coreg 6.25 mg BID Problems: Consultation Date/Type/Reason Admit Date/Time Feb 02, 2017 at 07:43 Initial Consult Date 02/02/17 Type of Consultation: Cardiology 24 HR Interval Summary Free Text/Dictation No o/n events. Son-in-law at bedside. Exam/Review of Systems Vital Signs Vitals Vital Signs Date Time Temp Pulse Resp B/P Pulse Ox O2 Delivery O2 Flow Rate FiO2 02/19/17 11:15 98.6 98 18 117/62 94 02/19/17 06:00 Room Air 02/18/17 16:48 2.0 Intake and Output 02/18/17 02/18/17 02/19/17 15:00 23:00 07:00 Intake Total 0 ml 1000 ml Balance 0 ml 1000 ml Exam Constitutional: alert Psych: no complaints Head: atraumatic, normocephalic Neck: No jvd Respiratory: clear to auscultation, No crackles/rales Cardiovascular: regular rate and rhythm, No edema Gastrointestinal: non-tender, soft Musculoskeletal: nl extremities to inspection Extremities: normal pulses Neurological: nl mental status Results Result Diagram: 02/17/17 0611 02/17/17 0611 Medications Medications Current Medications Ondansetron HCl (Zofran Inj) 4 mg Q6H PRN IV NAUSEA AND/OR VOMITING; Start 02/02 at 23:00 Acetaminophen 650 mg 650 mg Q4H PRN [place] PAIN LEVEL 1-3 OR FEVER Last administered on 02/18/17t 20:26; Admin Dose 650 MG; Start 02/02/17 at 23:00 Levetiracetam (Keppra 1,000mg/ 100ml (Pmx)) 100 ml @ 400 mls/hr Q12 IVPB Last administered on 02/19/17 08:35; Admin Dose 400 MLS/HR; Start 02/03/17 at 21:00 IV Flush (NS 10 ml) 10 ml PRN PRN IV IV PROTOCOL; Start 02/03/17 at 13:30 Quetiapine Fumarate (Seroquel) 50 mg DAILY NGT Last administered on 02/19/17 08:37; Admin Dose 50 MG; Start 02/08/17 at 11:30 Amiodarone HCl (Cordarone) 400 mg BID NGT Last administered on 02/19/17 08:38 ; Admin Dose 400 MG; Start 02/15/17 at 09:00 Enoxaparin Sodium 30 mg 30 mg DAILY SC Last administered on 02/19/17 08:45; Admin Dose 30 MG; Start 02/18/17 at 09:00 Dextrose/Sodium Chloride (D5-1/2ns) 1,000 ml @ 75 mls/hr [id number] IV Last administered on 02/19/17 06:40; Admin Dose 75 MLS/HR; Start 02/18/17 at 14:00 Hydralazine HCl (Apresoline) 10 mg Q6H PRN IV ELEVATED SBP>160 Last administered on 02/19/17 06:40; Admin Dose 10 MG; Start 02/19/17 at 06:30 GUSTAVO CORONEL Feb 19, 2017 11:20
--- NOTE | 2017-02-19 12:55 | PN ---
Date/Time of Note Date/Time of Note DATE: 02/19/17 TIME: 12:53 Assessment/Plan VTE Prophylaxis VTE Prophylaxis Intervention: LMWH Lines/Catheters IV Catheter Type (from Nrsg): PICC Line Central line still needed: No Urinary Cath still in place: No Assessment/Plan Chief Complaint/Hosp Course 81 yo female with h/o crhonic systolic CHF, recent open abdominal surgery for necrotic GB, who presented after prolonged seizure. Received benzos in the field leading to obtundation on arrival and was therefore intubated. Subsequently with A Fib w RVR PULM: - s/p intubation, then BIPAP now extubated and stable on RA NEURO Seizure w status epilepticus on arrival - Continue keppra per neurology - MRI brain - Routine EEG CV: EF has recovered to 60% normal on recent TTE - No strong indication for neurohormonal blockade, will try to limit meds given her delirium/agitation and difficulty with pills Atrial fibrillation paroxysmal with RVR now converted back to NSR - Continue amiodarone, holding AC for now Hypertension: - BP elevated when patient agitated, other reading normal. Trying to hold nonessential meds given delirium/agitation and difficulty taking PO so holding meds for now GI: - s/p open cholecystectomy Delirium: - Hold benzos and opiates if at all possible - Restraints if needed - Behavioral redirection - Need to get assessment of cognitive baseline as she recovers from ICU stay Discharge plan pending. Needs acute rehab. Ready from medical perspective Problems: Subjective 24 Hr Interval Summary Free Text/Dictation Patient still confused, sad Unclear cognitive baseline Again failed swallow eval Exam/Review of Systems Vital Signs Vitals Vital Signs Date Time Temp Pulse Resp B/P Pulse Ox O2 Delivery O2 Flow Rate FiO2 02/19/17 12:08 78 02/19/17 11:15 98.6 18 117/62 94 02/19/17 06:00 Room Air 02/18/17 16:48 2.0 Intake and Output 02/18/17 02/18/17 02/19/17 15:00 23:00 07:00 Intake Total 0 ml 1000 ml Balance 0 ml 1000 ml Exam No change Comfortable appearing Normal respoiratoyr status Euvolemic No edema Results Result Diagram: 02/17/1711 02/17/17 0611 Medications Medications Current Medications Ondansetron HCl (Zofran Inj) 4 mg Q6H PRN IV NAUSEA AND/OR VOMITING; Start 02/02 at 23:00 Acetaminophen 650 mg 650 mg Q4H PRN [place] PAIN LEVEL 1-3 OR FEVER Last administered on 02/18/17 20:26; Admin Dose 650 MG; Start 02/02/17 at 23:00 Levetiracetam (Keppra 1,000mg/ 100ml (Pmx)) 100 ml @ 400 mls/hr Q12 IVPB Last administered on 02/19/17 08:35; Admin Dose 400 MLS/HR; Start 02/03/17 at 21:00 IV Flush (NS 10 ml) 10 ml PRN PRN IV IV PROTOCOL; Start 02/03/17 at 13:30 Quetiapine Fumarate (Seroquel) 50 mg DAILY NGT Last administered on 02/19/17 08:37; Admin Dose 50 MG; Start 02/08/17 at 11:30 Enoxaparin Sodium 30 mg 30 mg DAILY SC Last administered on 02/19/17 08:45; Admin Dose 30 MG; Start 02/18/17 at 09:00 Dextrose/Sodium Chloride (D5-1/2ns) 1,000 ml @ 75 mls/hr [id number] IV Last administered on 02/19/17 06:40; Admin Dose 75 MLS/HR; Start 02/18/17 at 14:00 Hydralazine HCl (Apresoline) 10 mg Q6H PRN IV ELEVATED SBP>160 Last administered on 02/19/17 06:40; Admin Dose 10 MG; Start 02/19/17 at 06:30 Amiodarone HCl (Cordarone) 200 mg BID NGT ; Start 02/19/17 at 21:00 MARICHUY DUOBN MD Feb 19, 2017 12:55
--- NOTE | 2017-02-19 17:14 | CONS ---
Date/Time of Note Date/Time of Note DATE: 02/19/17 TIME: 17:12 Consult Date/Type/Reason Admit Date/Time Feb 02, 2017 at 07:43 Initial Consult Date 02/02/17 Type of Consultation: Pulm Subjective Doing better. No overnight events. Objective Vital Signs Date Time Temp Pulse Resp B/P Pulse Ox O2 Delivery O2 Flow Rate FiO2 02/19/17 16:04 81 02/19/17 15:33 98.2 16 142/77 96 02/19/17 13:50 2.0 02/19/17 06:00 Room Air Intake and Output 02/18/17 02/18/17 02/19/17 15:00 23:00 07:00 Intake Total 0 ml 1000 ml Balance 0 ml 1000 ml Exam HEENT: Neck supple; no JVD; no LAD CVS: Irreg irreg, S1 and S2 CHEST: Clear ABD: Soft, NT, + BS EXT: No c/c/e Results/Medications Result Diagram: 02/17/1761002/17/17 0611 Medications Current Medications Ondansetron HCl (Zofran Inj) 4 mg Q6H PRN IV NAUSEA AND/OR VOMITING; Start 02/02 at 23:00 Acetaminophen 650 mg 650 mg Q4H PRN [place] PAIN LEVEL 1-3 OR FEVER Last administered on 02/18/17 20:26; Admin Dose 650 MG; Start 02/02/17 at 23:00 Levetiracetam (Keppra 1,000mg/ 100ml (Pmx)) 100 ml @ 400 mls/hr Q12 IVPB Last administered on 02/19/17 08:35; Admin Dose 400 MLS/HR; Start 02/03/17 at 21:00 IV Flush (NS 10 ml) 10 ml PRN PRN IV IV PROTOCOL; Start 02/03/17 at 13:30 Enoxaparin Sodium 30 mg 30 mg DAILY SC Last administered on 02/19/17 08:45; Admin Dose 30 MG; Start 02/18/17 at 09:00 Dextrose/Sodium Chloride (D5-1/2ns) 1,000 ml @ 75 mls/hr [id number] IV Last administered on 02/19/17 06:40; Admin Dose 75 MLS/HR; Start 02/18/17 at 14:00 Hydralazine HCl (Apresoline) 10 mg Q6H PRN IV ELEVATED SBP>160 Last administered on 02/19/17t 06:40; Admin Dose 10 MG; Start 02/19/17 at 06:30 Amiodarone HCl (Cordarone) 200 mg BID NGT ; Start 02/19/17 at 21:00 Assessment/Plan Additional Assessment/Plan IMP: 1. Atrial fibrillation with rapid ventricular rate currently rate controlled, repeat echocardiogram shows preserved ejection fraction. 2. Seizures, no stable. 3. Possible aspiration pneumonia during seizure activity. Recurrent right pleural effusion status post thoracentesis 1 4. Recent cholecystectomy. 5. Status post septic shock 6. Dysphagia on nasogastric tube feeding 7. Encephalopathy likely toxic metabolic RECS: 1. Aspiration precautions 2. BD's and CPT prn 3. Am labs 4. D/C planning ABILIO CHAVEZ MD Feb 19, 2017 17:14
[2017-02-20] VITALS (19 sets, daily range): BP systolic 103–151; BP diastolic 58–81; PULSE 79–100; RESP 17–20
[2017-02-20] MEDS ORDERED: HALOPERIDOL 5 MG INJ IM ONE (01:00)
[2017-02-20] MEDS: DEXTROSE 5%-0.45% NACL 1,000 ML IV SCH ×2 (05:07→12:15)
[2017-02-20] MEDS: LEVETIRACETAM 1000 MG (PMX) 100 ML IVPB SCH ×2 (08:50→20:20)
[2017-02-20] MEDS: AMIODARONE 200 MG TAB NGT SCH ×2 (08:51→20:19)
[2017-02-20] MEDS: ENOXAPARIN 30 MG/0.3 ML SYG SC SCH (08:58)
--- NOTE | 2017-02-20 11:09 | CONS ---
Date/Time of Note Date/Time of Note DATE: 02/20/17 TIME: 11:08 Assessment/Plan Assessment/Plan Chief Complaint/Hosp Course Paroxysmal atrial fibrillation with rapid ventricular response - Back and forth between sinus and afib. Most recent afib 02/14. Now back in sinus NSTEMI - suspect type 2 Acute on likely chronic systolic heart failure - appears euvolemic now Cardiomyopathy, LVEF 30-35% initially, now normalized (>60%) likely neurocardiogenic from seizures Status post septic shock Possible aspiration pneumonia Tonic-colonic seizure - per neurology Recent cholecystectomy Incomplete data -EF now normal by echo -amio 200mg BID -BP meds currently being held due to ongoing delirium. If improves, can restart coreg 6.25 mg BID Problems: Consultation Date/Type/Reason Admit Date/Time Feb 02, 2017 at 07:43 Initial Consult Date 02/02/17 Type of Consultation: Cardiology 24 HR Interval Summary Free Text/Dictation No o/n events. Son in law at bedside notes she is still confused. Otherwise remains in sinus Exam/Review of Systems Vital Signs Vitals Vital Signs Date Time Temp Pulse Resp B/P Pulse Ox O2 Delivery O2 Flow Rate FiO2 02/20/17 08:07 98.2 78 17 125/71 93 02/20/17 01:45 2.0 02/19/17 18:00 Room Air Exam Constitutional: alert, No oriented Head: atraumatic, normocephalic Neck: No jvd Respiratory: clear to auscultation, diminished breath sounds, No crackles/rales Cardiovascular: regular rate and rhythm, No edema, No systolic murmur Gastrointestinal: non-tender, soft Musculoskeletal: nl extremities to inspection Neurological: No nl mental status, No nl speech Results Result Diagram: 02/17/1761002/17/17 06 Medications Medications Current Medications Ondansetron HCl (Zofran Inj) 4 mg Q6H PRN IV NAUSEA AND/OR VOMITING; Start 02/02 at 23:00 Acetaminophen 650 mg 650 mg Q4H PRN [place] PAIN LEVEL 1-3 OR FEVER Last administered on 02/18/17t 20:26; Admin Dose 650 MG; Start 02/02/17 at 23:00 Levetiracetam (Keppra 1,000mg/ 100ml (Pmx)) 100 ml @ 400 mls/hr Q12 IVPB Last administered on 02/20/17 08:50; Admin Dose 400 MLS/HR; Start 02/03/17 at 21:00 IV Flush (NS 10 ml) 10 ml PRN PRN IV IV PROTOCOL; Start 02/03/17 at 13:30 Enoxaparin Sodium 30 mg 30 mg DAILY SC Last administered on 02/20/17 08:58; Admin Dose 30 MG; Start 02/18/17 at 09:00 Dextrose/Sodium Chloride (D5-1/2ns) 1,000 ml @ 75 mls/hr [id number] IV Last administered on 02/19/17 21:20; Admin Dose 75 MLS/HR; Start 02/18/17 at 14:00 Hydralazine HCl (Apresoline) 10 mg Q6H PRN IV ELEVATED SBP>160 Last administered on 02/19/17 21:15; Admin Dose 10 MG; Start 02/19/17 at 06:30 Amiodarone HCl (Cordarone) 200 mg BID NGT Last administered on 02/20/17 08:51 ; Admin Dose 200 MG; Start 02/19/17 at 21:00 GUSTAVO CORONEL Feb 20, 2017 11:09
--- NOTE | 2017-02-20 18:52 | PN ---
Date/Time of Note Date/Time of Note DATE: 02/20/17 TIME: 18:51 Assessment/Plan VTE Prophylaxis VTE Prophylaxis Intervention: LMWH Lines/Catheters IV Catheter Type (from Nrsg): PICC Line Central line still needed: No Urinary Cath still in place: No Assessment/Plan Chief Complaint/Hosp Course 81 yo female with h/o crhonic systolic CHF, recent open abdominal surgery for necrotic GB, who presented after prolonged seizure. Received benzos in the field leading to obtundation on arrival and was therefore intubated. Subsequently with A Fib w RVR PULM: - s/p intubation, then BIPAP now extubated and stable on RA NEURO Seizure w status epilepticus on arrival - Continue keppra per neurology - MRI brain - Routine EEG CV: EF has recovered to 60% normal on recent TTE - No strong indication for neurohormonal blockade, will try to limit meds given her delirium/agitation and difficulty with pills Atrial fibrillation paroxysmal with RVR now converted back to NSR - Continue amiodarone, holding AC for now Hypertension: - BP elevated when patient agitated, other reading normal. Trying to hold nonessential meds given delirium/agitation and difficulty taking PO so holding meds for now GI: - s/p open cholecystectomy Delirium: - Hold benzos and opiates if at all possible - Restraints if needed - Behavioral redirection - Need to get assessment of cognitive baseline as she recovers from ICU stay Discharge plan pending. Needs acute rehab. Ready from medical perspective Problems: Subjective 24 Hr Interval Summary Free Text/Dictation No change to the patient's clinical status Stable on RA Remains cognitively impaired Exam/Review of Systems Vital Signs Vitals Vital Signs Date Time Temp Pulse Resp B/P Pulse Ox O2 Delivery O2 Flow Rate FiO2 02/20/17 16:16 79 02/20/17 15:20 98.5 18 149/67 95 02/20/17 15:00 Room Air 02/20/17 13:52 2.0 Results Result Diagram: 02/17/17 0611 02/17/17 0611 Medications Medications Current Medications Ondansetron HCl (Zofran Inj) 4 mg Q6H PRN IV NAUSEA AND/OR VOMITING; Start 02/02 at 23:00 Acetaminophen 650 mg 650 mg Q4H PRN [place] PAIN LEVEL 1-3 OR FEVER Last administered on 02/18/17t 20:26; Admin Dose 650 MG; Start 02/02/17 at 23:00 Levetiracetam (Keppra 1,000mg/ 100ml (Pmx)) 100 ml @ 400 mls/hr Q12 IVPB Last administered on 02/20/17 08:50; Admin Dose 400 MLS/HR; Start 02/03/17 at 21:00 IV Flush (NS 10 ml) 10 ml PRN PRN IV IV PROTOCOL; Start 02/03/17 at 13:30 Enoxaparin Sodium 30 mg 30 mg DAILY SC Last administered on 02/20/17 08:58; Admin Dose 30 MG; Start 02/18/17 at 09:00 Dextrose/Sodium Chloride (D5-1/2ns) 1,000 ml @ 75 mls/hr [id number] IV Last administered on 02/20/17 12:15; Admin Dose 75 MLS/HR; Start 02/18/17 at 14:00 Hydralazine HCl (Apresoline) 10 mg Q6H PRN IV ELEVATED SBP>160 Last administered on 02/19/17 21:15; Admin Dose 10 MG; Start 02/19/17 at 06:30 Amiodarone HCl (Cordarone) 200 mg BID NGT Last administered on 02/20/17 08:51 ; Admin Dose 200 MG; Start 02/19/17 at 21:00 MARICHUY DUBON MD Feb 20, 2017 18:52
--- NOTE | 2017-02-20 18:54 | CONS ---
Date/Time of Note Date/Time of Note DATE: 02/20/17 TIME: 18:53 Consult Date/Type/Reason Admit Date/Time Feb 02, 2017 at 07:43 Initial Consult Date 02/02/17 Type of Consultation: Pulm Subjective No events Objective Vital Signs Date Time Temp Pulse Resp B/P Pulse Ox O2 Delivery O2 Flow Rate FiO2 02/20/17 16:16 79 02/20/17 15:20 98.5 18 149/67 95 02/20/17 15:00 Room Air 02/20/17 13:52 2.0 Exam HEENT: Neck supple; no JVD; no LAD CVS: Irreg irreg, S1 and S2 CHEST: Clear ABD: Soft, NT, + BS EXT: No c/c/e Results/Medications Result Diagram: 02/17/1761002/17/17 0611 Medications Current Medications Ondansetron HCl (Zofran Inj) 4 mg Q6H PRN IV NAUSEA AND/OR VOMITING; Start 02/02 at 23:00 Acetaminophen 650 mg 650 mg Q4H PRN [place] PAIN LEVEL 1-3 OR FEVER Last administered on 02/18/17 20:26; Admin Dose 650 MG; Start 02/02/17 at 23:00 Levetiracetam (Keppra 1,000mg/ 100ml (Pmx)) 100 ml @ 400 mls/hr Q12 IVPB Last administered on 02/20/17 08:50; Admin Dose 400 MLS/HR; Start 02/03/17 at 21:00 IV Flush (NS 10 ml) 10 ml PRN PRN IV IV PROTOCOL; Start 02/03/17 at 13:30 Enoxaparin Sodium 30 mg 30 mg DAILY SC Last administered on 02/20/17 08:58; Admin Dose 30 MG; Start 02/18/17 at 09:00 Dextrose/Sodium Chloride (D5-1/2ns) 1,000 ml @ 75 mls/hr [id number] IV Last administered on 02/20/17 12:15; Admin Dose 75 MLS/HR; Start 02/18/17 at 14:00 Hydralazine HCl (Apresoline) 10 mg Q6H PRN IV ELEVATED SBP>160 Last administered on 02/19/17 21:15; Admin Dose 10 MG; Start 02/19/17 at 06:30 Amiodarone HCl (Cordarone) 200 mg BID NGT Last administered on 02/20/17t 08:51 ; Admin Dose 200 MG; Start 02/19/17 at 21:00 Assessment/Plan Additional Assessment/Plan IMP: 1. Atrial fibrillation with rapid ventricular rate currently rate controlled, repeat echocardiogram shows preserved ejection fraction. 2. Seizures 3. Possible aspiration pneumonia during seizure activity. Recurrent right pleural effusion status post thoracentesis 1 4. Recent cholecystectomy. 5. Status post septic shock 6. Dysphagia on nasogastric tube feeding 7. Encephalopathy likely toxic metabolic RECS: 1. Aspiration precautions 2. BD's and CPT prn 3. Am labs 4. D/C planning ABILIO CHAVEZ MD Feb 20, 2017 18:54
[2017-02-21] VITALS (17 sets, daily range): BP systolic 133–161; BP diastolic 67–89; PULSE 80–159; RESP 18–20
[2017-02-21] MEDS: DEXTROSE 5%-0.45% NACL 1,000 ML IV SCH ×2 (03:06→08:09)
[2017-02-21] MEDS: ENOXAPARIN 30 MG/0.3 ML SYG SC SCH (08:08)
[2017-02-21] MEDS: LEVETIRACETAM 1000 MG (PMX) 100 ML IVPB SCH ×2 (08:09→21:25)
[2017-02-21] MEDS: AMIODARONE 200 MG TAB NGT SCH (08:11)
--- NOTE | 2017-02-21 08:43 | CONS ---
Date/Time of Note Date/Time of Note DATE: 02/21/17 TIME: 08:39 Assessment/Plan Assessment/Plan Chief Complaint/Hosp Course Paroxysmal atrial fibrillation with rapid ventricular response - Back and forth between sinus and afib. Most recent afib 02/14. Now back in sinus NSTEMI - suspect type 2 Acute on likely chronic systolic heart failure - was back to euvolemic but now mild CHF again from IVF Cardiomyopathy, LVEF 30-35% initially, now normalized (>60%) likely neurocardiogenic from seizures Status post septic shock Possible aspiration pneumonia Tonic-colonic seizure - per neurology Recent cholecystectomy Incomplete data -d/c IVF -lasix 20mg IV x 1 -amio 200mg daily -if passes swallow eval, can restart coreg 6.25 mg BID Problems: Consultation Date/Type/Reason Admit Date/Time Feb 02, 2017 at 07:43 Initial Consult Date 02/02/17 Type of Consultation: Cardiology 24 HR Interval Summary Free Text/Dictation No o/n events. Recognizes her son-in-law this am. Failed bedside swallow and pending speech therapy eval Exam/Review of Systems Vital Signs Vitals Vital Signs Date Time Temp Pulse Resp B/P Pulse Ox O2 Delivery O2 Flow Rate FiO2 02/21/17 07:32 98.2 87 18 147/86 96 02/21/17 01:15 2.0 02/20/17 15:00 Room Air Intake and Output 02/20/17 02/20/17 02/21/17 15:00 23:00 07:00 Intake Total 100 ml 1000 ml Balance 100 ml 1000 ml Exam Constitutional: alert Psych: nl mood/affect Head: atraumatic, normocephalic Neck: No jvd Respiratory: crackles/rales (mild ), No clear to auscultation Cardiovascular: regular rate and rhythm, No edema Gastrointestinal: non-tender, soft Neurological: nl mental status Results Result Diagram: 02/17/17 0611 02/17/17 0611 Medications Medications Current Medications Ondansetron HCl (Zofran Inj) 4 mg Q6H PRN IV NAUSEA AND/OR VOMITING; Start 02/02 at 23:00 Acetaminophen 650 mg 650 mg Q4H PRN [place] PAIN LEVEL 1-3 OR FEVER Last administered on 02/18/17t 20:26; Admin Dose 650 MG; Start 02/02/17 at 23:00 Levetiracetam (Keppra 1,000mg/ 100ml (Pmx)) 100 ml @ 400 mls/hr Q12 IVPB Last administered on 02/21/17 08:09; Admin Dose 400 MLS/HR; Start 02/03/17 at 21:00 IV Flush (NS 10 ml) 10 ml PRN PRN IV IV PROTOCOL; Start 02/03/17 at 13:30 Enoxaparin Sodium 30 mg 30 mg DAILY SC Last administered on 02/21/17 08:08; Admin Dose 30 MG; Start 02/18/17 at 09:00 Dextrose/Sodium Chloride (D5-1/2ns) 1,000 ml @ 75 mls/hr [id number] IV Last administered on 02/21/17 03:06; Admin Dose 75 MLS/HR; Start 02/18/17 at 14:00 Hydralazine HCl (Apresoline) 10 mg Q6H PRN IV ELEVATED SBP>160 Last administered on 02/19/17 21:15; Admin Dose 10 MG; Start 02/19/17 at 06:30 Amiodarone HCl (Cordarone) 200 mg DAILY NGT ; Start 02/21/17 at 09:00 GUSTAVO CORONEL Feb 21, 2017 08:43
[2017-02-21] MEDS ORDERED: FUROSEMIDE 20 MG INJ IV ONE (09:00)
--- NOTE | 2017-02-21 10:45 | CONS ---
Date/Time of Note Date/Time of Note DATE: 02/21/17 TIME: 10:44 Consult Date/Type/Reason Admit Date/Time Feb 02, 2017 at 07:43 Initial Consult Date 02/02/17 Type of Consultation: Pulm Subjective More alert, less agitated. Objective Vital Signs Date Time Temp Pulse Resp B/P Pulse Ox O2 Delivery O2 Flow Rate FiO2 02/21/17 08:01 95 02/21/17 07:32 98.2 18 147/86 96 02/21/17 01:15 2.0 02/20/17 15:00 Room Air Intake and Output 02/20/17 02/20/17 02/21/17 15:00 23:00 07:00 Intake Total 100 ml 1000 ml Balance 100 ml 1000 ml Exam Exam HEENT: Neck supple; no JVD; no LAD CVS: Irreg irreg, S1 and S2 CHEST: Clear ABD: Soft, NT, + BS EXT: No c/c/e Results/Medications Result Diagram: 02/17/1761002/17/17 0611 Medications Current Medications Ondansetron HCl (Zofran Inj) 4 mg Q6H PRN IV NAUSEA AND/OR VOMITING; Start 02/02 at 23:00 Acetaminophen 650 mg 650 mg Q4H PRN [place] PAIN LEVEL 1-3 OR FEVER Last administered on 02/18/17 20:26; Admin Dose 650 MG; Start 02/02/17 at 23:00 Levetiracetam (Keppra 1,000mg/ 100ml (Pmx)) 100 ml @ 400 mls/hr Q12 IVPB Last administered on 02/21/17 08:09; Admin Dose 400 MLS/HR; Start 02/03/17 at 21:00 IV Flush (NS 10 ml) 10 ml PRN PRN IV IV PROTOCOL; Start 02/03/17 at 13:30 Enoxaparin Sodium (Lovenox) 30 mg DAILY SC Last administered on 02/21/17 08:08 ; Admin Dose 30 MG; Start 02/18/17 at 09:00 Hydralazine HCl (Apresoline) 10 mg Q6H PRN IV ELEVATED SBP>160 Last administered on 02/19/17 21:15; Admin Dose 10 MG; Start 02/19/17 at 06:30 Amiodarone HCl (Cordarone) 200 mg DAILY NGT ; Start 02/21/17 at 09:00 Assessment/Plan Chief Complaint/Hosp Course IMP: 1. Atrial fibrillation with rapid ventricular rate currently rate controlled, repeat echocardiogram shows preserved ejection fraction. 2. Seizures 3. Possible aspiration pneumonia during seizure activity. Recurrent right pleural effusion status post thoracentesis 1 4. Recent cholecystectomy. 5. Status post septic shock 6. Dysphagia on nasogastric tube feeding 7. Encephalopathy likely toxic metabolic RECS: 1. Aspiration precautions 2. BD's and CPT prn 3. Am labs 4. D/C planning, will likely need SNF Problems: [facility] ENGEL [facility] Feb 21, 2017 10:45
--- NOTE | 2017-02-21 15:56 | PN ---
Date/Time of Note Date/Time of Note DATE: 02/21/17 TIME: 15:55 Assessment/Plan VTE Prophylaxis VTE Prophylaxis Intervention: LMWH Lines/Catheters Urinary Cath still in place: No Assessment/Plan Chief Complaint/Hosp Course 81 yo female with h/o chronic systolic CHF, recent open abdominal surgery for necrotic GB, who presented after prolonged seizure. Received benzos in the field leading to obtundation on arrival and was therefore intubated. Subsequently with A Fib w RVR PULM: - s/p intubation, then BIPAP now extubated and stable on RA NEURO Seizure w status epilepticus on arrival - Continue keppra per neurology - MRI brain - Routine EEG CV: EF has recovered to 60% normal on recent TTE - No strong indication for neurohormonal blockade, will try to limit meds given her delirium/agitation and difficulty with pills Atrial fibrillation paroxysmal with RVR now converted back to NSR - Continue amiodarone, holding AC for now Hypertension: - BP elevated when patient agitated, other reading normal. Trying to hold nonessential meds given delirium/agitation and difficulty taking PO so holding meds for now GI: - s/p open cholecystectomy Delirium: - Hold benzos and opiates if at all possible - Restraints if needed - Behavioral redirection - Need to get assessment of cognitive baseline as she recovers from ICU stay Prophylaxis: Lovenox Discharge plan pending. Needs acute rehab. Ready from medical perspective Problems: Subjective 24 Hr Interval Summary Constitutional: disoriented Exam/Review of Systems Vital Signs Vitals Vital Signs Date Time Temp Pulse Resp B/P Pulse Ox O2 Delivery O2 Flow Rate FiO2 02/21/17 14:00 98.2 96 19 155/67 97 02/21/17 01:15 2.0 02/20/17 15:00 Room Air Intake and Output 02/20/17 02/20/17 02/21/17 15:00 23:00 07:00 Intake Total 100 ml 1000 ml Balance 100 ml 1000 ml Exam Psych: confusion Respiratory: clear to auscultation Cardiovascular: regular rate and rhythm Gastrointestinal: soft, No distended Musculoskeletal: nl extremities to inspection Results Result Diagram: 02/17/17 0611 02/17/17 0611 Medications Medications Current Medications Ondansetron HCl (Zofran Inj) 4 mg Q6H PRN IV NAUSEA AND/OR VOMITING; Start 02/02 at 23:00 Acetaminophen 650 mg 650 mg Q4H PRN [place] PAIN LEVEL 1-3 OR FEVER Last administered on 02/18/17 20:26; Admin Dose 650 MG; Start 02/02/17 at 23:00 Levetiracetam (Keppra 1,000mg/ 100ml (Pmx)) 100 ml @ 400 mls/hr Q12 IVPB Last administered on 02/21/17 08:09; Admin Dose 400 MLS/HR; Start 02/03/17 at 21:00 IV Flush (NS 10 ml) 10 ml PRN PRN IV IV PROTOCOL; Start 02/03/17 at 13:30 Enoxaparin Sodium (Lovenox) 30 mg DAILY SC Last administered on 02/21/17 08:08 ; Admin Dose 30 MG; Start 02/18/17 at 09:00 Hydralazine HCl (Apresoline) 10 mg Q6H PRN IV ELEVATED SBP>160 Last administered on 02/19/17 21:15; Admin Dose 10 MG; Start 02/19/17 at 06:30 Amiodarone HCl (Cordarone) 200 mg DAILY NGT ; Start 02/21/17 at 09:00 LETY DOMINGUEZ Feb 21, 2017 15:56
[2017-02-21] MEDS: ACCU-CHEK XX SCH (21:00)
[2017-02-22] VITALS (22 sets, daily range): BP systolic 110–163; BP diastolic 60–81; PULSE 80–100; RESP 17–19
[2017-02-22] MEDS: ACCU-CHEK XX SCH ×6 (01:00→20:56)
--- NOTE | 2017-02-22 06:49 | CONS ---
Date/Time of Note Date/Time of Note DATE: 02/22/17 TIME: 06:47 Assessment/Plan Assessment/Plan Chief Complaint/Hosp Course Paroxysmal atrial fibrillation with rapid ventricular response - Back and forth between sinus and afib. Most recent afib 02/14. Now back in sinus NSTEMI - suspect type 2 Acute on likely chronic systolic heart failure - was back to euvolemic but now mild CHF again from IVF. 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 No afib. HR documented at 150 verified to be artifact on tele Exam/Review of Systems Vital Signs Vitals Vital Signs Date Time Temp Pulse Resp B/P Pulse Ox O2 Delivery O2 Flow Rate FiO2 02/22/17 04:01 80 02/22/17 04:00 98.6 18 144/63 94 02/21/17 01:15 2.0 02/20/17 15:00 Room Air Intake and Output 02/21/17 02/21/17 02/22/17 15:00 23:00 07:00 Intake Total 100 ml Balance 100 ml Exam Constitutional: alert, No oriented Head: atraumatic, normocephalic Neck: No jvd Respiratory: crackles/rales (mild), No clear to auscultation Cardiovascular: regular rate and rhythm, systolic murmur (2/6 KAMRYN), No edema Gastrointestinal: non-tender, soft Neurological: nl mental status, nl speech Results Results 24 hrs Laboratory Tests Test 02/21/17 21:52 02/22/17 01:09 02/22/17 04:33 02/22/17 06:02 Bedside Glucose 132 89 110 White Blood Count Pending Red Blood Count Pending Hemoglobin Pending Hematocrit Pending Mean Corpuscular Volume Pending Mean Corpuscular Hemoglobin Pending Mean Corpuscular Hemoglobin Concent Pending Red Cell Distribution Width Pending Platelet Count Pending Mean Platelet Volume Pending Medications Medications Current Medications Ondansetron HCl (Zofran Inj) 4 mg Q6H PRN IV NAUSEA AND/OR VOMITING; Start 02/02 at 23:00 Acetaminophen 650 mg 650 mg Q4H PRN [place] PAIN LEVEL 1-3 OR FEVER Last administered on 02/18/17 20:26; Admin Dose 650 MG; Start 02/02/17 at 23:00 Levetiracetam (Keppra 1,000mg/ 100ml (Pmx)) 100 ml @ 400 mls/hr Q12 IVPB Last administered on 02/21/17 21:25; Admin Dose 400 MLS/HR; Start 02/03/17 at 21:00 IV Flush (NS 10 ml) 10 ml PRN PRN IV IV PROTOCOL; Start 02/03/17 at 13:30 Enoxaparin Sodium (Lovenox) 30 mg DAILY SC Last administered on 02/21/17 08:08 ; Admin Dose 30 MG; Start 02/18/17 at 09:00 Hydralazine HCl (Apresoline) 10 mg Q6H PRN IV ELEVATED SBP>160 Last administered on 02/19/17 21:15; Admin Dose 10 MG; Start 02/19/17 at 06:30 Amiodarone HCl (Cordarone) 200 mg DAILY NGT ; Start 02/21/17 at 09:00 Diagnostic Test (Pha) (Accu-Chek) 1 ea Q4 XX ; Start 02/21/17 at 21:00 GUSTAVO CORONEL Feb 22, 2017 06:49
[2017-02-22 06:55] LABS: BASOPHIL # 0.1 10^3/ul (0.0-0.1); BASOPHILS % 1.1 % (0.0-2.0); EOSINOPHILS # 0.2 10^3/ul (0.0-0.5); EOSINOPHILS % 1.7 % (0.0-7.0); HEMATOCRIT 36.2 % (37.0-47.0); HEMOGLOBIN 11.5 g/dl (12.0-16.0); LYMPHOCYTES # 2.1 10^3/ul (0.8-2.9); LYMPHOCYTES % 23.1 % (15.0-51.0); MEAN CORPUSCULAR HEMOGLOBIN 29.9 pg (29.0-33.0); MEAN CORPUSCULAR HGB CONC 31.8 g/dl (32.0-37.0); MEAN PLATELET VOLUME 10.3 fl (7.4-10.4); MONOCYTES % 11.2 % (0.0-11.0); NEUTROPHILS % 62.6 % (39.0-77.0); PLATELET COUNT 322 10^3/UL (140-415); RED BLOOD COUNT 3.85 10^6/ul (4.20-5.40); RED CELL DISTRIBUTION WIDTH 14.6 % (11.5-14.5)
[2017-02-22 07:09] LABS: CREATININE 0.74 mg/dl (0.44-1.00)
[2017-02-22] MEDS: LEVETIRACETAM 1000 MG (PMX) 100 ML IVPB SCH ×2 (08:35→20:55)
[2017-02-22] MEDS: AMIODARONE 200 MG TAB NGT SCH (09:00)
[2017-02-22] MEDS: ENOXAPARIN 30 MG/0.3 ML SYG SC SCH (09:07)
--- NOTE | 2017-02-22 10:42 | CONS ---
Date/Time of Note Date/Time of Note DATE: 02/22/17 TIME: 10:41 Consult Date/Type/Reason Admit Date/Time Feb 02, 2017 at 07:43 Initial Consult Date 02/02/17 Type of Consultation: Pulm Subjective Still confused, requiring restraints. Objective Vital Signs Date Time Temp Pulse Resp B/P Pulse Ox O2 Delivery O2 Flow Rate FiO2 02/22/17 10:00 98.0 80 18 146/65 97 02/22/17 06:00 Room Air 02/21/17 01:15 2.0 Intake and Output 02/21/17 02/21/17 02/22/17 15:00 23:00 07:00 Intake Total 100 ml Balance 100 ml Exam HEENT: Neck supple; no JVD; no LAD CVS: Irreg irreg, S1 and S2 CHEST: Clear ABD: Soft, NT, + BS EXT: No c/c/e Results/Medications Result Diagram: 02/22/17 0602 02/22/17 0602 Results 24 hrs Laboratory Tests Test 02/21/17 21:52 02/22/17 01:09 02/22/17 04:33 02/22/17 06:02 Bedside Glucose 132 89 110 White Blood Count 9.0 # Red Blood Count 3.85 L Hemoglobin 11.5 L Hematocrit 36.2 L Mean Corpuscular Volume 94.0 Mean Corpuscular Hemoglobin 29.9 Mean Corpuscular Hemoglobin Concent 31.8 L Red Cell Distribution Width 14.6 H Platelet Count 322 Mean Platelet Volume 10.3 Neutrophils % 62.6 Lymphocytes % 23.1 Monocytes % 11.2 H Eosinophils % 1.7 Basophils % 1.1 Nucleated Red Blood Cells % 0.0 Neutrophils # (Manual) 5.6 Lymphocytes # 2.1 Monocytes # 1.0 H Eosinophils # 0.2 Basophils # 0.1 Nucleated Red Blood Cells # 0.0 Blood Urea Nitrogen 10 Creatinine 0.74 Test 02/22/17 08:35 Bedside Glucose 107 Medications Current Medications Ondansetron HCl (Zofran Inj) 4 mg Q6H PRN IV NAUSEA AND/OR VOMITING; Start 02/02 at 23:00 Acetaminophen 650 mg 650 mg Q4H PRN [place] PAIN LEVEL 1-3 OR FEVER Last administered on 02/18/17t 20:26; Admin Dose 650 MG; Start 8/9/17 at 23:00 Levetiracetam (Keppra 1,000mg/ 100ml (Pmx)) 100 ml @ 400 mls/hr Q12 IVPB Last administered on 02/22/17 08:35; Admin Dose 400 MLS/HR; Start 02/03/17 at 21:00 IV Flush (NS 10 ml) 10 ml PRN PRN IV IV PROTOCOL; Start 02/03/17 at 13:30 Enoxaparin Sodium (Lovenox) 30 mg DAILY SC Last administered on 02/22/17 09:07 ; Admin Dose 30 MG; Start 02/18/17 at 09:00 Hydralazine HCl (Apresoline) 10 mg Q6H PRN IV ELEVATED SBP>160 Last administered on 02/19/17 21:15; Admin Dose 10 MG; Start 02/19/17 at 06:30 Amiodarone HCl (Cordarone) 200 mg DAILY NGT ; Start 02/21/17 at 09:00 Diagnostic Test (Pha) (Accu-Chek) 1 ea Q4 XX ; Start 02/21/17 at 21:00 Assessment/Plan Chief Complaint/Hosp Course IMP: 1. Atrial fibrillation with rapid ventricular rate currently rate controlled, repeat echocardiogram shows preserved ejection fraction. 2. Seizures 3. Possible aspiration pneumonia during seizure activity. Recurrent right pleural effusion status post thoracentesis 1 4. Recent cholecystectomy. 5. Status post septic shock 6. Dysphagia on nasogastric tube feeding 7. Encephalopathy likely toxic metabolic RECS: 1. Aspiration precautions 2. BD's and CPT prn 3. Repeat cxr. Problems: MEEK ENGEL MD, [facility] Feb 22, 2017 10:42
--- NOTE | 2017-02-22 13:49 | RADRPT ---
PROCEDURE: XR Chest. CLINICAL INDICATION: Pneumonia. CHF. TECHNIQUE: Single AP portable chest. COMPARISON: 02/15/2017 Chest x-ray FINDINGS: The cardiomediastinal silhouette is within normal limits of size. Right base atelectasis and/or scar ring. Left PICC line catheter tip at the cavoatrial junction. Elevation of the right hemidiaphragm . Atherosclerotic calcification of the aorta. No pneumothorax. The osseous structures and soft ti ssues are unremarkable. IMPRESSION: 1. Elevation of the right hemidiaphragm with right base atelectasis and/or scarring. RPTAT:AAJJ Physician Jenna Date Time Electronically viewed and signed by Physician Jenna on 02/22/2017 13:48 PATRICE/
--- NOTE | 2017-02-22 15:58 | PN ---
Date/Time of Note Date/Time of Note DATE: 02/22/17 TIME: 15:57 Assessment/Plan VTE Prophylaxis VTE Prophylaxis Intervention: LMWH Lines/Catheters Urinary Cath still in place: No Assessment/Plan Chief Complaint/Hosp Course 81 yo female with h/o chronic systolic CHF, recent open abdominal surgery for necrotic GB, who presented after prolonged seizure. Received benzos in the field leading to obtundation on arrival and was therefore intubated. Subsequently with A Fib w RVR PULM: - s/p intubation, then BIPAP now extubated and stable on RA NEURO Seizure w status epilepticus on arrival - Continue keppra per neurology - MRI brain - Routine EEG CV: EF has recovered to 60% normal on recent TTE - No strong indication for neurohormonal blockade, will try to limit meds given her delirium/agitation and difficulty with pills Atrial fibrillation paroxysmal with RVR now converted back to NSR - Continue amiodarone, holding AC for now Hypertension: - BP elevated when patient agitated, other reading normal. Trying to hold nonessential meds given delirium/agitation and difficulty taking PO so holding meds for now GI: - s/p open cholecystectomy Delirium: - Hold benzos and opiates if at all possible - Restraints if needed - Behavioral redirection - Need to get assessment of cognitive baseline as she recovers from ICU stay Prophylaxis: Lovenox Discharge plan pending. Needs acute rehab. Ready from medical perspective Problems: Subjective 24 Hr Interval Summary Constitutional: disoriented Exam/Review of Systems Vital Signs Vitals Vital Signs Date Time Temp Pulse Resp B/P Pulse Ox O2 Delivery O2 Flow Rate FiO2 02/22/17 15:43 98.1 91 18 120/60 96 02/22/17 14:00 Room Air 02/21/17 01:15 2.0 Intake and Output 02/21/17 02/21/17 02/22/17 14:59 22:59 06:59 Intake Total 100 ml Balance 100 ml Exam Psych: confusion Respiratory: clear to auscultation Cardiovascular: regular rate and rhythm Gastrointestinal: soft, No distended Musculoskeletal: nl extremities to inspection Results Result Diagram: 02/22/17 0602 02/22/17 0602 Results 24 hrs Laboratory Tests Test 02/21/17 21:52 02/22/17 01:09 02/22/17 04:33 02/22/17 06:02 Bedside Glucose 132 89 110 White Blood Count 9.0 # Red Blood Count 3.85 L Hemoglobin 11.5 L Hematocrit 36.2 L Mean Corpuscular Volume 94.0 Mean Corpuscular Hemoglobin 29.9 Mean Corpuscular Hemoglobin Concent 31.8 L Red Cell Distribution Width 14.6 H Platelet Count 322 Mean Platelet Volume 10.3 Neutrophils % 62.6 Lymphocytes % 23.1 Monocytes % 11.2 H Eosinophils % 1.7 Basophils % 1.1 Nucleated Red Blood Cells % 0.0 Neutrophils # (Manual) 5.6 Lymphocytes # 2.1 Monocytes # 1.0 H Eosinophils # 0.2 Basophils # 0.1 Nucleated Red Blood Cells # 0.0 Blood Urea Nitrogen 10 Creatinine 0.74 Test 02/22/17 08:35 02/22/17 12:13 Bedside Glucose 107 109 Medications Medications Current Medications Ondansetron HCl (Zofran Inj) 4 mg Q6H PRN IV NAUSEA AND/OR VOMITING; Start 02/02 at 23:00 Acetaminophen 650 mg 650 mg Q4H PRN [place] PAIN LEVEL 1-3 OR FEVER Last administered on 02/18/17 20:26; Admin Dose 650 MG; Start 02/02/17 at 23:00 Levetiracetam (Keppra 1,000mg/ 100ml (Pmx)) 100 ml @ 400 mls/hr Q12 IVPB Last administered on 02/22/17 08:35; Admin Dose 400 MLS/HR; Start 02/03/17 at 21:00 IV Flush (NS 10 ml) 10 ml PRN PRN IV IV PROTOCOL; Start 02/03/17 at 13:30 Enoxaparin Sodium (Lovenox) 30 mg DAILY SC Last administered on 02/22/17 09:07 ; Admin Dose 30 MG; Start 02/18/17 at 09:00 Hydralazine HCl (Apresoline) 10 mg Q6H PRN IV ELEVATED SBP>160 Last administered on 02/19/17 21:15; Admin Dose 10 MG; Start 02/19/17 at 06:30 Amiodarone HCl (Cordarone) 200 mg DAILY NGT ; Start 02/21/17 at 09:00 Diagnostic Test (Pha) (Accu-Chek) 1 ea Q4 XX ; Start 02/21/17 at 21:00 LETY DOMINGUEZ Feb 22, 2017 15:58
[2017-02-23] VITALS (19 sets, daily range): BP systolic 129–155; BP diastolic 62–85; PULSE 60–96; RESP 17–19
[2017-02-23] MEDS: ACCU-CHEK XX SCH ×6 (01:46→20:34)
[2017-02-23] MEDS ORDERED: AMIODARONE 150MG/D5W BOLUS 100 ML IV ONE (04:00)
--- NOTE | 2017-02-23 07:00 | CONS ---
Date/Time of Note Date/Time of Note DATE: 02/23/17 TIME: 06:58 Assessment/Plan Assessment/Plan Chief Complaint/Hosp Course Paroxysmal atrial fibrillation with rapid ventricular response - Back and forth between sinus and afib. Most recent afib 02/22. Now back in sinus NSTEMI - suspect type 2 Acute on likely chronic systolic heart failure - was back to euvolemic but now mild CHF again from IVF. Improved with lasix Cardiomyopathy, LVEF 30-35% initially, now normalized (>60%) likely neurocardiogenic from seizures Status post septic shock Possible aspiration pneumonia Tonic-colonic seizure - per neurology Recent cholecystectomy Incomplete data -amio 200mg daily if cooperative and can swallow (issue is mentation not physical swallowing ability) -if passes swallow eval, can restart coreg 6.25 mg BID Problems: Consultation Date/Type/Reason Admit Date/Time Feb 02, 2017 at 07:43 Initial Consult Date 02/02/17 Type of Consultation: Cardiology 24 HR Interval Summary Free Text/Dictation Short bursts of afib overnight. Given IV amio bolus. Now in sinus. Has not been getting amio PO as failed swallow eval Exam/Review of Systems Vital Signs Vitals Vital Signs Date Time Temp Pulse Resp B/P Pulse Ox O2 Delivery O2 Flow Rate FiO2 02/23/17 06:00 98.3 100 19 144/82 95 02/22/17 18:00 Room Air 02/21/17 01:15 2.0 Intake and Output 02/22/17 02/22/17 02/23/17 15:00 23:00 07:00 Intake Total 100 ml Balance 100 ml Exam Constitutional: alert, No oriented Head: atraumatic, normocephalic Neck: No jvd Respiratory: crackles/rales (mild), No clear to auscultation Cardiovascular: regular rate and rhythm, systolic murmur (2/6 KAMRYN), No edema Gastrointestinal: non-tender, soft Neurological: No nl mental status Results Result Diagram: 02/22/17 0602 02/22/17 0602 Results 24 hrs Laboratory Tests Test 02/22/17 08:35 02/22/17 12:13 02/22/17 17:02 02/22/17 20:56 Bedside Glucose 107 109 105 110 Test 02/23/17 01:32 02/23/17 05:04 Bedside Glucose 105 115 Medications Medications Current Medications Ondansetron HCl (Zofran Inj) 4 mg Q6H PRN IV NAUSEA AND/OR VOMITING; Start 02/02 at 23:00 Acetaminophen 650 mg 650 mg Q4H PRN [place] PAIN LEVEL 1-3 OR FEVER Last administered on 02/18/17 20:26; Admin Dose 650 MG; Start 02/02/17 at 23:00 Levetiracetam (Keppra 1,000mg/ 100ml (Pmx)) 100 ml @ 400 mls/hr Q12 IVPB Last administered on 02/22/17 20:55; Admin Dose 400 MLS/HR; Start 02/03/17 at 21:00 IV Flush (NS 10 ml) 10 ml PRN PRN IV IV PROTOCOL; Start 02/03/17 at 13:30 Enoxaparin Sodium (Lovenox) 30 mg DAILY SC Last administered on 02/22/17 09:07 ; Admin Dose 30 MG; Start 02/18/17 at 09:00 Hydralazine HCl (Apresoline) 10 mg Q6H PRN IV ELEVATED SBP>160 Last administered on 02/19/17 21:15; Admin Dose 10 MG; Start 02/19/17 at 06:30 Amiodarone HCl (Cordarone) 200 mg DAILY NGT ; Start 02/21/17 at 09:00 Diagnostic Test (Pha) (Accu-Chek) 1 ea Q4 XX Last administered on 02/23/17 05: 15; Admin Dose 1 EA; Start 02/21/17 at 21:00 GUSTAVO CORONEL Feb 23, 2017 07:00
[2017-02-23 08:13] LABS: BASOPHIL # 0.1 10^3/ul (0.0-0.1); BASOPHILS % 0.3 % (0.0-2.0); EOSINOPHILS % 0.1 % (0.0-7.0); HEMOGLOBIN 11.4 g/dl (12.0-16.0); LYMPHOCYTES # 1.2 10^3/ul (0.8-2.9); LYMPHOCYTES % 7.4 % (15.0-51.0); MEAN CORPUSCULAR HEMOGLOBIN 30.6 pg (29.0-33.0); MEAN CORPUSCULAR HGB CONC 31.7 g/dl (32.0-37.0); MEAN CORPUSCULAR VOLUME 96.5 fl (82.0-101.0); MEAN PLATELET VOLUME 10.4 fl (7.4-10.4); MONOCYTE # 1.1 10^3/ul (0.3-0.9); MONOCYTES % 6.7 % (0.0-11.0); PLATELET COUNT 310 10^3/UL (140-415); RED BLOOD COUNT 3.73 10^6/ul (4.20-5.40); RED CELL DISTRIBUTION WIDTH 14.6 % (11.5-14.5); WHITE BLOOD COUNT 15.7 10^3/ul (4.8-10.8)
[2017-02-23] MEDS: AMIODARONE 200 MG TAB NGT SCH ×2 (08:34→20:30)
[2017-02-23] MEDS: LEVETIRACETAM 1000 MG (PMX) 100 ML IVPB SCH ×2 (08:34→20:30)
[2017-02-23 08:52] LABS: CALCIUM 9.2 mg/dl (8.4-10.2); CREATININE 0.79 mg/dl (0.44-1.00); MAGNESIUM 1.8 mg/dl (1.7-2.5); PHOSPHORUS 3.2 mg/dl (2.5-4.9)
[2017-02-23] MEDS: ENOXAPARIN 30 MG/0.3 ML SYG SC SCH (09:07)
[2017-02-23 09:19] LABS: POTASSIUM 2.7 mmol/L (3.5-5.1)
[2017-02-23] MEDS: POTASSIUM CHLORIDE 250 ML IVPB SCH ×2 (11:38→15:27)
--- NOTE | 2017-02-23 15:07 | CONS ---
Date/Time of Note Date/Time of Note DATE: 02/23/17 TIME: 15:04 Consult Date/Type/Reason Admit Date/Time Feb 02, 2017 at 07:43 Initial Consult Date 02/02/17 Type of Consultation: Pulmonary Subjective Still remains mildly confused. Objective Vital Signs Date Time Temp Pulse Resp B/P Pulse Ox O2 Delivery O2 Flow Rate FiO2 02/23/17 14:00 98.4 87 134/66 96 Room Air 02/23/17 12:06 18 02/21/17 01:15 2.0 Intake and Output 02/22/17 02/22/17 02/23/17 15:00 23:00 07:00 Intake Total 100 ml Balance 100 ml Exam HEENT: Neck supple; no JVD; no LAD CVS: Irreg irreg, S1 and S2 CHEST: Clear ABD: Soft, NT, + BS EXT: No c/c/e Results/Medications Result Diagram: 02/23/17 0659 02/23/17 0658 Results 24 hrs Laboratory Tests Test 02/22/17 17:02 02/22/17 20:56 02/23/17 01:32 02/23/17 05:04 Bedside Glucose 105 110 105 115 Test 02/23/17 06:58 02/23/17 06:59 02/23/17 08:07 02/23/17 12:27 Sodium Level 146 H Potassium Level 2.7 *L Chloride Level 106 Carbon Dioxide Level 25 Anion Gap 18 H Blood Urea Nitrogen 15 Creatinine 0.79 Glucose Level 124 Calcium Level 9.2 Phosphorus Level 3.2 Magnesium Level 1.8 White Blood Count 15.7 #H Red Blood Count 3.73 L Hemoglobin 11.4 L Hematocrit 36.0 L Mean Corpuscular Volume 96.5 Mean Corpuscular Hemoglobin 30.6 Mean Corpuscular Hemoglobin Concent 31.7 L Red Cell Distribution Width 14.6 H Platelet Count 310 Mean Platelet Volume 10.4 Neutrophils % 85.0 H Lymphocytes % 7.4 L Monocytes % 6.7 Eosinophils % 0.1 Basophils % 0.3 Nucleated Red Blood Cells % 0.0 Neutrophils # (Manual) 13.4 H Lymphocytes # 1.2 Monocytes # 1.1 H Eosinophils # 0.0 Basophils # 0.1 Nucleated Red Blood Cells # 0.0 Bedside Glucose 113 119 Medications Current Medications Ondansetron HCl (Zofran Inj) 4 mg Q6H PRN IV NAUSEA AND/OR VOMITING; Start 02/02 at 23:00 Acetaminophen 650 mg 650 mg Q4H PRN [place] PAIN LEVEL 1-3 OR FEVER Last administered on 02/18/17 20:26; Admin Dose 650 MG; Start 02/02/17 at 23:00 Levetiracetam (Keppra 1,000mg/ 100ml (Pmx)) 100 ml @ 400 mls/hr Q12 IVPB Last administered on 02/23/17 08:34; Admin Dose 400 MLS/HR; Start 02/03/17 at 21:00 IV Flush (NS 10 ml) 10 ml PRN PRN IV IV PROTOCOL; Start 02/03/17 at 13:30 Enoxaparin Sodium (Lovenox) 30 mg DAILY SC Last administered on 02/23/17 09:07 ; Admin Dose 30 MG; Start 02/18/17 at 09:00 Hydralazine HCl (Apresoline) 10 mg Q6H PRN IV ELEVATED SBP>160 Last administered on 02/19/17 21:15; Admin Dose 10 MG; Start 02/19/17 at 06:30 Amiodarone HCl (Cordarone) 200 mg DAILY NGT Last administered on 02/23/17 08: 34; Admin Dose 200 MG; Start 02/21/17 at 09:00 Diagnostic Test (Pha) 1 ea 1 ea Q4 XX Last administered on 02/23/17 13:01; Admin Dose 1 EA; Start 02/21/17 at 21:00 Potassium Chloride (KCl 40 MEQ/250 ML NS) 250 ml @ 62.5 mls/hr Q4H IVPB Last administered on 02/23/17 11:38; Admin Dose 62.5 MLS/HR; Start 02/23/17 at 10:00 ; Stop 02/23/17 at 17:59 Assessment/Plan Chief Complaint/Hosp Course IMP: 1. Atrial fibrillation with rapid ventricular rate currently rate controlled, repeat echocardiogram shows preserved ejection fraction. 2. Seizures 3. Possible aspiration pneumonia during seizure activity. Recurrent right pleural effusion status post thoracentesis 1 4. Recent cholecystectomy. 5. Status post septic shock 6. Dysphagia on nasogastric tube feeding 7. Encephalopathy likely toxic metabolic 8. Hypokalemia RECS: 1. Aspiration precautions 2. BD's and CPT prn 3. Repeat cxr. Results noted. 4. Replace potassium Problems: MEEK ENGEL MD, [facility] Feb 23, 2017 15:07
--- NOTE | 2017-02-23 15:08 | PN ---
Date/Time of Note Date/Time of Note DATE: 02/23/17 TIME: 15:05 Assessment/Plan VTE Prophylaxis VTE Prophylaxis Intervention: LMWH Lines/Catheters Urinary Cath still in place: No Assessment/Plan Chief Complaint/Hosp Course 81 yo female with h/o chronic systolic CHF, recent open abdominal surgery for necrotic GB, who presented after prolonged seizure. Received benzos in the field leading to obtundation on arrival and was therefore intubated. Subsequently with A Fib w RVR PULM: - s/p intubation, then BIPAP now extubated and stable on RA NEURO Seizure w status epilepticus on arrival - Continue keppra per neurology - MRI brain - Routine EEG CV: EF has recovered to 60% normal on recent TTE - No strong indication for neurohormonal blockade, will try to limit meds given her delirium/agitation and difficulty with pills Atrial fibrillation paroxysmal with RVR now converted back to NSR - Continue amiodarone, holding AC for now Hypertension: - BP elevated when patient agitated, other reading normal. Trying to hold nonessential meds given delirium/agitation and difficulty taking PO so holding meds for now GI: - s/p open cholecystectomy Delirium: - Hold benzos and opiates if at all possible - Restraints if needed - Behavioral redirection - Need to get assessment of cognitive baseline as she recovers from ICU stay Prophylaxis: Lovenox Discharge plan pending. Needs SNF placement when off restraints Problems: Subjective 24 Hr Interval Summary Constitutional: disoriented Exam/Review of Systems Vital Signs Vitals Vital Signs Date Time Temp Pulse Resp B/P Pulse Ox O2 Delivery O2 Flow Rate FiO2 02/23/17 14:00 98.4 87 134/66 96 Room Air 02/23/17 12:06 18 02/21/17 01:15 2.0 Intake and Output 02/22/17 02/22/17 02/23/17 15:00 23:00 07:00 Intake Total 100 ml Balance 100 ml Exam Psych: confusion Respiratory: clear to auscultation Cardiovascular: regular rate and rhythm Gastrointestinal: soft, No distended Musculoskeletal: nl extremities to inspection Results Result Diagram: 02/23/17 0659 02/23/17 0658 Results 24 hrs Laboratory Tests Test 02/22/17 17:02 02/22/17 20:56 02/23/17 01:32 02/23/17 05:04 Bedside Glucose 105 110 105 115 Test 02/23/17 06:58 02/23/17 06:59 02/23/17 08:07 02/23/17 12:27 Sodium Level 146 H Potassium Level 2.7 *L Chloride Level 106 Carbon Dioxide Level 25 Anion Gap 18 H Blood Urea Nitrogen 15 Creatinine 0.79 Glucose Level 124 Calcium Level 9.2 Phosphorus Level 3.2 Magnesium Level 1.8 White Blood Count 15.7 #H Red Blood Count 3.73 L Hemoglobin 11.4 L Hematocrit 36.0 L Mean Corpuscular Volume 96.5 Mean Corpuscular Hemoglobin 30.6 Mean Corpuscular Hemoglobin Concent 31.7 L Red Cell Distribution Width 14.6 H Platelet Count 310 Mean Platelet Volume 10.4 Neutrophils % 85.0 H Lymphocytes % 7.4 L Monocytes % 6.7 Eosinophils % 0.1 Basophils % 0.3 Nucleated Red Blood Cells % 0.0 Neutrophils # (Manual) 13.4 H Lymphocytes # 1.2 Monocytes # 1.1 H Eosinophils # 0.0 Basophils # 0.1 Nucleated Red Blood Cells # 0.0 Bedside Glucose 113 119 Medications Medications Current Medications Ondansetron HCl (Zofran Inj) 4 mg Q6H PRN IV NAUSEA AND/OR VOMITING; Start 02/02 at 23:00 Acetaminophen 650 mg 650 mg Q4H PRN [place] PAIN LEVEL 1-3 OR FEVER Last administered on 02/18/17 20:26; Admin Dose 650 MG; Start 02/02/17 at 23:00 Levetiracetam (Keppra 1,000mg/ 100ml (Pmx)) 100 ml @ 400 mls/hr Q12 IVPB Last administered on 02/23/17 08:34; Admin Dose 400 MLS/HR; Start 02/03/17 at 21:00 IV Flush (NS 10 ml) 10 ml PRN PRN IV IV PROTOCOL; Start 02/03/17 at 13:30 Enoxaparin Sodium (Lovenox) 30 mg DAILY SC Last administered on 02/23/17 09:07 ; Admin Dose 30 MG; Start 02/18/17 at 09:00 Hydralazine HCl (Apresoline) 10 mg Q6H PRN IV ELEVATED SBP>160 Last administered on 02/19/17 21:15; Admin Dose 10 MG; Start 02/19/17 at 06:30 Amiodarone HCl (Cordarone) 200 mg DAILY NGT Last administered on 02/23/17 08: 34; Admin Dose 200 MG; Start 02/21/17 at 09:00 Diagnostic Test (Pha) 1 ea 1 ea Q4 XX Last administered on 02/23/17 13:01; Admin Dose 1 EA; Start 02/21/17 at 21:00 Potassium Chloride (KCl 40 MEQ/250 ML NS) 250 ml @ 62.5 mls/hr Q4H IVPB Last administered on 02/23/17 11:38; Admin Dose 62.5 MLS/HR; Start 02/23/17 at 10:00 ; Stop 02/23/17 at 17:59 LETY DOMINGUEZ Feb 23, 2017 15:08
[2017-02-23 17:32] LABS: ADD UMIC YES; UR ASCORBIC ACID NEGATIVE (NEGATIVE); UR BILIRUBIN (Dip) NEGATIVE (NEGATIVE); UR BLOOD (Dip) NEGATIVE (NEGATIVE); UR CLARITY TURBID (CLEAR); UR COLOR YELLOW (YELLOW); UR GLUCOSE (Dip) NEGATIVE (NEGATIVE); UR KETONES (Dip) TRACE mg/dL (NEGATIVE); UR LEUKOCYTE ESTERASE (Dip) TRACE Leu/ul (NEGATIVE); UR MUCUS MANY /HPF (NONE SEEN); UR NITRITE (Dip) NEGATIVE (NEGATIVE); UR RBC 0 /HPF (0-5); UR SPECIFIC GRAVITY (Dip) 1.029 (1.003-1.030); UR TOTAL PROTEIN (Dip) 2+ mg/dl (NEGATIVE); UR UROBILINOGEN (Dip) 1+ mg/dL (NEGATIVE)
[2017-02-24] VITALS (18 sets, daily range): BP systolic 135–185; BP diastolic 68–105; PULSE 75–98; RESP 16–19
[2017-02-24] MEDS: ACCU-CHEK XX SCH ×6 (01:11→20:58)
[2017-02-24] MEDS: AMIODARONE 200 MG TAB NGT SCH (07:28)
[2017-02-24 07:34] LABS: BASOPHILS % 0.2 % (0.0-2.0); HEMATOCRIT 34.1 % (37.0-47.0); HEMOGLOBIN 10.7 g/dl (12.0-16.0); LYMPHOCYTES # 1.1 10^3/ul (0.8-2.9); LYMPHOCYTES % 5.9 % (15.0-51.0); MEAN CORPUSCULAR HEMOGLOBIN 30.5 pg (29.0-33.0); MEAN CORPUSCULAR HGB CONC 31.4 g/dl (32.0-37.0); MEAN CORPUSCULAR VOLUME 97.2 fl (82.0-101.0); MEAN PLATELET VOLUME 10.6 fl (7.4-10.4); MONOCYTE # 1.2 10^3/ul (0.3-0.9); MONOCYTES % 6.7 % (0.0-11.0); NEUTROPHILS % 86.5 % (39.0-77.0); PLATELET COUNT 299 10^3/UL (140-415); RED BLOOD COUNT 3.51 10^6/ul (4.20-5.40); RED CELL DISTRIBUTION WIDTH 15.2 % (11.5-14.5)
[2017-02-24 07:47] LABS: CALCIUM 9.4 mg/dl (8.4-10.2); CREATININE 0.77 mg/dl (0.44-1.00); MAGNESIUM 1.9 mg/dl (1.7-2.5); PHOSPHORUS 2.3 mg/dl (2.5-4.9); POTASSIUM 3.2 mmol/L (3.5-5.1)
[2017-02-24] MEDS: LEVETIRACETAM 1000 MG (PMX) 100 ML IVPB SCH ×2 (08:52→20:56)
[2017-02-24] MEDS: ENOXAPARIN 30 MG/0.3 ML SYG SC SCH (08:56)
--- NOTE | 2017-02-24 10:23 | CONS ---
Date/Time of Note Date/Time of Note DATE: 02/24/17 TIME: 10:21 Assessment/Plan Assessment/Plan Chief Complaint/Hosp Course Paroxysmal atrial fibrillation with rapid ventricular response - Back and forth between sinus and afib. Most recent afib 02/22. Now back in sinus NSTEMI - suspect type 2 Acute on likely chronic systolic heart failure - was back to euvolemic but now mild CHF again from IVF. 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 Still not cleared for PO by speech therapy Exam/Review of Systems Vital Signs Vitals Vital Signs Date Time Temp Pulse Resp B/P Pulse Ox O2 Delivery O2 Flow Rate FiO2 02/24/17 08:00 92 02/24/17 07:54 98.4 18 143/80 98 02/23/17 18:05 Room Air 02/21/17 01:15 2.0 Intake and Output 02/23/17 02/23/17 02/24/17 15:00 23:00 07:00 Intake Total 100 ml Balance 100 ml Exam Constitutional: alert, No oriented Psych: no complaints, No nl mood/affect Head: atraumatic, normocephalic Neck: No jvd Respiratory: crackles/rales (mild), No clear to auscultation Cardiovascular: regular rate and rhythm, systolic murmur (2/6 KAMRYN), No edema Gastrointestinal: non-tender, soft Neurological: No nl mental status Results Result Diagram: 02/24/1718 02/24/1718 Results 24 hrs Laboratory Tests Test 02/23/17 12:27 02/23/17 15:55 02/23/17 17:41 02/23/17 20:34 Bedside Glucose 119 128 150 Urine Color YELLOW Urine Clarity TURBID A Urine pH 5.0 Urine Specific [place] 1.029 Urine Ketones TRACE A Urine Nitrite NEGATIVE Urine Bilirubin NEGATIVE Urine Urobilinogen 1+ H Urine Leukocyte Esterase TRACE A Urine Microscopic RBC 0 Urine Microscopic WBC 0 Urine Mucus MANY A Urine Hemoglobin NEGATIVE Urine Glucose NEGATIVE Urine Total Protein 2+ H Test 02/24/17 01:44 02/24/17 05:06 02/24/17 06:18 02/24/17 08:52 Bedside Glucose 119 113 147 White Blood Count 18.0 H Red Blood Count 3.51 L Hemoglobin 10.7 L Hematocrit 34.1 L Mean Corpuscular Volume 97.2 Mean Corpuscular Hemoglobin 30.5 Mean Corpuscular Hemoglobin Concent 31.4 L Red Cell Distribution Width 15.2 H Platelet Count 299 Mean Platelet Volume 10.6 H Neutrophils % 86.5 H Lymphocytes % 5.9 L Monocytes % 6.7 Eosinophils % 0.0 Basophils % 0.2 Nucleated Red Blood Cells % 0.0 Neutrophils # (Manual) 15.6 H Lymphocytes # 1.1 Monocytes # 1.2 H Eosinophils # 0.0 Basophils # 0.0 Nucleated Red Blood Cells # 0.0 Sodium Level 149 H Potassium Level 3.2 L Chloride Level 112 H Carbon Dioxide Level 24 Anion Gap 16 Blood Urea Nitrogen 23 H Creatinine 0.77 Glucose Level 114 Calcium Level 9.4 Phosphorus Level 2.3 L Magnesium Level 1.9 Medications Medications Current Medications Ondansetron HCl (Zofran Inj) 4 mg Q6H PRN IV NAUSEA AND/OR VOMITING; Start 02/02 at 23:00 Acetaminophen 650 mg 650 mg Q4H PRN [place] PAIN LEVEL 1-3 OR FEVER Last administered on 02/18/17 20:26; Admin Dose 650 MG; Start 02/02/17 at 23:00 Levetiracetam (Keppra 1,000mg/ 100ml (Pmx)) 100 ml @ 400 mls/hr Q12 IVPB Last administered on 02/24/17 08:52; Admin Dose 400 MLS/HR; Start 02/03/17 at 21:00 IV Flush (NS 10 ml) 10 ml PRN PRN IV IV PROTOCOL; Start 02/03/17 at 13:30 Enoxaparin Sodium (Lovenox) 30 mg DAILY SC Last administered on 02/24/17 08:56 ; Admin Dose 30 MG; Start 02/18/17 at 09:00 Hydralazine HCl (Apresoline) 10 mg Q6H PRN IV ELEVATED SBP>160 Last administered on 02/19/17 21:15; Admin Dose 10 MG; Start 02/19/17 at 06:30 Amiodarone HCl (Cordarone) 200 mg DAILY NGT Last administered on 02/24/17 07: 28; Admin Dose 200 MG; Start 02/21/17 at 09:00 Diagnostic Test (Pha) (Accu-Chek) 1 ea Q4 XX Last administered on 02/24/17 08: 57; Admin Dose 1 EA; Start 02/21/17 at 21:00 GUSTAVO CORONEL Feb 24, 2017 10:23
[2017-02-24] MEDS: POTASSIUM CHLORIDE 50 ML IVPB SCH ×3 (10:30→12:30)
[2017-02-24] MEDS ORDERED: POTASSIUM CHLORIDE 250 ML IVPB ONE (12:30)
--- NOTE | 2017-02-24 13:11 | CONS ---
Date/Time of Note Date/Time of Note DATE: 02/24/17 TIME: 13:09 Consult Date/Type/Reason Admit Date/Time Feb 02, 2017 at 07:43 Initial Consult Date 02/02/17 Type of Consultation: pulm Subjective Patient remains stable still confused. Objective Vital Signs Date Time Temp Pulse Resp B/P Pulse Ox O2 Delivery O2 Flow Rate FiO2 02/24/17 12:23 97.0 78 18 139/70 98 02/23/17 18:05 Room Air 02/21/17 01:15 2.0 Intake and Output 02/23/17 02/23/17 02/24/17 15:00 23:00 07:00 Intake Total 100 ml Balance 100 ml Exam PHYSICAL EXAMINATION GENERAL: Elderly lady appears comfortable at rest VITAL SIGNS: see below. HEENT: Pupils equal, round, and reactive to light. CARDIAC: S1, S2, 1/6 systolic ejection murmur CHEST: Diminished air entry bilaterally. ABDOMEN: Mildly distended. Bowel sounds present no guarding or rebound EXTREMITIES: No cyanosis, clubbing edema +1 NEUROLOGIC: Generalized weakness Results/Medications Result Diagram: 02/24/17 0618 02/24/17 0618 Results 24 hrs Laboratory Tests Test 02/23/17 15:55 02/23/17 17:41 02/23/17 20:34 02/24/17 01:44 Urine Color YELLOW Urine Clarity TURBID A Urine pH 5.0 Urine Specific [place] 1.029 Urine Ketones TRACE A Urine Nitrite NEGATIVE Urine Bilirubin NEGATIVE Urine Urobilinogen 1+ H Urine Leukocyte Esterase TRACE A Urine Microscopic RBC 0 Urine Microscopic WBC 0 Urine Mucus MANY A Urine Hemoglobin NEGATIVE Urine Glucose NEGATIVE Urine Total Protein 2+ H Bedside Glucose 128 150 119 Test 02/24/17 05:06 02/24/17 06:18 02/24/17 08:52 02/24/17 12:41 Bedside Glucose 113 147 108 White Blood Count 18.0 H Red Blood Count 3.51 L Hemoglobin 10.7 L Hematocrit 34.1 L Mean Corpuscular Volume 97.2 Mean Corpuscular Hemoglobin 30.5 Mean Corpuscular Hemoglobin Concent 31.4 L Red Cell Distribution Width 15.2 H Platelet Count 299 Mean Platelet Volume 10.6 H Neutrophils % 86.5 H Lymphocytes % 5.9 L Monocytes % 6.7 Eosinophils % 0.0 Basophils % 0.2 Nucleated Red Blood Cells % 0.0 Neutrophils # (Manual) 15.6 H Lymphocytes # 1.1 Monocytes # 1.2 H Eosinophils # 0.0 Basophils # 0.0 Nucleated Red Blood Cells # 0.0 Sodium Level 149 H Potassium Level 3.2 L Chloride Level 112 H Carbon Dioxide Level 24 Anion Gap 16 Blood Urea Nitrogen 23 H Creatinine 0.77 Glucose Level 114 Calcium Level 9.4 Phosphorus Level 2.3 L Magnesium Level 1.9 Medications Current Medications Ondansetron HCl (Zofran Inj) 4 mg Q6H PRN IV NAUSEA AND/OR VOMITING; Start 02/02 at 23:00 Acetaminophen 650 mg 650 mg Q4H PRN [place] PAIN LEVEL 1-3 OR FEVER Last administered on 02/18/17 20:26; Admin Dose 650 MG; Start 02/02/17 at 23:00 Levetiracetam (Keppra 1,000mg/ 100ml (Pmx)) 100 ml @ 400 mls/hr Q12 IVPB Last administered on 02/24/17 08:52; Admin Dose 400 MLS/HR; Start 02/03/17 at 21:00 IV Flush (NS 10 ml) 10 ml PRN PRN IV IV PROTOCOL; Start 02/03/17 at 13:30 Enoxaparin Sodium (Lovenox) 30 mg DAILY SC Last administered on 02/24/17 08:56 ; Admin Dose 30 MG; Start 02/18/17 at 09:00 Hydralazine HCl (Apresoline) 10 mg Q6H PRN IV ELEVATED SBP>160 Last administered on 02/19/17 21:15; Admin Dose 10 MG; Start 02/19/17 at 06:30 Amiodarone HCl (Cordarone) 200 mg DAILY NGT Last administered on 02/24/17 07: 28; Admin Dose 200 MG; Start 02/21/17 at 09:00 Diagnostic Test (Pha) 1 ea 1 ea Q4 XX Last administered on 02/24/17 08:57; Admin Dose 1 EA; Start 02/21/17 at 21:00 Potassium Chloride 50 ml @ 50 mls/hr Q1H IVPB Last administered on 02/24/17 11 :30; Admin Dose 50 MLS/HR; Start 02/24/17 at 10:30; Stop 02/24/17 at 13:29 Potassium Chloride (KCl 40 MEQ/250 ML NS) 250 ml @ 62.5 mls/hr ONCE ONCE IVPB ; Start 02/24/17 at 12:30; Stop 02/24/17 at 16:29 Assessment/Plan Chief Complaint/Hosp Course IMP: 1. Atrial fibrillation with rapid ventricular rate currently rate controlled, repeat echocardiogram shows preserved ejection fraction. 2. Seizures 3. Possible aspiration pneumonia during seizure activity. Recurrent right pleural effusion status post thoracentesis 1 4. Recent cholecystectomy. 5. Status post septic shock, persistent leukocytosis 6. Dysphagia on nasogastric tube feeding 7. Encephalopathy likely toxic metabolic 8. Hypokalemia RECS: 1. Aspiration precautions 2. BD's and CPT prn 3. Repeat cxr. Results noted. 4. Replace potassium Problems: MEEK ENGEL [facility], [facility] Feb 24, 2017 13:11
--- NOTE | 2017-02-24 18:01 | PN ---
Date/Time of Note Date/Time of Note DATE: 02/24/17 TIME: 18:00 Assessment/Plan VTE Prophylaxis VTE Prophylaxis Intervention: LMWH Lines/Catheters Urinary Cath still in place: No Assessment/Plan Chief Complaint/Hosp Course 81 yo female with h/o chronic systolic CHF, recent open abdominal surgery for necrotic GB, who presented after prolonged seizure. Received benzos in the field leading to obtundation on arrival and was therefore intubated. Subsequently with A Fib w RVR PULM: - s/p intubation, then BIPAP now extubated and stable on RA NEURO Seizure w status epilepticus on arrival - Continue keppra per neurology - MRI brain - Routine EEG CV: EF has recovered to 60% normal on recent TTE - No strong indication for neurohormonal blockade, will try to limit meds given her delirium/agitation and difficulty with pills Atrial fibrillation paroxysmal with RVR now converted back to NSR - Continue amiodarone, holding AC for now Hypertension: - BP elevated when patient agitated, other reading normal. Trying to hold nonessential meds given delirium/agitation and difficulty taking PO so holding meds for now GI: - s/p open cholecystectomy Delirium: - Hold benzos and opiates if at all possible - Restraints if needed - Behavioral redirection - Need to get assessment of cognitive baseline as she recovers from ICU stay Hypernatremia Start D5W Prophylaxis: Lovenox Discharge plan pending. Needs SNF placement when off restraints Problems: Subjective 24 Hr Interval Summary Constitutional: disoriented Exam/Review of Systems Vital Signs Vitals Vital Signs Date Time Temp Pulse Resp B/P Pulse Ox O2 Delivery O2 Flow Rate FiO2 02/24/17 16:25 98.0 55 18 185/105 98 02/23/17 18:05 Room Air 02/21/17 01:15 2.0 Intake and Output 02/23/17 02/23/17 02/24/17 15:00 23:00 07:00 Intake Total 100 ml Balance 100 ml Exam Psych: confusion Respiratory: clear to auscultation Cardiovascular: regular rate and rhythm Gastrointestinal: soft, No distended Musculoskeletal: nl extremities to inspection Results Result Diagram: 02/24/17 0618 02/24/17 0618 Results 24 hrs Laboratory Tests Test 02/23/17 20:34 02/24/17 01:44 02/24/17 05:06 02/24/17 06:18 Bedside Glucose 150 119 113 White Blood Count 18.0 H Red Blood Count 3.51 L Hemoglobin 10.7 L Hematocrit 34.1 L Mean Corpuscular Volume 97.2 Mean Corpuscular Hemoglobin 30.5 Mean Corpuscular Hemoglobin Concent 31.4 L Red Cell Distribution Width 15.2 H Platelet Count 299 Mean Platelet Volume 10.6 H Neutrophils % 86.5 H Lymphocytes % 5.9 L Monocytes % 6.7 Eosinophils % 0.0 Basophils % 0.2 Nucleated Red Blood Cells % 0.0 Neutrophils # (Manual) 15.6 H Lymphocytes # 1.1 Monocytes # 1.2 H Eosinophils # 0.0 Basophils # 0.0 Nucleated Red Blood Cells # 0.0 Sodium Level 149 H Potassium Level 3.2 L Chloride Level 112 H Carbon Dioxide Level 24 Anion Gap 16 Blood Urea Nitrogen 23 H Creatinine 0.77 Glucose Level 114 Calcium Level 9.4 Phosphorus Level 2.3 L Magnesium Level 1.9 Test 02/24/17 08:52 02/24/17 12:41 Bedside Glucose 147 108 Medications Medications Current Medications Ondansetron HCl (Zofran Inj) 4 mg Q6H PRN IV NAUSEA AND/OR VOMITING; Start 02/02 at 23:00 Acetaminophen 650 mg 650 mg Q4H PRN [place] PAIN LEVEL 1-3 OR FEVER Last administered on 02/18/17 20:26; Admin Dose 650 MG; Start 02/02/17 at 23:00 Levetiracetam (Keppra 1,000mg/ 100ml (Pmx)) 100 ml @ 400 mls/hr Q12 IVPB Last administered on 02/24/17 08:52; Admin Dose 400 MLS/HR; Start 02/03/17 at 21:00 IV Flush (NS 10 ml) 10 ml PRN PRN IV IV PROTOCOL; Start 02/03/17 at 13:30 Enoxaparin Sodium (Lovenox) 30 mg DAILY SC Last administered on 02/24/17 08:56 ; Admin Dose 30 MG; Start 02/18/17 at 09:00 Hydralazine HCl (Apresoline) 10 mg Q6H PRN IV ELEVATED SBP>160 Last administered on 02/19/17 21:15; Admin Dose 10 MG; Start 02/19/17 at 06:30 Amiodarone HCl (Cordarone) 200 mg DAILY NGT Last administered on 02/24/17 07: 28; Admin Dose 200 MG; Start 02/21/17 at 09:00 Diagnostic Test (Pha) (Accu-Chek) 1 ea Q4 XX Last administered on 02/24/17 13: 00; Admin Dose 1 EA; Start 02/21/17 at 21:00 LETY DOMINGUEZ Feb 24, 2017 18:01
[2017-02-24] MEDS ORDERED: DEXTROSE 5% 1,000 ML IV SCH (18:30)
[2017-02-24] MEDS: D5W-0.45 NACL + KCL 20 MEQ 1,000 ML IV SCH (18:37)
[2017-02-25] VITALS (22 sets, daily range): BP systolic 131–154; BP diastolic 61–78; PULSE 70–86; RESP 16–20
[2017-02-25] MEDS: ACCU-CHEK XX SCH ×3 (01:00→09:31)
[2017-02-25] MEDS: ALTEPLASE (CATHFLO) 2 MG INJ CATHETER PRN ×2 (01:59→02:06)
[2017-02-25] MEDS: D5W-0.45 NACL + KCL 20 MEQ 1,000 ML IV SCH (04:30)
[2017-02-25 07:35] LABS: BASOPHILS % 0.2 % (0.0-2.0); EOSINOPHILS # 0.1 10^3/ul (0.0-0.5); HEMATOCRIT 36.3 % (37.0-47.0); HEMOGLOBIN 11.3 g/dl (12.0-16.0); LYMPHOCYTES # 1.4 10^3/ul (0.8-2.9); LYMPHOCYTES % 11.1 % (15.0-51.0); MEAN CORPUSCULAR HEMOGLOBIN 30.6 pg (29.0-33.0); MEAN CORPUSCULAR HGB CONC 31.1 g/dl (32.0-37.0); MEAN CORPUSCULAR VOLUME 98.4 fl (82.0-101.0); MEAN PLATELET VOLUME 10.3 fl (7.4-10.4); MONOCYTE # 1.2 10^3/ul (0.3-0.9); MONOCYTES % 9.3 % (0.0-11.0); NEUTROPHILS % 77.5 % (39.0-77.0); PLATELET COUNT 292 10^3/UL (140-415); RED BLOOD COUNT 3.69 10^6/ul (4.20-5.40); RED CELL DISTRIBUTION WIDTH 14.6 % (11.5-14.5); WHITE BLOOD COUNT 12.7 10^3/ul (4.8-10.8)
[2017-02-25 07:58] LABS: CREATININE 0.73 mg/dl (0.44-1.00); PHOSPHORUS 2.6 mg/dl (2.5-4.9); POTASSIUM 3.1 mmol/L (3.5-5.1)
--- NOTE | 2017-02-25 09:15 | CONS ---
Date/Time of Note Date/Time of Note DATE: 02/25/17 TIME: 09:14 Assessment/Plan Assessment/Plan Chief Complaint/Hosp Course Paroxysmal atrial fibrillation with rapid ventricular response - Back and forth between sinus and afib. Most recent afib 02/22. Now back in sinus. Will need to assess antiocoagulation candidacy if mentation improves NSTEMI - suspect type 2 Acute on likely chronic systolic heart failure - was back to euvolemic but now mild CHF again from IVF.Resolved with lasix Cardiomyopathy, LVEF 30-35% initially, now normalized (>60%) likely neurocardiogenic from seizures Status post septic shock Possible aspiration pneumonia Tonic-colonic seizure - per neurology Recent cholecystectomy Incomplete data -amio 200mg daily -add coreg 3.125mg BID Problems: Consultation Date/Type/Reason Admit Date/Time Feb 02, 2017 at 07:43 Initial Consult Date 02/02/17 Type of Consultation: Cardiology 24 HR Interval Summary Free Text/Dictation Still confused. Remains in sinus. Ok for PO now Exam/Review of Systems Vital Signs Vitals Vital Signs Date Time Temp Pulse Resp B/P Pulse Ox O2 Delivery O2 Flow Rate FiO2 02/25/17 08:03 72 02/25/17 06:58 97.2 18 154/70 95 02/25/17 06:00 Room Air Intake and Output 02/24/17 02/24/17 02/25/17 15:00 23:00 07:00 Intake Total 100 ml 1240 ml Balance 100 ml 1240 ml Exam Constitutional: alert, No oriented Psych: No nl mood/affect Head: atraumatic, normocephalic Neck: No jvd Respiratory: crackles/rales (trace), diminished breath sounds, No clear to auscultation Cardiovascular: regular rate and rhythm, No edema Gastrointestinal: non-tender, soft Neurological: nl speech, No nl mental status Results Result Diagram: 02/25/17 0649 02/25/17 0649 Results 24 hrs Laboratory Tests Test 02/24/17 12:41 02/24/17 17:59 02/24/17 20:58 02/25/17 01:26 Bedside Glucose 108 98 122 103 Test 02/25/17 05:44 02/25/17 06:49 Bedside Glucose 97 White Blood Count 12.7 #H Red Blood Count 3.69 L Hemoglobin 11.3 L Hematocrit 36.3 L Mean Corpuscular Volume 98.4 Mean Corpuscular Hemoglobin 30.6 Mean Corpuscular Hemoglobin Concent 31.1 L Red Cell Distribution Width 14.6 H Platelet Count 292 Mean Platelet Volume 10.3 Neutrophils % 77.5 H Lymphocytes % 11.1 L Monocytes % 9.3 Eosinophils % 1.0 Basophils % 0.2 Nucleated Red Blood Cells % 0.0 Neutrophils # (Manual) 9.8 H Lymphocytes # 1.4 Monocytes # 1.2 H Eosinophils # 0.1 Basophils # 0.0 Nucleated Red Blood Cells # 0.0 Sodium Level 143 Potassium Level 3.1 L Chloride Level 110 Carbon Dioxide Level 22 Anion Gap 14 Blood Urea Nitrogen 22 H Creatinine 0.73 Glucose Level 97 Calcium Level 9.0 Phosphorus Level 2.6 Magnesium Level 2.0 Medications Medications Current Medications Ondansetron HCl (Zofran Inj) 4 mg Q6H PRN IV NAUSEA AND/OR VOMITING; Start 02/02 at 23:00 Acetaminophen 650 mg 650 mg Q4H PRN [place] PAIN LEVEL 1-3 OR FEVER Last administered on 02/18/17 20:26; Admin Dose 650 MG; Start 02/02/17 at 23:00 Levetiracetam (Keppra 1,000mg/ 100ml (Pmx)) 100 ml @ 400 mls/hr Q12 IVPB Last administered on 02/24/17 20:56; Admin Dose 400 MLS/HR; Start 02/03/17 at 21:00 IV Flush (NS 10 ml) 10 ml PRN PRN IV IV PROTOCOL; Start 02/03/17 at 13:30 Enoxaparin Sodium (Lovenox) 30 mg DAILY SC Last administered on 02/24/17 08:56 ; Admin Dose 30 MG; Start 02/18/17 at 09:00 Hydralazine HCl (Apresoline) 10 mg Q6H PRN IV ELEVATED SBP>160 Last administered on 02/19/17 21:15; Admin Dose 10 MG; Start 02/19/17 at 06:30 Amiodarone HCl (Cordarone) 200 mg DAILY NGT Last administered on 02/24/17 07: 28; Admin Dose 200 MG; Start 02/21/17 at 09:00 Diagnostic Test (Pha) 1 ea 1 ea Q4 XX Last administered on 02/24/17 17:00; Admin Dose 1 EA; Start 02/21/17 at 21:00 Potassium Chloride/Dextrose/ Sod Cl (D5-1/2ns + KCl 20 Meq) 1,000 ml @ 100 mls/ hr Q10H IV Last administered on 02/24/17 18:37; Admin Dose 100 MLS/HR; Start 02/24/17 at 18:30 Carvedilol 3.125 mg 3.125 mg BID PO ; Start 02/25/17 at 09:00 Potassium Chloride (KCl 10 MEQ/50 ML SW) 50 ml @ 50 mls/hr Q1H IVPB ; Start 02/25 at 10:00; Stop 02/25/17 at 12:59 GUSTAVO CORONEL Feb 25, 2017 09:15
[2017-02-25] MEDS: AMIODARONE 200 MG TAB NGT SCH (09:30)
[2017-02-25] MEDS: LEVETIRACETAM 1000 MG (PMX) 100 ML IVPB SCH ×2 (09:30→21:17)
[2017-02-25] MEDS: ENOXAPARIN 30 MG/0.3 ML SYG SC SCH (09:41)
[2017-02-25] MEDS ORDERED: POTASSIUM CHLORIDE 50 ML IVPB SCH (10:00)
[2017-02-25] MEDS ORDERED: POTASSIUM CHLORIDE 250 ML IVPB ONE (10:30)
[2017-02-25] MEDS: D5W-0.45 NACL + KCL 40 MEQ 1,000 ML IV SCH ×2 (11:59→21:00)
[2017-02-25] MEDS: RISPERIDONE 0.25 MG TAB PO SCH (12:05)
--- NOTE | 2017-02-25 13:02 | CONS ---
Date/Time of Note Date/Time of Note DATE: 02/25/17 TIME: 12:59 Assessment/Plan Assessment/Plan Additional Assessment/Plan Assessment recommendations; 1. Patient admitted with septic shock status post antibiotic treatment. With marked overall improvement. 2. History of atrial fibrillation with RVR. Currently the rate is controlled. 3. Dementia. 4. Status post right lower lobe pneumonia with thoracentesis performed on 14 of last month without any further recurrence. 5. New onset seizure disorder. Without any seizure activity noted recently. 6. Recent cholecystectomy. Next Continue current treatment. Consider discharge. Consultation Date/Type/Reason Admit Date/Time Feb 02, 2017 at 07:43 Initial Consult Date 02/02/17 Type of Consultation: Pulmonary 24 HR Interval Summary Free Text/Dictation Patient condition remains stable. Has episodes of confusion and agitation off and on. General exam; elderly woman, awake, currently in no distress. Follows very simple commands. Exam/Review of Systems Vital Signs Vitals Vital Signs Date Time Temp Pulse Resp B/P Pulse Ox O2 Delivery O2 Flow Rate FiO2 02/25/17 12:04 70 02/25/17 11:13 98.4 19 133/77 97 02/25/17 06:00 Room Air Intake and Output 02/24/17 02/24/17 02/25/17 15:00 23:00 07:00 Intake Total 100 ml 1240 ml Balance 100 ml 1240 ml Exam HEENT exam; supple neck, no JVD. No lymphadenopathy. Midline trachea. No thyromegaly. Chest exam; diminished but clear breath sound. S1-S2 audible, no murmurs. Irregular rhythm. Abdomen exam; soft, nontender. No organomegaly. Bowel sounds audible. Extremity exam; no peripheral edema. [employer] exam; patient is awake and follows very simple commands like mouth opening. Exhibiting episodes of confusion. Results Result Diagram: 02/25/17 0649 02/25/17 0649 Results 24 hrs Laboratory Tests Test 02/24/17 17:59 02/24/17 20:58 02/25/17 01:26 02/25/17 05:44 Bedside Glucose 98 122 103 97 Test 02/25/17 06:49 White Blood Count 12.7 #H Red Blood Count 3.69 L Hemoglobin 11.3 L Hematocrit 36.3 L Mean Corpuscular Volume 98.4 Mean Corpuscular Hemoglobin 30.6 Mean Corpuscular Hemoglobin Concent 31.1 L Red Cell Distribution Width 14.6 H Platelet Count 292 Mean Platelet Volume 10.3 Neutrophils % 77.5 H Lymphocytes % 11.1 L Monocytes % 9.3 Eosinophils % 1.0 Basophils % 0.2 Nucleated Red Blood Cells % 0.0 Neutrophils # (Manual) 9.8 H Lymphocytes # 1.4 Monocytes # 1.2 H Eosinophils # 0.1 Basophils # 0.0 Nucleated Red Blood Cells # 0.0 Sodium Level 143 Potassium Level 3.1 L Chloride Level 110 Carbon Dioxide Level 22 Anion Gap 14 Blood Urea Nitrogen 22 H Creatinine 0.73 Glucose Level 97 Calcium Level 9.0 Phosphorus Level 2.6 Magnesium Level 2.0 Medications Medications Current Medications Ondansetron HCl (Zofran Inj) 4 mg Q6H PRN IV NAUSEA AND/OR VOMITING; Start 02/02 at 23:00 Acetaminophen 650 mg 650 mg Q4H PRN [place] PAIN LEVEL 1-3 OR FEVER Last administered on 02/18/17 20:26; Admin Dose 650 MG; Start 02/02/17 at 23:00 Levetiracetam (Keppra 1,000mg/ 100ml (Pmx)) 100 ml @ 400 mls/hr Q12 IVPB Last administered on 02/25/17 09:30; Admin Dose 400 MLS/HR; Start 02/03/17 at 21:00 IV Flush (NS 10 ml) 10 ml PRN PRN IV IV PROTOCOL; Start 02/03/17 at 13:30 Enoxaparin Sodium (Lovenox) 30 mg DAILY SC Last administered on 02/25/17 09:41 ; Admin Dose 30 MG; Start 02/18/17 at 09:00 Hydralazine HCl (Apresoline) 10 mg Q6H PRN IV ELEVATED SBP>160 Last administered on 02/19/17 21:15; Admin Dose 10 MG; Start 02/19/17 at 06:30 Amiodarone HCl (Cordarone) 200 mg DAILY NGT Last administered on 02/25/17 09:30 ; Admin Dose 200 MG; Start 02/21/17 at 09:00 Carvedilol 3.125 mg 3.125 mg BID PO Last administered on 02/25/17 09:31; Admin Dose 3.125 MG; Start 02/25/17 at 09:00 Potassium Chloride 250 ml @ 62.5 mls/hr ONCE ONCE IVPB Last administered on 11:58; Admin Dose 62.5 MLS/HR; Start 02/25/17 at 10:30; Stop 02/25/17 at 14:29 Potassium Chloride/Dextrose/ Sod Cl (D5-1/2ns + KCl 40 Meq) 1,000 ml @ 100 mls/ hr Q10H IV Last administered on 02/25/17 11:59; Admin Dose 100 MLS/HR; Start at 11:00 Risperidone (Risperdal) 0.25 mg DAILY PO Last administered on 02/25/17 12:05; Admin Dose 0.25 MG; Start 02/25/17 at 11:00 CHAVA SCHAEFFER Feb 25, 2017 13:02
--- NOTE | 2017-02-25 15:41 | PN ---
Date/Time of Note Date/Time of Note DATE: 02/25/17 TIME: 15:37 Assessment/Plan VTE Prophylaxis VTE Prophylaxis Intervention: LMWH Lines/Catheters Urinary Cath still in place: No Assessment/Plan Chief Complaint/Hosp Course 81 yo female with h/o chronic systolic CHF, recent open abdominal surgery for necrotic GB, who presented after prolonged seizure. Received benzos in the field leading to obtundation on arrival and was therefore intubated. Subsequently with A Fib w RVR PULM: - s/p intubation, then BIPAP now extubated and stable on RA NEURO Seizure w status epilepticus on arrival - Continue keppra per neurology -Started on Risperdal as delirium persists and has been requiring restraints - Hold benzos and opiates if at all possible - Behavioral redirection CV: EF has recovered to 60% normal on recent TTE - No strong indication for neurohormonal blockade, will try to limit meds given her delirium/agitation and difficulty with pills Atrial fibrillation paroxysmal with RVR now converted back to NSR - Continue amiodarone, holding AC for now Hypertension: - BP elevated when patient agitated, other reading normal. Trying to hold nonessential meds given delirium/agitation and difficulty taking PO so holding meds for now GI: - s/p open cholecystectomy Hypernatremia-improved Continue D5W Prophylaxis: Lovenox Discharge plan pending. Needs SNF placement when off restraints Problems: Subjective 24 Hr Interval Summary Constitutional: disoriented Exam/Review of Systems Vital Signs Vitals Vital Signs Date Time Temp Pulse Resp B/P Pulse Ox O2 Delivery O2 Flow Rate FiO2 02/25/17 14:00 98.6 92 18 143/62 97 02/25/17 06:00 Room Air Intake and Output 02/24/17 02/24/17 02/25/17 15:00 23:00 07:00 Intake Total 100 ml 1240 ml Balance 100 ml 1240 ml Exam Psych: confusion Respiratory: clear to auscultation Cardiovascular: regular rate and rhythm Gastrointestinal: soft, No distended Musculoskeletal: nl extremities to inspection Results Result Diagram: 02/25/17 0649 02/25/17 0649 Results 24 hrs Laboratory Tests Test 02/24/17 17:59 02/24/17 20:58 02/25/17 01:26 02/25/17 05:44 Bedside Glucose 98 122 103 97 Test 02/25/17 06:49 White Blood Count 12.7 #H Red Blood Count 3.69 L Hemoglobin 11.3 L Hematocrit 36.3 L Mean Corpuscular Volume 98.4 Mean Corpuscular Hemoglobin 30.6 Mean Corpuscular Hemoglobin Concent 31.1 L Red Cell Distribution Width 14.6 H Platelet Count 292 Mean Platelet Volume 10.3 Neutrophils % 77.5 H Lymphocytes % 11.1 L Monocytes % 9.3 Eosinophils % 1.0 Basophils % 0.2 Nucleated Red Blood Cells % 0.0 Neutrophils # (Manual) 9.8 H Lymphocytes # 1.4 Monocytes # 1.2 H Eosinophils # 0.1 Basophils # 0.0 Nucleated Red Blood Cells # 0.0 Sodium Level 143 Potassium Level 3.1 L Chloride Level 110 Carbon Dioxide Level 22 Anion Gap 14 Blood Urea Nitrogen 22 H Creatinine 0.73 Glucose Level 97 Calcium Level 9.0 Phosphorus Level 2.6 Magnesium Level 2.0 Medications Medications Current Medications Ondansetron HCl (Zofran Inj) 4 mg Q6H PRN IV NAUSEA AND/OR VOMITING; Start 02/02 at 23:00 Acetaminophen 650 mg 650 mg Q4H PRN [place] PAIN LEVEL 1-3 OR FEVER Last administered on 02/18/17 20:26; Admin Dose 650 MG; Start 02/02/17 at 23:00 Levetiracetam (Keppra 1,000mg/ 100ml (Pmx)) 100 ml @ 400 mls/hr Q12 IVPB Last administered on 02/25/17 09:30; Admin Dose 400 MLS/HR; Start 02/03/17 at 21:00 IV Flush (NS 10 ml) 10 ml PRN PRN IV IV PROTOCOL; Start 02/03/17 at 13:30 Enoxaparin Sodium (Lovenox) 30 mg DAILY SC Last administered on 02/25/17 09:41 ; Admin Dose 30 MG; Start 02/18/17 at 09:00 Hydralazine HCl (Apresoline) 10 mg Q6H PRN IV ELEVATED SBP>160 Last administered on 02/19/17 21:15; Admin Dose 10 MG; Start 02/19/17 at 06:30 Amiodarone HCl (Cordarone) 200 mg DAILY NGT Last administered on 02/25/17 09:30 ; Admin Dose 200 MG; Start 02/21/17 at 09:00 Carvedilol 3.125 mg 3.125 mg BID PO Last administered on 02/25/17 09:31; Admin Dose 3.125 MG; Start 02/25/17 at 09:00 Potassium Chloride/Dextrose/ Sod Cl (D5-1/2ns + KCl 40 Meq) 1,000 ml @ 100 mls/ hr Q10H IV Last administered on 02/25/17 11:59; Admin Dose 100 MLS/HR; Start at 11:00 Risperidone (Risperdal) 0.25 mg DAILY PO Last administered on 02/25/17 12:05; Admin Dose 0.25 MG; Start 02/25/17 at 11:00 LETY DOMINGUEZ Feb 25, 2017 15:41
[2017-02-26] VITALS (21 sets, daily range): BP systolic 116–189; BP diastolic 63–87; PULSE 69–103; RESP 16–20
[2017-02-26] MEDS: D5W-0.45 NACL + KCL 40 MEQ 1,000 ML IV SCH ×2 (03:03→07:00)
[2017-02-26 07:09] LABS: BASOPHIL # 0.1 10^3/ul (0.0-0.1); BASOPHILS % 0.4 % (0.0-2.0); EOSINOPHILS # 0.4 10^3/ul (0.0-0.5); EOSINOPHILS % 3.5 % (0.0-7.0); HEMATOCRIT 35.1 % (37.0-47.0); LYMPHOCYTES # 2.2 10^3/ul (0.8-2.9); LYMPHOCYTES % 17.5 % (15.0-51.0); MEAN CORPUSCULAR HEMOGLOBIN 30.2 pg (29.0-33.0); MEAN CORPUSCULAR HGB CONC 31.3 g/dl (32.0-37.0); MEAN CORPUSCULAR VOLUME 96.4 fl (82.0-101.0); MEAN PLATELET VOLUME 10.6 fl (7.4-10.4); MONOCYTE # 1.3 10^3/ul (0.3-0.9); MONOCYTES % 10.9 % (0.0-11.0); NEUTROPHILS % 66.6 % (39.0-77.0); PLATELET COUNT 281 10^3/UL (140-415); RED BLOOD COUNT 3.64 10^6/ul (4.20-5.40); RED CELL DISTRIBUTION WIDTH 14.4 % (11.5-14.5); WHITE BLOOD COUNT 12.3 10^3/ul (4.8-10.8)
[2017-02-26 07:33] LABS: CALCIUM 8.8 mg/dl (8.4-10.2); CREATININE 0.71 mg/dl (0.44-1.00)
[2017-02-26] MEDS: LEVETIRACETAM 1000 MG (PMX) 100 ML IVPB SCH ×2 (08:30→20:16)
[2017-02-26] MEDS: hydrALAzine 20 MG INJ IV PRN (08:31)
[2017-02-26] MEDS: AMIODARONE 200 MG TAB NGT SCH (09:38)
[2017-02-26] MEDS: RISPERIDONE 0.25 MG TAB PO SCH (09:38)
[2017-02-26] MEDS: ENOXAPARIN 30 MG/0.3 ML SYG SC SCH (09:44)
[2017-02-26] MEDS ORDERED: HALOPERIDOL 5 MG INJ IM ONE (11:00)
--- NOTE | 2017-02-26 11:37 | CONS ---
Date/Time of Note Date/Time of Note DATE: 02/26/17 TIME: 11:36 Consult Date/Type/Reason Admit Date/Time Feb 02, 2017 at 07:43 Initial Consult Date 02/02/17 Type of Consultation: Pulmonary Subjective Still with intermittent confusion Objective Vital Signs Date Time Temp Pulse Resp B/P Pulse Ox O2 Delivery O2 Flow Rate FiO2 02/26/17 10:00 98.6 90 121/80 98 Room Air 02/26/17 07:59 18 Intake and Output 02/25/17 02/25/17 02/26/17 14:59 22:59 06:59 Intake Total 1240 ml 1150 ml 250 ml Balance 1240 ml 1150 ml 250 ml Exam GENERAL: Elderly lady appears comfortable at rest confused VITAL SIGNS: per chart NECK: Supple. No JVD or lymphadenopathy. CARDIAC EXAM: S1, S2. No added sounds or murmurs. CHEST: clear bilaterally, No added sounds, rales or wheezes ABDOMEN: Soft, nontender. No guarding or rebound. EXTREMITIES: No cyanosis, clubbing or edema. NEUROLOGIC: Generalized weakness. No focal deficits. Results/Medications Result Diagram: 02/26/17 0625 02/26/17 0625 Results 24 hrs Laboratory Tests Test 02/26/17 06:25 White Blood Count 12.3 H Red Blood Count 3.64 L Hemoglobin 11.0 L Hematocrit 35.1 L Mean Corpuscular Volume 96.4 Mean Corpuscular Hemoglobin 30.2 Mean Corpuscular Hemoglobin Concent 31.3 L Red Cell Distribution Width 14.4 Platelet Count 281 Mean Platelet Volume 10.6 H Neutrophils % 66.6 Lymphocytes % 17.5 Monocytes % 10.9 Eosinophils % 3.5 Basophils % 0.4 Nucleated Red Blood Cells % 0.0 Neutrophils # (Manual) 8.2 H Lymphocytes # 2.2 Monocytes # 1.3 H Eosinophils # 0.4 Basophils # 0.1 Nucleated Red Blood Cells # 0.0 Sodium Level 141 Potassium Level 4.0 Chloride Level 111 H Carbon Dioxide Level 25 Anion Gap 9 # Blood Urea Nitrogen 14 Creatinine 0.71 Glucose Level 107 Calcium Level 8.8 Medications Current Medications Ondansetron HCl (Zofran Inj) 4 mg Q6H PRN IV NAUSEA AND/OR VOMITING; Start 02/02 at 23:00 Acetaminophen 650 mg 650 mg Q4H PRN [place] PAIN LEVEL 1-3 OR FEVER Last administered on 02/18/17 20:26; Admin Dose 650 MG; Start 02/02/17 at 23:00 Levetiracetam (Keppra 1,000mg/ 100ml (Pmx)) 100 ml @ 400 mls/hr Q12 IVPB Last administered on 02/26/17 08:30; Admin Dose 400 MLS/HR; Start 02/03/17 at 21:00 IV Flush (NS 10 ml) 10 ml PRN PRN IV IV PROTOCOL; Start 02/03/17 at 13:30 Enoxaparin Sodium (Lovenox) 30 mg DAILY SC Last administered on 02/26/17 09:44 ; Admin Dose 30 MG; Start 02/18/17 at 09:00 Hydralazine HCl (Apresoline) 10 mg Q6H PRN IV ELEVATED SBP>160 Last administered on 02/26/17 08:31; Admin Dose 10 MG; Start 02/19/17 at 06:30 Amiodarone HCl (Cordarone) 200 mg DAILY NGT Last administered on 02/26/17 09:38 ; Admin Dose 200 MG; Start 02/21/17 at 09:00 Carvedilol 3.125 mg 3.125 mg BID PO Last administered on 02/26/17 09:38; Admin Dose 3.125 MG; Start 02/25/17 at 09:00 Potassium Chloride/Dextrose/ Sod Cl (D5-1/2ns + KCl 40 Meq) 1,000 ml @ 100 mls/ hr Q10H IV Last administered on 02/26/17 03:03; Admin Dose 100 MLS/HR; Start at 11:00; Stop 02/26/17 at 12:59 Risperidone 0.25 mg 0.25 mg DAILY PO Last administered on 02/26/17 09:38; Admin Dose 0.25 MG; Start 02/25/17 at 11:00 Potassium Chloride/Dextrose/ Sodium Chloride (KCl/D5-1/2ns) 1,020 ml @ 100 mls/ hr [id number] IV ; Start 02/26/17 at 13:00 Assessment/Plan Chief Complaint/Hosp Course Assessment 1. Patient admitted with septic shock status post antibiotic treatment. With marked overall improvement. 2. History of atrial fibrillation with RVR. Currently the rate is controlled. 3. Dementia. 4. Status post right lower lobe pneumonia with thoracentesis performed on 14th of last month without any further recurrence. 5. New onset seizure disorder. Without any seizure activity noted recently. 6. Recent cholecystectomy. Plan 1. Aspiration precautions 2. Fall precautions 3. Discharge planning Problems: MEEK ENGEL MD, [facility] Feb 26, 2017 11:37
[2017-02-26] MEDS: POTASSIUM CHLORIDE 40 MEQ in DEXTROSE 5%-0.45% NACL 1,000 ML IV SCH (13:13)
--- NOTE | 2017-02-26 13:24 | PN ---
Date/Time of Note Date/Time of Note DATE: 02/26/17 TIME: 13:24 Assessment/Plan VTE Prophylaxis VTE Prophylaxis Intervention: LMWH Lines/Catheters Urinary Cath still in place: No Assessment/Plan Chief Complaint/Hosp Course 81 yo female with h/o chronic systolic CHF, recent open abdominal surgery for necrotic GB, who presented after prolonged seizure. Received benzos in the field leading to obtundation on arrival and was therefore intubated. Subsequently with A Fib w RVR PULM: - s/p intubation, then BIPAP now extubated and stable on RA NEURO Seizure w status epilepticus on arrival - Continue keppra per neurology -Started on Risperdal as delirium persists and has been requiring restraints, will increase dose of Risperdal today - Hold benzos and opiates if at all possible - Behavioral redirection CV: EF has recovered to 60% normal on recent TTE - No strong indication for neurohormonal blockade, will try to limit meds given her delirium/agitation and difficulty with pills Atrial fibrillation paroxysmal with RVR now converted back to NSR - Continue amiodarone, holding AC for now Hypertension: - BP elevated when patient agitated, other reading normal. Trying to hold nonessential meds given delirium/agitation and difficulty taking PO so holding meds for now GI: - s/p open cholecystectomy Hypernatremia-improved Continue D5W Prophylaxis: Lovenox Discharge plan pending. Needs SNF placement when off restraints Problems: Subjective 24 Hr Interval Summary Constitutional: disoriented Exam/Review of Systems Vital Signs Vitals Vital Signs Date Time Temp Pulse Resp B/P Pulse Ox O2 Delivery O2 Flow Rate FiO2 02/26/17 12:22 88 02/26/17 11:42 97.0 19 162/72 96 02/26/17 10:00 Room Air Intake and Output 02/25/17 02/25/17 02/26/17 15:00 23:00 07:00 Intake Total 1150 ml 250 ml Balance 1150 ml 250 ml Exam Psych: confusion Respiratory: clear to auscultation Cardiovascular: regular rate and rhythm Gastrointestinal: soft, No distended Musculoskeletal: nl extremities to inspection Results Result Diagram: 02/26/17 0625 02/26/17 0625 Results 24 hrs Laboratory Tests Test 02/26/17 06:25 White Blood Count 12.3 H Red Blood Count 3.64 L Hemoglobin 11.0 L Hematocrit 35.1 L Mean Corpuscular Volume 96.4 Mean Corpuscular Hemoglobin 30.2 Mean Corpuscular Hemoglobin Concent 31.3 L Red Cell Distribution Width 14.4 Platelet Count 281 Mean Platelet Volume 10.6 H Neutrophils % 66.6 Lymphocytes % 17.5 Monocytes % 10.9 Eosinophils % 3.5 Basophils % 0.4 Nucleated Red Blood Cells % 0.0 Neutrophils # (Manual) 8.2 H Lymphocytes # 2.2 Monocytes # 1.3 H Eosinophils # 0.4 Basophils # 0.1 Nucleated Red Blood Cells # 0.0 Sodium Level 141 Potassium Level 4.0 Chloride Level 111 H Carbon Dioxide Level 25 Anion Gap 9 # Blood Urea Nitrogen 14 Creatinine 0.71 Glucose Level 107 Calcium Level 8.8 Medications Medications Current Medications Ondansetron HCl (Zofran Inj) 4 mg Q6H PRN IV NAUSEA AND/OR VOMITING; Start 02/02 at 23:00 Acetaminophen 650 mg 650 mg Q4H PRN [place] PAIN LEVEL 1-3 OR FEVER Last administered on 02/18/17 20:26; Admin Dose 650 MG; Start 02/02/17 at 23:00 Levetiracetam (Keppra 1,000mg/ 100ml (Pmx)) 100 ml @ 400 mls/hr Q12 IVPB Last administered on 02/26/17 08:30; Admin Dose 400 MLS/HR; Start 02/03/17 at 21:00 IV Flush (NS 10 ml) 10 ml PRN PRN IV IV PROTOCOL; Start 02/03/17 at 13:30 Enoxaparin Sodium (Lovenox) 30 mg DAILY SC Last administered on 02/26/17 09:44 ; Admin Dose 30 MG; Start 02/18/17 at 09:00 Hydralazine HCl (Apresoline) 10 mg Q6H PRN IV ELEVATED SBP>160 Last administered on 02/26/17 08:31; Admin Dose 10 MG; Start 02/19/17 at 06:30 Amiodarone HCl (Cordarone) 200 mg DAILY NGT Last administered on 02/26/17 09:38 ; Admin Dose 200 MG; Start 02/21/17 at 09:00 Carvedilol (Coreg) 3.125 mg BID PO Last administered on 02/26/17 09:38; Admin Dose 3.125 MG; Start 02/25/17 at 09:00 Risperidone 0.25 mg 0.25 mg DAILY PO Last administered on 02/26/17 09:38; Admin Dose 0.25 MG; Start 02/25/17 at 11:00 Potassium Chloride/Dextrose/ Sodium Chloride (KCl/D5-1/2ns) 1,020 ml @ 100 mls/ hr [id number] IV Last administered on 02/26/17 13:13; Admin Dose 100 MLS/HR; Start 02/26/17 at 13:00 LETY DOMINGUEZ Feb 26, 2017 13:24
[2017-02-27] VITALS (19 sets, daily range): BP systolic 101–168; BP diastolic 55–77; PULSE 67–88; RESP 16–18
[2017-02-27] MEDS: POTASSIUM CHLORIDE 40 MEQ in DEXTROSE 5%-0.45% NACL 1,000 ML IV SCH (00:03)
[2017-02-27 07:19] LABS: BASOPHIL # 0.1 10^3/ul (0.0-0.1); BASOPHILS % 0.5 % (0.0-2.0); EOSINOPHILS # 0.4 10^3/ul (0.0-0.5); EOSINOPHILS % 2.9 % (0.0-7.0); HEMATOCRIT 37.1 % (37.0-47.0); HEMOGLOBIN 11.5 g/dl (12.0-16.0); LYMPHOCYTES # 2.1 10^3/ul (0.8-2.9); LYMPHOCYTES % 15.7 % (15.0-51.0); MEAN CORPUSCULAR HEMOGLOBIN 29.3 pg (29.0-33.0); MEAN CORPUSCULAR VOLUME 94.6 fl (82.0-101.0); MEAN PLATELET VOLUME 10.7 fl (7.4-10.4); MONOCYTE # 1.4 10^3/ul (0.3-0.9); MONOCYTES % 10.6 % (0.0-11.0); NEUTROPHILS % 69.8 % (39.0-77.0); PLATELET COUNT 273 10^3/UL (140-415); RED BLOOD COUNT 3.92 10^6/ul (4.20-5.40); RED CELL DISTRIBUTION WIDTH 14.3 % (11.5-14.5); WHITE BLOOD COUNT 13.2 10^3/ul (4.8-10.8)
[2017-02-27 07:56] LABS: CALCIUM 9.1 mg/dl (8.4-10.2); CREATININE 0.61 mg/dl (0.44-1.00); POTASSIUM 4.2 mmol/L (3.5-5.1)
[2017-02-27] MEDS: LEVETIRACETAM 1000 MG (PMX) 100 ML IVPB SCH ×2 (08:33→21:13)
[2017-02-27] MEDS: AMIODARONE 200 MG TAB NGT SCH (08:34)
[2017-02-27] MEDS: RISPERIDONE 0.25 MG TAB PO SCH (08:34)
[2017-02-27] MEDS: ENOXAPARIN 30 MG/0.3 ML SYG SC SCH (08:37)
--- NOTE | 2017-02-27 09:31 | CONS ---
Date/Time of Note Date/Time of Note DATE: 02/27/17 TIME: 09:28 Consult Date/Type/Reason Admit Date/Time Feb 02, 2017 at 07:43 Initial Consult Date 02/02/17 Type of Consultation: Pulmonary Subjective Still with ongoing agitation and delerium Objective Vital Signs Date Time Temp Pulse Resp B/P Pulse Ox O2 Delivery O2 Flow Rate FiO2 02/27/17 08:05 72 02/27/17 06:00 98.0 146/76 97 Room Air 02/27/17 04:00 17 Intake and Output 02/26/17 02/26/17 02/27/17 15:00 23:00 07:00 Intake Total 1700 ml 100 ml Balance 1700 ml 100 ml Exam GENERAL: Elderly lady appears comfortable at rest confused VITAL SIGNS: per chart NECK: Supple. No JVD or lymphadenopathy. CARDIAC EXAM: S1, S2. No added sounds or murmurs. CHEST: clear bilaterally, No added sounds, rales or wheezes ABDOMEN: Soft, nontender. No guarding or rebound. EXTREMITIES: No cyanosis, clubbing or edema. NEUROLOGIC: Generalized weakness. No focal deficits. Results/Medications Result Diagram: 02/27/17 0630 02/27/17 0630 Results 24 hrs Laboratory Tests Test 02/27/17 06:30 White Blood Count 13.2 H Red Blood Count 3.92 L Hemoglobin 11.5 L Hematocrit 37.1 Mean Corpuscular Volume 94.6 Mean Corpuscular Hemoglobin 29.3 Mean Corpuscular Hemoglobin Concent 31.0 L Red Cell Distribution Width 14.3 Platelet Count 273 Mean Platelet Volume 10.7 H Neutrophils % 69.8 Lymphocytes % 15.7 Monocytes % 10.6 Eosinophils % 2.9 Basophils % 0.5 Nucleated Red Blood Cells % 0.0 Neutrophils # (Manual) 9.2 H Lymphocytes # 2.1 Monocytes # 1.4 H Eosinophils # 0.4 Basophils # 0.1 Nucleated Red Blood Cells # 0.0 Sodium Level 139 Potassium Level 4.2 Chloride Level 107 Carbon Dioxide Level 26 Anion Gap 10 Blood Urea Nitrogen 6 L Creatinine 0.61 Glucose Level 98 Calcium Level 9.1 Medications Current Medications Ondansetron HCl (Zofran Inj) 4 mg Q6H PRN IV NAUSEA AND/OR VOMITING; Start 02/02 at 23:00 Acetaminophen 650 mg 650 mg Q4H PRN [place] PAIN LEVEL 1-3 OR FEVER Last administered on 02/18/17 20:26; Admin Dose 650 MG; Start 02/02/17 at 23:00 Levetiracetam (Keppra 1,000mg/ 100ml (Pmx)) 100 ml @ 400 mls/hr Q12 IVPB Last administered on 02/27/17 08:33; Admin Dose 400 MLS/HR; Start 02/03/17 at 21:00 IV Flush (NS 10 ml) 10 ml PRN PRN IV IV PROTOCOL; Start 02/03/17 at 13:30 Enoxaparin Sodium (Lovenox) 30 mg DAILY SC Last administered on 02/27/17 08:37 ; Admin Dose 30 MG; Start 02/18/17 at 09:00 Hydralazine HCl (Apresoline) 10 mg Q6H PRN IV ELEVATED SBP>160 Last administered on 02/26/17 08:31; Admin Dose 10 MG; Start 02/19/17 at 06:30 Amiodarone HCl (Cordarone) 200 mg DAILY NGT Last administered on 02/27/17 08:34 ; Admin Dose 200 MG; Start 02/21/17 at 09:00 Carvedilol (Coreg) 3.125 mg BID PO Last administered on 02/27/17 08:34; Admin Dose 3.125 MG; Start 02/25/17 at 09:00 Risperidone 0.5 mg 0.5 mg DAILY PO Last administered on 02/27/17 08:34; Admin Dose 0.5 MG; Start 02/27/17 at 09:00 Potassium Chloride/Dextrose/ Sod Cl (D5-1/2ns + KCl 40 Meq) 1,000 ml @ 100 mls/ hr Q10H IV ; Start 02/27/17 at 11:00 Assessment/Plan Chief Complaint/Hosp Course Assessment 1. Patient admitted with septic shock status post antibiotic treatment. With marked overall improvement. 2. History of atrial fibrillation with RVR. Currently the rate is controlled. 3. Dementia and delerium. 4. Status post right lower lobe pneumonia with thoracentesis performed on 14 of last month without any further recurrence. 5. New onset seizure disorder. Without any seizure activity noted recently. 6. Recent cholecystectomy. Plan 1. Aspiration precautions 2. Fall precautions 3. consider psych consult Problems: MEEK ENGEL MD, [facility] Feb 27, 2017 09:31
[2017-02-27] MEDS: D5W-0.45 NACL + KCL 40 MEQ 1,000 ML IV SCH ×2 (10:48→22:00)
--- NOTE | 2017-02-27 19:07 | PN ---
Date/Time of Note Date/Time of Note DATE: 02/27/17 TIME: 18:59 Assessment/Plan VTE Prophylaxis VTE Prophylaxis Intervention: LMWH Assessment/Plan Chief Complaint/Hosp Course 1. Acute on likely chronic encephalopathy Per patient's son-in-law patient has no history of dementia but at this time patient does appear to have delirium on dementia due to the duration of her encephalopathy The patient continues to require restraints and have started patient on Risperdal Patient will need placement in a nursing facility once off restraints 2. Acute respiratory failure-resolved 3. Paroxysmal A. fib-stable Continue amiodarone 4. Seizure with status epilepticus on arrival-no further seizures in house 5. Hypernatremia-improved Continue D5W 6. Leukocytosis likely reactive Monitor Prophylaxis: Lovenox Discharge plan pending. Needs SNF placement when off restraints Problems: Subjective 24 Hr Interval Summary Constitutional: disoriented Exam/Review of Systems Vital Signs Vitals Vital Signs Date Time Temp Pulse Resp B/P Pulse Ox O2 Delivery O2 Flow Rate FiO2 02/27/17 18:25 98.2 76 129/67 98 Room Air 02/27/17 15:11 17 Intake and Output 02/26/17 02/26/17 02/27/17 15:00 23:00 07:00 Intake Total 1700 ml 100 ml Balance 1700 ml 100 ml Exam Psych: confusion Respiratory: clear to auscultation Cardiovascular: regular rate and rhythm Gastrointestinal: soft, No distended Musculoskeletal: nl extremities to inspection Results Result Diagram: 02/27/17 0630 02/27/17 0630 Results 24 hrs Laboratory Tests Test 02/27/17 06:30 White Blood Count 13.2 H Red Blood Count 3.92 L Hemoglobin 11.5 L Hematocrit 37.1 Mean Corpuscular Volume 94.6 Mean Corpuscular Hemoglobin 29.3 Mean Corpuscular Hemoglobin Concent 31.0 L Red Cell Distribution Width 14.3 Platelet Count 273 Mean Platelet Volume 10.7 H Neutrophils % 69.8 Lymphocytes % 15.7 Monocytes % 10.6 Eosinophils % 2.9 Basophils % 0.5 Nucleated Red Blood Cells % 0.0 Neutrophils # (Manual) 9.2 H Lymphocytes # 2.1 Monocytes # 1.4 H Eosinophils # 0.4 Basophils # 0.1 Nucleated Red Blood Cells # 0.0 Sodium Level 139 Potassium Level 4.2 Chloride Level 107 Carbon Dioxide Level 26 Anion Gap 10 Blood Urea Nitrogen 6 L Creatinine 0.61 Glucose Level 98 Calcium Level 9.1 Medications Medications Current Medications Ondansetron HCl (Zofran Inj) 4 mg Q6H PRN IV NAUSEA AND/OR VOMITING; Start 02/02 at 23:00 Acetaminophen 650 mg 650 mg Q4H PRN [place] PAIN LEVEL 1-3 OR FEVER Last administered on 02/18/17 20:26; Admin Dose 650 MG; Start 02/02/17 at 23:00 Levetiracetam (Keppra 1,000mg/ 100ml (Pmx)) 100 ml @ 400 mls/hr Q12 IVPB Last administered on 02/27/17 08:33; Admin Dose 400 MLS/HR; Start 02/03/17 at 21:00 IV Flush (NS 10 ml) 10 ml PRN PRN IV IV PROTOCOL; Start 02/03/17 at 13:30 Enoxaparin Sodium (Lovenox) 30 mg DAILY SC Last administered on 02/27/17 08:37 ; Admin Dose 30 MG; Start 02/18/17 at 09:00 Hydralazine HCl (Apresoline) 10 mg Q6H PRN IV ELEVATED SBP>160 Last administered on 02/26/17 08:31; Admin Dose 10 MG; Start 02/19/17 at 06:30 Amiodarone HCl (Cordarone) 200 mg DAILY NGT Last administered on 02/27/17 08:34 ; Admin Dose 200 MG; Start 02/21/17 at 09:00 Carvedilol (Coreg) 3.125 mg BID PO Last administered on 02/27/17 08:34; Admin Dose 3.125 MG; Start 02/25/17 at 09:00 Risperidone 0.5 mg 0.5 mg DAILY PO Last administered on 02/27/17 08:34; Admin Dose 0.5 MG; Start 02/27/17 at 09:00 Potassium Chloride/Dextrose/ Sod Cl (D5-1/2ns + KCl 40 Meq) 1,000 ml @ 100 mls/ hr Q10H IV Last administered on 02/27/17 10:48; Admin Dose 100 MLS/HR; Start at 11:00 LETY DOMINGUEZ Feb 27, 2017 19:07
[2017-02-28] VITALS (20 sets, daily range): BP systolic 106–166; BP diastolic 61–88; PULSE 70–93; RESP 18–21
[2017-02-28] MEDS: ACETAMINOPHEN 650 MG SUPP PR PRN (00:58)
[2017-02-28 07:13] LABS: BASOPHIL # 0.1 10^3/ul (0.0-0.1); BASOPHILS % 0.7 % (0.0-2.0); EOSINOPHILS # 0.4 10^3/ul (0.0-0.5); EOSINOPHILS % 4.3 % (0.0-7.0); HEMATOCRIT 37.4 % (37.0-47.0); HEMOGLOBIN 11.7 g/dl (12.0-16.0); LYMPHOCYTES # 2.1 10^3/ul (0.8-2.9); LYMPHOCYTES % 24.5 % (15.0-51.0); MEAN CORPUSCULAR HEMOGLOBIN 29.7 pg (29.0-33.0); MEAN CORPUSCULAR HGB CONC 31.3 g/dl (32.0-37.0); MEAN CORPUSCULAR VOLUME 94.9 fl (82.0-101.0); MEAN PLATELET VOLUME 10.5 fl (7.4-10.4); MONOCYTES % 12.3 % (0.0-11.0); NEUTROPHILS % 57.4 % (39.0-77.0); PLATELET COUNT 262 10^3/UL (140-415); RED BLOOD COUNT 3.94 10^6/ul (4.20-5.40); RED CELL DISTRIBUTION WIDTH 14.4 % (11.5-14.5); WHITE BLOOD COUNT 8.4 10^3/ul (4.8-10.8)
--- NOTE | 2017-02-28 07:16 | CONS ---
Date/Time of Note Date/Time of Note DATE: 02/28/17 TIME: 07:15 Assessment/Plan Assessment/Plan Chief Complaint/Hosp Course Paroxysmal atrial fibrillation with rapid ventricular response - Back and forth between sinus and afib. Most recent afib 02/22. Now back in sinus. Will need to assess anticoagulation candidacy if mentation improves NSTEMI - suspect type 2 Acute on likely chronic systolic heart failure - was back to euvolemic but now mild CHF again from IVF.Resolved with lasix Cardiomyopathy, LVEF 30-35% initially, now normalized (>60%) likely neurocardiogenic from seizures Status post septic shock Possible aspiration pneumonia Tonic-colonic seizure - per neurology Recent cholecystectomy Incomplete data -amio 200mg daily -coreg 3.125mg BID Problems: Consultation Date/Type/Reason Admit Date/Time Feb 02, 2017 at 07:43 Initial Consult Date 02/02/17 Type of Consultation: Cardiology 24 HR Interval Summary Free Text/Dictation No o/n events. Remains confused Exam/Review of Systems Vital Signs Vitals Vital Signs Date Time Temp Pulse Resp B/P Pulse Ox O2 Delivery O2 Flow Rate FiO2 02/28/17 06:00 98.2 70 138/70 98 Room Air 02/28/17 04:00 18 Intake and Output 02/27/17 02/27/17 02/28/17 15:00 23:00 07:00 Intake Total 250 ml 1200 ml Balance 250 ml 1200 ml Exam Constitutional: alert, No distress, No oriented Head: atraumatic, normocephalic Neck: No jvd Respiratory: diminished breath sounds, No clear to auscultation Cardiovascular: regular rate and rhythm, systolic murmur (2/6), No edema Gastrointestinal: non-tender, soft Neurological: No nl mental status, No nl speech Results Result Diagram: 02/27/17 0630 02/27/17 0630 Results 24 hrs Laboratory Tests Test 02/28/17 00:24 02/28/17 04:42 02/28/17 06:14 Bedside Glucose 124 106 White Blood Count Pending Red Blood Count Pending Hemoglobin Pending Hematocrit Pending Mean Corpuscular Volume Pending Mean Corpuscular Hemoglobin Pending Mean Corpuscular Hemoglobin Concent Pending Red Cell Distribution Width Pending Platelet Count Pending Mean Platelet Volume Pending Medications Medications Current Medications Ondansetron HCl (Zofran Inj) 4 mg Q6H PRN IV NAUSEA AND/OR VOMITING; Start 02/02 at 23:00 Acetaminophen 650 mg 650 mg Q4H PRN [place] PAIN LEVEL 1-3 OR FEVER Last administered on 02/28/17 00:58; Admin Dose 650 MG; Start 02/02/17 at 23:00 Levetiracetam (Keppra 1,000mg/ 100ml (Pmx)) 100 ml @ 400 mls/hr Q12 IVPB Last administered on 02/27/17 21:13; Admin Dose 400 MLS/HR; Start 02/03/17 at 21:00 IV Flush (NS 10 ml) 10 ml PRN PRN IV IV PROTOCOL; Start 02/03/17 at 13:30 Enoxaparin Sodium (Lovenox) 30 mg DAILY SC Last administered on 02/27/17 08:37 ; Admin Dose 30 MG; Start 02/18/17 at 09:00 Hydralazine HCl (Apresoline) 10 mg Q6H PRN IV ELEVATED SBP>160 Last administered on 02/26/17 08:31; Admin Dose 10 MG; Start 02/19/17 at 06:30 Amiodarone HCl (Cordarone) 200 mg DAILY NGT Last administered on 02/27/17 08:34 ; Admin Dose 200 MG; Start 02/21/17 at 09:00 Carvedilol (Coreg) 3.125 mg BID PO Last administered on 02/27/17 21:13; Admin Dose 3.125 MG; Start 02/25/17 at 09:00 Risperidone 0.5 mg 0.5 mg DAILY PO Last administered on 02/27/17 08:34; Admin Dose 0.5 MG; Start 02/27/17 at 09:00 Potassium Chloride/Dextrose/ Sod Cl (D5-1/2ns + KCl 40 Meq) 1,000 ml @ 100 mls/ hr Q10H IV Last administered on 02/27/17 22:00; Admin Dose 100 MLS/HR; Start at 11:00 GUSTAVO CORONEL Feb 28, 2017 07:16
[2017-02-28 07:25] LABS: CREATININE 0.68 mg/dl (0.44-1.00); POTASSIUM 4.5 mmol/L (3.5-5.1)
[2017-02-28] MEDS: RISPERIDONE 0.25 MG TAB PO SCH ×2 (09:29→21:39)
[2017-02-28] MEDS: AMIODARONE 200 MG TAB NGT SCH (09:30)
[2017-02-28] MEDS: LEVETIRACETAM 1000 MG (PMX) 100 ML IVPB SCH ×2 (09:47→21:38)
[2017-02-28] MEDS: D5W-0.45 NACL + KCL 40 MEQ 1,000 ML IV SCH (09:48)
[2017-02-28] MEDS: ENOXAPARIN 30 MG/0.3 ML SYG SC SCH (10:03)
--- NOTE | 2017-02-28 15:24 | PN ---
Date/Time of Note Date/Time of Note DATE: 02/28/17 TIME: 15:22 Assessment/Plan VTE Prophylaxis VTE Prophylaxis Intervention: LMWH Lines/Catheters IV Catheter Type (from Nrsg): PICC Line Central line still needed: No Urinary Cath still in place: No Assessment/Plan Chief Complaint/Hosp Course 81 yo female with h/o recent open abdominal surgery for necrotic GB, who presented after prolonged seizure. Received benzos in the field leading to obtundation on arrival and was therefore intubated. Subsequently with A Fib w RVR. Now improved and stable on RA on the floor. Pending placement. NEURO Seizure w status epilepticus on arrival - Continue keppra per neurology - MRI brain - Routine EEG CV: EF has recovered to 60% normal on recent TTE - No strong indication for neurohormonal blockade, will try to limit meds given her delirium/agitation and difficulty with pills Atrial fibrillation paroxysmal with RVR now converted back to NSR - Continue amiodarone, holding AC for now Hypertension: - BP elevated when patient agitated, other reading normal. Trying to hold nonessential meds given delirium/agitation and difficulty taking PO so holding meds for now GI: - s/p open cholecystectomy Delirium: - Started on Risperdal - Hold benzos and opiates if at all possible - Restraints if needed - Behavioral redirection - Need to get assessment of cognitive baseline as she recovers from ICU stay Discharge plan pending. Needs acute rehab. Ready from medical perspective Problems: Subjective 24 Hr Interval Summary Free Text/Dictation Remains with , requiries restraints Exam/Review of Systems Vital Signs Vitals Vital Signs Date Time Temp Pulse Resp B/P Pulse Ox O2 Delivery O2 Flow Rate FiO2 02/28/17 14:14 98.4 75 18 166/82 95 02/28/17 06:00 Room Air Intake and Output 02/27/17 02/27/17 02/28/17 15:00 23:00 07:00 Intake Total 250 ml 1200 ml Balance 250 ml 1200 ml Exam Alert, Nonsensical speech Breathing comfortably No distress Results Result Diagram: 02/28/17 0614 02/28/1714 Results 24 hrs Laboratory Tests Test 02/28/17 00:24 02/28/17 04:42 02/28/17 06:14 Bedside Glucose 124 106 White Blood Count 8.4 # Red Blood Count 3.94 L Hemoglobin 11.7 L Hematocrit 37.4 Mean Corpuscular Volume 94.9 Mean Corpuscular Hemoglobin 29.7 Mean Corpuscular Hemoglobin Concent 31.3 L Red Cell Distribution Width 14.4 Platelet Count 262 Mean Platelet Volume 10.5 H Neutrophils % 57.4 Lymphocytes % 24.5 Monocytes % 12.3 H Eosinophils % 4.3 Basophils % 0.7 Nucleated Red Blood Cells % 0.0 Neutrophils # (Manual) 4.8 Lymphocytes # 2.1 Monocytes # 1.0 H Eosinophils # 0.4 Basophils # 0.1 Nucleated Red Blood Cells # 0.0 Sodium Level 138 Potassium Level 4.5 Chloride Level 106 Carbon Dioxide Level 27 Anion Gap 10 Blood Urea Nitrogen 7 Creatinine 0.68 Glucose Level 100 Calcium Level 9.0 Medications Medications Current Medications Ondansetron HCl (Zofran Inj) 4 mg Q6H PRN IV NAUSEA AND/OR VOMITING; Start 02/02 at 23:00 Acetaminophen 650 mg 650 mg Q4H PRN [place] PAIN LEVEL 1-3 OR FEVER Last administered on 02/28/17 00:58; Admin Dose 650 MG; Start 02/02/17 at 23:00 Levetiracetam (Keppra 1,000mg/ 100ml (Pmx)) 100 ml @ 400 mls/hr Q12 IVPB Last administered on 02/28/17 09:47; Admin Dose 400 MLS/HR; Start 02/03/17 at 21:00 IV Flush (NS 10 ml) 10 ml PRN PRN IV IV PROTOCOL; Start 02/03/17 at 13:30 Enoxaparin Sodium (Lovenox) 30 mg DAILY SC Last administered on 02/28/17 10:03 ; Admin Dose 30 MG; Start 02/18/17 at 09:00 Hydralazine HCl (Apresoline) 10 mg Q6H PRN IV ELEVATED SBP>160 Last administered on 02/26/17 08:31; Admin Dose 10 MG; Start 02/19/17 at 06:30 Amiodarone HCl (Cordarone) 200 mg DAILY NGT Last administered on 02/28/17 09:30 ; Admin Dose 200 MG; Start 02/21/17 at 09:00 Carvedilol (Coreg) 3.125 mg BID PO Last administered on 02/28/17 09:30; Admin Dose 3.125 MG; Start 02/25/17 at 09:00 Risperidone (Risperdal) 0.5 mg DAILY PO Last administered on 02/28/17 09:29; Admin Dose 0.5 MG; Start 02/27/17 at 09:00 MARICHUY DUBON MD Feb 28, 2017 15:24
[2017-02-28] MEDS ORDERED: RISPERIDONE 0.25 MG TAB PO ONE (17:00)
[2017-03-01] VITALS (16 sets, daily range): BP systolic 101–132; BP diastolic 56–77; PULSE 75–106; RESP 14–20
--- NOTE | 2017-03-01 08:02 | CONS ---
Date/Time of Note Date/Time of Note DATE: 03/01/17 TIME: 08:01 Assessment/Plan Assessment/Plan Chief Complaint/Hosp Course Paroxysmal atrial fibrillation with rapid ventricular response - Back and forth between sinus and afib. Most recent afib 02/22. Now back in sinus. 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 No afib. remains confused Exam/Review of Systems Vital Signs Vitals Vital Signs Date Time Temp Pulse Resp B/P Pulse Ox O2 Delivery O2 Flow Rate FiO2 03/01/17 07:51 97.8 88 19 132/77 94 03/01/17 04:52 Room Air Intake and Output 02/28/17 02/28/17 03/01/17 15:00 23:00 07:00 Intake Total 1330 ml Balance 1330 ml Exam Constitutional: alert, No oriented Psych: confusion Head: atraumatic, normocephalic Neck: No jvd Respiratory: clear to auscultation, diminished breath sounds, No crackles/rales Cardiovascular: regular rate and rhythm, systolic murmur (2/6 KAMRYN), No edema Gastrointestinal: non-tender, soft Neurological: No nl mental status, No nl speech Results Result Diagram: 02/28/1761302/28/17613 Medications Medications Current Medications Ondansetron HCl (Zofran Inj) 4 mg Q6H PRN IV NAUSEA AND/OR VOMITING; Start 02/02 at 23:00 Acetaminophen 650 mg 650 mg Q4H PRN [place] PAIN LEVEL 1-3 OR FEVER Last administered on 02/28/17t 00:58; Admin Dose 650 MG; Start 02/02/17 at 23:00 Levetiracetam (Keppra 1,000mg/ 100ml (Pmx)) 100 ml @ 400 mls/hr Q12 IVPB Last administered on 02/28/17 21:38; Admin Dose 400 MLS/HR; Start 02/03/17 at 21:00 IV Flush (NS 10 ml) 10 ml PRN PRN IV IV PROTOCOL; Start 02/03/17 at 13:30 Enoxaparin Sodium (Lovenox) 30 mg DAILY SC Last administered on 02/28/17 10:03 ; Admin Dose 30 MG; Start 02/18/17 at 09:00 Hydralazine HCl (Apresoline) 10 mg Q6H PRN IV ELEVATED SBP>160 Last administered on 02/26/17 08:31; Admin Dose 10 MG; Start 02/19/17 at 06:30 Amiodarone HCl (Cordarone) 200 mg DAILY NGT Last administered on 02/28/17 09:30 ; Admin Dose 200 MG; Start 02/21/17 at 09:00 Carvedilol (Coreg) 3.125 mg BID PO Last administered on 02/28/17 21:40; Admin Dose 3.125 MG; Start 02/25/17 at 09:00 Risperidone (Risperdal) 0.5 mg BID PO Last administered on 02/28/17 21:39; Admin Dose 0.5 MG; Start 02/28/17 at 21:00 GUSTAVO CORONEL Mar 01, 2017 08:02
[2017-03-01] MEDS: LEVETIRACETAM 1000 MG (PMX) 100 ML IVPB SCH ×2 (08:32→21:40)
[2017-03-01] MEDS: RISPERIDONE 0.25 MG TAB PO SCH ×2 (08:35→22:54)
[2017-03-01] MEDS: AMIODARONE 200 MG TAB NGT SCH (08:38)
[2017-03-01] MEDS: ENOXAPARIN 30 MG/0.3 ML SYG SC SCH (09:12)
--- NOTE | 2017-03-01 17:04 | PN ---
Date/Time of Note Date/Time of Note DATE: 03/01/17 TIME: 17:03 Assessment/Plan VTE Prophylaxis VTE Prophylaxis Intervention: LMWH Lines/Catheters IV Catheter Type (from Nrsg): PICC Line Central line still needed: No Urinary Cath still in place: No Assessment/Plan Chief Complaint/Hosp Course 81 yo female with h/o recent open abdominal surgery for necrotic GB, who presented after prolonged seizure. Received benzos in the field leading to obtundation on arrival and was therefore intubated. Subsequently with A Fib w RVR. Now improved and stable on RA on the floor. Pending placement. NEURO Seizure w status epilepticus on arrival - Continue keppra per neurology - MRI brain - Routine EEG CV: EF has recovered to 60% normal on recent TTE - No strong indication for neurohormonal blockade, will try to limit meds given her delirium/agitation and difficulty with pills Atrial fibrillation paroxysmal with RVR now converted back to NSR - Continue amiodarone, holding AC for now Hypertension: - Coreg 3.25 GI: - s/p open cholecystectomy Delirium: - Started on Risperdal - Hold benzos and opiates if at all possible - Restraints if needed - Behavioral redirection - Need to get assessment of cognitive baseline as she recovers from ICU stay Discharge plan pending. Needs acute rehab. Ready from medical perspective Problems: Subjective 24 Hr Interval Summary Free Text/Dictation Awaiting placement Still w delirium/agitation Exam/Review of Systems Vital Signs Vitals Vital Signs Date Time Temp Pulse Resp B/P Pulse Ox O2 Delivery O2 Flow Rate FiO2 03/01/17 16:12 75 03/01/17 16:00 97.8 16 117/56 96 Room Air Intake and Output 02/28/17 02/28/17 03/01/17 15:00 23:00 07:00 Intake Total 1330 ml Balance 1330 ml Exam Constitutional: alert, oriented, well developed Results Result Diagram: 02/28/17 0614 02/28/17 0614 Medications Medications Current Medications Ondansetron HCl (Zofran Inj) 4 mg Q6H PRN IV NAUSEA AND/OR VOMITING; Start 02/02 at 23:00 Acetaminophen 650 mg 650 mg Q4H PRN [place] PAIN LEVEL 1-3 OR FEVER Last administered on 02/28/17t 00:58; Admin Dose 650 MG; Start 02/02/17 at 23:00 Levetiracetam (Keppra 1,000mg/ 100ml (Pmx)) 100 ml @ 400 mls/hr Q12 IVPB Last administered on 03/01/17 08:32; Admin Dose 400 MLS/HR; Start 02/03/17 at 21:00 IV Flush (NS 10 ml) 10 ml PRN PRN IV IV PROTOCOL; Start 02/03/17 at 13:30 Enoxaparin Sodium (Lovenox) 30 mg DAILY SC Last administered on 03/01/17 09:12 ; Admin Dose 30 MG; Start 02/18/17 at 09:00 Hydralazine HCl (Apresoline) 10 mg Q6H PRN IV ELEVATED SBP>160 Last administered on 02/26/17 08:31; Admin Dose 10 MG; Start 02/19/17 at 06:30 Amiodarone HCl (Cordarone) 200 mg DAILY NGT Last administered on 03/01/17 08:38 ; Admin Dose 200 MG; Start 02/21/17 at 09:00 Carvedilol (Coreg) 3.125 mg BID PO Last administered on 03/01/17 08:35; Admin Dose 3.125 MG; Start 02/25/17 at 09:00 Risperidone (Risperdal) 0.5 mg BID PO Last administered on 03/01/17 08:35; Admin Dose 0.5 MG; Start 02/28/17 at 21:00 MARICHUY DUBON MD Mar 01, 2017 17:04
[2017-03-02] VITALS (10 sets, daily range): BP systolic 118–125; BP diastolic 58–68; PULSE 70–81; RESP 17–20
[2017-03-02] MEDS: AMIODARONE 200 MG TAB NGT SCH (08:42)
[2017-03-02] MEDS: RISPERIDONE 0.25 MG TAB PO SCH (08:42)
[2017-03-02] MEDS: ENOXAPARIN 30 MG/0.3 ML SYG SC SCH (08:56)
[2017-03-02] MEDS: LEVETIRACETAM 1000 MG (PMX) 100 ML IVPB SCH ×2 (08:57→21:55)
--- NOTE | 2017-03-02 11:39 | CONS ---
Date/Time of Note Date/Time of Note DATE: 03/02/17 TIME: 11:38 Assessment/Plan Assessment/Plan Chief Complaint/Hosp Course Paroxysmal atrial fibrillation with rapid ventricular response - Back and forth between sinus and afib. Most recent afib 02/22. Now back in sinus. 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 Worked with PT apparently. More cooperative. Exam/Review of Systems Vital Signs Vitals Vital Signs Date Time Temp Pulse Resp B/P Pulse Ox O2 Delivery O2 Flow Rate FiO2 03/02/17 11:19 97.7 73 18 120/64 94 03/01/17 16:00 Room Air Intake and Output 03/01/17 03/01/17 03/02/17 15:00 23:00 07:00 Intake Total 100 ml 280 ml Balance 100 ml 280 ml Exam Constitutional: alert, No distress, No oriented Head: atraumatic, normocephalic Neck: No jvd Respiratory: clear to auscultation, No crackles/rales Cardiovascular: regular rate and rhythm, systolic murmur (2/6 KAMRYN), No edema Gastrointestinal: non-tender, soft Musculoskeletal: nl extremities to inspection Neurological: No nl mental status Results Result Diagram: 02/28/1761302/28/17613 Medications Medications Current Medications Ondansetron HCl (Zofran Inj) 4 mg Q6H PRN IV NAUSEA AND/OR VOMITING; Start 02/02 at 23:00 Acetaminophen 650 mg 650 mg Q4H PRN [place] PAIN LEVEL 1-3 OR FEVER Last administered on 02/28/17t 00:58; Admin Dose 650 MG; Start 02/02/17 at 23:00 Levetiracetam (Keppra 1,000mg/ 100ml (Pmx)) 100 ml @ 400 mls/hr Q12 IVPB Last administered on 03/02/17 08:57; Admin Dose 400 MLS/HR; Start 02/03/17 at 21:00 IV Flush (NS 10 ml) 10 ml PRN PRN IV IV PROTOCOL; Start 02/03/17 at 13:30 Enoxaparin Sodium (Lovenox) 30 mg DAILY SC Last administered on 03/02/17 08:56 ; Admin Dose 30 MG; Start 02/18/17 at 09:00 Hydralazine HCl (Apresoline) 10 mg Q6H PRN IV ELEVATED SBP>160 Last administered on 02/26/17 08:31; Admin Dose 10 MG; Start 02/19/17 at 06:30 Amiodarone HCl (Cordarone) 200 mg DAILY NGT Last administered on 03/02/17 08:42 ; Admin Dose 200 MG; Start 02/21/17 at 09:00 Carvedilol (Coreg) 3.125 mg BID PO Last administered on 03/02/17 08:41; Admin Dose 3.125 MG; Start 02/25/17 at 09:00 Risperidone (Risperdal) 0.5 mg BID PO Last administered on 03/02/17 08:42; Admin Dose 0.5 MG; Start 02/28/17 at 21:00 GUSTAVO CORONEL Mar 02, 2017 11:39
--- NOTE | 2017-03-02 14:46 | PN ---
Date/Time of Note Date/Time of Note DATE: 03/02/17 TIME: 14:43 Assessment/Plan VTE Prophylaxis VTE Prophylaxis Intervention: LMWH Lines/Catheters IV Catheter Type (from Nrsg): PICC Line Central line still needed: No Urinary Cath still in place: No Assessment/Plan Chief Complaint/Hosp Course 81 yo female with h/o recent open abdominal surgery for necrotic GB, who presented after prolonged seizure. Received benzos in the field leading to obtundation on arrival and was therefore intubated. Subsequently with A Fib w RVR. Now improved and stable on RA on the floor. Pending placement. NEURO Seizure w status epilepticus on arrival - Continue keppra per neurology - MRI brain - Routine EEG CV: EF has recovered to 60% normal on recent TTE - No strong indication for neurohormonal blockade, will try to limit meds given her delirium/agitation and difficulty with pills Atrial fibrillation paroxysmal with RVR now converted back to NSR - Continue amiodarone, holding AC for now Hypertension: - Coreg 3.25 GI: - s/p open cholecystectomy Delirium: - Started on Risperdal now oversedated, hold for now - Hold benzos and opiates if at all possible - NO RESTRAINTS - Behavioral redirection - Need to get assessment of cognitive baseline as she recovers from ICU stay Discharge plan pending. Needs acute rehab. Ready from medical perspective Problems: Subjective 24 Hr Interval Summary Free Text/Dictation Patient responded well to rispderal, no more agitation but today a bit oversedated I spoke at length with her son in law Richard. He feels she is improving her and her cognition is returning to baseline He agrees with transfer to [facility] at [facility], however literally pleads with me to keep her in the hospital over the weekend as he is familiary with that facility and thinks she will be left in bed all weekend without moving Exam/Review of Systems Vital Signs Vitals Vital Signs Date Time Temp Pulse Resp B/P Pulse Ox O2 Delivery O2 Flow Rate FiO2 03/02/17 12:00 70 03/02/17 11:19 97.7 18 120/64 94 03/01/17 16:00 Room Air Intake and Output 03/01/17 03/01/17 03/02/17 15:00 23:00 07:00 Intake Total 100 ml 280 ml Balance 100 ml 280 ml Results Result Diagram: 02/28/1761302/28/17613 Medications Medications Current Medications Ondansetron HCl (Zofran Inj) 4 mg Q6H PRN IV NAUSEA AND/OR VOMITING; Start 02/02 at 23:00 Acetaminophen 650 mg 650 mg Q4H PRN [place] PAIN LEVEL 1-3 OR FEVER Last administered on 02/28/17 00:58; Admin Dose 650 MG; Start 02/02/17 at 23:00 Levetiracetam (Keppra 1,000mg/ 100ml (Pmx)) 100 ml @ 400 mls/hr Q12 IVPB Last administered on 03/02/17 08:57; Admin Dose 400 MLS/HR; Start 02/03/17 at 21:00 IV Flush (NS 10 ml) 10 ml PRN PRN IV IV PROTOCOL; Start 02/03/17 at 13:30 Enoxaparin Sodium (Lovenox) 30 mg DAILY SC Last administered on 03/02/17 08:56 ; Admin Dose 30 MG; Start 02/18/17 at 09:00 Hydralazine HCl (Apresoline) 10 mg Q6H PRN IV ELEVATED SBP>160 Last administered on 02/26/17 08:31; Admin Dose 10 MG; Start 02/19/17 at 06:30 Amiodarone HCl (Cordarone) 200 mg DAILY NGT Last administered on 03/02/17 08:42 ; Admin Dose 200 MG; Start 02/21/17 at 09:00 Carvedilol (Coreg) 3.125 mg BID PO Last administered on 03/02/17 08:41; Admin Dose 3.125 MG; Start 02/25/17 at 09:00 Risperidone (Risperdal) 0.5 mg BID PO Last administered on 03/02/17 08:42; Admin Dose 0.5 MG; Start 02/28/17 at 21:00 MARICHUY DUBON MD Mar 02, 2017 14:45
[2017-03-03] MEDS: ALTEPLASE (CATHFLO) 2 MG INJ CATHETER PRN (00:13)
[2017-03-03 01:23] VITALS: BP 129/64; RESP 20
[2017-03-03 07:26] VITALS: BP 143/77; RESP 22
--- NOTE | 2017-03-03 08:26 | CONS ---
Date/Time of Note Date/Time of Note DATE: 03/03/17 TIME: 08:25 Assessment/Plan Assessment/Plan Chief Complaint/Hosp Course Paroxysmal atrial fibrillation with rapid ventricular response - Back and forth between sinus and afib. Most recent afib 02/22. Now back in sinus. 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 Appears to be more coherent and less confused. Exam/Review of Systems Vital Signs Vitals Vital Signs Date Time Temp Pulse Resp B/P Pulse Ox O2 Delivery O2 Flow Rate FiO2 03/03/17 07:26 97.6 83 22 143/77 98 03/02/17 16:09 21 03/01/17 16:00 Room Air Intake and Output 03/02/17 03/02/17 03/03/17 15:00 23:00 07:00 Intake Total 700 ml 240 ml Balance 700 ml 240 ml Exam Constitutional: alert, No oriented Psych: nl mood/affect, no complaints Head: atraumatic, normocephalic Neck: No jvd Respiratory: clear to auscultation, diminished breath sounds, No crackles/rales Cardiovascular: regular rate and rhythm, systolic murmur (2/6 KAMRYN), No edema Gastrointestinal: non-tender, soft Neurological: nl speech, No nl mental status Results Result Diagram: 02/28/1761302/28/17613 Medications Medications Current Medications Ondansetron HCl (Zofran Inj) 4 mg Q6H PRN IV NAUSEA AND/OR VOMITING; Start 02/02 at 23:00 Acetaminophen 650 mg 650 mg Q4H PRN [place] PAIN LEVEL 1-3 OR FEVER Last administered on 02/28/17t 00:58; Admin Dose 650 MG; Start 02/02/17 at 23:00 Levetiracetam (Keppra 1,000mg/ 100ml (Pmx)) 100 ml @ 400 mls/hr Q12 IVPB Last administered on 03/02/17 21:55; Admin Dose 400 MLS/HR; Start 02/03/17 at 21:00 IV Flush (NS 10 ml) 10 ml PRN PRN IV IV PROTOCOL; Start 02/03/17 at 13:30 Enoxaparin Sodium (Lovenox) 30 mg DAILY SC Last administered on 03/02/17 08:56 ; Admin Dose 30 MG; Start 02/18/17 at 09:00 Hydralazine HCl (Apresoline) 10 mg Q6H PRN IV ELEVATED SBP>160 Last administered on 02/26/17 08:31; Admin Dose 10 MG; Start 02/19/17 at 06:30 Amiodarone HCl (Cordarone) 200 mg DAILY NGT Last administered on 03/02/17 08:42 ; Admin Dose 200 MG; Start 02/21/17 at 09:00 Carvedilol (Coreg) 3.125 mg BID PO Last administered on 03/02/17 21:13; Admin Dose 3.125 MG; Start 02/25/17 at 09:00 GUSTAVO CORONEL Mar 03, 2017 08:26
[2017-03-03] MEDS: AMIODARONE 200 MG TAB NGT SCH (08:38)
[2017-03-03] MEDS: ENOXAPARIN 30 MG/0.3 ML SYG SC SCH (08:47)
[2017-03-03] MEDS: LEVETIRACETAM 1000 MG (PMX) 100 ML IVPB SCH (10:12)
[2017-03-03 13:10] VITALS: BP 131/61; RESP 28
--- NOTE | 2017-03-03 16:40 | PN ---
Date/Time of Note Date/Time of Note DATE: 03/03/17 TIME: 16:39 Assessment/Plan VTE Prophylaxis VTE Prophylaxis Intervention: LMWH Lines/Catheters IV Catheter Type (from Nrsg): PICC Line Central line still needed: Yes Urinary Cath still in place: No Assessment/Plan Chief Complaint/Hosp Course 81 yo female with h/o recent open abdominal surgery for necrotic GB, who presented after prolonged seizure. Received benzos in the field leading to obtundation on arrival and was therefore intubated. Subsequently with A Fib w RVR. S/p long intubation. Now improved and stable on RA on the floor. Pending placement. Dementia present. Seizure w status epilepticus on arrival - Continue keppra 500 BID CV: EF has recovered to 60% normal on recent TTE - No strong indication for neurohormonal blockade, will try to limit meds given her delirium/agitation and difficulty with pills Atrial fibrillation paroxysmal with RVR now converted back to NSR - Continue amiodarone, holding AC for now Hypertension: - Coreg 3.25 GI: - s/p open cholecystectomy Delirium: - Started on Risperdal now oversedated, hold for now - Hold benzos and opiates if at all possible - NO RESTRAINTS - Behavioral redirection - Need to get assessment of cognitive baseline as she recovers from ICU stay Discharge plan pending. Needs acute rehab. Ready from medical perspective Problems: Subjective 24 Hr Interval Summary Free Text/Dictation Patient calm, appears comfortable Pending transfer to SNF Exam/Review of Systems Vital Signs Vitals Vital Signs Date Time Temp Pulse Resp B/P Pulse Ox O2 Delivery O2 Flow Rate FiO2 03/03/17 14:39 21 03/03/17 13:10 97.6 77 28 131/61 97 03/01/17 16:00 Room Air Intake and Output 03/02/17 03/02/17 03/03/17 15:00 23:00 07:00 Intake Total 700 ml 240 ml Balance 700 ml 240 ml Exam Constitutional: alert, oriented, well developed Results Result Diagram: 02/28/17 0614 02/28/17 0614 Medications Medications Current Medications Ondansetron HCl (Zofran Inj) 4 mg Q6H PRN IV NAUSEA AND/OR VOMITING; Start 02/02 at 23:00 Acetaminophen (Tylenol Supp) 650 mg Q4H PRN [place] PAIN LEVEL 1-3 OR FEVER Last administered on 02/28/17 00:58; Admin Dose 650 MG; Start 02/02/17 at 23:00 IV Flush (NS 10 ml) 10 ml PRN PRN IV IV PROTOCOL; Start 02/03/17 at 13:30 Enoxaparin Sodium (Lovenox) 30 mg DAILY SC Last administered on 03/03/17 08:47 ; Admin Dose 30 MG; Start 02/18/17 at 09:00 Amiodarone HCl (Cordarone) 200 mg DAILY NGT Last administered on 03/03/17 08:38 ; Admin Dose 200 MG; Start 02/21/17 at 09:00 Carvedilol (Coreg) 3.125 mg BID PO Last administered on 03/03/17 08:39; Admin Dose 3.125 MG; Start 02/25/17 at 09:00 Levetiracetam (Keppra) 500 mg BID PO ; Start 03/03/17 at 21:00 MARICHUY DUBON MD Mar 03, 2017 16:40
[2017-03-03 19:24] VITALS: BP 129/68; RESP 20
[2017-03-03] MEDS: LEVETIRACETAM 500 MG TAB PO SCH (21:53)
[2017-03-04 01:27] VITALS: BP 110/60; RESP 20
[2017-03-04 07:41] VITALS: BP 133/62; RESP 16
[2017-03-04] MEDS: LEVETIRACETAM 500 MG TAB PO SCH ×2 (08:35→23:02)
[2017-03-04] MEDS: AMIODARONE 200 MG TAB NGT SCH (08:35)
[2017-03-04] MEDS: ENOXAPARIN 30 MG/0.3 ML SYG SC SCH (08:42)
--- NOTE | 2017-03-04 12:55 | CONS ---
Date/Time of Note Date/Time of Note DATE: 03/04/17 TIME: 12:55 Assessment/Plan Assessment/Plan Chief Complaint/Hosp Course Paroxysmal atrial fibrillation with rapid ventricular response - Back and forth between sinus and afib. Most recent afib 02/22. Now back in sinus. 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 Exam/Review of Systems Vital Signs Vitals Vital Signs Date Time Temp Pulse Resp B/P Pulse Ox O2 Delivery O2 Flow Rate FiO2 03/04/17 07:41 97.8 71 16 133/62 97 03/03/17 14:39 21 03/01/17 16:00 Room Air Intake and Output 03/03/17 03/03/17 03/04/17 15:00 23:00 07:00 Intake Total 820 ml 240 ml Balance 820 ml 240 ml Exam Constitutional: alert, No oriented Head: atraumatic, normocephalic Neck: No jvd Respiratory: clear to auscultation, No crackles/rales Cardiovascular: regular rate and rhythm, systolic murmur (2/6 KAMRYN), No edema Gastrointestinal: non-tender, soft Neurological: No nl mental status, No nl speech Results Result Diagram: 02/28/1761302/28/17613 Medications Medications Current Medications Ondansetron HCl (Zofran Inj) 4 mg Q6H PRN IV NAUSEA AND/OR VOMITING; Start 02/02 at 23:00 Acetaminophen (Tylenol Supp) 650 mg Q4H PRN [place] PAIN LEVEL 1-3 OR FEVER Last administered on 02/28/17t 00:58; Admin Dose 650 MG; Start 02/02/17 at 23:00 IV Flush (NS 10 ml) 10 ml PRN PRN IV IV PROTOCOL; Start 02/03/17 at 13:30 Enoxaparin Sodium (Lovenox) 30 mg DAILY SC Last administered on 03/04/17 08:42 ; Admin Dose 30 MG; Start 02/18/17 at 09:00 Amiodarone HCl (Cordarone) 200 mg DAILY NGT Last administered on 03/04/17 08:35 ; Admin Dose 200 MG; Start 02/21/17 at 09:00 Carvedilol (Coreg) 3.125 mg BID PO Last administered on 03/04/17 08:36; Admin Dose 3.125 MG; Start 02/25/17 at 09:00 Levetiracetam (Keppra) 500 mg BID PO Last administered on 03/04/17 08:35; Admin Dose 500 MG; Start 03/03/17 at 21:00 GUSTAVO CORONEL Mar 04, 2017 12:55
[2017-03-04 14:11] VITALS: BP 116/56; RESP 16
--- NOTE | 2017-03-04 16:04 | PN ---
Date/Time of Note Date/Time of Note DATE: 03/04/17 TIME: 16:03 Assessment/Plan VTE Prophylaxis VTE Prophylaxis Intervention: LMWH Lines/Catheters IV Catheter Type (from Nrs): PICC Line Central line still needed: No Urinary Cath still in place: No Assessment/Plan Chief Complaint/Hosp Course 81 yo female with h/o recent open abdominal surgery for necrotic GB, who presented after prolonged seizure. Received benzos in the field leading to obtundation on arrival and was therefore intubated. Subsequently with A Fib w RVR. S/p long intubation. Now improved and stable on RA on the floor. Pending placement. Dementia present. Seizure w status epilepticus on arrival - Continue keppra 500 BID CV: EF has recovered to 60% normal on recent TTE - No strong indication for neurohormonal blockade, will try to limit meds given her delirium/agitation and difficulty with pills Atrial fibrillation paroxysmal with RVR now converted back to NSR - Continue amiodarone, holding AC for now Hypertension: - Coreg 3.25 GI: - s/p open cholecystectomy Delirium: - Started on Risperdal now oversedated, hold for now - Hold benzos and opiates if at all possible - NO RESTRAINTS - Behavioral redirection - Need to get assessment of cognitive baseline as she recovers from ICU stay Discharge plan pending. Needs acute rehab. Ready from medical perspective Problems: Subjective 24 Hr Interval Summary Free Text/Dictation No events, no change to clinical status Awaiting transfer this weekend to facility Exam/Review of Systems Vital Signs Vitals Vital Signs Date Time Temp Pulse Resp B/P Pulse Ox O2 Delivery O2 Flow Rate FiO2 03/04/17 14:11 98.4 69 16 116/56 94 03/03/17 14:39 21 03/01/17 16:00 Room Air Intake and Output 03/03/17 03/03/17 03/04/17 15:00 23:00 07:00 Intake Total 820 ml 240 ml Balance 820 ml 240 ml Exam Constitutional: alert, oriented, well developed Psych: nl mood/affect, no complaints Head: atraumatic, normocephalic Eyes: EOMI, PERRL, nl conjunctiva, nl lids, nl sclera ENMT: nl external ears & nose, nl lips & teeth, nl nasal mucosa & septum Neck: non-tender, supple Respiratory: clear to auscultation, normal air movement Cardiovascular: nl pulses, regular rate and rhythm Gastrointestinal: nl liver, spleen, non-tender, soft Musculoskeletal: nl extremities to inspection, nl gait and stance Extremities: normal pulses Neurological: FLOOR HAND II-XII intact, nl mental status, nl speech, nl strength Skin: nl turgor, No rash or lesions Lymph: nl lymph nodes Results Result Diagram: 02/28/1761302/28/17613 Medications Medications Current Medications Ondansetron HCl (Zofran Inj) 4 mg Q6H PRN IV NAUSEA AND/OR VOMITING; Start 02/02 at 23:00 Acetaminophen (Tylenol Supp) 650 mg Q4H PRN [place] PAIN LEVEL 1-3 OR FEVER Last administered on 02/28/17 00:58; Admin Dose 650 MG; Start 02/02/17 at 23:00 IV Flush (NS 10 ml) 10 ml PRN PRN IV IV PROTOCOL; Start 02/03/17 at 13:30 Enoxaparin Sodium (Lovenox) 30 mg DAILY SC Last administered on 03/04/17 08:42 ; Admin Dose 30 MG; Start 02/18/17 at 09:00 Amiodarone HCl (Cordarone) 200 mg DAILY NGT Last administered on 03/04/17 08:35 ; Admin Dose 200 MG; Start 02/21/17 at 09:00 Carvedilol (Coreg) 3.125 mg BID PO Last administered on 03/04/17 08:36; Admin Dose 3.125 MG; Start 02/25/17 at 09:00 Levetiracetam (Keppra) 500 mg BID PO Last administered on 03/04/17 08:35; Admin Dose 500 MG; Start 03/03/17 at 21:00 MARICHUY DUBON MD Mar 04, 2017 16:04
[2017-03-04] MEDS ORDERED: RISPERIDONE 0.25 MG TAB PO PRN (18:00)
[2017-03-04] MEDS: ACETAMINOPHEN 325 MG TAB PO PRN (19:12)
[2017-03-04 20:47] VITALS: BP 113/59; RESP 18
[2017-03-05] MEDS ORDERED: LORAZEPAM 2 MG INJ ONE (00:16)
[2017-03-05] MEDS ORDERED: LORAZEPAM 2 MG INJ IV ONE ×2 (00:30→23:30)
[2017-03-05 02:56] VITALS: BP 112/52; RESP 18
[2017-03-05 07:19] VITALS: BP 123/59; RESP 18
[2017-03-05] MEDS: LEVETIRACETAM 500 MG TAB PO SCH ×2 (08:00→20:10)
[2017-03-05] MEDS: AMIODARONE 200 MG TAB NGT SCH (08:01)
[2017-03-05] MEDS: ENOXAPARIN 30 MG/0.3 ML SYG SC SCH (08:06)
--- NOTE | 2017-03-05 10:02 | CONS ---
Date/Time of Note Date/Time of Note DATE: 03/05/17 TIME: 10:01 Assessment/Plan Assessment/Plan Chief Complaint/Hosp Course Paroxysmal atrial fibrillation with rapid ventricular response - Back and forth between sinus and afib. Most recent afib 02/22. Now back in sinus. 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 Seems to be more coherent and appropriately interactive today Exam/Review of Systems Vital Signs Vitals Vital Signs Date Time Temp Pulse Resp B/P Pulse Ox O2 Delivery O2 Flow Rate FiO2 03/05/17 07:19 97.7 69 18 123/59 95 03/03/17 14:39 21 03/01/17 16:00 Room Air Intake and Output 03/04/17 03/04/17 03/05/17 15:00 23:00 07:00 Intake Total 780 ml 360 ml Output Total 650 ml Balance 780 ml -290 ml Exam Constitutional: alert, No distress Psych: no complaints Head: atraumatic, normocephalic Neck: No jvd Respiratory: clear to auscultation Cardiovascular: regular rate and rhythm, systolic murmur (2/6), No edema Gastrointestinal: non-tender, soft Neurological: nl mental status, nl speech Medications Medications Current Medications Ondansetron HCl (Zofran Inj) 4 mg Q6H PRN IV NAUSEA AND/OR VOMITING; Start 02/02 at 23:00 Acetaminophen (Tylenol Supp) 650 mg Q4H PRN [place] PAIN LEVEL 1-3 OR FEVER Last administered on 02/28/17 00:58; Admin Dose 650 MG; Start 02/02/17 at 23:00 IV Flush (NS 10 ml) 10 ml PRN PRN IV IV PROTOCOL; Start 02/03/17 at 13:30 Enoxaparin Sodium (Lovenox) 30 mg DAILY SC Last administered on 03/05/17 08:06 ; Admin Dose 30 MG; Start 02/18/17 at 09:00 Amiodarone HCl (Cordarone) 200 mg DAILY NGT Last administered on 03/05/17 08:01 ; Admin Dose 200 MG; Start 02/21/17 at 09:00 Carvedilol (Coreg) 3.125 mg BID PO Last administered on 03/05/17 08:02; Admin Dose 3.125 MG; Start 02/25/17 at 09:00 Levetiracetam (Keppra) 500 mg BID PO Last administered on 03/05/17 08:00; Admin Dose 500 MG; Start 03/03/17 at 21:00 Acetaminophen (Tylenol Tab) 650 mg Q6H PRN PO PAIN AND OR ELEVATED TEMP Last administered on 03/04/17 19:12; Admin Dose 650 MG; Start 03/04/17 at 19:30 GUSTAVO CORONEL Mar 05, 2017 10:01
[2017-03-05 14:35] VITALS: BP 131/69; RESP 18
--- NOTE | 2017-03-05 16:34 | PN ---
Date/Time of Note Date/Time of Note DATE: 03/05/17 TIME: 16:33 Assessment/Plan VTE Prophylaxis VTE Prophylaxis Intervention: LMWH Lines/Catheters IV [facility] Type (from [facility] PICC Line Urinary Cath still in place: No Assessment/Plan Chief Complaint/Hosp Course 81 yo female with h/o recent open abdominal surgery for necrotic GB, who presented after prolonged seizure. Received benzos in the field leading to obtundation on arrival and was therefore intubated. Subsequently with A Fib w RVR. S/p long intubation. Now improved and stable on RA on the floor. Pending placement. Dementia present. Seizure w status epilepticus on arrival - Continue keppra 500 BID CV: EF has recovered to 60% normal on recent TTE - No strong indication for neurohormonal blockade, will try to limit meds given her delirium/agitation and difficulty with pills Atrial fibrillation paroxysmal with RVR now converted back to NSR - Continue amiodarone, holding AC for now Hypertension: - Coreg 3.25 GI: - s/p open cholecystectomy Delirium: - Started on Risperdal now oversedated, hold for now - Hold benzos and opiates if at all possible - NO RESTRAINTS - Behavioral redirection - Need to get assessment of cognitive baseline as she recovers from ICU stay Discharge plan pending. Needs acute rehab. Ready from medical perspective Problems: Subjective 24 Hr Interval Summary Free Text/Dictation Patient is calm, no change to clinical status Transferring to SNF tomorrow Exam/Review of Systems Vital Signs Vitals Vital Signs Date Time Temp Pulse Resp B/P Pulse Ox O2 Delivery O2 Flow Rate FiO2 03/05/17 14:35 97.8 68 18 131/69 95 03/03/17 14:39 21 03/01/17 16:00 Room Air Intake and Output 03/04/17 03/04/17 03/05/17 15:00 23:00 07:00 Intake Total 780 ml 360 ml Output Total 650 ml Balance 780 ml -290 ml Exam Constitutional: alert, oriented, well developed Psych: nl mood/affect, no complaints Head: atraumatic, normocephalic Eyes: EOMI, PERRL, nl conjunctiva, nl lids, nl sclera ENMT: nl external ears & nose, nl lips & teeth, nl nasal mucosa & septum Neck: non-tender, supple Respiratory: clear to auscultation, normal air movement Cardiovascular: nl pulses, regular rate and rhythm Gastrointestinal: nl liver, spleen, non-tender, soft Musculoskeletal: nl extremities to inspection, nl gait and stance Extremities: normal pulses Neurological: STRATEGIC PLANNING ANALYST II-XII intact, nl mental status, nl speech, nl strength Skin: nl turgor, No rash or lesions Lymph: nl lymph nodes Medications Medications Current Medications Ondansetron HCl (Zofran Inj) 4 mg Q6H PRN IV NAUSEA AND/OR VOMITING; Start 02/02 at 23:00 Acetaminophen (Tylenol Supp) 650 mg Q4H PRN [place] PAIN LEVEL 1-3 OR FEVER Last administered on 02/28/17 00:58; Admin Dose 650 MG; Start 02/02/17 at 23:00 IV Flush (NS 10 ml) 10 ml PRN PRN IV IV PROTOCOL; Start 02/03/17 at 13:30 Enoxaparin Sodium (Lovenox) 30 mg DAILY SC Last administered on 03/05/17 08:06 ; Admin Dose 30 MG; Start 02/18/17 at 09:00 Amiodarone HCl (Cordarone) 200 mg DAILY NGT Last administered on 03/05/17 08:01 ; Admin Dose 200 MG; Start 02/21/17 at 09:00 Carvedilol (Coreg) 3.125 mg BID PO Last administered on 03/05/17 08:02; Admin Dose 3.125 MG; Start 02/25/17 at 09:00 Levetiracetam (Keppra) 500 mg BID PO Last administered on 03/05/17 08:00; Admin Dose 500 MG; Start 03/03/17 at 21:00 Acetaminophen (Tylenol Tab) 650 mg Q6H PRN PO PAIN AND OR ELEVATED TEMP Last administered on 03/04/17 19:12; Admin Dose 650 MG; Start 03/04/17 at 19:30 MARICHUY DUBON MD Mar 05, 2017 16:34
[2017-03-05 19:59] VITALS: BP 111/66; RESP 18
[2017-03-05] MEDS: ACETAMINOPHEN 325 MG TAB PO PRN (20:10)
[2017-03-06 01:59] VITALS: BP 136/69; RESP 20
[2017-03-06 07:32] VITALS: BP 128/73; RESP 19
--- NOTE | 2017-03-06 11:22 | CONS ---
Date/Time of Note Date/Time of Note DATE: 03/06/17 TIME: 11:21 Assessment/Plan Assessment/Plan Chief Complaint/Hosp Course Paroxysmal atrial fibrillation with rapid ventricular response - Back and forth between sinus and afib. Most recent afib 02/22. Now back in sinus. 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 Remains asymptomatic Exam/Review of Systems Vital Signs Vitals Vital Signs Date Time Temp Pulse Resp B/P Pulse Ox O2 Delivery O2 Flow Rate FiO2 03/06/17 07:32 98.0 71 19 128/73 98 03/03/17 14:39 21 Intake and Output 03/05/17 03/05/17 03/06/17 15:00 23:00 07:00 Intake Total 200 ml Balance 200 ml Exam Constitutional: alert, No oriented Head: atraumatic, normocephalic Neck: No jvd Respiratory: clear to auscultation, No crackles/rales Cardiovascular: regular rate and rhythm, systolic murmur (2/6 KAMRYN) Gastrointestinal: non-tender, soft Neurological: No nl mental status, No nl speech Medications Medications Current Medications Ondansetron HCl (Zofran Inj) 4 mg Q6H PRN IV NAUSEA AND/OR VOMITING; Start 02/02 at 23:00 Acetaminophen (Tylenol Supp) 650 mg Q4H PRN [place] PAIN LEVEL 1-3 OR FEVER Last administered on 02/28/17t 00:58; Admin Dose 650 MG; Start 02/02/17 at 23:00 IV Flush (NS 10 ml) 10 ml PRN PRN IV IV PROTOCOL; Start 02/03/17 at 13:30 Enoxaparin Sodium (Lovenox) 30 mg DAILY SC Last administered on 03/05/17 08:06 ; Admin Dose 30 MG; Start 02/18/17 at 09:00 Amiodarone HCl (Cordarone) 200 mg DAILY NGT Last administered on 03/05/17 08:01 ; Admin Dose 200 MG; Start 02/21/17 at 09:00 Carvedilol (Coreg) 3.125 mg BID PO Last administered on 03/05/17 20:10; Admin Dose 3.125 MG; Start 02/25/17 at 09:00 Levetiracetam (Keppra) 500 mg BID PO Last administered on 03/05/17 20:10; Admin Dose 500 MG; Start 03/03/17 at 21:00 Acetaminophen (Tylenol Tab) 650 mg Q6H PRN PO PAIN AND OR ELEVATED TEMP Last administered on 03/05/17 20:10; Admin Dose 650 MG; Start 03/04/17 at 19:30 GUSTAVO CORONEL Mar 06, 2017 11:22
[2017-03-06] MEDS: LEVETIRACETAM 500 MG TAB PO SCH (11:56)
[2017-03-06] MEDS: AMIODARONE 200 MG TAB NGT SCH (11:56)
[2017-03-06] MEDS: ENOXAPARIN 30 MG/0.3 ML SYG SC SCH (12:17)
[2017-03-06 14:44] VITALS: BP 118/56; RESP 18
--- NOTE | 2017-03-06 17:29 | DS ---
Date/Time of Note Date/Time of Note DATE: 03/06/17 TIME: 17:26 Discharge Summary Admission/Discharge Info Admit Date/Time Feb 02, 2017 at 07:43 Discharge Date/Time Mar 06, 2017 at 14:52 Discharge Diagnosis Seizure Patient Condition: Good Hx of Present Illness 81 yo female w history of CHF and recent surgery for necrotic GB who presents after seizure Details are not clear but per collateral report patient felt previous well, then had a seizure lasting 15 minutes. She was given ativan in the field by EMS. When she arrived at [facility] she was obtunded and therefore intubated. Subsequently developed fever I am unable to obtain further history given patients current state Hospital Course 81 yo female with h/o recent open abdominal surgery for necrotic GB, who presented after prolonged seizure. Received benzos in the field leading to obtundation on arrival and was therefore intubated. Her head CT was unremarkable and she was started on Keppra for AED. She was difficult to extubate but was eventually extubated without problem and stable on room air. She completled a course of empiric antibiotics, but no clear source was found. Her ICU course was complicated by A Fib w RVR which was controlled with amiodarone. Given her advanced age and only borderline CHADS2 score, AC was not intiated at this time. Her BP was slightly elevated and controlled with Coreg 3 BID. She had episodes of delirium while on the floor awaiting placement, this was controleld with PRN risperdal effectively At discharge she was continued on Keppra 500 BID as well as Coreg 3.125 BID She was discharge to SNF facillity Home Meds Reported Medications Levothyroxine Sodium* (Levoxyl*) 25 Mcg Tablet, 12.5 MCG PO BEFORE BREAKFAST, # 30 TAB 02/02/17 Aspirin (Low Dose Aspirin) 81 Mg Tablet.dr, 81 MG PO DAILY, #30 TAB 02/02/17 Acetaminophen with Codeine (Acetaminophen-Cod #3 Tablet) 1 Each Tablet, 1 TAB PO Q6H Y for PAIN LEVEL 6-10, #7 TAB 02/02/17 Acetaminophen* (Acetaminophen*) 650 Mg Tablet, 650 MG PO Q4 Y for PAIN LEVEL 1-5 , #30 TAB 02/02/17 Benazepril Hcl* (Benazepril Hcl*) 20 Mg Tablet, 20 MG PO DAILY, #30 TAB HOLD IF SBP BELOW 110 02/02/17 Polyethylene Glycol* (Miralax*) 17 Gm Powd.pack, 17 GM PO DAILY, #30 PACKET 02/02/17 Metoprolol Tartrate* (Lopressor*) 25 Mg Tab, 12.5 MG PO BID, #60 TAB HOLD IF SBP BELOW 110 HOLD IF AP BELOW 60 02/02/17 Heparin Sodium,Porcine/Pf (HEPARIN SOD 5,000 UNIT/ 0.5 ML) 5,000 Unit/0.5 Ml Vial, 5000 UNIT IJ Q12, VIAL FOR 10 DAYS STARTED 02-01-17 STOP 02-11-17 02/02/17 Diltiazem Hcl* (Cardizem CD*) 120 Mg Cap.sr.24h, 120 MG PO DAILY, #30 CAP HOLD IF SBP BELOW 110 HOLD IF AP BELOW 60 02/02/17 Ranolazine* (Ranexa*) 500 Mg Tab.sr.12h, 500 MG PO Q12, TAB 02/02/17 Misoprostol* (Cytotec*) 100 Mcg Tablet, 200 MCG PO BID, TAB 02/02/17 Meclizine Hcl* (Meclizine Hcl*) 25 Mg Tablet, 25 MG PO BID Y for DIZZINESS, TAB 02/02/17 Linaclotide (LINZESS) 145 Mcg Capsule, 145 MCG PO DAILY, #30 CAP 02/02/17 Isosorbide Dinitrate* (Isosorbide Dinitrate*) 5 Mg Tablet, 5 MG PO BID, TAB 02/02/17 Furosemide* (Furosemide*) 40 Mg Tablet, 40 MG PO DAILY, TAB hold for SBP below 110 02/02/17 Ferrous Sulfate* (Ferrous Sulfate*) 325 Mg Tabec, 325 MG PO BID, TAB 02/02/17 Esomeprazole Mag Trihydrate (Nexium) 40 Mg Capsule.dr, 40 MG PO BID, #60 CAP 02/02/17 Clonazepam* (Clonazepam*) 0.5 Mg Tablet, 0.5 MG PO TID Y for ANXIETY, TAB 02/02/17 Magnesium Hydroxide* (Milk Of Magnesia*) 400 Mg/5 Ml Oral.susp, 30 ML PO DAILY Y for CONSTIPATION, ML 02/02/17 Ascorbic Acid* (Vitamin C*) 500 Mg Capsule.sa, 500 MG PO DAILY, CAP 02/02/17 Multivitamins* (Theragran*) 1 Tab Tab, 1 TAB PO DAILY, TAB 02/02/17 Tramadol Hcl* (Ultram*) 50 Mg Tablet, 50 MG PO BID Y for PAIN, TAB 02/02/17 Primary Care Provider Not On Staff Doctor MARICHUY DUBON MD Mar 06, 2017 17:29
== END 2017-03-06 14:52 | DRG 870 ==
LOC: E/R 06:32 → ICU 07:43 → TEL 02-16 16:07 → MS2 03-02 17:18
PROVIDERS: ADMIT Internal Medicine; ATTEND Internal Medicine
PROC: 5A1955Z Respiratory Ventilation, Greater than 96 Consecutive Hours (ICD-10-PCS; principal; 2017-02-02)
PROC: 0BH17EZ Insertion of Endotracheal Airway into Trachea, Via Natural or Artificial Opening (ICD-10-PCS; 2017-02-02)
PROC: 02HV33Z Insertion of Infusion Device into Superior Vena Cava, Percutaneous Approach (ICD-10-PCS; 2017-02-03)
PROC: 0W993ZX Drainage of Right Pleural Cavity, Percutaneous Approach, Diagnostic (ICD-10-PCS; 2017-02-07)
DX: A41.9 Sepsis, unspecified organism (principal); J96.01 Acute respiratory failure with hypoxia; I21.4 Non-ST elevation (NSTEMI) myocardial infarction; J69.0 Pneumonitis due to inhalation of food and vomit; R65.21 Severe sepsis with septic shock; G92 Toxic encephalopathy; I50.23 Acute on chronic systolic (congestive) heart failure; E87.0 Hyperosmolality and hypernatremia; R13.10 Dysphagia, unspecified; I11.0 Hypertensive heart disease with heart failure; I48.0 Paroxysmal atrial fibrillation; I25.5 Ischemic cardiomyopathy; G40.901 Epilepsy, unspecified, not intractable, with status epilepticus; E87.6 Hypokalemia
CPT/HCPCS: 31500; 32555; 36415; 36569; 36600; 70450; 71010; 76604; 76937; 80048; 80053; 80076; 80202; 81001; 82565; 82803; 82945; 82962; 83605; 83615; 83690; 83735; 84100; 84157; 84443; 84484; 84520; 85025; 85610; 85730; 87040; 87045; 87070; 87081; 87086; 87102; 87116; 88104; 88305; 89051; 92526; 92610; 93005; 93306; 93308; 94002; 94003; 94640; 94660; 94664; 94770; 96365; 96366; 96368; 97110; 97116; 97161; 97530; J1940; A4310; C9113; J0282; J0360; J0692; J1630; J1650; J1953; J2060; J2270; J2543; J2997; J3010; J3370; J3475; J3480; J7030; J7040; J7042; J7050; J7060; J7070; J7999

== ENCOUNTER 2017-03-25 20:15 | Inpatient (IN) | payer MEDICARE, OTHER ==
[~2017-03-25] VITALS: Ht 165.1 cm; Wt 88.0 kg
[~2017-03-25 20:15] MED LIST: ACET-2047 PO; ACET1TAB40 PO; ASCO500C7 PO; ASPI-664 PO; BENA20TA48 PO; CLON0.5T4 PO; DILT120C77 PO; ESOM40CA PO; FER325 PO; FURO40TA4 PO; HEPA500021 IJ; ISOS5TAB2 PO; LEVO25TA50 PO; LINA145C PO; MAGN400O4 PO; MECL-77 PO; METO-448 PO; MISO100T PO; MULTI PO; POLY17PO6 PO; RANO500T2 PO; TRAM-40 PO
[2017-03-25 20:22] VITALS: Ht 165.1 cm; Wt 88.0 kg
--- NOTE | 2017-03-25 21:10 | RADRPT ---
PROCEDURE: CT Head without. CLINICAL INDICATION: Altered mental status, Sepsis. TECHNIQUE: The study was performed utilizing a multi-slice, multidetector CT scanner. Direct spira l 1 mm axial sections were obtained through the head without the use of intravenous contrast materia l. 1 or more of the following dose reduction techniques were utilized: Automated exposure control, adjustment of the mA and/or kV according to patient's size, iterative reconstruction technique. Co parveen and sagittal reformations were obtained. The images were reviewed on a PACS workstation. RADIATION DOSE: CTDIvol: 43.7 mGyDLP: 720.2 mGy-cm COMPARISON: 02/02/2017 FINDINGS: There is no intracranial hemorrhage, extra-axial fluid collection, mass lesion, midline shift or hyd rocephalus. There is mild to moderate prominence of the cerebral sulci, lateral and third ventricle s. There is at mild periventricular and subcortical white matter hypodensity. There is mild arteri osclerotic calcification of the parasellar internal carotid arteries. The dale-white matter differe ntiation is preserved. The basal cisterns are patent. The midline structures are intact. There is mild hyperostosis frontalis interna, normal variant. There is stable mild prominence of the extra-a xial spaces overlying the bilateral frontal lobes with expected vessels traversing the subarachnoid space. No evidence of subdural hygroma or chronic subdural hemorrhage. The orbits, calvarium and ex tracranial soft tissues are normal in appearance. The visualized paranasal sinuses, mastoid air cell s and middle ear cavities are normally aerated. IMPRESSION: 1. No acute intracranial abnormality. No intracranial hemorrhage, extra-axial fluid collection, ma ss lesion or hydrocephalous. 2. Mild to moderate peripheral and central cerebral volume loss. 3. Mild periventricular and subcortical white matter hypodensity, likely related to chronic microan giopathic changes. RPTAT: HGAS .Umberto Stern MD, Date Time Electronically viewed and signed by .Umberto Stern MD, MD on 03/25/2017 21:09 .S/
--- NOTE | 2017-03-25 21:11 | RADRPT ---
PROCEDURE: XR Chest. CLINICAL INDICATION: Confusion. TECHNIQUE: AP portable views of the chest were obtained. COMPARISON: 02/22/2017 FINDINGS: There is stable mild cardiomegaly. There is redemonstration of mitral annular calcifications. There is interval decreased thickening of the minor fissure, with mild amount of residual thickness in th e lateral aspect of the right lower lobe. There is mild elevation of the right hemidiaphragm, stable compared to prior examination. There is stable mild right basilar subsegmental atelectasis. The ath erosclerotic calcification of the thoracic aorta. There is mild prominence of the central pulmonary vasculature. The peripheral vascular markings are distinct. The lungs are clear. No signs of pleur al fluid or pneumothorax are seen. The osseous structures and soft tissues are unremarkable. IMPRESSION: 1. No evidence for active cardiopulmonary disease. 2. Stable mild cardiomegaly with central pulmonary vascular congestion. No evidence of interstitia l pulmonary edema. 3. Stable elevation of the right hemidiaphragm with associated compressive atelectasis. 4. Increased fluid along the right minor fissure. 5. Stable mild atherosclerotic calcification of the thoracic aorta. RPTAT: HGAS .Umberto Stern MD, MD Date Time Electronically viewed and signed by .Umberto Stern MD, on 03/25/2017 21:11 .S/
[2017-03-25 21:35] LABS: BASOPHIL # 0.1 10^3/ul (0.0-0.1); BASOPHILS % 0.5 % (0.0-2.0); EOSINOPHILS # 0.2 10^3/ul (0.0-0.5); EOSINOPHILS % 1.4 % (0.0-7.0); HEMATOCRIT 38.4 % (37.0-47.0); HEMOGLOBIN 12.1 g/dl (12.0-16.0); LYMPHOCYTES # 3.1 10^3/ul (0.8-2.9); LYMPHOCYTES % 23.9 % (15.0-51.0); MEAN CORPUSCULAR HEMOGLOBIN 29.2 pg (29.0-33.0); MEAN CORPUSCULAR HGB CONC 31.5 g/dl (32.0-37.0); MEAN CORPUSCULAR VOLUME 92.8 fl (82.0-101.0); MEAN PLATELET VOLUME 9.3 fl (7.4-10.4); MONOCYTE # 1.3 10^3/ul (0.3-0.9); NEUTROPHIL # 8.4 10^3/ul (1.6-7.5); NEUTROPHILS % 63.9 % (39.0-77.0); PLATELET COUNT 323 10^3/UL (140-415); RED BLOOD COUNT 4.14 10^6/ul (4.20-5.40); RED CELL DISTRIBUTION WIDTH 14.6 % (11.5-14.5); WHITE BLOOD COUNT 13.2 10^3/ul (4.8-10.8)
[2017-03-25 21:50] LABS: INR 0.95; PARTIAL THROMBOPLASTIN TIME 30.3 Sec (25.0-35.0); PROTIME 12.7 Sec (12.2-14.2)
[2017-03-25 22:07] LABS: BILIRUBIN,INDIRECT 0.1 mg/dl (0-1.1); BILIRUBIN,TOTAL 0.1 mg/dl (0.2-1.3); CALCIUM 8.6 mg/dl (8.4-10.2); CREATININE 0.79 mg/dl (0.44-1.00); POTASSIUM 3.8 mmol/L (3.5-5.1)
[2017-03-25] MEDS ORDERED: SODIUM CHLORIDE 0.9% 1L BAG IV* STA (22:13)
[2017-03-25] MEDS ORDERED: CEFTRIAXONE 1 GM/50 ML (PMX) 50 ML IVPB STA (22:13)
[2017-03-25 22:18] LABS: TROPONIN-I 0.04 ng/ml (0.00-0.12)
[2017-03-25] MEDS ORDERED: ACETAMINOPHEN 325 MG TAB PO PRN (23:00)
[2017-03-25] MEDS ORDERED: ASPIRIN 325 MG TAB PO ONE (23:00)
[2017-03-25] MEDS ORDERED: LORAZEPAM 2 MG INJ IV ONE (23:00)
[2017-03-25] MEDS ORDERED: ONDANSETRON 4 MG INJ IV PRN (23:00)
--- NOTE | 2017-03-25 23:09 | ERA ---
ER Documentation Chief Complaint Date/Time DATE: 03/25/17 TIME: 23:07 Chief Complaint sent from [facility] for more altered than normal per Dr. Bartholomew HPI Patient is an 82-year-old female with hypertension, seizures, previous sepsis, and atrial fibrillation who presents with weakness of the eye. The patient was brought in by ambulance. The patient was sent by the primary doctor for evaluation for possible stroke. The left eye was not opening per the son. There is left-sided facial numbness. The patient is more confused than usual. Symptoms have been there for 1 week. The patient has no fevers. The son says that the doctors think that it is "neurological". She came from [facility]. ROS All systems reviewed and are negative except as per history of present illness. Medications Home Meds Reported Medications Levothyroxine Sodium* (Levoxyl*) 25 Mcg Tablet, 12.5 MCG PO BEFORE BREAKFAST, # 30 TAB 02/02/17 Aspirin (Low Dose Aspirin) 81 Mg Tablet.dr, 81 MG PO DAILY, #30 TAB 02/02/17 Acetaminophen with Codeine (Acetaminophen-Cod #3 Tablet) 1 Each Tablet, 1 TAB PO Q6H Y for PAIN LEVEL 6-10, #7 TAB 02/02/17 Acetaminophen* (Acetaminophen*) 650 Mg Tablet, 650 MG PO Q4 Y for PAIN LEVEL 1-5 , #30 TAB 02/02/17 Benazepril Hcl* (Benazepril Hcl*) 20 Mg Tablet, 20 MG PO DAILY, #30 TAB HOLD IF SBP BELOW 110 02/02/17 Polyethylene Glycol* (Miralax*) 17 Gm Powd.pack, 17 GM PO DAILY, #30 PACKET 02/02/17 Metoprolol Tartrate* (Lopressor*) 25 Mg Tab, 12.5 MG PO BID, #60 TAB HOLD IF SBP BELOW 110 HOLD IF AP BELOW 60 02/02/17 Heparin Sodium,Porcine/Pf (HEPARIN SOD 5,000 UNIT/ 0.5 ML) 5,000 Unit/0.5 Ml Vial, 5000 UNIT IJ Q12, VIAL FOR 10 DAYS STARTED 02-01-17 STOP 02-11-17 02/02/17 Diltiazem Hcl* (Cardizem CD*) 120 Mg Cap.sr.24h, 120 MG PO DAILY, #30 CAP HOLD IF SBP BELOW 110 HOLD IF AP BELOW 60 02/02/17 Ranolazine* (Ranexa*) 500 Mg Tab.sr.12h, 500 MG PO Q12, TAB 02/02/17 Misoprostol* (Cytotec*) 100 Mcg Tablet, 200 MCG PO BID, TAB 02/02/17 Meclizine Hcl* (Meclizine Hcl*) 25 Mg Tablet, 25 MG PO BID Y for DIZZINESS, TAB 02/02/17 Linaclotide (LINZESS) 145 Mcg Capsule, 145 MCG PO DAILY, #30 CAP 02/02/17 Isosorbide Dinitrate* (Isosorbide Dinitrate*) 5 Mg Tablet, 5 MG PO BID, TAB 02/02/17 Furosemide* (Furosemide*) 40 Mg Tablet, 40 MG PO DAILY, TAB hold for SBP below 110 02/02/17 Ferrous Sulfate* (Ferrous Sulfate*) 325 Mg Tabec, 325 MG PO BID, TAB 02/02/17 Esomeprazole Mag Trihydrate (Nexium) 40 Mg Capsule.dr, 40 MG PO BID, #60 CAP 02/02/17 Clonazepam* (Clonazepam*) 0.5 Mg Tablet, 0.5 MG PO TID Y for ANXIETY, TAB 02/02/17 Magnesium Hydroxide* (Milk Of Magnesia*) 400 Mg/5 Ml Oral.susp, 30 ML PO DAILY Y for CONSTIPATION, ML 02/02/17 Ascorbic Acid* (Vitamin C*) 500 Mg Capsule.sa, 500 MG PO DAILY, CAP 02/02/17 Multivitamins* (Theragran*) 1 Tab Tab, 1 TAB PO DAILY, TAB 02/02/17 Tramadol Hcl* (Ultram*) 50 Mg Tablet, 50 MG PO BID Y for PAIN, TAB 02/02/17 Allergies Allergies: Coded Allergies: No Known Allergy (Unverified , 02/21/17) PMhx/Soc History of Surgery: Yes (CHOLECESTECTOMY) Anesthesia Reaction: No Hx Neurological Disorder: Yes (SEIZURES) Hx Cardiac Disorders: Yes (CAD, CHF, HTN) Hx Psychiatric Problems: Yes (ANXIETY) Hx Miscellaneous Medical Probl: Yes (HTN, GERD, HYPOTHYROIDSM, VERTIGO) Smoking Status: Unknown if ever smoked FmHx Family History: No diabetes Physical Exam Vitals Vital Signs Date Time Temp Pulse Resp B/P Pulse Ox O2 Delivery O2 Flow Rate FiO2 03/25/17 21:20 97.4 74 24 113/79 97 Room Air 03/25/17 20:22 99.5 75 18 106/75 95 Physical Exam Const: No acute distress Head: Atraumatic Eyes: Normal Conjunctiva ENT: Normal External Ears, Nose and Mouth. Neck: Full range of motion..~ No meningismus. Resp: Clear to auscultation bilaterally Cardio: Regular rate and rhythm, no murmurs Abd: Soft, non tender, non distended. Normal bowel sounds Skin: No petechiae or rashes Back: No midline or flank tenderness Ext: No cyanosis, or edema Neur: Awake, with mild dementia at baseline Result Diagram: 03/25/17211203/25/172112 Results 24 hrs Laboratory Tests Test 03/25/17 21:13 White Blood Count 13.210^3/ul Red Blood Count 4.1410^6/ul Hemoglobin 12.1g/dl Hematocrit 38.4% Mean Corpuscular Volume 92.8fl Mean Corpuscular Hemoglobin 29.2pg Mean Corpuscular Hemoglobin Concent 31.5g/dl Red Cell Distribution Width 14.6% Platelet Count 33790^3/UL Mean Platelet Volume 9.3fl Neutrophils % 63.9% Lymphocytes % 23.9% Monocytes % 10.0% Eosinophils % 1.4% Basophils % 0.5% Nucleated Red Blood Cells % 0.0/100WBC Neutrophils # 8.410^3/ul Lymphocytes # 3.110^3/ul Monocytes # 1.310^3/ul Eosinophils # 0.210^3/ul Basophils # 0.110^3/ul Nucleated Red Blood Cells # 0.010^3/ul Prothrombin Time 12.7Sec Prothrombin Time Ratio 1.0 INR International Normalized Ratio 0.95 Activated Partial Thromboplast Time 30.3Sec Sodium Level 134mmol/L Potassium Level 3.8mmol/L Chloride Level 99mmol/L Carbon Dioxide Level 29mmol/L Anion Gap 10 Blood Urea Nitrogen 23mg/dl Creatinine 0.79mg/dl Glucose Level 112mg/dl Lactic Acid Level 2.4mmol/L Calcium Level 8.6mg/dl Total Bilirubin 0.1mg/dl Direct Bilirubin 0.00mg/dl Indirect Bilirubin 0.1mg/dl Aspartate Amino Transf (AST/SGOT) 30IU/L Alanine Aminotransferase (ALT/SGPT) 29IU/L Alkaline Phosphatase 74IU/L Troponin I 0.040ng/ml Total Protein 6.0g/dl Albumin 3.0g/dl Globulin 3.00g/dl Albumin/Globulin Ratio 1.00 Current Medications Medications (Trade) Dose Ordered Sig/Ирина Route PRN Reason Start Time Stop Time Status Last Admin Dose Admin Sodium Chloride 2730 ml 2,730 ml BOLUS OVER 2 HOURS STAT IV* 03/25/17 22:13 03/25/17 22:15 DC 03/25/17 22:34 Ceftriaxone Sodium (Rocephin) 50 ml @ 100 mls/hr ONCE STAT IVPB 03/25/17 22:13 03/25/17 22:42 DC 03/25/17 22:35 Aspirin (Aspirin) 325 mg ONCE ONCE PO 03/25/17 23:00 03/25/17 23:01 DC Ondansetron HCl (Zofran Inj) 4 mg ER BRIDGE PRN IV NAUSEA AND/OR VOMITING 03/25/17 23:00 03/26/17 22:59 Acetaminophen (Tylenol Tab) 650 mg ER BRIDGE PRN PO MILD PAIN/FEVER 03/25/17 23:00 03/26/17 22:59 Lorazepam (Ativan) 0.5 mg ONCE ONCE IV 03/25/17 23:00 03/25/17 23:01 DC Procedures/MDM EKG read by me: Rate/Rhythm: Regular rate and rhythm at a normal rate Intervals: Normal Impression: No evidence of ischemia or arrhythmia CT brain shows no intracranial mass or hemorrhage per radiology. Chest x-ray shows no pneumonia or pneumothorax per radiology. Patient is an 82-year-old female presents with possible stroke. She had a CT scan of the brain which did not show any intrarenal mass or hemorrhage. She was given aspirin for possible stroke. She is outside the window for TPA as his symptoms started 1 week ago. The patient will be admitted to a telemetry bed under the care of Dr. Esposito for further workup. Her laboratory studies show a mild leukocytosis as well as a slightly elevated lactic acid. The patient was given 30 ml/kg fluid bolus and ceftriaxone but at this point I do not see any source of infection and would not call the sepsis. The fluids and antibiotics were given empirically. Departure Diagnosis: Primary Impression: Altered level of consciousness Additional Impression: Stroke Qualified Code: I63.9 - Cerebrovascular accident (CVA), unspecified mechanism Condition: TREVIN Pérez MD Mar 25, 2017 23:09
[2017-03-26] VITALS (7 sets, daily range): BP systolic 103–117; BP diastolic 59–63; PULSE 66–90; RESP 18; TEMP 98
[2017-03-26] MEDS ORDERED: MULT-876 PO (01:40)
[2017-03-26] MEDS ORDERED: DEXTROSE 5%-0.45% NACL 1,000 ML IV SCH (04:21)
[2017-03-26] MEDS ORDERED: ONDANSETRON 4 MG INJ IV PRN (04:30)
[2017-03-26] MEDS ORDERED: traMADol 50 MG TAB PO PRN (04:30)
[2017-03-26] MEDS ORDERED: MAGNESIUM HYDROXIDE 30ML CUP PO PRN (04:30)
[2017-03-26] MEDS ORDERED: NACL 0.9% 3 ML SYG IV SCH (04:30)
[2017-03-26] MEDS ORDERED: ALBUTEROL/IPRATROPIUM (NEB) 3 ML AMP HHN PRN (04:30)
[2017-03-26] MEDS ORDERED: MECLIZINE 25 MG TAB PO PRN (04:30)
[2017-03-26] MEDS ORDERED: morphine 2 MG INJ IV PRN (04:30)
[2017-03-26 05:54] LABS: BASOPHIL # 0.1 10^3/ul (0.0-0.1); BASOPHILS % 0.5 % (0.0-2.0); EOSINOPHILS # 0.1 10^3/ul (0.0-0.5); EOSINOPHILS % 1.1 % (0.0-7.0); HEMATOCRIT 35.2 % (37.0-47.0); HEMOGLOBIN 11.2 g/dl (12.0-16.0); LYMPHOCYTES # 2.7 10^3/ul (0.8-2.9); MEAN CORPUSCULAR HEMOGLOBIN 29.9 pg (29.0-33.0); MEAN CORPUSCULAR HGB CONC 31.8 g/dl (32.0-37.0); MEAN CORPUSCULAR VOLUME 94.1 fl (82.0-101.0); MEAN PLATELET VOLUME 9.5 fl (7.4-10.4); MONOCYTE # 1.1 10^3/ul (0.3-0.9); MONOCYTES % 11.6 % (0.0-11.0); NEUTROPHIL # 5.6 10^3/ul (1.6-7.5); NEUTROPHILS % 58.5 % (39.0-77.0); PLATELET COUNT 262 10^3/UL (140-415); RED BLOOD COUNT 3.74 10^6/ul (4.20-5.40); RED CELL DISTRIBUTION WIDTH 14.3 % (11.5-14.5); WHITE BLOOD COUNT 9.5 10^3/ul (4.8-10.8)
[2017-03-26] MEDS ORDERED: FUROSEMIDE 40 MG TAB PO SCH (06:00)
[2017-03-26 06:23] LABS: ALBUMIN 2.5 g/dl (3.3-4.9); ALBUMIN/GLOBULIN RATIO 0.92; BILIRUBIN,INDIRECT 0.1 mg/dl (0-1.1); BILIRUBIN,TOTAL 0.1 mg/dl (0.2-1.3); CALCIUM 7.9 mg/dl (8.4-10.2); CREATININE 0.71 mg/dl (0.44-1.00); POTASSIUM 3.5 mmol/L (3.5-5.1); TOTAL PROTEIN 5.2 g/dl (6.1-8.1)
[2017-03-26] MEDS: PANTOPRAZOLE (EC) 40 MG TAB PO SCH ×2 (08:28→17:45)
[2017-03-26] MEDS: clonAZEPAM 0.5 MG TAB PO PRN ×2 (08:29→21:36)
[2017-03-26] MEDS: LEVOTHYROXINE 25 MCG TAB PO SCH (08:33)
[2017-03-26] MEDS ORDERED: RANOLAZINE (SR) 500 MG TAB PO SCH (09:00)
[2017-03-26] MEDS ORDERED: ASPIRIN (EC) 81 MG TAB PO SCH (09:00)
[2017-03-26] MEDS ORDERED: NON-FORMULARY/PATIENT OWN MED (Linaclotide (Linzess) 145 MCG) PO SCH (09:00)
[2017-03-26] MEDS ORDERED: BENAZEPRIL 20 MG TAB PO SCH (09:00)
[2017-03-26] MEDS ORDERED: DILTIAZEM (CD) 120 MG CAP PO SCH (09:00)
[2017-03-26] MEDS ORDERED: FERROUS SULFATE (EC) 325 MG TAB PO SCH (09:00)
[2017-03-26] MEDS ORDERED: MISOPROSTOL 200 MCG TAB PO SCH (09:00)
--- NOTE | 2017-03-26 09:12 | HP ---
Date/Time of Note Date/Time of Note DATE: 03/26/17 TIME: 09:06 Assessment/Plan VTE Prophylaxis VTE Prophylaxis Intervention: heparin Assessment/Plan Assessment/Plan Assessment This is an 82-year-old female with a history of seizure, A. fib, hypertension who was sent from a assisted facility for altered mentation concerning for CVA Plan Admit to telemetry unit Aspirin, statin, Lovenox for DVT prophylaxis Speech/swallow as well as physical therapy evaluation MRI of the brain Recent 2D echo with preserved EF of 60% Continue antiseizure medication. Patient's altered mentation is very likely could also be from her known seizure Neurology consult HPI/ROS Admit Date/Time Admit Date/Time Hx of Present Illness This is an 82-year-old female with a history of hypertension, A. fib, seizure who was sent from SNF for altered mentation. Patient has been confused and had difficulty opening her eyes with facial numbness and as such there was a concern for stroke and she was sent to ER for evaluation. Patient is not able to provide history because of confusion and as such information is gathered from chart review and from the ER physician. Patient was recently admitted here for seizure. At that time she was also found to be in rapid A. fib. After stabilization she was sent back to assisted facility. Patient also not long ago had an abdominal surgery for necrotic gallbladder. When she presented to the ER, lab shows WBC 13.2, lactate 2.4, sodium 134. Head CT shows subcortical hypodensity likely secondary to chronic microangiopathic ischemic change. PMH/Family/Social Past Surgical History Past Surgical Hx: cholecystectomy Social History Smoking Status: Unknown if ever smoked Exam/Review of Systems Vital Signs Vitals Vital Signs Date Time Temp Pulse Resp B/P Pulse Ox O2 Delivery O2 Flow Rate FiO2 03/26/17 07:10 81 21 134/70 97 Room Air 03/26/17 04:30 97.8 Exam Constitutional: other (Patient is not oriented and is confused) Psych: confusion Head: atraumatic, normocephalic Eyes: PERRL Respiratory: clear to auscultation Cardiovascular: nl pulses, regular rate and rhythm Gastrointestinal: soft Neurological: confused Labs Result Diagram: 03/26/1731 03/26/17530 Medications Medications Current Medications Dextrose/Sodium Chloride (D5-1/2ns) 1,000 ml @ 75 mls/hr [id number] IV ; Start at 04:21 Ondansetron HCl (Zofran Inj) 4 mg Q6H PRN IV NAUSEA AND/OR VOMITING; Start at 04:30 Morphine Sulfate (morphine) 2 mg Q4H PRN IV PAIN LEVEL 7-10; Start 03/26/17 at 04:30 Acetaminophen (Tylenol Tab) 650 mg Q4 PRN PO PAIN LEVEL 1-5; Start 03/26/17 at 04:30 Ascorbic Acid (Vitamin C) 500 mg DAILY PO ; Start 03/26/17 at 09:00 Aspirin (Halfprin) 81 mg DAILY PO ; Start 03/26/17 at 09:00 Benazepril HCl (Lotensin) 20 mg DAILY PO ; Start 03/26/17 at 09:00 Clonazepam (Klonopin) 0.5 mg TID PRN PO ANXIETY Last administered on 03/26/17 08:29; Admin Dose 0.5 MG; Start 03/26/17 at 04:30 Diltiazem HCl (Cardizem Cd) 120 mg DAILY PO Last administered on 03/26/17 08: 34; Admin Dose 120 MG; Start 03/26/17 at 09:00 Ferrous Sulfate (Ferrous Sulfate (Ec)) 325 mg BID PO ; Start 03/26/17 at 09:00 Furosemide (Lasix) 40 mg DAILY@06 PO Last administered on 03/26/17 08:29; Admin Dose 40 MG; Start 03/26/17 at 06:00 Isosorbide Dinitrate (Isordil) 5 mg BID PO ; Start 03/26/17 at 09:00 Magnesium Hydroxide (Milk Of Mag) 30 ml DAILY PRN PO CONSTIPATION; Start at 04:30 Meclizine HCl (Antivert) 25 mg BID PRN PO DIZZINESS; Start 03/26/17 at 04:30 Metoprolol Tartrate (Lopressor) 12.5 mg BID PO ; Start 03/26/17 at 09:00 Misoprostol (Cytotec) 200 mcg BID PO ; Start 03/26/17 at 09:00 Polyethylene Glycol (Miralax) 17 gm DAILY PO ; Start 03/26/17 at 09:00 Ranolazine (Ranexa) 500 mg Q12 PO ; Start 03/26/17 at 09:00 Tramadol HCl (Ultram) 50 mg BID PRN PO PAIN Last administered on 03/26/17 08: 29; Admin Dose 50 MG; Start 03/26/17 at 04:30 Pantoprazole (Protonix Tab) 40 mg BID@06,18 PO Last administered on 03/26/17 08:28; Admin Dose 40 MG; Start 03/26/17 at 07:00 Miscellaneous Information 145 mcg DAILY PO ; Start 03/26/17 at 09:00; Status UNV Levetiracetam (Keppra) 500 mg BID PO ; Start 03/26/17 at 09:00; Status UNV LUCILLE KRAUS MD Mar 26, 2017 09:12
[2017-03-26] MEDS ORDERED: HALOPERIDOL 5 MG INJ IM PRN ×2 (09:30→22:00)
[2017-03-26] MEDS: LEVETIRACETAM 500 MG TAB PO SCH ×2 (10:45→21:06)
[2017-03-26] MEDS: METOPROLOL 25 MG TAB PO SCH ×2 (10:46→21:07)
[2017-03-26] MEDS: ISOSORBIDE DINITRATE 5 MG TAB PO SCH ×2 (10:46→21:00)
[2017-03-26] MEDS: POLYETHYLENE GLYCOL 17 GM PACKET PO SCH (10:47)
[2017-03-26] MEDS: ASCORBIC ACID 500 MG TAB PO SCH (10:47)
[2017-03-26] MEDS: RISPERIDONE 0.25 MG TAB PO SCH (10:48)
[2017-03-26] MEDS: ASPIRIN (EC) 81 MG TAB PO SCH (10:48)
[2017-03-26] MEDS: LINZESS IS NON FORMULARY...PLEASE CONSIDER AN ORDER TO USE PATIENT'S OWN MED XX SCH ×2 (15:00→23:00)
[2017-03-26] MEDS: ACETAMINOPHEN 325 MG TAB PO PRN (15:07)
--- NOTE | 2017-03-26 16:38 | PN ---
Date/Time of Note Date/Time of Note DATE: 03/26/17 TIME: 16:37 Assessment/Plan VTE Prophylaxis VTE Prophylaxis Intervention: LMWH Assessment/Plan Chief Complaint/Hosp Course 82 yo female wtih A Fib, dementia who presents for evaluation of possible CVA - Brain MRI A Fib: - Controlled, now in sinus - Continue metoprolol - Holding AC per previuos discussions Discharge following MRI Problems: Subjective 24 Hr Interval Summary Free Text/Dictation Patinet known to me from prior admission She looks much better than when I saw her last Much more energetic, alert, convesrtant Exam/Review of Systems Vital Signs Vitals Vital Signs Date Time Temp Pulse Resp B/P Pulse Ox O2 Delivery O2 Flow Rate FiO2 03/26/17 16:22 66 03/26/17 15:36 97.8 18 103/63 94 Room Air Results Result Diagram: 03/26/17 0531 03/26/17 0531 Results 24 hrs Laboratory Tests Test 03/25/17 21:13 03/25/17 22:33 03/26/17 00:22 03/26/17 05:31 White Blood Count 13.2 #H 9.5 # Red Blood Count 4.14 L 3.74 L Hemoglobin 12.1 11.2 L Hematocrit 38.4 35.2 L Mean Corpuscular Volume 92.8 94.1 Mean Corpuscular Hemoglobin 29.2 29.9 Mean Corpuscular Hemoglobin Concent 31.5 L 31.8 L Red Cell Distribution Width 14.6 H 14.3 Platelet Count 323 # 262 Mean Platelet Volume 9.3 9.5 Neutrophils % 63.9 58.5 Lymphocytes % 23.9 28.0 Monocytes % 10.0 11.6 H Eosinophils % 1.4 1.1 Basophils % 0.5 0.5 Nucleated Red Blood Cells % 0.0 0.0 Neutrophils # 8.4 H 5.6 Lymphocytes # 3.1 H 2.7 Monocytes # 1.3 H 1.1 H Eosinophils # 0.2 0.1 Basophils # 0.1 0.1 Nucleated Red Blood Cells # 0.0 0.0 Prothrombin Time 12.7 Prothrombin Time Ratio 1.0 INR International Normalized Ratio 0.95 Activated Partial Thromboplast Time 30.3 Sodium Level 134 L 137 Potassium Level 3.8 3.5 Chloride Level 99 106 Carbon Dioxide Level 29 28 Anion Gap 10 7 L Blood Urea Nitrogen 23 H 20 Creatinine 0.79 0.71 Glucose Level 112 101 Lactic Acid Level 2.4 *H 1.7 1.5 Calcium Level 8.6 7.9 L Total Bilirubin 0.1 L 0.1 L Direct Bilirubin 0.00 0.00 Indirect Bilirubin 0.1 0.1 Aspartate Amino Transf (AST/SGOT) 30 27 Alanine Aminotransferase (ALT/SGPT) 29 28 Alkaline Phosphatase 74 62 Troponin I 0.040 Total Protein 6.0 L 5.2 L Albumin 3.0 L 2.5 L Globulin 3.00 2.70 Albumin/Globulin Ratio 1.00 0.92 Medications Medications Current Medications Ondansetron HCl (Zofran Inj) 4 mg Q6H PRN IV NAUSEA AND/OR VOMITING; Start at 04:30 Morphine Sulfate (morphine) 2 mg Q4H PRN IV PAIN LEVEL 7-10; Start 03/26/17 at 04:30 Acetaminophen (Tylenol Tab) 650 mg Q4 PRN PO PAIN LEVEL 1-5 Last administered on 03/26/17 15:07; Admin Dose 650 MG; Start 03/26/17 at 04:30 Ascorbic Acid (Vitamin C) 500 mg DAILY PO Last administered on 03/26/17 10:47 ; Admin Dose 500 MG; Start 03/26/17 at 09:00 Clonazepam (Klonopin) 0.5 mg TID PRN PO ANXIETY Last administered on 03/26/17 08:29; Admin Dose 0.5 MG; Start 03/26/17 at 04:30 Isosorbide Dinitrate (Isordil) 5 mg BID PO Last administered on 03/26/17 10:46 ; Admin Dose 5 MG; Start 03/26/17 at 09:00 Magnesium Hydroxide (Milk Of Mag) 30 ml DAILY PRN PO CONSTIPATION; Start at 04:30 Metoprolol Tartrate (Lopressor) 12.5 mg BID PO Last administered on 03/26/17 10:46; Admin Dose 12.5 MG; Start 03/26/17 at 09:00 Polyethylene Glycol (Miralax) 17 gm DAILY PO Last administered on 03/26/17 10: 47; Admin Dose 17 GM; Start 03/26/17 at 09:00 Tramadol HCl (Ultram) 50 mg BID PRN PO PAIN Last administered on 03/26/17 08: 29; Admin Dose 50 MG; Start 03/26/17 at 04:30 Pantoprazole (Protonix Tab) 40 mg BID@06,18 PO Last administered on 03/26/17 08:28; Admin Dose 40 MG; Start 03/26/17 at 07:00 Miscellaneous Information 145 mcg DAILY PO ; Start 03/26/17 at 09:00; Status UNV Levetiracetam (Keppra) 500 mg BID PO Last administered on 03/26/17 10:45; Admin Dose 500 MG; Start 03/26/17 at 09:00 Risperidone (Risperdal) 0.5 mg DAILY PO Last administered on 03/26/17 10:48; Admin Dose 0.5 MG; Start 03/26/17 at 09:30 Aspirin (Halfprin) 81 mg DAILY PO Last administered on 03/26/17 10:48; Admin Dose 81 MG; Start 03/26/17 at 10:00 Enoxaparin Sodium (Lovenox) 40 mg DAILY SC ; Start 03/27/17 at 09:00 Miscellaneous Information (*Order Clarification Bulletin) LINZESS IS NON FORMULARY...PLEASE CONSIDER AN OR... Q8H XX ; Start 03/26/17 at 15:00 MARICHUY DUBON MD Mar 26, 2017 16:38
[2017-03-26] MEDS ORDERED: ATORVASTATIN 20 MG TAB PO SCH (21:00)
[2017-03-26] MEDS ORDERED: LORAZEPAM 2 MG INJ IV ONE (22:00)
[2017-03-26] MEDS ORDERED: HALOPERIDOL 5 MG INJ IM ONE (22:00)
[2017-03-27] VITALS (9 sets, daily range): BP systolic 98–125; BP diastolic 55–74; PULSE 59–72; RESP 16–20
[2017-03-27] MEDS: PANTOPRAZOLE (EC) 40 MG TAB PO SCH (05:46)
[2017-03-27] MEDS: LEVOTHYROXINE 25 MCG TAB PO SCH (05:46)
[2017-03-27] MEDS: LINZESS IS NON FORMULARY...PLEASE CONSIDER AN ORDER TO USE PATIENT'S OWN MED XX SCH (07:00)
[2017-03-27] MEDS ORDERED: INFLUENZA VIRUS VACCINE 0.5 ML SYG IM* ONE (09:00)
[2017-03-27 09:08] LABS: BASOPHIL # 0.1 10^3/ul (0.0-0.1); BASOPHILS % 0.9 % (0.0-2.0); EOSINOPHILS # 0.1 10^3/ul (0.0-0.5); EOSINOPHILS % 1.6 % (0.0-7.0); HEMOGLOBIN 11.9 g/dl (12.0-16.0); LYMPHOCYTES # 2.7 10^3/ul (0.8-2.9); LYMPHOCYTES % 31.4 % (15.0-51.0); MEAN CORPUSCULAR HEMOGLOBIN 30.2 pg (29.0-33.0); MEAN CORPUSCULAR HGB CONC 32.2 g/dl (32.0-37.0); MEAN CORPUSCULAR VOLUME 93.9 fl (82.0-101.0); MEAN PLATELET VOLUME 9.3 fl (7.4-10.4); MONOCYTES % 11.9 % (0.0-11.0); NEUTROPHIL # 4.6 10^3/ul (1.6-7.5); PLATELET COUNT 262 10^3/UL (140-415); RED BLOOD COUNT 3.94 10^6/ul (4.20-5.40); RED CELL DISTRIBUTION WIDTH 14.2 % (11.5-14.5); WHITE BLOOD COUNT 8.6 10^3/ul (4.8-10.8)
[2017-03-27 09:30] LABS: CALCIUM 8.5 mg/dl (8.4-10.2); CREATININE 0.71 mg/dl (0.44-1.00); MAGNESIUM 1.6 mg/dl (1.7-2.5); PHOSPHORUS 3.2 mg/dl (2.5-4.9)
[2017-03-27 09:54] LABS: POTASSIUM 3.3 mmol/L (3.5-5.1)
[2017-03-27] MEDS: ASCORBIC ACID 500 MG TAB PO SCH (10:22)
[2017-03-27] MEDS: ASPIRIN (EC) 81 MG TAB PO SCH (10:23)
[2017-03-27] MEDS: RISPERIDONE 0.25 MG TAB PO SCH (10:24)
[2017-03-27] MEDS: LEVETIRACETAM 500 MG TAB PO SCH ×2 (10:24→20:20)
[2017-03-27] MEDS: POLYETHYLENE GLYCOL 17 GM PACKET PO SCH (10:25)
[2017-03-27] MEDS: METOPROLOL 25 MG TAB PO SCH ×2 (10:25→20:22)
[2017-03-27] MEDS: ENOXAPARIN 40 MG/0.4 ML SYG SC SCH (10:27)
[2017-03-27] MEDS ORDERED: POTASSIUM CHLORIDE (SR) 20 MEQ TAB PO STA (13:50)
[2017-03-27] MEDS ORDERED: MAGNESIUM OXIDE 400 MG TAB PO ONE (14:00)
--- NOTE | 2017-03-27 15:45 | PN ---
Date/Time of Note Date/Time of Note DATE: 03/27/17 TIME: 15:44 Assessment/Plan VTE Prophylaxis VTE Prophylaxis Intervention: LMWH Lines/Catheters IV Catheter Type (from Nrs): Saline Lock Urinary Cath still in place: No Assessment/Plan Chief Complaint/Hosp Course 82 yo female wtih A Fib, dementia who presents for evaluation of possible CVA CVA: - Brain MRI pending, CT without acute findings A Fib: - Controlled, now in sinus - Continue metoprolol - Holding AC per previous discussions, though if cardioembolic stroke is present will be more compelling indication Discharge following MRI Problems: Subjective 24 Hr Interval Summary Free Text/Dictation No change to clincal status Awaiting MRI Exam/Review of Systems Vital Signs Vitals Vital Signs Date Time Temp Pulse Resp B/P Pulse Ox O2 Delivery O2 Flow Rate FiO2 03/27/17 11:55 98.3 60 20 98/55 98 03/26/17 15:36 Room Air Intake and Output 03/26/17 03/26/17 03/27/17 15:00 23:00 07:00 Intake Total 120 ml 900 ml Balance 120 ml 900 ml Results Result Diagram: 03/27/17 0850 03/27/17 0850 Results 24 hrs Laboratory Tests Test 03/27/17 08:50 White Blood Count 8.6 Red Blood Count 3.94 L Hemoglobin 11.9 L Hematocrit 37.0 Mean Corpuscular Volume 93.9 Mean Corpuscular Hemoglobin 30.2 Mean Corpuscular Hemoglobin Concent 32.2 Red Cell Distribution Width 14.2 Platelet Count 262 Mean Platelet Volume 9.3 Neutrophils % 54.0 Lymphocytes % 31.4 Monocytes % 11.9 H Eosinophils % 1.6 Basophils % 0.9 Nucleated Red Blood Cells % 0.0 Neutrophils # 4.6 Lymphocytes # 2.7 Monocytes # 1.0 H Eosinophils # 0.1 Basophils # 0.1 Nucleated Red Blood Cells # 0.0 Sodium Level 135 Potassium Level 3.3 L Chloride Level 101 Carbon Dioxide Level 31 Anion Gap 6 L Blood Urea Nitrogen 15 Creatinine 0.71 Glucose Level 88 Calcium Level 8.5 Phosphorus Level 3.2 Magnesium Level 1.6 L Medications Medications Current Medications Ondansetron HCl (Zofran Inj) 4 mg Q6H PRN IV NAUSEA AND/OR VOMITING; Start at 04:30 Morphine Sulfate (morphine) 2 mg Q4H PRN IV PAIN LEVEL 7-10; Start 03/26/17 at 04:30 Acetaminophen (Tylenol Tab) 650 mg Q4 PRN PO PAIN LEVEL 1-5 Last administered on 03/26/17 15:07; Admin Dose 650 MG; Start 03/26/17 at 04:30 Ascorbic Acid (Vitamin C) 500 mg DAILY PO Last administered on 03/27/17 10:22 ; Admin Dose 500 MG; Start 03/26/17 at 09:00 Clonazepam (Klonopin) 0.5 mg TID PRN PO ANXIETY Last administered on 03/26/17 21:36; Admin Dose 0.5 MG; Start 03/26/17 at 04:30 Magnesium Hydroxide (Milk Of Mag) 30 ml DAILY PRN PO CONSTIPATION; Start at 04:30 Metoprolol Tartrate (Lopressor) 12.5 mg BID PO Last administered on 03/27/17 10:25; Admin Dose 12.5 MG; Start 03/26/17 at 09:00 Polyethylene Glycol (Miralax) 17 gm DAILY PO Last administered on 03/27/17 10: 25; Admin Dose 17 GM; Start 03/26/17 at 09:00 Tramadol HCl (Ultram) 50 mg BID PRN PO PAIN Last administered on 03/26/17 08: 29; Admin Dose 50 MG; Start 03/26/17 at 04:30 Levetiracetam (Keppra) 500 mg BID PO Last administered on 03/27/17 10:24; Admin Dose 500 MG; Start 03/26/17 at 09:00 Risperidone (Risperdal) 0.5 mg DAILY PO Last administered on 03/27/17 10:24; Admin Dose 0.5 MG; Start 03/26/17 at 09:30 Aspirin (Halfprin) 81 mg DAILY PO Last administered on 03/27/17 10:23; Admin Dose 81 MG; Start 03/26/17 at 10:00 Enoxaparin Sodium (Lovenox) 40 mg DAILY SC Last administered on 03/27/17 10:27 ; Admin Dose 40 MG; Start 03/27/17 at 09:00 Haloperidol (Haldol) 2 mg Q4H PRN IM AGITATION; Start 03/26/17 at 22:00 MARICHUY DUBON MD Mar 27, 2017 15:45
--- NOTE | 2017-03-27 16:22 | RADRPT ---
PROCEDURE: MR Brain noncontrast. CLINICAL INDICATION: Stroke. TECHNIQUE: Multiplanar multisequence noncontrast MRI of the brain was performed. COMPARISON: Noncontrast CT of the head from March 25, 2017. FINDINGS: There is minimal generalized cerebral volume loss. There are few bilateral subcortical T2 hyperinte nsities suggesting chronic microvascular ischemic changes. There is a subtle restricted diffusion within the left parietal cortex as well as the medial left oc cipital lobe with associated gyral edema suggesting recent infarction. There is a partially empty sella turcica. There is no intracranial hemorrhage or extra-axial fluid collection. There is no midline shift. The brainstem is within normal limits. The posterior fossa is unremarkable. The normal intracranial, intravascular flow voids are preserved. There is minimal bilateral ethmoid sinus mucosal thickening. There is mild to moderate bilateral sph enoid sinus air fluid levels. The orbits are grossly unremarkable. There is no destructive osseous lesion. There are mild right mastoid air cell effusions. IMPRESSION: 1. 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 2. Minimal generalized cerebral volume loss. 3. Minimal chronic microvascular ischemic changes. 4. Partially empty sella turcica. 5. Mild to moderate bilateral sphenoid sinus air fluid levels which may represent acute sinusitis. Further findings as detailed above. RPTAT: HVF .Osmar Allen MD, MD Date Time Electronically viewed and signed by .Osmar Allen MD, MD on 03/27/2017 16:22 .F/
[2017-03-27] MEDS: clonAZEPAM 0.5 MG TAB PO PRN (20:21)
[2017-03-28] VITALS (13 sets, daily range): BP systolic 96–144; BP diastolic 52–98; PULSE 69–80; RESP 16–20
[2017-03-28] MEDS: POLYETHYLENE GLYCOL 17 GM PACKET PO SCH (08:47)
[2017-03-28] MEDS: ASCORBIC ACID 500 MG TAB PO SCH (08:48)
[2017-03-28] MEDS: LEVETIRACETAM 500 MG TAB PO SCH ×2 (08:48→20:47)
[2017-03-28] MEDS: ASPIRIN (EC) 81 MG TAB PO SCH (08:48)
[2017-03-28] MEDS: RISPERIDONE 0.25 MG TAB PO SCH (08:48)
[2017-03-28] MEDS: LEVOTHYROXINE 25 MCG TAB PO SCH (08:49)
[2017-03-28] MEDS: METOPROLOL 25 MG TAB PO SCH ×2 (08:51→20:46)
[2017-03-28] MEDS: ENOXAPARIN 40 MG/0.4 ML SYG SC SCH (08:52)
--- NOTE | 2017-03-28 11:11 | RADRPT ---
PROCEDURE: US Carotids. CLINICAL INDICATION: bruit , stroke TECHNIQUE: Multiple sonographic of the carotid bifurcation region and vertebral arteries were obta ined utilizing dale scale, duplex and color-flow imaging. The images were reviewed on a PACS worksta tion. COMPARISON: No prior studies are available for comparison. FINDINGS: Evaluation of the right carotid bifurcation region reveals mild calcific atherosclerotic disease. Evaluation of the left carotid bifurcation region reveals mild calcific atherosclerotic disease. . T here is a 34% stenosis in the left proximal ICA There is antegrade flow within the vertebral arteries bilaterally. RIGHT CAROTID MEASUREMENTS: Common Carotid Fyhsvm66.9 (cm/sec) Internal Carotid Artery - biusgpmp38.9 (cm/sec) Internal Carotid Artery - mid53.2 (cm/sec) Internal Carotid Artery - [id number] (cm/sec) Internal Carotid/Common Carotid1.18 LEFT CAROTID MEASUREMENTS: Common Carotid Nacvko82.4 (cm/sec) Internal Carotid Artery - .3 (cm/sec) Internal Carotid Artery - mid48.2 (cm/sec) Internal Carotid Artery - .9 (cm/sec) Internal Carotid/Common Carotid0.94 RPTAT: AA IMPRESSION: No evidence for hemodynamically significant stenosis in the bilateral internal carotid arteries - va lidated velocity measurements with angiographic measurements, velocity criteria are extrapolated fro m diameter data as defined by the Society of Radiologists in Ultrasound Consensus Conference Radiolo gy 2003; 229;340-346. This study does indirectly reference the measurement of the distal ICA diamet er as the denominator for stenosis measurement. Normal antegrade flow in the vertebral arteries bilaterally. Mild calcific plaque bilaterally, left greater than right. .Eder Carlson MD, Date Time Electronically viewed and signed by .Eder Carlson MD, MD on 03/28/2017 11:11 .S/
--- NOTE | 2017-03-28 17:44 | PN ---
Date/Time of Note Date/Time of Note DATE: 03/28/17 TIME: 17:42 Assessment/Plan VTE Prophylaxis VTE Prophylaxis Intervention: LMWH Lines/Catheters IV Catheter Type (from Nrs): Saline Lock Urinary Cath still in place: No Assessment/Plan Chief Complaint/Hosp Course 82 yo female wtih A Fib, dementia who presents for evaluation of possible CVA. MRI confirms acute stroke CVA: - Carotids without significant stenosis - Await consultation by césar Torres will start systemic AC 2/2 A Fib and discontinue aspirin A Fib: - Controlled, now in sinus - Continue metoprolol Dementia - Vascular, alzhemiers likely Discharge likely tomorrow to [place] Problems: Subjective 24 Hr Interval Summary Free Text/Dictation MRI shows acute stroke Patient status unchanged Appears comfortable No obvious neurologic motor deficit Exam/Review of Systems Vital Signs Vitals Vital Signs Date Time Temp Pulse Resp B/P Pulse Ox O2 Delivery O2 Flow Rate FiO2 03/28/17 16:30 70 03/28/17 16:00 97.7 20 98/53 98 03/26/17 15:36 Room Air Intake and Output 03/27/17 03/27/17 03/28/17 15:00 23:00 07:00 Intake Total 920 ml 570 ml Balance 920 ml 570 ml Results Result Diagram: 03/27/17 0850 03/27/17 0850 Medications Medications Current Medications Ondansetron HCl (Zofran Inj) 4 mg Q6H PRN IV NAUSEA AND/OR VOMITING; Start at 04:30 Morphine Sulfate (morphine) 2 mg Q4H PRN IV PAIN LEVEL 7-10 Last administered on 03/27/17 20:24; Admin Dose 2 MG; Start 03/26/17 at 04:30 Acetaminophen (Tylenol Tab) 650 mg Q4 PRN PO PAIN LEVEL 1-5 Last administered on 03/26/17 15:07; Admin Dose 650 MG; Start 03/26/17 at 04:30 Ascorbic Acid (Vitamin C) 500 mg DAILY PO Last administered on 03/28/17 08:48 ; Admin Dose 500 MG; Start 03/26/17 at 09:00 Clonazepam (Klonopin) 0.5 mg TID PRN PO ANXIETY Last administered on 03/27/17 20:21; Admin Dose 0.5 MG; Start 03/26/17 at 04:30 Magnesium Hydroxide (Milk Of Mag) 30 ml DAILY PRN PO CONSTIPATION; Start at 04:30 Metoprolol Tartrate (Lopressor) 12.5 mg BID PO Last administered on 03/28/17 08:51; Admin Dose 12.5 MG; Start 03/26/17 at 09:00 Polyethylene Glycol (Miralax) 17 gm DAILY PO Last administered on 03/28/17 08: 47; Admin Dose 17 GM; Start 03/26/17 at 09:00 Tramadol HCl (Ultram) 50 mg BID PRN PO PAIN Last administered on 03/26/17 08: 29; Admin Dose 50 MG; Start 03/26/17 at 04:30 Levetiracetam (Keppra) 500 mg BID PO Last administered on 03/28/17 08:48; Admin Dose 500 MG; Start 03/26/17 at 09:00 Risperidone (Risperdal) 0.5 mg DAILY PO Last administered on 03/28/17 08:48; Admin Dose 0.5 MG; Start 03/26/17 at 09:30 Aspirin (Halfprin) 81 mg DAILY PO Last administered on 03/28/17 08:48; Admin Dose 81 MG; Start 03/26/17 at 10:00 Enoxaparin Sodium (Lovenox) 40 mg DAILY SC Last administered on 03/28/17 08:52 ; Admin Dose 40 MG; Start 03/27/17 at 09:00 Haloperidol (Haldol) 2 mg Q4H PRN IM AGITATION Last administered on 03/27/17 23:12; Admin Dose 2 MG; Start 03/26/17 at 22:00 MARICHUY DUBON MD Mar 28, 2017 17:44
[2017-03-28] MEDS: ATORVASTATIN 10 MG TAB PO SCH (20:47)
[2017-03-29] VITALS (13 sets, daily range): BP systolic 102–123; BP diastolic 56–65; PULSE 73–86; RESP 16–20
--- NOTE | 2017-03-29 06:02 | CONS ---
DATE OF ADMISSION: 03/25/2017 DATE OF CONSULTATION: 03/28/2017 Thank you Russell Noble MD for this kind referral for evaluation of possible stroke. The patient is an 82-year-old lady who was transferred from [facility] facility secondary to alteration of consciousness, was confused, with difficulty opening eyes, facial numbness according to history and physical examination note. She does have history of seizures, but no witnessed seizures lately. She has atrial fibrillation. She had a MRI of the brain, which was read as recent left parietal and left occipital lobe infarction with associated gyral edema. As stated in the findings in the report that there is a subtle restricted diffusion within the left parietal cortex as well as medial and left occipital lobe with associated gyral edema suggesting recent infarction. There is no hemorrhage. Carotid ultrasounds did not show any hemodynamically significant lesions. PAST MEDICAL HISTORY: 1. She has a history of seizure prior to previous admission in 01/2017. 2. Hypertension. 3. Anemia. ALLERGIES: NONE. SOCIAL HISTORY: No alcohol, tobacco, or drug use. FAMILY HISTORY: Noncontributory. LABORATORY DATA: The patient's blood work shows essentially normal WBC and platelets. Hemoglobin 11.9, hematocrit 37. She was admitted a few days ago, WBC count 13.2. Yesterday's basic metabolic panel potassium 3.3, magnesium 1.6, liver function tests a couple days ago within normal limits with he exception of albumin 2.5. She was admitted with elevated lactate, but it became normal after a few days. PT and PTT within normal limits. Urinalysis 1+ urobilinogen, and trace of leukocyte esterase, but no cells. CURRENT MEDICATIONS: 1. Lovenox 40 mg daily. 2. Aspirin 81. 3. Haldol. 4. Respiridone 0.5 daily. 5. Metoprolol. 6. Keppra 500 mg twice daily. 7. L-thyroxine. 8. Clonazepam 0.5 p.r.n. 9. Tramadol p.r.n. PHYSICAL EXAMINATION: VITAL SIGNS: Temperature 97.7, pulse 70, respiration 20, blood pressure 98/53. GENERAL: Not in acute distress. Lying in bed. Normocephalic atraumatic head. NECK: No carotid bruits. No thyromegaly. LUNGS: Clear to auscultation bilaterally. HEART: Normal cardiac rhythm and sounds. ABDOMEN: Soft. EXTREMITIES: No cyanosis, clubbing, or edema. NEUROLOGIC: She is awake, alert, and oriented x1 only. She does know she is in he hospital. She is not able to provide details of the history. I do not know if she has any baseline dementia or not. She seems to have poor vision as well. Able to see the light bilaterally, but making mistakes with finger counting. Local response to visual threat bilaterally. Pupils about 3 mm sluggish. Extraocular movements intact without nystagmus. Symmetrical face. Preserved facial strength. Diminished facial sensation to light touch and pain on the right. Tongue is in midline. Palate elevates symmetrically. Motor strength examination seemed to be preserved in all extremities. Normal bulk, tone, and strength. Sensory examination diminished on the right upper and lower extremities. Deep tendon reflexes 2+ upper extremities and knees. Absent ankle jerks. Equivocal response to plantar stimulation bilaterally. Coordination is preserved. Transient reaching for objects. No dysmetria or tremor. Gait was not assessed. IMPRESSION: 1. Transient encephalopathy. MRI shows left sided parietal occipital infarction. Atrial fibrillation. PLAN: Keep patient normotesive, euglycemic. I will use small dose of statin. We will check ordered lipid profile and I agree that if there is no major contraindications for anticoagulation, that it is probably reasonable to start for stroke prevention. Thank you very much for this interesting consultation. Dictated By: Jah Cuello MD /jesenia/maciel /Document#: [id number] MAIRA
[2017-03-29] MEDS: LEVOTHYROXINE 25 MCG TAB PO SCH (06:57)
[2017-03-29] MEDS: ASPIRIN (EC) 81 MG TAB PO SCH (09:23)
[2017-03-29] MEDS: RISPERIDONE 0.25 MG TAB PO SCH (09:23)
[2017-03-29] MEDS: LEVETIRACETAM 500 MG TAB PO SCH ×2 (09:23→21:19)
[2017-03-29] MEDS: POLYETHYLENE GLYCOL 17 GM PACKET PO SCH (09:24)
[2017-03-29] MEDS: METOPROLOL 25 MG TAB PO SCH ×2 (09:24→21:19)
[2017-03-29] MEDS: ASCORBIC ACID 500 MG TAB PO SCH (09:24)
[2017-03-29] MEDS: ENOXAPARIN 40 MG/0.4 ML SYG SC SCH (09:36)
[2017-03-29 11:03] LABS: CHOL/HDL RATIO 4.6 RATIO
--- NOTE | 2017-03-29 11:14 | PN ---
Date/Time of Note Date/Time of Note DATE: 03/29/17 TIME: 11:12 Assessment/Plan VTE Prophylaxis VTE Prophylaxis Intervention: other Lines/Catheters [facility]from [facility] Saline Lock Urinary Cath still in place: No Assessment/Plan Chief Complaint/Hosp Course 82 yo female wtih A Fib, dementia who presents for evaluation of possible CVA. MRI confirms acute stroke CVA: - Carotids without significant stenosis - Start Xarelto for AC and secondary stroke prevention - Stop aspirin - Low dose statin A Fib: - Controlled, now in sinus - Continue metoprolol, Xarelot as above Dementia - Vascular, alzhemiers likely Discharge tomorrow to [place] Problems: Subjective 24 Hr Interval Summary Free Text/Dictation Stable Comfortable No complaints Discussed michaela's status with her son in law Richard (HCP). He declined hsopice referral. Wants her transferred back to [facility] in two days Exam/Review of Systems Vital Signs Vitals Vital Signs Date Time Temp Pulse Resp B/P Pulse Ox O2 Delivery O2 Flow Rate FiO2 03/29/17 08:00 86 03/29/17 07:48 98.3 20 123/62 98 03/26/17 15:36 Room Air Intake and Output 03/28/17 03/28/17 03/29/17 15:00 23:00 07:00 Intake Total 800 ml 200 ml Balance 800 ml 200 ml Exam Constitutional: alert, oriented, well developed Psych: nl mood/affect, no complaints Head: atraumatic, normocephalic Eyes: EOMI, PERRL, nl conjunctiva, nl lids, nl sclera ENMT: nl external ears & nose, nl lips & teeth, nl nasal mucosa & septum Neck: non-tender, supple Respiratory: clear to auscultation, normal air movement Cardiovascular: nl pulses, regular rate and rhythm Gastrointestinal: nl liver, spleen, non-tender, soft Musculoskeletal: nl extremities to inspection, nl gait and stance Extremities: normal pulses Neurological: [employer]IST II-XII intact, nl mental status, nl speech, nl strength Skin: nl turgor, No rash or lesions Lymph: nl lymph nodes Results Result Diagram: 03/27/17 0850 03/27/17 0850 Results 24 hrs Laboratory Tests Test 03/29/17 09:30 Triglycerides Level 218 H Cholesterol Level 171 LDL Cholesterol, Calculated 90 HDL Cholesterol 37 Cholesterol/HDL Ratio 4.6 Medications Medications Current Medications Ondansetron HCl (Zofran Inj) 4 mg Q6H PRN IV NAUSEA AND/OR VOMITING; Start at 04:30 Morphine Sulfate (morphine) 2 mg Q4H PRN IV PAIN LEVEL 7-10 Last administered on 03/27/17 20:24; Admin Dose 2 MG; Start 03/26/17 at 04:30 Acetaminophen (Tylenol Tab) 650 mg Q4 PRN PO PAIN LEVEL 1-5 Last administered on 03/26/17 15:07; Admin Dose 650 MG; Start 03/26/17 at 04:30 Ascorbic Acid (Vitamin C) 500 mg DAILY PO Last administered on 03/29/17 09:24 ; Admin Dose 500 MG; Start 03/26/17 at 09:00 Clonazepam (Klonopin) 0.5 mg TID PRN PO ANXIETY Last administered on 03/27/17 20:21; Admin Dose 0.5 MG; Start 03/26/17 at 04:30 Magnesium Hydroxide (Milk Of Mag) 30 ml DAILY PRN PO CONSTIPATION; Start at 04:30 Metoprolol Tartrate (Lopressor) 12.5 mg BID PO Last administered on 03/29/17 09:24; Admin Dose 12.5 MG; Start 03/26/17 at 09:00 Polyethylene Glycol (Miralax) 17 gm DAILY PO Last administered on 03/29/17 09: 24; Admin Dose 17 GM; Start 03/26/17 at 09:00 Tramadol HCl (Ultram) 50 mg BID PRN PO PAIN Last administered on 03/26/17 08: 29; Admin Dose 50 MG; Start 03/26/17 at 04:30 Levetiracetam (Keppra) 500 mg BID PO Last administered on 03/29/17 09:23; Admin Dose 500 MG; Start 03/26/17 at 09:00 Risperidone (Risperdal) 0.5 mg DAILY PO Last administered on 03/29/17 09:23; Admin Dose 0.5 MG; Start 03/26/17 at 09:30 Enoxaparin Sodium (Lovenox) 40 mg DAILY SC Last administered on 03/29/17 09:36 ; Admin Dose 40 MG; Start 03/27/17 at 09:00 Haloperidol (Haldol) 2 mg Q4H PRN IM AGITATION Last administered on 03/27/17 23:12; Admin Dose 2 MG; Start 03/26/17 at 22:00 Atorvastatin Calcium (Lipitor) 10 mg HS PO Last administered on 03/28/17 20:47 ; Admin Dose 10 MG; Start 03/28/17 at 21:00 MARICHUY DUBON MD Mar 29, 2017 11:14
[2017-03-29] MEDS: RIVAROXABAN 20 MG TABLET PO SCH (17:58)
[2017-03-29] MEDS: ATORVASTATIN 10 MG TAB PO SCH (21:19)
[2017-03-30] VITALS (10 sets, daily range): BP systolic 102–131; BP diastolic 47–58; PULSE 63–99; RESP 16
[2017-03-30] MEDS: LEVOTHYROXINE 25 MCG TAB PO SCH (06:39)
[2017-03-30] MEDS: METOPROLOL 25 MG TAB PO SCH (09:00)
[2017-03-30] MEDS: POLYETHYLENE GLYCOL 17 GM PACKET PO SCH (09:12)
[2017-03-30] MEDS: RISPERIDONE 0.25 MG TAB PO SCH (09:13)
[2017-03-30] MEDS: ASCORBIC ACID 500 MG TAB PO SCH (09:13)
[2017-03-30] MEDS: LEVETIRACETAM 500 MG TAB PO SCH (09:13)
[2017-03-30] MEDS: ENOXAPARIN 40 MG/0.4 ML SYG SC SCH (09:18)
[2017-03-30] MEDS: ACETAMINOPHEN 325 MG TAB PO PRN (12:16)
[2017-03-30] MEDS ORDERED: RIVA20TA PO (15:26)
[2017-03-30] MEDS ORDERED: ATOR10TA65 PO (15:26)
--- NOTE | 2017-03-30 15:26 | PDOCDIS ---
Discharge Instructions DIAGNOSIS Discharge Diagnosis Stroke CONDITION Patient Condition: Fair HOME CARE INSTRUCTIONS: Special Diet: PUREED DIET FOLLOW UP/APPOINTMENTS Follow-up Plan Continue Xarelto daily indefinitly to prevent recurrent stroke Stop taking aspirin MARICHUY DUBON MD Mar 30, 2017 15:26
--- NOTE | 2017-03-30 15:28 | DS ---
Date/Time of Note Date/Time of Note DATE: 03/30/17 TIME: 15:27 Discharge Summary Admission/Discharge Info Admit Date/Time Mar 25, 2017 at 22:45 Discharge Date/Time Discharge Diagnosis Stroke Hx of Present Illness This is an 82-year-old female with a history of hypertension, A. fib, seizure who was sent from SNF for altered mentation. Patient has been confused and had difficulty opening her eyes with facial numbness and as such there was a concern for stroke and she was sent to ER for evaluation. Patient is not able to provide history because of confusion and as such information is gathered from chart review and from the ER physician. Patient was recently admitted here for seizure. At that time she was also found to be in rapid A. fib. After stabilization she was sent back to shelter facility. Patient also not long ago had an abdominal surgery for necrotic gallbladder. When she presented to the ER, lab shows WBC 13.2, lactate 2.4, sodium 134. Head CT shows subcortical hypodensity likely secondary to chronic microangiopathic ischemic change. Hospital Course 82 yo female wtih A Fib, dementia who presents for evaluation of possible CVA. Head CT was negative. However, MRI confirmed recent stroke of left parietal and left occipital lobe infarctions with associated gyral edema. Carotid duplex revealed no significant stenosis. Her stroke was presumed to be secondary to her atrial fibrillation and she was started on Xarelto which should be continued indefinitely. Her aspirin was stopped. Home Meds Reported Medications Multivit-Min/Iron Fum/Folic AC (Wlubh-Urzdmja-Jiyculjz Tablet) 1 Each Tablet, 1 EACH PO, TAB 03/26/17 Levothyroxine Sodium* (Levoxyl*) 25 Mcg Tablet, 12.5 MCG PO BEFORE BREAKFAST, # 30 TAB 02/02/17 Aspirin (Low Dose Aspirin) 81 Mg Tablet.dr, 81 MG PO DAILY, #30 TAB 02/02/17 Acetaminophen* (Acetaminophen*) 650 Mg Tablet, 650 MG PO Q4 Y for PAIN LEVEL 1-5 , #30 TAB 02/02/17 Benazepril Hcl* (Benazepril Hcl*) 20 Mg Tablet, 20 MG PO DAILY, #30 TAB HOLD IF SBP BELOW 110 02/02/17 Polyethylene Glycol* (Miralax*) 17 Gm Powd.pack, 17 GM PO DAILY, #30 PACKET 02/02/17 Metoprolol Tartrate* (Lopressor*) 25 Mg Tab, 12.5 MG PO BID, #60 TAB HOLD IF SBP BELOW 110 HOLD IF AP BELOW 60 02/02/17 Diltiazem Hcl* (Cardizem CD*) 120 Mg Cap.sr.24h, 120 MG PO DAILY, #30 CAP HOLD IF SBP BELOW 110 HOLD IF AP BELOW 60 02/02/17 Ranolazine* (Ranexa*) 500 Mg Tab.sr.12h, 500 MG PO Q12, TAB 02/02/17 Misoprostol* (Cytotec*) 100 Mcg Tablet, 200 MCG PO BID, TAB 02/02/17 Meclizine Hcl* (Meclizine Hcl*) 25 Mg Tablet, 25 MG PO BID Y for DIZZINESS, TAB 02/02/17 Linaclotide (LINZESS) 145 Mcg Capsule, 145 MCG PO DAILY, #30 CAP 02/02/17 Isosorbide Dinitrate* (Isosorbide Dinitrate*) 5 Mg Tablet, 5 MG PO BID, TAB 02/02/17 Furosemide* (Furosemide*) 40 Mg Tablet, 40 MG PO DAILY, TAB hold for SBP below 110 02/02/17 Ferrous Sulfate* (Ferrous Sulfate*) 325 Mg Tabec, 325 MG PO BID, TAB 02/02/17 Esomeprazole Mag Trihydrate (Nexium) 40 Mg Capsule.dr, 40 MG PO BID, #60 CAP 02/02/17 Clonazepam* (Clonazepam*) 0.5 Mg Tablet, 0.5 MG PO TID Y for ANXIETY, TAB 02/02/17 Magnesium Hydroxide* (Milk Of Magnesia*) 400 Mg/5 Ml Oral.susp, 30 ML PO DAILY Y for CONSTIPATION, ML 02/02/17 Ascorbic Acid* (Vitamin C*) 500 Mg Capsule.sa, 500 MG PO DAILY, CAP 02/02/17 Tramadol Hcl* (Ultram*) 50 Mg Tablet, 50 MG PO BID Y for PAIN, TAB 02/02/17 Discontinued Reported Medications Acetaminophen with Codeine (Acetaminophen-Cod #3 Tablet) 1 Each Tablet, 1 TAB PO Q6H Y for PAIN LEVEL 6-10, #7 TAB 02/02/17 Heparin Sodium,Porcine/Pf (HEPARIN SOD 5,000 UNIT/ 0.5 ML) 5,000 Unit/0.5 Ml Vial, 5000 UNIT IJ Q12, VIAL FOR 10 DAYS STARTED 02-01-17 STOP 02-11-17 02/02/17 Multivitamins* (Theragran*) 1 Tab Tab, 1 TAB PO DAILY, TAB 02/02/17 Follow-up Plan Continue Xarelto daily indefinitly to prevent recurrent stroke Stop taking aspirin Primary Care Provider Not On Staff Doctor MARICHUY DUBON MD Mar 30, 2017 15:28
[2017-03-30] MEDS: RIVAROXABAN 20 MG TABLET PO SCH (18:15)
== END 2017-03-30 21:05 | DRG 64 ==
LOC: E/R 20:15 → MS4 22:45
PROVIDERS: ADMIT Internal Medicine; ATTEND Internal Medicine
DX: I63.9 Cerebral infarction, unspecified (principal); G93.6 Cerebral edema; G93.40 Encephalopathy, unspecified; I48.91 Unspecified atrial fibrillation; F03.90 Unspecified dementia, unspecified severity, without behavioral disturbance, psychotic disturbance, mood disturbance, and anxiety; G40.909 Epilepsy, unspecified, not intractable, without status epilepticus; I10 Essential (primary) hypertension; R60.9 Edema, unspecified; R40.4 Transient alteration of awareness; Z79.82 Long term (current) use of aspirin
CPT/HCPCS: 36415; 70450; 70551; 71010; 80048; 80053; 80061; 83605; 83735; 84100; 84484; 85025; 85610; 85730; 87040; 87070; 90686; 92526; 92610; 93005; 93880; 96374; 96375; 97110; 97162; 97530; J0696; J1630; J1650; J2060; J2270; J7030; J7042

== ENCOUNTER 2017-05-04 13:20 | Inpatient (IN) | payer MEDICARE, OTHER ==
[~2017-05-04] VITALS: Ht 162.6 cm; Wt 69.0 kg
[~2017-05-04 13:20] MED LIST changes: -ACET-2047 PO; -ACET1TAB40 PO; -ASCO500C7 PO; -ASPI-664 PO; +ATOR10TA65 PO; -BENA20TA48 PO; -DILT120C77 PO; -ESOM40CA PO; -FER325 PO; -FURO40TA4 PO; -HEPA500021 IJ; -ISOS5TAB2 PO; -LEVO25TA50 PO; -LINA145C PO; -MAGN400O4 PO; -MECL-77 PO; -MISO100T PO; -MULTI PO; -POLY17PO6 PO; -RANO500T2 PO; +RIVA20TA PO
--- NOTE | 2017-05-04 14:02 | ERD ---
ER Documentation Chief Complaint Chief Complaint bib ra from [facility] c/o chills , afebrile HPI 82-year-old female with a history of CVA, atrial fibrillation, hypertension, hypothyroidism, dementia, hyperlipidemia status post cholecystectomy referred to the ED from [facility] for evaluation of a 2 day history of subjective chills. Patient denies chest pain, palpitations or shortness of breath. No abdominal pain, nausea, vomiting, diarrhea or constipation. Mild dysuria but no polyuria, hematuria or flank pain. No skin rash. ROS All systems reviewed and are negative except as per history of present illness. Medications Home Meds Active Scripts Rivaroxaban* (Xarelto*) 20 Mg Tablet, 20 MG PO WITH DINNER for 30 Days, #30 TAB Prov:MARICHUY DUBON MD 03/30/17 Atorvastatin (Atorvastatin) 10 Mg Tablet, 10 MG PO HS for 30 Days, #30 TAB Prov:MARICHUY DUBON MD 03/30/17 Reported Medications Metoprolol Tartrate* (Lopressor*) 25 Mg Tab, 12.5 MG PO BID, #60 TAB HOLD IF SBP BELOW 110 HOLD IF AP BELOW 60 02/02/17 Clonazepam* (Clonazepam*) 0.5 Mg Tablet, 0.5 MG PO TID Y for ANXIETY, TAB 02/02/17 Tramadol Hcl* (Ultram*) 50 Mg Tablet, 50 MG PO BID Y for PAIN, TAB 02/02/17 Allergies Allergies: Coded Allergies: No Known Allergy (Unverified , 03/26/17) PMhx/Soc Reviewed in chart. As per HPI. History of Surgery: Yes (CHOLECYSTECTOMY) Anesthesia Reaction: No Hx Neurological Disorder: Yes (DEMENTIA) Hx Respiratory Disorders: No Hx Cardiac Disorders: Yes (HTN,CAD, CHF) Hx Psychiatric Problems: No Hx Miscellaneous Medical Probl: Yes (see H&P ) Hx Alcohol Use: No Hx Substance Use: No Hx Tobacco Use: No Smoking Status: Never smoker Physical Exam Vitals Vital Signs Date Time Temp Pulse Resp B/P Pulse Ox O2 Delivery O2 Flow Rate FiO2 05/04/17 17:28 88 16 116/72 98 Room Air 05/04/17 13:33 98.2 77 16 102/69 97 Physical Exam Const: Alert, confused Head: Atraumatic Eyes: Normal Conjunctiva ENT: Normal External Ears, Nose and Mouth. Neck: Full range of motion..~ No meningismus. Resp: Clear to auscultation bilaterally Cardio: Regular rate and rhythm, no murmurs Abd: Soft, non tender, non distended. Normal bowel sounds Skin: No petechiae or rashes Back: No midline or flank tenderness Ext: No cyanosis, or edema Neur: Awake and alert Psych: Normal Mood and Affect Result Diagram: 05/04/17 1400 05/04/17 1400 Results 24 hrs Laboratory Tests Test 05/04/17 14:00 05/04/17 15:50 White Blood Count 10.410^3/ul Red Blood Count 4.4310^6/ul Hemoglobin 13.0g/dl Hematocrit 40.4% Mean Corpuscular Volume 91.2fl Mean Corpuscular Hemoglobin 29.3pg Mean Corpuscular Hemoglobin Concent 32.2g/dl Red Cell Distribution Width 14.8% Platelet Count 28796^3/UL Mean Platelet Volume 9.6fl Neutrophils % 58.6% Lymphocytes % 24.8% Monocytes % 11.5% Eosinophils % 3.8% Basophils % 1.1% Nucleated Red Blood Cells % 0.0/100WBC Neutrophils # 6.110^3/ul Lymphocytes # 2.610^3/ul Monocytes # 1.210^3/ul Eosinophils # 0.410^3/ul Basophils # 0.110^3/ul Nucleated Red Blood Cells # 0.010^3/ul Sodium Level 136mmol/L Potassium Level 4.3mmol/L Chloride Level 98mmol/L Carbon Dioxide Level 31mmol/L Anion Gap 11 Blood Urea Nitrogen 20mg/dl Creatinine 0.86mg/dl Glucose Level 110mg/dl Calcium Level 9.8mg/dl Total Bilirubin 0.2mg/dl Direct Bilirubin 0.00mg/dl Indirect Bilirubin 0.2mg/dl Aspartate Amino Transf (AST/SGOT) 23IU/L Alanine Aminotransferase (ALT/SGPT) 24IU/L Alkaline Phosphatase 69IU/L Total Protein 7.1g/dl Albumin 3.5g/dl Globulin 3.60g/dl Albumin/Globulin Ratio 0.97 Thyroid Stimulating Hormone (TSH) 3.730MIU/L Urine Color YELLOW Urine Clarity TURBID Urine pH 7.0 Urine Specific [place] 1.006 Urine Ketones NEGATIVEmg/dL Urine Nitrite NEGATIVEmg/dL Urine Bilirubin NEGATIVEmg/dL Urine Urobilinogen NEGATIVEmg/dL Urine Leukocyte Esterase 3+Rubén/ul Urine Microscopic RBC 5/HPF Urine Microscopic WBC > 182/HPF Urine Bacteria MODERATE/HPF Urine Mucus FEW/HPF Urine Hemoglobin NEGATIVEmg/dL Urine Glucose NEGATIVEmg/dL Urine Total Protein NEGATIVEmg/dl Current Medications Medications (Trade) Dose Ordered Sig/Ирина Route PRN Reason Start Time Stop Time Status Last Admin Dose Admin Ceftriaxone Sodium (Rocephin) 50 ml @ 100 mls/hr ONCE STAT IVPB 05/04/17 16:48 05/04/17 17:17 DC 05/04/17 16:54 Lorazepam (Ativan) 0.5 mg ONCE ONCE IV 05/04/17 18:30 05/04/17 18:31 DC 05/04/17 18:34 Lorazepam (Ativan) 2 mg STK-MED ONCE .ROUTE 05/04/17 18:30 05/04/17 18:31 DC Ondansetron HCl (Zofran Inj) 4 mg BRIDGE ORDER PRN IV NAUSEA AND/OR VOMITING 05/04/17 20:00 05/05/17 19:59 Acetaminophen (Tylenol Tab) 650 mg ER BRIDGE PRN PO MILD PAIN/FEVER 05/04/17 20:00 05/05/17 19:59 Procedures/MDM DOCUMENTS REVIEWED: ED nurse, prior ED, prior records MEDICAL DECISION MAKIN-year-old female with a history of CVA, atrial fibrillation, hypertension, hypothyroidism, dementia, hyperlipidemia status post cholecystectomy referred to the ED from [facility] for evaluation of a 2 day history of subjective chills. Patient presents with acute cystitis. Initiated after cultures. No radiographic evidence of pneumonia. Abdominal exam is benign without rebound, guarding or signs of peritonitis. According to son she is more confused than usual and is rather insistent that she be observed in the hospital overnight. She will be admitted to observation for intravenous hydration, antibiotics, further evaluation and management. Counseled she and family regarding diagnosis, diagnostic results and plan for admission. CALLS/CONSULTS: Time 19:45, Dr. Esposito, Recommends patient to [facility] observation PATIENT CARE TRANSITIONED: Time: 19:45, Dr. Esposito. Departure Diagnosis: Primary Impression: Dehydration Additional Impressions: Urinary tract infection Urinary tract infection type: acute cystitis Hematuria presence: without hematuria Qualified Code: N30.00 - Acute cystitis without hematuria Encephalopathy History of CVA (cerebrovascular accident) FLORENTIN KANG MD May 04, 2017 14:02
[2017-05-04 14:13] LABS: BASOPHIL # 0.1 10^3/ul (0.0-0.1); BASOPHILS % 1.1 % (0.0-2.0); EOSINOPHILS # 0.4 10^3/ul (0.0-0.5); EOSINOPHILS % 3.8 % (0.0-7.0); HEMATOCRIT 40.4 % (37.0-47.0); LYMPHOCYTES # 2.6 10^3/ul (0.8-2.9); LYMPHOCYTES % 24.8 % (15.0-51.0); MEAN CORPUSCULAR HEMOGLOBIN 29.3 pg (29.0-33.0); MEAN CORPUSCULAR HGB CONC 32.2 g/dl (32.0-37.0); MEAN CORPUSCULAR VOLUME 91.2 fl (82.0-101.0); MEAN PLATELET VOLUME 9.6 fl (7.4-10.4); MONOCYTE # 1.2 10^3/ul (0.3-0.9); MONOCYTES % 11.5 % (0.0-11.0); NEUTROPHIL # 6.1 10^3/ul (1.6-7.5); NEUTROPHILS % 58.6 % (39.0-77.0); PLATELET COUNT 319 10^3/UL (140-415); RED BLOOD COUNT 4.43 10^6/ul (4.20-5.40); RED CELL DISTRIBUTION WIDTH 14.8 % (11.5-14.5); WHITE BLOOD COUNT 10.4 10^3/ul (4.8-10.8)
[2017-05-04 14:28] LABS: ALBUMIN 3.5 g/dl (3.3-4.9); ALBUMIN/GLOBULIN RATIO 0.97; BILIRUBIN,INDIRECT 0.2 mg/dl (0-1.1); BILIRUBIN,TOTAL 0.2 mg/dl (0.2-1.3); CALCIUM 9.8 mg/dl (8.4-10.2); CREATININE 0.86 mg/dl (0.44-1.00); POTASSIUM 4.3 mmol/L (3.5-5.1); TOTAL PROTEIN 7.1 g/dl (6.1-8.1)
[2017-05-04 14:58] LABS: THYROID STIMULATING HORMONE 3.73 MIU/L (0.465-4.680)
--- NOTE | 2017-05-04 15:05 | RADRPT ---
PROCEDURE: XR Chest 1 view. CLINICAL INDICATION: Shortness of breath. Chills. TECHNIQUE: AP views of the chest were obtained. COMPARISON: March 25, 2017 FINDINGS: The heart is large. Calcified atherosclerosis is noted in the aorta. Calcified heart valve is obser nancy. The lungs are hypoinflated. Elevated right hemidiaphragm is identified. Discoid atelectasis or scarring is identified in the right mid and lower lung. No consolidations are identified. No pneumo thorax is seen. Osseous structures are intact. IMPRESSION: Cardiomegaly with calcified atherosclerosis in the aorta. Chronically elevated right hemidiaphragm with chronic discoid atelectasis or scarring in the right m id and lower lung. RPTAT: AA .Jesus Rodney MD, Date Time Electronically viewed and signed by .Jesus Rodney MD, MD on 05/04/2017 15:04 .P/
[2017-05-04 16:43] LABS: ADD UMIC YES; UR ASCORBIC ACID 40 mg/dL (NEGATIVE); UR BACTERIA MODERATE /HPF (NONE SEEN); UR BILIRUBIN (Dip) NEGATIVE (NEGATIVE); UR BLOOD (Dip) NEGATIVE (NEGATIVE); UR CLARITY TURBID (CLEAR); UR COLOR YELLOW (YELLOW); UR GLUCOSE (Dip) NEGATIVE (NEGATIVE); UR KETONES (Dip) NEGATIVE (NEGATIVE); UR LEUKOCYTE ESTERASE (Dip) 3+ Leu/ul (NEGATIVE); UR MUCUS FEW /HPF (NONE SEEN); UR NITRITE (Dip) NEGATIVE (NEGATIVE); UR RBC 5 /HPF (0-5); UR SPECIFIC GRAVITY (Dip) 1.006 (1.003-1.030); UR TOTAL PROTEIN (Dip) NEGATIVE (NEGATIVE); UR UROBILINOGEN (Dip) NEGATIVE (NEGATIVE)
[2017-05-04] MEDS ORDERED: CEFTRIAXONE 1 GM/50 ML (PMX) 50 ML IVPB STA (16:48)
[2017-05-04] MEDS ORDERED: LORAZEPAM 2 MG INJ ONE (18:30)
[2017-05-04] MEDS ORDERED: LORAZEPAM 2 MG INJ IV ONE (18:30)
[2017-05-04] MEDS ORDERED: ACETAMINOPHEN 325 MG TAB PO PRN (20:00)
[2017-05-04] MEDS ORDERED: ONDANSETRON 4 MG INJ IV PRN (20:00)
[2017-05-04 22:00] VITALS: BP 121/70; PULSE 76; RESP 20
[2017-05-04 22:05] VITALS: Ht 162.6 cm; Wt 69.0 kg
[2017-05-05 00:09] VITALS: BP 114/60; RESP 18
[2017-05-05] MEDS ORDERED: ONDANSETRON 4 MG INJ IV PRN (01:30)
[2017-05-05] MEDS: DEXTROSE 5%-0.45% NACL 1,000 ML IV SCH ×2 (01:47→16:51)
[2017-05-05 05:52] LABS: BASOPHIL # 0.1 10^3/ul (0.0-0.1); BASOPHILS % 1.4 % (0.0-2.0); EOSINOPHILS # 0.5 10^3/ul (0.0-0.5); EOSINOPHILS % 5.3 % (0.0-7.0); HEMATOCRIT 37.7 % (37.0-47.0); HEMOGLOBIN 11.8 g/dl (12.0-16.0); LYMPHOCYTES # 2.7 10^3/ul (0.8-2.9); LYMPHOCYTES % 30.9 % (15.0-51.0); MEAN CORPUSCULAR HEMOGLOBIN 28.8 pg (29.0-33.0); MEAN CORPUSCULAR HGB CONC 31.3 g/dl (32.0-37.0); MEAN PLATELET VOLUME 9.9 fl (7.4-10.4); MONOCYTE # 1.4 10^3/ul (0.3-0.9); MONOCYTES % 16.1 % (0.0-11.0); NEUTROPHIL # 4.1 10^3/ul (1.6-7.5); PLATELET COUNT 267 10^3/UL (140-415); RED CELL DISTRIBUTION WIDTH 15.2 % (11.5-14.5); WHITE BLOOD COUNT 8.9 10^3/ul (4.8-10.8)
[2017-05-05 07:03] LABS: ALBUMIN 3.4 g/dl (3.3-4.9); ALBUMIN/GLOBULIN RATIO 1.09; BILIRUBIN,INDIRECT 0.2 mg/dl (0-1.1); BILIRUBIN,TOTAL 0.2 mg/dl (0.2-1.3); CALCIUM 8.8 mg/dl (8.4-10.2); CREATININE 0.72 mg/dl (0.44-1.00); MAGNESIUM 1.8 mg/dl (1.7-2.5); PHOSPHORUS 3.8 mg/dl (2.5-4.9); POTASSIUM 3.8 mmol/L (3.5-5.1); TOTAL PROTEIN 6.5 g/dl (6.1-8.1)
[2017-05-05 07:51] VITALS: BP 120/59; RESP 19
[2017-05-05] MEDS ORDERED: HEPARIN 5,000 UNIT/0.5 ML VIAL SC SCH (09:00)
[2017-05-05] MEDS: CEFTRIAXONE 1 GM/50 ML (PMX) 50 ML IVPB SCH ×2 (09:01→21:19)
--- NOTE | 2017-05-05 09:29 | HP ---
Date/Time of Note Date/Time of Note DATE: 05/05/17 TIME: 09:24 Assessment/Plan VTE Prophylaxis VTE Prophylaxis Intervention: SCD's Lines/Catheters IV Catheter Type (from [facility]): Peripheral IV Urinary Cath still in place: Yes Reason Cath still needed: other (indicate) Assessment/Plan Assessment/Plan ASSESSMENT An 82-year-old female with a history of hypertension, hypothyroidism, dyslipidemia, dementia, recent CVA [facility] and found to have UTI. PLAN IV antibiotic, IV fluid Follow-up culture results Continue home medications after formal speech/swallow is done HPI/ROS Admit Date/Time Admit Date/Time May 04, 2017 at 19:52 Hx of Present Illness This is an 82-year-old female with a history of hypertension, hypothyroidism, dyslipidemia, dementia, CVA who was [facility] from [facility] for eval of chills. Also reported generalized weakness. Patient was recently admitted here for strokelike symptoms and actually CVA was confirmed on MRI. When she presented to the ER today, vitals were stable. Urinalysis was consistent with a UTI. Patient appeared dehydrated as well. PMH/Family/Social Past Surgical History Past Surgical Hx: cholecystectomy Social History Smoking Status: Never smoker Exam/Review of Systems Vital Signs Vitals Vital Signs Date Time Temp Pulse Resp B/P Pulse Ox O2 Delivery O2 Flow Rate FiO2 05/05/17 07:51 97.2 69 19 120/59 98 05/05/17 07:46 Nasal Cannula 2.0 Intake and Output 05/04/17 05/04/17 05/05/17 14:59 22:59 06:59 Intake Total 300 ml Balance 300 ml Exam Head: atraumatic, normocephalic Neck: non-tender, supple Respiratory: diminished breath sounds Cardiovascular: regular rate and rhythm Gastrointestinal: soft Extremities: normal pulses Labs Result Diagram: 05/05/17 0456 05/05/17 0456 Medications Medications Current Medications Dextrose/Sodium Chloride 1,000 ml @ 75 mls/hr [id number] IV Last administered on 05/05/17 01:47; Admin Dose 75 MLS/HR; Start 05/05/17 at 01:30 Ceftriaxone Sodium (Rocephin) 50 ml @ 100 mls/hr Q12 IVPB Last administered on 05/05/17 09:01; Admin Dose 100 MLS/HR; Start 05/05/17 at 09:00 Ondansetron HCl (Zofran Inj) 4 mg Q6H PRN IV NAUSEA AND/OR VOMITING; Start 05/05/17 at 01:30 Heparin Sodium (Porcine) (Heparin (5000 Units/0.5 ml)) 5,000 unit BID SC Last administered on 05/05/17t 09:12; Admin Dose 5,000 UNIT; Start 05/05/17 at 09:00 LUCILLE KRAUS MD May 05, 2017 09:29
[2017-05-05] MEDS ORDERED: clonAZEPAM 0.5 MG TAB PO PRN (09:30)
[2017-05-05] MEDS: RIVAROXABAN 20 MG TABLET PO SCH (18:30)
[2017-05-05 20:00] VITALS: BP 119/61; RESP 19
[2017-05-05] MEDS: ATORVASTATIN 10 MG TAB PO SCH (21:19)
[2017-05-05] MEDS: METOPROLOL 25 MG TAB PO SCH (21:20)
[2017-05-05] MEDS: QUETIAPINE 25 MG TAB PO PRN (21:33)
[2017-05-06] MEDS: DEXTROSE 5%-0.45% NACL 1,000 ML IV SCH ×2 (04:30→18:23)
[2017-05-06 05:53] LABS: BASOPHIL # 0.1 10^3/ul (0.0-0.1); BASOPHILS % 1.2 % (0.0-2.0); EOSINOPHILS # 0.4 10^3/ul (0.0-0.5); EOSINOPHILS % 4.9 % (0.0-7.0); HEMATOCRIT 37.5 % (37.0-47.0); HEMOGLOBIN 11.6 g/dl (12.0-16.0); LYMPHOCYTES # 2.1 10^3/ul (0.8-2.9); LYMPHOCYTES % 29.2 % (15.0-51.0); MEAN CORPUSCULAR HEMOGLOBIN 28.4 pg (29.0-33.0); MEAN CORPUSCULAR HGB CONC 30.9 g/dl (32.0-37.0); MEAN CORPUSCULAR VOLUME 91.9 fl (82.0-101.0); MEAN PLATELET VOLUME 9.8 fl (7.4-10.4); MONOCYTE # 1.2 10^3/ul (0.3-0.9); MONOCYTES % 16.6 % (0.0-11.0); NEUTROPHIL # 3.5 10^3/ul (1.6-7.5); NEUTROPHILS % 47.7 % (39.0-77.0); PLATELET COUNT 247 10^3/UL (140-415); RED BLOOD COUNT 4.08 10^6/ul (4.20-5.40); RED CELL DISTRIBUTION WIDTH 14.9 % (11.5-14.5); WHITE BLOOD COUNT 7.3 10^3/ul (4.8-10.8)
[2017-05-06 06:19] LABS: CALCIUM 8.7 mg/dl (8.4-10.2); CREATININE 0.67 mg/dl (0.44-1.00); POTASSIUM 3.9 mmol/L (3.5-5.1)
[2017-05-06 07:46] VITALS: BP 121/71; RESP 19
[2017-05-06] MEDS: CEFTRIAXONE 1 GM/50 ML (PMX) 50 ML IVPB SCH ×2 (08:52→20:11)
[2017-05-06] MEDS: METOPROLOL 25 MG TAB PO SCH ×2 (08:55→20:18)
--- NOTE | 2017-05-06 16:17 | PN ---
Date/Time of Note Date/Time of Note DATE: 05/06/17 TIME: 16:07 Assessment/Plan VTE Prophylaxis VTE Prophylaxis Intervention: other Lines/Catheters IV C[facility]ter Type (from [facility]): Peripheral IV Urinary Cath still in place: No Assessment/Plan Chief Complaint/Hosp Course 1. Sepsis secondary to UTI Urine culture shows gram-negative butch Continue Rocephin 2. 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 Paroxysmal A. fib Continue Xarelto 4. Hypothyroidism Continue home meds 5. Hypertension Continue metoprolol 6. History of necrotic gallbladder-no acute issues Prophylaxis: Xarelto Problems: Subjective 24 Hr Interval Summary Constitutional: no complaints Exam/Review of Systems Vital Signs Vitals Vital Signs Date Time Temp Pulse Resp B/P Pulse Ox O2 Delivery O2 Flow Rate FiO2 05/06/17 07:46 98.0 71 19 121/71 98 05/05/17 07:46 Nasal Cannula 2.0 Intake and Output 05/05/17 05/05/17 05/06/17 15:00 23:00 07:00 Intake Total 50 ml 1370 ml 1890 ml Output Total 1000 ml 650 ml Balance 50 ml 370 ml 1240 ml Exam Psych: confusion Respiratory: clear to auscultation Cardiovascular: regular rate and rhythm Gastrointestinal: soft, No distended Musculoskeletal: nl extremities to inspection Results Result Diagram: 05/06/17 0453 05/06/17 0453 Results 24 hrs Laboratory Tests Test 05/06/17 04:53 White Blood Count 7.3 Red Blood Count 4.08 L Hemoglobin 11.6 L Hematocrit 37.5 Mean Corpuscular Volume 91.9 Mean Corpuscular Hemoglobin 28.4 L Mean Corpuscular Hemoglobin Concent 30.9 L Red Cell Distribution Width 14.9 H Platelet Count 247 Mean Platelet Volume 9.8 Neutrophils % 47.7 Lymphocytes % 29.2 Monocytes % 16.6 H Eosinophils % 4.9 Basophils % 1.2 Nucleated Red Blood Cells % 0.0 Neutrophils # 3.5 Lymphocytes # 2.1 Monocytes # 1.2 H Eosinophils # 0.4 Basophils # 0.1 Nucleated Red Blood Cells # 0.0 Sodium Level 138 Potassium Level 3.9 Chloride Level 100 Carbon Dioxide Level 30 Anion Gap 12 Blood Urea Nitrogen 13 Creatinine 0.67 Glucose Level 109 Calcium Level 8.7 Medications Medications Current Medications Dextrose/Sodium Chloride 1,000 ml @ 75 mls/hr [id number] IV Last administered on 05/06/17 04:30; Admin Dose 75 MLS/HR; Start 05/05/17 at 01:30 Ceftriaxone Sodium (Rocephin) 50 ml @ 100 mls/hr Q12 IVPB Last administered on 05/06/17 08:52; Admin Dose 100 MLS/HR; Start 05/05/17 at 09:00 Ondansetron HCl (Zofran Inj) 4 mg Q6H PRN IV NAUSEA AND/OR VOMITING; Start 05/05/17 at 01:30 Atorvastatin Calcium (Lipitor) 10 mg HS PO Last administered on 05/05/17 21:19 ; Admin Dose 10 MG; Start 05/05/17 at 21:00 Metoprolol Tartrate (Lopressor) 12.5 mg BID PO Last administered on 05/06/17 08:55; Admin Dose 12.5 MG; Start 05/05/17 at 21:00 Tramadol HCl (Ultram) 50 mg BID PRN PO PAIN; Start 05/05/17 at 09:30 Quetiapine Fumarate (Seroquel) 12.5 mg Q6H PRN PO AGITATION Last administered on 05/05/17 21:33; Admin Dose 12.5 MG; Start 05/05/17 at 20:30 LETY DOMINGUEZ May 06, 2017 16:17
[2017-05-06] MEDS: RIVAROXABAN 20 MG TABLET PO SCH (18:19)
[2017-05-06 19:25] VITALS: BP 127/75; RESP 20
[2017-05-06] MEDS: QUETIAPINE 25 MG TAB PO PRN (20:18)
[2017-05-06] MEDS: ATORVASTATIN 10 MG TAB PO SCH (20:18)
[2017-05-07 02:05] VITALS: BP 127/75; RESP 18
[2017-05-07] MEDS: traMADol 50 MG TAB PO PRN ×2 (02:06→14:07)
[2017-05-07 05:59] LABS: BASOPHIL # 0.1 10^3/ul (0.0-0.1); EOSINOPHILS # 0.5 10^3/ul (0.0-0.5); EOSINOPHILS % 5.3 % (0.0-7.0); HEMATOCRIT 36.5 % (37.0-47.0); HEMOGLOBIN 11.4 g/dl (12.0-16.0); LYMPHOCYTES # 2.2 10^3/ul (0.8-2.9); MEAN CORPUSCULAR HEMOGLOBIN 28.7 pg (29.0-33.0); MEAN CORPUSCULAR HGB CONC 31.2 g/dl (32.0-37.0); MEAN CORPUSCULAR VOLUME 91.9 fl (82.0-101.0); MEAN PLATELET VOLUME 9.7 fl (7.4-10.4); MONOCYTE # 1.5 10^3/ul (0.3-0.9); MONOCYTES % 16.3 % (0.0-11.0); NEUTROPHIL # 4.9 10^3/ul (1.6-7.5); PLATELET COUNT 240 10^3/UL (140-415); RED BLOOD COUNT 3.97 10^6/ul (4.20-5.40); RED CELL DISTRIBUTION WIDTH 14.9 % (11.5-14.5); WHITE BLOOD COUNT 9.1 10^3/ul (4.8-10.8)
[2017-05-07 06:34] LABS: CREATININE 0.59 mg/dl (0.44-1.00)
[2017-05-07] MEDS: DEXTROSE 5%-0.45% NACL 1,000 ML IV SCH ×3 (06:50→23:27)
[2017-05-07 07:55] VITALS: BP 124/68; RESP 18
[2017-05-07] MEDS: CEFTRIAXONE 1 GM/50 ML (PMX) 50 ML IVPB SCH ×2 (08:19→22:16)
[2017-05-07] MEDS: METOPROLOL 25 MG TAB PO SCH ×2 (08:24→22:17)
--- NOTE | 2017-05-07 12:16 | PN ---
Date/Time of Note Date/Time of Note DATE: 05/07/17 TIME: 12:15 Assessment/Plan VTE Prophylaxis VTE Prophylaxis Intervention: other Lines/Catheters IV [facility] ([facility]): Peripheral IV Urinary Cath still in place: No Assessment/Plan Chief Complaint/Hosp Course 1. Sepsis secondary to UTI Urine culture shows E. coli and Klebsiella Continue Rocephin 2. 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 Paroxysmal A. fib Continue Xarelto 4. Hypothyroidism Continue home meds 5. Hypertension Continue metoprolol 6. History of necrotic gallbladder-no acute issues Prophylaxis: Xarelto Discharge planning: Anticipate [facility] to [facility] 1-[facility] days, neurology consultation is pending Problems: Subjective 24 Hr Interval Summary Constitutional: no complaints Exam/Review of Systems Vital Signs Vitals Vital Signs Date Time Temp Pulse Resp B/P Pulse Ox O2 Delivery O2 Flow Rate FiO2 05/07/17 07:55 97.8 72 18 124/68 92 05/05/17 07:46 Nasal Cannula 2.0 Intake and Output 05/06/17 05/06/17 05/07/17 14:59 22:59 06:59 Intake Total 50 ml 2730 ml 1200 ml Output Total 600 ml 650 ml Balance 50 ml 2130 ml 550 ml Exam Constitutional: alert Psych: confusion Respiratory: clear to auscultation Cardiovascular: regular rate and rhythm Gastrointestinal: soft, No distended Musculoskeletal: nl extremities to inspection Results Result Diagram: 05/07/17 0449 05/07/17 0449 Results 24 hrs Laboratory Tests Test 05/07/17 04:49 White Blood Count 9.1 # Red Blood Count 3.97 L Hemoglobin 11.4 L Hematocrit 36.5 L Mean Corpuscular Volume 91.9 Mean Corpuscular Hemoglobin 28.7 L Mean Corpuscular Hemoglobin Concent 31.2 L Red Cell Distribution Width 14.9 H Platelet Count 240 Mean Platelet Volume 9.7 Neutrophils % 53.0 Lymphocytes % 24.0 Monocytes % 16.3 H Eosinophils % 5.3 Basophils % 1.0 Nucleated Red Blood Cells % 0.0 Neutrophils # 4.9 Lymphocytes # 2.2 Monocytes # 1.5 H Eosinophils # 0.5 Basophils # 0.1 Nucleated Red Blood Cells # 0.0 Sodium Level 137 Potassium Level 4.0 Chloride Level 101 Carbon Dioxide Level 29 Anion Gap 11 Blood Urea Nitrogen 12 Creatinine 0.59 Glucose Level 110 Calcium Level 9.0 Medications Medications Current Medications Dextrose/Sodium Chloride 1,000 ml @ 75 mls/hr [id number] IV Last administered on 05/06/17 18:23; Admin Dose 75 MLS/HR; Start 05/05/17 at 01:30 Ceftriaxone Sodium (Rocephin) 50 ml @ 100 mls/hr Q12 IVPB Last administered on 05/07/17 08:19; Admin Dose 100 MLS/HR; Start 05/05/17 at 09:00 Ondansetron HCl (Zofran Inj) 4 mg Q6H PRN IV NAUSEA AND/OR VOMITING; Start 05/05/17 at 01:30 Atorvastatin Calcium (Lipitor) 10 mg HS PO Last administered on 05/06/17 20: 18; Admin Dose 10 MG; Start 05/05/17 at 21:00 Metoprolol Tartrate (Lopressor) 12.5 mg BID PO Last administered on 05/07/17 08:24; Admin Dose 12.5 MG; Start 05/05/17 at 21:00 Tramadol HCl (Ultram) 50 mg BID PRN PO PAIN Last administered on 05/07/17 02: 06; Admin Dose 50 MG; Start 05/05/17 at 09:30 Quetiapine Fumarate (Seroquel) 12.5 mg Q6H PRN PO AGITATION Last administered on 05/06/17 20:18; Admin Dose 12.5 MG; Start 05/05/17 at 20:30 LETY DOMINGUEZ May 07, 2017 12:16
[2017-05-07 14:00] VITALS: BP 131/71; RESP 18
--- NOTE | 2017-05-07 17:48 | CONS ---
DATE OF ADMISSION: 05/06/2017 DATE OF CONSULTATION: TYPE OF CONSULTATION: Neurology Thank you for your kind referral for evaluation of encephalopathy, possible dementia. HISTORY OF PRESENT ILLNESS: The patient is an 82-year-old lady with history of hypertension, hypothyroidism, dyslipidemia, possible dementia, [facility] from [facility] with chills and fevers, diagnosed with urinary tract infection. The patient also has history of atrial fibrillation, as well as reported history of seizures. Also, request was placed for evaluation of possible dementia. The patient was here in the beginning of March, at that time also encephalopathic with some complaints of facial numbness. MRI of the brain at that time was done and showed left parietal and occipital gyral edema suggesting recent infarction without restriction of diffusion. History of seizures goes back to the previous admission in 02/10. MEDICATIONS: Her medications currently: 1. Atorvastatin. 2. Lopressor. 3. Quetiapine 12.5 as needed. 4. She is on Xarelto 5. Ultram. During my previous evaluation, she was also confused and disoriented. LABORATORY: Currently, labs show hemoglobin 11, hematocrit 36, normal WBCs and platelets, normal BUN, creatinine. Normal comprehensive metabolic panel. Urinalysis: 3+ leukocyte esterase a few days ago, WBC count more than 182. ALLERGIES: NONE. SOCIAL HISTORY: No alcohol, tobacco, drug use. FAMILY HISTORY: Noncontributory. PHYSICAL EXAMINATION: VITAL SIGNS: Today, 98.4, pulse 72, respiration 18, 131/71 blood pressure. GENERAL: She is not in acute distress, lying in bed. HEENT: Normocephalic, atraumatic head. NECK: No carotid bruits. No thyromegaly. LUNGS: Clear to auscultation bilaterally. CARDIAC: Normal cardiac rhythm and sounds. ABDOMEN: Soft, nontender. EXTREMITIES: No cyanosis, clubbing or edema. NEUROLOGIC: She is awake, alert, and oriented x1 only. On questioning, she was able to answer she is in the hospital, but she didn't know which one. Overall, she is cooperative with examination and seems to be very forgetful. She couldn't remember dates or tell me her date of as well. She has normal naming and repetition. Present response to visual threat bilaterally. Pupils reactive from 3 to 2 mm bilaterally. Extraocular movements intact without nystagmus. Symmetrical face. Preserved facial strength and sensation. Tongue is in midline. Palate elevates symmetrically. Motor strength examination seems to be preserved in all extremities. Normal bulk, tone, and strength. Sensory examination intact to light touch and pain. Deep tendon reflexes 2+ upper extremities and knees, absent ankle jerks. Downgoing toes bilaterally. Coordination preserved on crieli-oh-qimoxj testing, somewhat slow , but no dysmetria or tremor. Gait was not assessed. IMPRESSION: Encephalopathy, possible baseline dementia. The patient is currently admitted with urinary tract infection and may contribute to worsening of baseline mental status. She had MRI of the brain month and a half ago, at that time showed possible subacute stroke on the left. She has history of at least 1 seizure that was preceding her admission in 01/2017. She was taking Keppra 500 twice daily, but at some point, it was not continued. At least during last hospitalization in the beginning of March, she was on Keppra during last hospitalization. There is no report on seizures. I do not know if she had any seizure in the facility she came from. If she did, it's probably worth restarting her anti-seizure coverage. It's best to get evaluation of her possible dementia when she does not have any acute episodes of encephalopathy, when she does not have any ongoing urinary tract infections. Could be done on an outpatient basis and if needed, she could be started on some medication such as Namenda. Usually we use XR and could be increased from 7 mg every week by 7 mg daily with the goal dose of 28 mg daily. Again, I don't think it should be done right now. Continue current treatment. Thank you very much for this interesting consultation. Dictated By: SUNIL CUADRA/SHAUN Conf#: [id number] DID#: [id number] CC: LUCILLE KRAUS MD;*EndCC* MTDD
[2017-05-07] MEDS: RIVAROXABAN 20 MG TABLET PO SCH (17:53)
[2017-05-07 19:30] VITALS: BP 163/77; RESP 18
[2017-05-07] MEDS: ATORVASTATIN 10 MG TAB PO SCH (22:17)
[2017-05-08] MEDS: QUETIAPINE 25 MG TAB PO PRN ×3 (00:16→17:58)
[2017-05-08 01:27] VITALS: BP 127/75; RESP 18
[2017-05-08 07:41] VITALS: BP 128/69; RESP 18
[2017-05-08] MEDS: CEFTRIAXONE 1 GM/50 ML (PMX) 50 ML IVPB SCH ×2 (09:24→20:58)
[2017-05-08] MEDS: METOPROLOL 25 MG TAB PO SCH ×2 (09:26→20:59)
[2017-05-08] MEDS: DEXTROSE 5%-0.45% NACL 1,000 ML IV SCH ×2 (11:35→22:50)
[2017-05-08] MEDS: RIVAROXABAN 20 MG TABLET PO SCH (17:58)
--- NOTE | 2017-05-08 18:04 | DS ---
Date/Time of Note Date/Time of Note DATE: 05/08/17 TIME: 17:59 Discharge Summary Admission/Discharge Info Admit Date/Time May 06, 2017 at 22:12 Discharge Date/Time May 08, 2017 Discharge Diagnosis 1. Sepsis secondary to UTI-resolved Urine culture shows E. coli and Klebsiella Status post Rocephin 2. 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 Paroxysmal A. fib Continue Xarelto 4. Hypothyroidism Continue home meds 5. Hypertension Continue metoprolol 6. History of necrotic gallbladder-no acute issues Patient Condition: Good Hx of Present Illness Hospital Course Patient is an 82-year-old female with a history of hypertension, hypothyroidism , dyslipidemia, dementia, CVA who was [facility] from [facility] for eval of chills and weakness. Patient was diagnosed with a UTI and urine culture showed E. coli and Klebsiella pneumoniae. Patient was treated with Rocephin the patient had no further evidence of sepsis on the day of discharge. Patient was evaluated by neurology upon patient's son-in-law's request. Patient had no evidence for acute CVA. Recommendations was for outpatient workup for dementia once the acute component of her encephalopathy has resolved , patient could also be started on medications for dementia as an outpatient. The day of discharge patient's vitals, labs and physical exam are stable and she had no further acute complaints. Home Meds Active Scripts Rivaroxaban* (Xarelto*) 20 Mg Tablet, 20 MG PO WITH DINNER for 30 Days, #30 TAB Prov:MARICHUY DUBON MD 03/30/17 Atorvastatin (Atorvastatin) 10 Mg Tablet, 10 MG PO HS for 30 Days, #30 TAB Prov:MARICHUY DUBON MD 03/30/17 Reported Medications Metoprolol Tartrate* (Lopressor*) 25 Mg Tab, 12.5 MG PO BID, #60 TAB HOLD IF SBP BELOW 110 HOLD IF AP BELOW 60 02/02/17 Clonazepam* (Clonazepam*) 0.5 Mg Tablet, 0.5 MG PO TID Y for ANXIETY, TAB 02/02/17 Tramadol Hcl* (Ultram*) 50 Mg Tablet, 50 MG PO BID Y for PAIN, TAB 02/02/17 Follow-up Plan Follow-up with physicians at retirement facility Primary Care Provider Not On Staff Doctor Time spent on discharge: > 30 minutes LETY DOMINGUEZ May 08, 2017 18:04
[2017-05-08 19:04] VITALS: BP 120/71; RESP 16
[2017-05-08] MEDS: ATORVASTATIN 10 MG TAB PO SCH (20:58)
[2017-05-09] MEDS: QUETIAPINE 25 MG TAB PO PRN ×2 (00:20→18:49)
[2017-05-09] MEDS ORDERED: HALOPERIDOL 5 MG INJ IM ONE (02:00)
[2017-05-09 02:21] VITALS: BP 119/57; RESP 16
[2017-05-09 08:29] VITALS: BP 123/73; RESP 18
[2017-05-09] MEDS: CEFTRIAXONE 1 GM/50 ML (PMX) 50 ML IVPB SCH ×2 (09:24→21:35)
[2017-05-09] MEDS: METOPROLOL 25 MG TAB PO SCH ×2 (09:24→21:36)
[2017-05-09] MEDS: DEXTROSE 5%-0.45% NACL 1,000 ML IV SCH (09:26)
[2017-05-09] MEDS: BISACODYL (EC) 5 MG TAB PO PRN (12:30)
[2017-05-09] MEDS: traMADol 50 MG TAB PO PRN (12:31)
--- NOTE | 2017-05-09 15:22 | PN ---
Date/Time of Note Date/Time of Note DATE: 05/09/17 TIME: 15:21 Assessment/Plan VTE Prophylaxis VTE Prophylaxis Intervention: other Lines/Catheters IV Catheter Type (from Nrsg): Peripheral IV Urinary Cath still in place: No Assessment/Plan Chief Complaint/Hosp Course 82 yo with paroxsymal A FIb, cogntivie impairment presenting with UTI, now resolved Pending placement in SNF Problems: Subjective 24 Hr Interval Summary Free Text/Dictation Clinliically looks very well, interactive alert Awaiting placement Exam/Review of Systems Vital Signs Vitals Vital Signs Date Time Temp Pulse Resp B/P Pulse Ox O2 Delivery O2 Flow Rate FiO2 05/09/17 08:29 97.7 78 18 123/73 91 05/05/17 07:46 Nasal Cannula 2.0 Intake and Output 05/08/17 05/08/17 05/09/17 14:59 22:59 06:59 Intake Total 670 ml 800 ml 1250 ml Output Total 1050 ml Balance 670 ml 800 ml 200 ml Results Result Diagram: 05/07/17 0449 05/07/17 0449 Medications Medications Current Medications Dextrose/Sodium Chloride 1,000 ml @ 75 mls/hr [id number] IV Last administered on 05/09/17 09:26; Admin Dose 75 MLS/HR; Start 05/05/17 at 01:30 Ceftriaxone Sodium (Rocephin) 50 ml @ 100 mls/hr Q12 IVPB Last administered on 05/09/17 09:24; Admin Dose 100 MLS/HR; Start 05/05/17 at 09:00 Ondansetron HCl (Zofran Inj) 4 mg Q6H PRN IV NAUSEA AND/OR VOMITING; Start 05/05/17 at 01:30 Atorvastatin Calcium (Lipitor) 10 mg HS PO Last administered on 05/08/17 20: 58; Admin Dose 10 MG; Start 05/05/17 at 21:00 Metoprolol Tartrate (Lopressor) 12.5 mg BID PO Last administered on 05/09/17 09:24; Admin Dose 12.5 MG; Start 05/05/17 at 21:00 Tramadol HCl (Ultram) 50 mg BID PRN PO PAIN Last administered on 05/09/17 12: 31; Admin Dose 50 MG; Start 05/05/17 at 09:30 Quetiapine Fumarate (Seroquel) 12.5 mg Q6H PRN PO AGITATION Last administered on 05/09/17 00:20; Admin Dose 12.5 MG; Start 05/05/17 at 20:30 Bisacodyl (Dulcolax) 10 mg DAILY PRN PO CONSTIPATION Last administered on 05/09 12:30; Admin Dose 10 MG; Start 05/09/17 at 11:30 MARICHUY DUBON MD May 09, 2017 15:21
[2017-05-09 15:50] VITALS: BP 122/59; RESP 16
[2017-05-09] MEDS: RIVAROXABAN 20 MG TABLET PO SCH (18:49)
[2017-05-09 20:15] VITALS: BP 131/79; RESP 19
[2017-05-09] MEDS: ATORVASTATIN 10 MG TAB PO SCH (21:35)
[2017-05-10] MEDS: QUETIAPINE 25 MG TAB PO PRN ×3 (01:11→16:36)
[2017-05-10 02:21] VITALS: BP 122/72; RESP 18
[2017-05-10] MEDS ORDERED: LORAZEPAM 2 MG INJ IV ONE (03:30)
[2017-05-10 08:09] VITALS: BP 120/70; RESP 18
[2017-05-10] MEDS: CEFTRIAXONE 1 GM/50 ML (PMX) 50 ML IVPB SCH (09:27)
[2017-05-10] MEDS: METOPROLOL 25 MG TAB PO SCH ×2 (09:27→21:01)
--- NOTE | 2017-05-10 15:33 | PN ---
Date/Time of Note Date/Time of Note DATE: 05/10/17 TIME: 15:31 Assessment/Plan VTE Prophylaxis VTE Prophylaxis Intervention: other Lines/Catheters IV Catheter Type (from Nrs): Saline Lock Urinary Cath still in place: No Assessment/Plan Chief Complaint/Hosp Course 82 yo with paroxsymal A FIb, cognitivie impairment presenting with UTI, now resolved 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/o CVA: - Continue Xarelto Discharge to SNF when accepted Problems: Subjective 24 Hr Interval Summary Free Text/Dictation No change to clinical status Will dc abx after completing course and stable Awaiting transfer to SNF Exam/Review of Systems Vital Signs Vitals Vital Signs Date Time Temp Pulse Resp B/P Pulse Ox O2 Delivery O2 Flow Rate FiO2 05/10/17 08:09 97.5 70 18 120/70 90 Intake and Output 05/09/17 05/09/17 05/10/17 14:59 22:59 06:59 Intake Total 50 ml 950 ml 750 ml Output Total 700 ml Balance 50 ml 950 ml 50 ml Results Result Diagram: 05/07/17 0449 05/07/17 0449 Medications Medications Current Medications Ceftriaxone Sodium (Rocephin) 50 ml @ 100 mls/hr Q12 IVPB Last administered on 05/10/17 09:27; Admin Dose 100 MLS/HR; Start 05/05/17 at 09:00 Ondansetron HCl (Zofran Inj) 4 mg Q6H PRN IV NAUSEA AND/OR VOMITING; Start 05/05/17 at 01:30 Atorvastatin Calcium (Lipitor) 10 mg HS PO Last administered on 05/09/17 21: 35; Admin Dose 10 MG; Start 05/05/17 at 21:00 Metoprolol Tartrate (Lopressor) 12.5 mg BID PO Last administered on 05/10/17 09:27; Admin Dose 12.5 MG; Start 05/05/17 at 21:00 Tramadol HCl (Ultram) 50 mg BID PRN PO PAIN Last administered on 05/09/17 12: 31; Admin Dose 50 MG; Start 05/05/17 at 09:30 Quetiapine Fumarate (Seroquel) 12.5 mg Q6H PRN PO AGITATION Last administered on 05/10/17 09:28; Admin Dose 12.5 MG; Start 05/05/17 at 20:30 Bisacodyl (Dulcolax) 10 mg DAILY PRN PO CONSTIPATION Last administered on 05/09 12:30; Admin Dose 10 MG; Start 05/09/17 at 11:30 MARICHUY DUBON MD May 10, 2017 15:33
[2017-05-10] MEDS: RIVAROXABAN 20 MG TABLET PO SCH (16:36)
[2017-05-10] MEDS: BISACODYL (EC) 5 MG TAB PO PRN (16:38)
[2017-05-10] MEDS ORDERED: VITAMIN A & D 5 GM OINT PACKET TOP ONE (16:40)
[2017-05-10 20:10] VITALS: BP 138/76; RESP 18
[2017-05-10] MEDS: POLYETHYLENE GLYCOL 17 GM PACKET PO SCH (21:00)
[2017-05-10] MEDS: DOCUSATE SODIUM 100 MG CAP PO SCH (21:01)
[2017-05-10] MEDS: ATORVASTATIN 10 MG TAB PO SCH (21:01)
[2017-05-10] MEDS: LORAZEPAM 2 MG INJ IV PRN (22:38)
[2017-05-11 02:23] VITALS: BP 120/67; RESP 20
[2017-05-11 07:28] VITALS: BP 117/64; RESP 18
[2017-05-11] MEDS: POLYETHYLENE GLYCOL 17 GM PACKET PO SCH (09:30)
[2017-05-11] MEDS: METOPROLOL 25 MG TAB PO SCH ×2 (09:30→20:36)
[2017-05-11] MEDS: DOCUSATE SODIUM 100 MG CAP PO SCH ×2 (09:30→20:34)
[2017-05-11] MEDS: LORAZEPAM 2 MG INJ IV PRN (12:12)
--- NOTE | 2017-05-11 14:20 | PN ---
Date/Time of Note Date/Time of Note DATE: 05/11/17 TIME: 14:19 Assessment/Plan VTE Prophylaxis VTE Prophylaxis Intervention: other Lines/Catheters IV Catheter Type (from Nrs): Saline Lock Urinary Cath still in place: No Assessment/Plan Chief Complaint/Hosp Course 82 yo with paroxsymal A FIb, cognitivie impairment presenting with UTI, now resolved. 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/o CVA: - Continue Xarelto Dementia: - Stable Discharge to SNF when accepted Problems: Subjective 24 Hr Interval Summary Free Text/Dictation No change to clinical status Awaiting placement Exam/Review of Systems Vital Signs Vitals Vital Signs Date Time Temp Pulse Resp B/P Pulse Ox O2 Delivery O2 Flow Rate FiO2 05/11/17 07:28 98.7 68 18 117/64 97 Intake and Output 05/10/17 05/10/17 05/11/17 15:00 23:00 07:00 Intake Total 50 ml 1040 ml 950 ml Output Total 900 ml Balance 50 ml 1040 ml 50 ml Exam Constitutional: alert, oriented, well developed Psych: nl mood/affect, no complaints Head: atraumatic, normocephalic Eyes: EOMI, PERRL, nl conjunctiva, nl lids, nl sclera ENMT: nl external ears & nose, nl lips & teeth, nl nasal mucosa & septum Neck: non-tender, supple Respiratory: clear to auscultation, normal air movement Cardiovascular: nl pulses, regular rate and rhythm Gastrointestinal: nl liver, spleen, non-tender, soft Musculoskeletal: nl extremities to inspection, nl gait and stance Extremities: normal pulses Neurological: TELEPHONE LINEWORKER II-XII intact, nl mental status, nl speech, nl strength Skin: nl turgor, No rash or lesions Lymph: nl lymph nodes Results Result Diagram: 05/07/1744805/07/17448 Medications Medications Current Medications Ondansetron HCl (Zofran Inj) 4 mg Q6H PRN IV NAUSEA AND/OR VOMITING; Start 05/05/17 at 01:30 Atorvastatin Calcium (Lipitor) 10 mg HS PO Last administered on 05/10/17t 21: 01; Admin Dose 10 MG; Start 05/05/17 at 21:00 Metoprolol Tartrate (Lopressor) 12.5 mg BID PO Last administered on 05/11/17 09:30; Admin Dose 12.5 MG; Start 05/05/17 at 21:00 Tramadol HCl (Ultram) 50 mg BID PRN PO PAIN Last administered on 05/09/17 12: 31; Admin Dose 50 MG; Start 05/05/17 at 09:30 Quetiapine Fumarate (Seroquel) 12.5 mg Q6H PRN PO AGITATION Last administered on 05/10/17 16:36; Admin Dose 12.5 MG; Start 05/05/17 at 20:30 Bisacodyl (Dulcolax) 10 mg DAILY PRN PO CONSTIPATION Last administered on 05/10 16:38; Admin Dose 10 MG; Start 05/09/17 at 11:30 Docusate Sodium (Colace) 100 mg BID PO Last administered on 05/11/17 09:30; Admin Dose 100 MG; Start 05/10/17 at 21:00 Polyethylene Glycol (Miralax) 17 gm DAILY PO Last administered on 05/11/17 09 :30; Admin Dose 17 GM; Start 05/10/17 at 21:00 Lorazepam (Ativan) 0.5 mg Q6H PRN IV AGITATION Last administered on 05/11/17 12:12; Admin Dose 0.5 MG; Start 05/10/17 at 22:30 MARICHUY DUBON MD May 11, 2017 14:20
[2017-05-11 14:30] VITALS: BP 130/71; RESP 18
[2017-05-11] MEDS: RIVAROXABAN 20 MG TABLET PO SCH (18:45)
[2017-05-11 20:08] VITALS: BP 144/63; RESP 20
[2017-05-11] MEDS: ATORVASTATIN 10 MG TAB PO SCH (20:34)
[2017-05-11] MEDS: traMADol 50 MG TAB PO PRN (20:37)
[2017-05-12 02:23] VITALS: BP 142/60; RESP 18
[2017-05-12] MEDS: QUETIAPINE 25 MG TAB PO PRN ×2 (02:48→20:07)
[2017-05-12] MEDS: POLYETHYLENE GLYCOL 17 GM PACKET PO SCH (09:00)
[2017-05-12] MEDS: DOCUSATE SODIUM 100 MG CAP PO SCH ×2 (09:00→20:06)
[2017-05-12] MEDS: METOPROLOL 25 MG TAB PO SCH ×2 (09:46→20:07)
--- NOTE | 2017-05-12 14:21 | PN ---
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/o CVA: - Continue Xarelto Dementia: - Stable Discharge to SNF when accepted Problems: Subjective 24 Hr Interval Summary Free Text/Dictation No change to clinical status Awiating placement Exam/Review of Systems Vital Signs Vitals Vital Signs Date Time Temp Pulse Resp B/P Pulse Ox O2 Delivery O2 Flow Rate FiO2 05/12/17 02:23 98.3 73 18 142/60 97 Intake and Output 05/11/17 05/11/17 05/12/17 14:59 22:59 06:59 Intake Total 680 ml 420 ml Balance 680 ml 420 ml Results Results 24 hrs Laboratory Tests Test 05/12/17 03:00 05/12/17 07:56 Troponin I 0.022 0.025 Medications Medications Current Medications Ondansetron HCl (Zofran Inj) 4 mg Q6H PRN IV NAUSEA AND/OR VOMITING; Start 05/05/17 at 01:30 Atorvastatin Calcium (Lipitor) 10 mg HS PO Last administered on 05/11/17 20: 34; Admin Dose 10 MG; Start 05/05/17 at 21:00 Metoprolol Tartrate (Lopressor) 12.5 mg BID PO Last administered on 05/12/17 09:46; Admin Dose 12.5 MG; Start 05/05/17 at 21:00 Tramadol HCl (Ultram) 50 mg BID PRN PO PAIN Last administered on 05/11/17 20: 37; Admin Dose 50 MG; Start 05/05/17 at 09:30 Quetiapine Fumarate (Seroquel) 12.5 mg Q6H PRN PO AGITATION Last administered on 05/12/17 02:48; Admin Dose 12.5 MG; Start 05/05/17 at 20:30 Bisacodyl (Dulcolax) 10 mg DAILY PRN PO CONSTIPATION Last administered on 05/10 16:38; Admin Dose 10 MG; Start 05/09/17 at 11:30 Docusate Sodium (Colace) 100 mg BID PO Last administered on 05/11/17 20:34; Admin Dose 100 MG; Start 05/10/17 at 21:00 Polyethylene Glycol (Miralax) 17 gm DAILY PO Last administered on 05/11/17 09 :30; Admin Dose 17 GM; Start 05/10/17 at 21:00 Lorazepam (Ativan) 0.5 mg Q6H PRN IV AGITATION Last administered on 05/11/17 12:12; Admin Dose 0.5 MG; Start 05/10/17 at 22:30 MARICHUY DUBON MD May 12, 2017 14:21
[2017-05-12] MEDS: LORAZEPAM 2 MG INJ IV PRN (14:45)
[2017-05-12] MEDS: RIVAROXABAN 20 MG TABLET PO SCH (17:56)
[2017-05-12 19:30] VITALS: BP 127/75; RESP 18
[2017-05-12] MEDS: ATORVASTATIN 10 MG TAB PO SCH (20:06)
--- NOTE | 2017-05-13 13:22 | RADRPT ---
Vent Rate: 69 bpm RR Interval: 0 msec [place] Interval: 168 msec QRS Duration: 80 msec QT Interval: 424 msec QTC Interval: 454 msec P-R-T Boaz: 58 - -1 - 23 degrees Normal sinus rhythm Normal ECG Electronically Signed By: Tl Burgess [id number]
== END 2017-05-12 20:40 | DRG 871 ==
LOC: E/R 13:20 → MS1 19:52 → OBSVTOIN 05-06 22:12
PROVIDERS: ADMIT Internal Medicine; ATTEND Internal Medicine
DX: A41.9 Sepsis, unspecified organism (principal); G93.40 Encephalopathy, unspecified; I48.0 Paroxysmal atrial fibrillation; E86.0 Dehydration; G30.9 Alzheimer's disease, unspecified; N39.0 Urinary tract infection, site not specified; E03.9 Hypothyroidism, unspecified; I10 Essential (primary) hypertension; E78.5 Hyperlipidemia, unspecified; Z86.73 Personal history of transient ischemic attack (TIA), and cerebral infarction without residual deficits; F01.50 Vascular dementia, unspecified severity, without behavioral disturbance, psychotic disturbance, mood disturbance, and anxiety; F02.80 Dementia in other diseases classified elsewhere, unspecified severity, without behavioral disturbance, psychotic disturbance, mood disturbance, and anxiety; B96.1 Klebsiella pneumoniae [K. pneumoniae] as the cause of diseases classified elsewhere; B96.20 Unspecified Escherichia coli [E. coli] as the cause of diseases classified elsewhere
CPT/HCPCS: 71010; 80048; 80053; 81001; 83735; 84100; 84443; 84484; 85025; 87081; 87086; 92610; 93005; 96374; 96375; 97163; G0378; J0696; J1630; J1644; J2060; J7042